=== PATIENT | female | born 1945 | race Caucasian/White ===

== ENCOUNTER → 2018-01-03 08:30 | Outpatient (CLI) | payer MEDICARE, SELFPAY ==
[2018-01-03 10:36] LABS: Microalbumi Creatinin Ratio Ur 22.8 ug/mg CR (<30); Microalbumin Urine Random 3.4 mg/dL (0-1.6)
== END ==
PROVIDERS: PCP Family Medicine; Visit Provider Family Medicine
DX: E78.2 Mixed hyperlipidemia (principal); I10 Essential (primary) hypertension; E03.9 Hypothyroidism, unspecified; E11.9 Type 2 diabetes mellitus without complications
CPT/HCPCS: 82043; 82570

== ENCOUNTER → 2018-01-09 08:15 | Outpatient (CLI) | payer MEDICARE, SELFPAY ==
[2018-01-09 10:02] LABS: Hemoglobin A1C% w Est Avg Glu 5.8 % (4.0-6.0)
== END ==
PROVIDERS: PCP Family Medicine; Visit Provider Family Medicine
DX: E11.9 Type 2 diabetes mellitus without complications (principal)
CPT/HCPCS: 36415; 83036

== ENCOUNTER → 2018-04-11 07:09 | Outpatient (CLI) | payer MEDICARE, SELFPAY ==
[2018-04-11 08:24] LABS: Hemoglobin A1C% w Est Avg Glu 5.9 % (4.0-6.0)
== END ==
PROVIDERS: PCP Family Medicine; Visit Provider Family Medicine
DX: E11.9 Type 2 diabetes mellitus without complications (principal)
CPT/HCPCS: 36415; 83036

== ENCOUNTER → 2018-07-16 09:19 | Outpatient (CLI) | payer MEDICARE, SELFPAY ==
[2018-07-16 10:00] LABS: Hemoglobin A1C% w Est Avg Glu 6.2 % (4.0-6.0)
[2018-07-16 10:38] LABS: Blood Urea Nitrogen 16 mg/dL (7-17); Calcium 9.1 mg/dL (8.4-10.2); Carbon Dioxide 29 mmol/L (22-32); Chloride 101 mmol/L (98-107); Estimated Glomerular Filt Rate > 60.0 mL/min (>60); Glucose 124 mg/dL (80-110); HEMOLYSIS < 15 (0-50); Potassium 4.4 mmol/L (3.4-5.1); Sodium 141 mmol/L (137-145)
== END ==
PROVIDERS: PCP Family Medicine; Visit Provider Family Medicine
DX: E11.9 Type 2 diabetes mellitus without complications (principal); I10 Essential (primary) hypertension
CPT/HCPCS: 80048; 83036

== ENCOUNTER → 2018-11-10 08:58 | Outpatient (CLI) | payer MEDICARE, SELFPAY ==
[2018-11-10 09:41] LABS: Add Manual Diff / Slide Review NO; Basophils Absolute Auto 0 /uL (0-100); Basophils Percent Auto 0.4 % (0-2); Eosinophils Absolute Auto 100 /uL (0-450); Eosinophils Percent Auto 2.4 % (2-4); Hematocrit 38.2 % (36-46); Lymphocytes Absolute Auto 2500 /uL (1100-4500); Lymphocytes Percent Auto 50.6 % (25-40); Mean Corpuscular HGB Conc 33.9 % (30-36); Mean Corpuscular Hemoglobin 29.4 PG (26-34); Mean Corpuscular Volume 86.5 fL (80-100); Monocytes Absolute Auto 400 /uL (0-900); Monocytes Percent Auto 8.9 % (3-14); Neutrophils Absolute Auto 1800 /uL (1500-7000); Neutrophils Percent Auto 37.7 % (50-75); Platelet Count 229 X10^3/uL (150-400); Red Blood Cell Count 4.42 X10^6/uL (4.0-5.2); Red Cell Distribution Width 13.8 % (11.6-14.8); White Blood Cell Count 4.8 X10^3/uL (4.5-11.0)
[2018-11-10 09:44] LABS: Alanine Aminotransferase 35 IU/L (9-52); Albumin 4.4 g/dL (3.5-5.0); Albumin Globulin Ratio 1.5 (1.0-2.8); Alkaline Phosphatase 42 U/L (38-126); Aspartate Aminotransferase 25 IU/L (14-36); Bilirubin Total 0.5 mg/dL (0.2-1.3); Blood Urea Nitrogen 14 mg/dL (7-17); Calcium 9.2 mg/dL (8.4-10.2); Carbon Dioxide 28 mmol/L (22-32); Chloride 102 mmol/L (98-107); Cholesterol 236 mg/dL (140-199); Estimated Glomerular Filt Rate > 60.0 mL/min (>60); Glucose 135 mg/dL (80-110); HDL Cholesterol 56 mg/dL (40-60); HEMOLYSIS < 15 (0-50); LDL Cholesterol Calculated 156 mg/dL (<100); Potassium 4.2 mmol/L (3.4-5.1); Sodium 139 mmol/L (137-145); Total Protein 7.4 g/dL (6.3-8.2); Triglycerides 122 mg/dL (35-150)
[2018-11-10 11:24] LABS: Thyroid Stimulating Hormone 0.02 uIU/mL (0.47-4.68)
== END ==
PROVIDERS: PCP Family Medicine; Visit Provider Family Medicine
DX: E03.9 Hypothyroidism, unspecified (principal); E11.9 Type 2 diabetes mellitus without complications; E78.2 Mixed hyperlipidemia; I10 Essential (primary) hypertension
CPT/HCPCS: 36415; 80053; 80061; 83036; 84443; 85025

== ENCOUNTER → 2018-12-26 07:53 | Outpatient (CLI) | payer MEDICARE, SELFPAY ==
[2018-12-26 08:36] LABS: BUN Creatinine Ratio 21.3 (6-22); Blood Urea Nitrogen 17 mg/dL (7-17); Calcium 9.6 mg/dL (8.4-10.2); Carbon Dioxide 29 mmol/L (22-32); Chloride 102 mmol/L (98-107); Estimated Glomerular Filt Rate > 60.0 mL/min (>60); Glucose 131 mg/dL (80-110); HEMOLYSIS < 15 (0-50); Potassium 4.5 mmol/L (3.4-5.1); Sodium 140 mmol/L (137-145)
== END ==
PROVIDERS: PCP Family Medicine; Visit Provider Family Medicine
DX: I10 Essential (primary) hypertension (principal)
CPT/HCPCS: 36415; 80048

== ENCOUNTER → 2019-04-23 08:14 | Outpatient (CLI) | payer MEDICARE, SELFPAY | PROVIDERS: PCP Family Medicine; Visit Provider Family Medicine | DX: E11.9 Type 2 diabetes mellitus without complications (principal); E78.2 Mixed hyperlipidemia; I10 Essential (primary) hypertension | CPT/HCPCS: 36415; 83036 ==

== ENCOUNTER → 2019-04-26 08:02 | Outpatient (CLI) | payer MEDICARE, SELFPAY ==
[2019-04-26 08:51] LABS: BUN Creatinine Ratio 24.3 (6-22); Blood Urea Nitrogen 17 mg/dL (7-17); Calcium 9.2 mg/dL (8.4-10.2); Carbon Dioxide 28 mmol/L (22-32); Chloride 103 mmol/L (98-107); Estimated Glomerular Filt Rate > 60.0 mL/min (>60); Glucose 140 mg/dL (80-110); HEMOLYSIS < 15 (0-50); Potassium 4.3 mmol/L (3.4-5.1); Sodium 141 mmol/L (137-145)
== END ==
PROVIDERS: PCP Family Medicine; Visit Provider Family Medicine
DX: I10 Essential (primary) hypertension (principal)
CPT/HCPCS: 36415; 80048

== ENCOUNTER → 2019-10-18 08:37 | Outpatient (CLI) | payer MEDICARE, SELFPAY ==
[2019-10-18 10:15] LABS: Hemoglobin A1C% w Est Avg Glu 6.2 % (4.0-6.0)
[2019-10-18 10:16] LABS: Blood Urea Nitrogen 16 mg/dL (7-17); Calcium 9.5 mg/dL (8.4-10.2); Carbon Dioxide 30 mmol/L (22-32); Chloride 94 mmol/L (98-107); Estimated Glomerular Filt Rate > 60.0 mL/min (>60); Glucose 140 mg/dL (80-110); HEMOLYSIS < 15 (0-50); Potassium 3.4 mmol/L (3.4-5.1); Sodium 134 mmol/L (137-145)
== END ==
PROVIDERS: PCP Family Medicine; Referring Provider Family Medicine; Visit Provider Family Medicine
DX: I10 Essential (primary) hypertension (principal); E11.9 Type 2 diabetes mellitus without complications
CPT/HCPCS: 36415; 80048; 83036

== ENCOUNTER → 2019-10-31 08:45 | Outpatient (CLI) | payer MEDICARE, SELFPAY ==
[2019-10-31 10:00] LABS: BUN Creatinine Ratio 24.4 (6-22); Blood Urea Nitrogen 19 mg/dL (7-17); Carbon Dioxide 29 mmol/L (22-32); Chloride 96 mmol/L (98-107); Estimated Glomerular Filt Rate > 60.0 mL/min (>60); Glucose 135 mg/dL (80-110); HEMOLYSIS < 15 (0-50); Potassium 4.2 mmol/L (3.4-5.1); Sodium 135 mmol/L (137-145)
== END ==
PROVIDERS: PCP Family Medicine; Referring Provider Family Medicine; Visit Provider Family Medicine
DX: Z51.81 Encounter for therapeutic drug level monitoring (principal); I10 Essential (primary) hypertension
CPT/HCPCS: 36415; 80048

== ENCOUNTER 2019-11-27 15:27 | Emergency (ER) | payer MEDICARE, SELFPAY ==
--- NOTE | 2019-11-27 15:35 | DI.CT.S_ITS ---
PROCEDURE: CT STROKE INDICATIONS: right side weakness NON-TPA CANDIDATE TECHNIQUE: Noncontrast 4.5 mm thick angled axial sections acquired from the foramen magnum to the vertex, with coronal reformats. For radiation dose reduction, the following was used: automated exposure control, adjustment of mA and/or kV according to patient size. COMPARISON: [facility], CT, HEAD WITHOUT CONTRAST, 10/17/2017, 11:33. FINDINGS: Image quality: Excellent. CSF spaces: Basal cisterns are patent. No extra-axial fluid collections. The ventricles are symmetric in size and shape. Brain: No intracranial bleeds or masses. There is cerebral volume loss for age, with resultant ventricular and sulcal prominence. There are periventricular and deep white matter chronic small vessel ischemic changes. There is intracranial internal carotid artery atherosclerosis. Skull and face: Calvarium and visualized facial bones appear intact, without suspicious lesions. Sinuses: Visualized sinuses and mastoids are clear. IMPRESSION: Unremarkable intracranial CT, without findings of acute hemorrhage. No findings of acute stroke are seen. If there is strong clinical suspicion for an acute stroke, please consider an MRI for further evaluation, as it is more sensitive (assuming that there is no contraindication to MRI). This study fulfills neurological imaging criteria for inclusion or exclusion of acute stroke therapies based on available published neurological guidelines. Dictated by: Justice Osullivan M.D. on 11/27/2019 at 15:03 Approved by: Justice Osullivan M.D. on 11/27/2019 at 15:05
[2019-11-27 15:36] VITALS: BP 228/95; PULSE 75; RESP 16; TEMP 36.6; O2SAT 98
--- NOTE | 2019-11-27 15:47 | ED.GENADULT ---
HPI - General Adult General Chief complaint: Neuro Symptoms/Deficit Stated complaint: Stroke like symptoms Time Seen by Provider: 11/27/19 15:35 Source: patient Mode of arrival: Ambulatory Limitations: no limitations History of Present Illness HPI narrative: 74-year-old female. History of hypertension, jvt-rjqqghc-xgqylelsj diabetes and hypothyroidism here for evaluation of which she thinks stroke. She states that her last known normal was at 1130 last evening. She went to bed because she had vague feelings of not feeling very well. She states she woke up in the middle the night and felt like her right arm was ?? she states she had a hard time lifting it. She had to lift it with the other arm. She did go back to bed. Woke up this morning and her arm symptoms had resolved. Approximately 1 hour prior to arrival here she noticed which she states was the same symptoms in her right lower extremity. States she had a hard time standing and walking at home. She thinks that at the time of my evaluation her symptoms had improved if not resolved. Denies any other associated symptoms. Related Data Home Medications Medication Instructions Recorded Confirmed cholecalciferol (vitamin D3) 1 tab PO QDAY #0 08/24/17 10/04/19 [Vitamin D3] thyroid (pork) 130 mg tablet 130 mg PO DAILY 07/18/18 10/04/19 Previous Rx's Medication Instructions Recorded Glucose: Home Monitor dev #1 05/16/16 Glucose: Test Strips 0 str BID #180 str 05/16/16 metformin 500 mg tablet 500 mg PO BID #180 tab 02/20/19 chlorthalidone 25 mg tablet 50 mg PO DAILY #180 tab 10/04/19 potassium chloride 10 mEq 10 meq PO DAILY #90 tab 11/23/19 tablet,extended release atorvastatin [Lipitor] 40 mg PO DAILY #30 tab 11/27/19 clopidogrel [Plavix] 75 mg PO DAILY #21 tab 11/27/19 Allergies Allergy/AdvReac Type Severity Reaction Status Date / Time diphenhydramine Allergy Severe hives and Verified 10/04/19 09:28 [DIPHENHYDRAMINE] rash pseudoephedrine Allergy Severe hives and Verified 10/04/19 09:28 [PSEUDOEPHEDRINE] rash shellfish derived Allergy Severe (JUST THE Verified 10/04/19 09:28 [SHELLFISH DERIVED] SHELL) rash Review of Systems Constitutional Constitutional: Denies chills, Denies fatigue, Denies fever(s) and Denies headache(s) Eyes Eyes: Denies blurry vision, Denies change in vision and Denies diplopia ENT Ears, Nose, Mouth, and Throat: Denies headache(s) and Denies sore throat Cardiovascular Cardiovascular: Denies chest pain and Denies dyspnea Respiratory Respiratory: Denies cough and Denies dyspnea Gastrointestinal Gastrointestinal: Denies nausea and Denies vomiting Genitourinary Genitourinary: Denies dysuria Musculoskeletal Musculoskeletal: Denies myalgias and Denies arthralgias Integumentary/Breasts Skin/Breast: Denies lesions and Denies rash Neurologic Neurologic: Denies behavioral changes and Denies headache(s) Psychiatric Psychiatric: Denies behavioral changes Endocrine Endocrine: Denies fatigue Hematologic/Lymphatic Hematologic/Lymphatic: Denies easy bleeding and Denies easy bruising Patient History Medical History Allergic rhinitis (Acute) Chicken pox (Resolved) DVT (deep venous thrombosis) (Chronic 2000) Fall at home (Resolved) 4 (Resolved) History of ectopic (Resolved 1980) Hypothyroidism (Chronic 2003) Measles (Resolved) Migraines (Chronic) Mumps (Resolved) Pertussis (Resolved 1949) Surgical History (Updated 04/11/18 @ 15:47 by Genna Ayala) History of bilateral salpingo-oophorectomy (BSO) (Resolved 1980) History of strabismus surgery (Resolved 1960) Status post hysterectomy (Resolved 1980) Status post wrist surgery (Resolved) Family History (Updated 04/11/18 @ 15:47 by Genna Ayala) Father Diabetes mellitus Mother Parkinson's disease Sister Thyroid disease Family/Other Thyroid disease Social History Smoking Status: Never smoker Smoking Status: Never smoker Exam Initial Vital Signs Initial Vital Signs: Vital Signs Temperature 97.8 F 11/27/19 15:36 Pulse Rate 75 11/27/19 15:36 Respiratory Rate 16 11/27/19 15:36 Blood Pressure 228/95 H 11/27/19 15:36 Pulse Oximetry 98 11/27/19 15:36 Const General: cooperative, comfortable, well developed and well groomed Limitations: mental status not altered HENVT Head: normal to inspection and normocephalic Nose: external nose normal Face and sinus: normal facial exam Mouth: oral mucosae normal Eyes Pupils: PERRL EOM: EOM intact bilaterally Resp Effort & Inspection: normal respiratory effort Auscultation: clear to auscultation bilaterally Cardio Rate: regular rate Rhythm: regular rhythm GI Inspection: non-distended Palpation: soft, No firm and No tender Skin Lesions: no lesions Rashes: no rashes Neuro General: alert, awake and oriented x3 Cranial Nerves: CN's II-XI intact bilaterally Cognition: normal cognition Speech: speech normal Sensory Exam: no sensory deficits noted Coordination: [id number] test normal Extrem General: normal to inspection and capillary refill normal Scores ABCD2 Age >= 60 years: yes Initial BP. Either SBP >= 140 or DBP >= 90.: yes Clinical features of the TIA: unilateral weakness Duration of symptoms: 10-59 minutes History of diabetes: yes ABCD2 Score: 6 GCS Christine coma scale eye opening: Spontaneous [place] coma scale verbal response: Orientated Christine coma scale motor response: Obey commands [place] coma scale total score: 15 NIH Stroke Scale Level of Conciousness: Alert, keenly responsive Ask month/age: Answers both questions correctly. Open/close eyes, close hand: Performs both tasks correctly Best gaze horizontal: Normal Visual box: No visual loss Facial palsy: Normal symetrical movement Left arm drift: No drift for full 10 sec Right arm drift: No drift for full 10 sec Left leg drift: No drift for full 10 sec Right leg drift: Drifts down, not to bed Limb ataxia: Absent Sensory on face/arms/legs: Normal, no sensory loss Best language: No aphasia, normal Dysarthria: Normal Extinction or inattention: No abnormality Total NIH Stroke scale score: 1 Course Orders Ordered: ED Orders 11/27/19 15:35 CT Stroke Stat 11/27/19 15:37 EKG-12 Lead Stat 11/27/19 16:03 Complete Blood Count AUTO DIFF Stat Comprehensive Metabolic Panel Stat Lipase Stat Partial Thromboplastin Time Stat Prothrombin Time INR Stat Thyroid Stimulating Hormone Stat Troponin I Stat 11/27/19 16:50 CT angio head and neck Stat Sodium Chloride (Normal Saline 0.9%) 1,000 mls @ 150 mls/hr IV CONT LYUBOV Last Admin: 11/27/19 17:36 Dose: Not Given Documented by: JANNA Discontinued Medications Aspirin (Aspirin Chew) 324 mg PO NOW ONE Stop: 11/27/19 16:52 Last Admin: 11/27/19 17:21 Dose: Not Given Documented by: JOSE Vital Signs Vital signs: Vital Signs - 8 hr 11/27/19 15:36 11/27/19 16:07 11/27/19 16:42 Temperature 97.8 F Pulse Rate 75 72 Respiratory Rate 16 29 H Blood Pressure 228/95 H Blood Pressure [Left Arm] 185/89 H 192/90 H Pulse Oximetry 98 99 11/27/19 17:36 Temperature Pulse Rate 67 Respiratory Rate 19 Blood Pressure Blood Pressure [Left Arm] 186/91 H Pulse Oximetry 97 Medical Decision Making Medical Records Medical records reviewed: Yes I reviewed the patient's medical records. Lab Data Lab results reviewed: Yes I reviewed the patient's lab results. Result diagrams: 11/27/19 16:03 11/27/19 16:03 Labs: Lab Results 11/27/19 11/27/19 11/27/19 Range/Units 16:03 16:03 16:03 WBC 5.4 (4.5-11.0) X10^3/uL RBC 4.17 (4.0-5.2) X10^6/uL Hgb 12.4 (12.0-16.0) g/dL Hct 36.9 (36-46) % MCV 88.6 (80-100) fL MCH 29.9 (26-34) PG MCHC 33.7 (30-36) % RDW 13.6 (11.6-14.8) % Plt Count 266 (150-400) X10^3/uL Neut % (Auto) 41.6 L (50-75) % Lymph % (Auto) 45.3 H (25-40) % [place] % (Auto) 8.9 (3-14) % Eos % (Auto) 3.3 (2-4) % Baso % (Auto) 0.9 (0-2) % Neut # (Auto) 2200 (7900-3765) /uL Lymph # (Auto) 2400 (1526-2747) /uL [place] # (Auto) 500 (0-900) /uL Eos # (Auto) 200 (0-450) /uL Baso # (Auto) 0 (0-100) /uL PT 10.2 (10.1-12.7) SECONDS INR 0.9 (0.9-1.3) APTT 28 (26.4-36.2) SECONDS Sodium 133 L (137-145) mmol/L Potassium 3.5 (3.4-5.1) mmol/L Chloride 96 L (98-107) mmol/L Carbon Dioxide 28 (22-32) mmol/L BUN 19 H (7-17) mg/dL Creatinine 0.87 (0.52-1.04) mg/dL Estimated GFR > 60.0 (>60) mL/min BUN/Creatinine Ratio 21.8 (6-22) Glucose 111 H (80-110) mg/dL Calcium 9.6 (8.4-10.2) mg/dL Total Bilirubin 0.4 (0.2-1.3) mg/dL AST 31 (14-36) IU/L ALT 29 (<35) IU/L Alkaline Phosphatase 54 (38-126) U/L Troponin I < 0.012 (0.01-0.034) ng/mL Total Protein 7.8 (6.3-8.2) g/dL Albumin 4.5 (3.5-5.0) g/dL Globulin 3.3 (1.7-4.1) g/dL Albumin/Globulin Ratio 1.4 (1.0-2.8) Lipase 86 (23-300) U/L TSH (0.47-4.68) uIU/mL 04/15/20 Range/Units 16:03 WBC (4.5-11.0) X10^3/uL RBC (4.0-5.2) X10^6/uL Hgb (12.0-16.0) g/dL Hct (36-46) % MCV (80-100) fL MCH (26-34) PG MCHC (30-36) % RDW (11.6-14.8) % Plt Count (150-400) X10^3/uL Neut % (Auto) (50-75) % Lymph % (Auto) (25-40) % [place] % (Auto) (3-14) % Eos % (Auto) (2-4) % Baso % (Auto) (0-2) % Neut # (Auto) (4352-6123) /uL Lymph # (Auto) (0684-8995) /uL [place] # (Auto) (0-900) /uL Eos # (Auto) (0-450) /uL Baso # (Auto) (0-100) /uL PT (10.1-12.7) SECONDS INR (0.9-1.3) APTT (26.4-36.2) SECONDS Sodium (137-145) mmol/L Potassium (3.4-5.1) mmol/L Chloride (98-107) mmol/L Carbon Dioxide (22-32) mmol/L BUN (7-17) mg/dL Creatinine (0.52-1.04) mg/dL Estimated GFR (>60) mL/min BUN/Creatinine Ratio (6-22) Glucose (80-110) mg/dL Calcium (8.4-10.2) mg/dL Total Bilirubin (0.2-1.3) mg/dL AST (14-36) IU/L ALT (<35) IU/L Alkaline Phosphatase (38-126) U/L Troponin I (0.01-0.034) ng/mL Total Protein (6.3-8.2) g/dL Albumin (3.5-5.0) g/dL Globulin (1.7-4.1) g/dL Albumin/Globulin Ratio (1.0-2.8) Lipase (23-300) U/L TSH 0.02 L (0.47-4.68) uIU/mL Imaging Data CT scan - head: Radiologist's Impression: [place] [address] CT Scan Report Signed Patient: Enedina Ye [facility]#: [id number] : 3Acct:[id number] Age/Sex: 74 / FDate of Service: 11/27/19 Loc: ED Accession Number: [id number] Procedure: CT Stroke Ordering Provider: Sumeet Castañeda D.O. PROCEDURE: CT STROKE INDICATIONS: right side weakness NON-TPA CANDIDATE TECHNIQUE: Noncontrast 4.5 mm thick angled axial sections acquired from the foramen magnum to the vertex, with coronal reformats. For radiation dose reduction, the following was used: automated exposure control, adjustment of mA and/or kV according to patient size. COMPARISON: [facility], CT, HEAD WITHOUT CONTRAST, 10/17/2017, 11:33. FINDINGS: Image quality: Excellent. CSF spaces: Basal cisterns are patent. No extra-axial fluid collections. The ventricles are symmetric in size and shape. Brain: No intracranial bleeds or masses. There is cerebral volume loss for age, with resultant ventricular and sulcal prominence. There are periventricular and deep white matter chronic small vessel ischemic changes. There is intracranial internal carotid artery atherosclerosis. Skull and face: Calvarium and visualized facial bones appear intact, without suspicious lesions. Sinuses: Visualized sinuses and mastoids are clear. IMPRESSION: Unremarkable intracranial CT, without findings of acute hemorrhage. No findings of acute stroke are seen. If there is strong clinical suspicion for an acute stroke, please consider an MRI for further evaluation, as it is more sensitive (assuming that there is no contraindication to MRI). This study fulfills neurological imaging criteria for inclusion or exclusion of acute stroke therapies based on available published neurological guidelines. Dictated by: Justice Osullivan M.D. on 11/27/2019 at 15:03 Approved by: Justice Osullivan M.D. on 11/27/2019 at 15:05 CTA - brain/neck: Radiologist's Impression: [address] [address] [address] Scan Report Signed Patient: Enedina Ye [facility]#: [id number] : 3Acct:[id number] Age/Sex: 74 / FDate of Service: 11/27/19 Loc: ED Accession Number: [id number] Procedure: CT angio head and neck Ordering Provider: Sumeet Castañeda D.O. PROCEDURE: CT ANGIO HEAD AND NECK INDICATIONS: TIA TECHNIQUE: Noncontrast images were performed earlier in the day and not repeated. After the administration of intravenous contrast, 1 mm thick sections acquired from the aortic arch through the [place] of [place]. Post-contrast 4.5 mm thick sections then re-acquired from the foramen magnum to the vertex. 3-dimensional vlbqmqz-pmvekljrt-cfisrelfom (MIP) and/or volume rendering reformats were acquired of the central intracranial vasculature and neck separately. COMPARISON: [facility], CT, HEAD WITHOUT CONTRAST, 10/17/2017, 11:33. [facility], CT, CT STROKE, 11/27/2019, 15:45. FINDINGS: Image quality: Excellent. BRAIN: CSF spaces: Ventricles are normal in size and shape. Basal cisterns are patent. No extra-axial fluid collections. Brain: No midline shift. No intracranial bleeds or masses. [place]-white matter interface appears intact. Skull and face: Calvarium and facial bones appear intact, without suspicious lesions. Orbits appear normal. Sinuses: Sinuses and mastoids are clear. HEAD CT ANGIOGRAPHY: Anterior circulation: Intracranial internal carotid arteries are normal in size and flow. There is a diminutive right A1 segment, with a corresponding robust left A1 segment. This is considered to be a normal developmental variant of the [place], of typically no clinical consequence. The flow within the paired anterior cerebral arteries is otherwise normal and symmetric. The flow within the middle cerebral arteries is normal and symmetric. The anterior communicating artery is seen. No aneurysms are seen. Posterior circulation: Visualized portions of the vertebral arteries demonstrate normal caliber, and join to form a normal appearing basilar artery. Flow within the posterior cerebral arteries is normal and symmetric. No aneurysms are seen. NECK CT ANGIOGRAPHY: Carotid system: The great vessels demonstrate a conventional anatomy as they arise from the aortic arch. The origins of the common carotid arteries appear patent. The common carotid arteries demonstrate normal caliber and courses. The bifurcation regions demonstrate atherosclerotic irregularity, yet without a focal stenosis. The more distal internal carotid arteries demonstrate tortuosity, yet without focal stenosis. Posterior circulation: The origins of the vertebral arteries both appear widely patent. The more superior extracranial portions of both vertebral arteries also demonstrate normal courses and calibers. They join to form a normal appearing basilar artery. Soft tissues: Visualized neck soft tissues demonstrate no suspicious abnormalities. Bones: No suspicious bony lesions. Visualized cervical spine appears normally aligned. Bony degenerative changes are seen, particularly involving the lower cervical spine. IMPRESSION: No significant intracranial arterial abnormality is seen. Within the arteries of the neck, no hemodynamically significant stenosis can be seen. Any quantitative measurements of stenosis were performed using NASCET criteria. Dictated by: Justice Osullivan M.D. on 11/27/2019 at 16:26 Approved by: Justice Osullivan M.D. on 11/27/2019 at 16:29 ECG Data Attestation: I personally reviewed and interpreted this ECG as follows: Prior ECG tracings: not available for review Interpretation: Sinus rhythm Ventricular rate is 76 Left axis deviation Normal QRS Normal QTC No ST T wave changes MDM Narrative Medical decision making narrative: NIH score 1. GCS of 15. Initial head CT unremarkable. CTA of the head neck shows no high-grade stenosis patient declined the aspirin in the fluids even after our discussion for the reasons for these medications. She reports that she feels like all of her symptoms that she came to emergency department with have greatly improved if not resolved. I did discuss the case with Dr. May with Stroke Neurology who agreed that this most likely TIA. I did discuss admitting the patient to the hospital. I did discuss the reasons for the admission to include the concerned that her presenting symptoms today could be a precursor to a stroke to a potential stroke that could be debilitating. We did discuss that by meeting her to the hospital we could get these studies done sooner rather than later specially given the issues with the novel coronavirus. Despite this discussion the patient stated that she would like to go home. She had a GCS of 15. Is alert oriented x3. Has no focal neurologic deficits. Not clinically intoxicated. Patient's was at bedside. She was able to express that she understand the risks of being admitted and the risks of being discharged home. Even after this discussion the patient still opted to be discharged home to follow-up with her primary provider. We will start the patient on dual anti-platelet therapy. Also start on a statin. She was given return precautions and follow-up instructions. She expressed understanding and agreement. Discharge Plan Departure Patient Disposition: Home Clinical Impression: Brain TIA Instructions: DI for Transient Ischemic Attack Activity Restrictions/Additional Instructions: After discussion and despite our recommendation of being admitted to the hospital you opted to be discharged home. I do recommend that tomorrow you contact your primary provider for a follow-up. Continue all of your medications as directed and I also recommend that you start taking a full dose 324mg aspirin on a daily basis. You can purchase these [id number]. I also recommend that you start taking the other medications you were given a prescription for as directed. These medications are designed to help reduce your risk of having further TIAs and potentially a stroke which could potentially be life-threatening. I highly recommend that you return to the emergency department as soon as possible if you develop any new or worsening symptoms. Prescriptions: New clopidogrel [Plavix] 75 mg tablet 75 mg PO DAILY Qty: 21 RF: 0 atorvastatin [Lipitor] 40 mg tablet 40 mg PO DAILY Qty: 30 RF: 0 No Action Glucose: Home Monitor Qty: 1 RF: 0 Glucose: Test Strips 0 str BID Qty: 180 RF: 3 cholecalciferol (vitamin D3) [Vitamin D3] 2,000 UNIT tablet 1 tab PO QDAY Qty: 0 RF: 0 metformin 500 mg tablet 500 mg PO BID Qty: 180 RF: 3 potassium chloride 10 mEq tablet extended release 10 meq PO DAILY Qty: 90 RF: 3 chlorthalidone 25 mg tablet 50 mg PO DAILY Qty: 180 RF: 1 thyroid (pork) [Nature-Throid] 130 mg tablet 130 mg PO DAILY RF: 0 Referrals: Meghan Meier DO [Primary Care Provider] -
[2019-11-27 16:07] VITALS: BP 185/89
[2019-11-27 16:16] LABS: Add Manual Diff / Slide Review NO; Basophils Absolute Auto 0 /uL (0-100); Basophils Percent Auto 0.9 % (0-2); Eosinophils Absolute Auto 200 /uL (0-450); Eosinophils Percent Auto 3.3 % (2-4); Hematocrit 36.9 % (36-46); Hemoglobin 12.4 g/dL (12.0-16.0); Lymphocytes Absolute Auto 2400 /uL (1100-4500); Lymphocytes Percent Auto 45.3 % (25-40); Mean Corpuscular HGB Conc 33.7 % (30-36); Mean Corpuscular Hemoglobin 29.9 PG (26-34); Mean Corpuscular Volume 88.6 fL (80-100); Monocytes Absolute Auto 500 /uL (0-900); Monocytes Percent Auto 8.9 % (3-14); Neutrophils Absolute Auto 2200 /uL (1500-7000); Neutrophils Percent Auto 41.6 % (50-75); Platelet Count 266 X10^3/uL (150-400); Red Blood Cell Count 4.17 X10^6/uL (4.0-5.2); Red Cell Distribution Width 13.6 % (11.6-14.8); White Blood Cell Count 5.4 X10^3/uL (4.5-11.0)
[2019-11-27 16:18] LABS: INR 0.9 (0.9-1.3); Prothrombin Time 10.2 SECONDS (10.1-12.7)
[2019-11-27 16:20] LABS: PTT Partial Thromboplastin Tim 28 SECONDS (26.4-36.2)
[2019-11-27 16:22] LABS: Alanine Aminotransferase 29 IU/L (<35); Albumin 4.5 g/dL (3.5-5.0); Albumin Globulin Ratio 1.4 (1.0-2.8); Alkaline Phosphatase 54 U/L (38-126); Aspartate Aminotransferase 31 IU/L (14-36); BUN Creatinine Ratio 21.8 (6-22); Bilirubin Total 0.4 mg/dL (0.2-1.3); Blood Urea Nitrogen 19 mg/dL (7-17); Calcium 9.6 mg/dL (8.4-10.2); Carbon Dioxide 28 mmol/L (22-32); Chloride 96 mmol/L (98-107); Estimated Glomerular Filt Rate > 60.0 mL/min (>60); Globulin 3.3 g/dL (1.7-4.1); Glucose 111 mg/dL (80-110); HEMOLYSIS 23 (0-50); Lipase 86 U/L (23-300); Potassium 3.5 mmol/L (3.4-5.1); Sodium 133 mmol/L (137-145); Total Protein 7.8 g/dL (6.3-8.2)
[2019-11-27 16:33] LABS: Troponin I < 0.012 ng/mL (0.01-0.034)
[2019-11-27 16:42] VITALS: BP 192/90; PULSE 72; RESP 29; O2SAT 99
--- NOTE | 2019-11-27 16:50 | DI.CT.S_ITS ---
PROCEDURE: CT ANGIO HEAD AND NECK INDICATIONS: TIA TECHNIQUE: Noncontrast images were performed earlier in the day and not repeated. After the administration of intravenous contrast, 1 mm thick sections acquired from the aortic arch through the [place] of [place]. Post-contrast 4.5 mm thick sections then re-acquired from the foramen magnum to the vertex. 3-dimensional uedzqlm-tveytfxrh-rnthqhzvii (MIP) and/or volume rendering reformats were acquired of the central intracranial vasculature and neck separately. COMPARISON: [facility], CT, HEAD WITHOUT CONTRAST, 10/17/2017, 11:33. [facility], CT, CT STROKE, 11/27/2019, 15:45. FINDINGS: Image quality: Excellent. BRAIN: CSF spaces: Ventricles are normal in size and shape. Basal cisterns are patent. No extra-axial fluid collections. Brain: No midline shift. No intracranial bleeds or masses. [place]-white matter interface appears intact. Skull and face: Calvarium and facial bones appear intact, without suspicious lesions. Orbits appear normal. Sinuses: Sinuses and mastoids are clear. HEAD CT ANGIOGRAPHY: Anterior circulation: Intracranial internal carotid arteries are normal in size and flow. There is a diminutive right A1 segment, with a corresponding robust left A1 segment. This is considered to be a normal developmental variant of the [place] of [place], of typically no clinical consequence. The flow within the paired anterior cerebral arteries is otherwise normal and symmetric. The flow within the middle cerebral arteries is normal and symmetric. The anterior communicating artery is seen. No aneurysms are seen. Posterior circulation: Visualized portions of the vertebral arteries demonstrate normal caliber, and join to form a normal appearing basilar artery. Flow within the posterior cerebral arteries is normal and symmetric. No aneurysms are seen. NECK CT ANGIOGRAPHY: Carotid system: The great vessels demonstrate a conventional anatomy as they arise from the aortic arch. The origins of the common carotid arteries appear patent. The common carotid arteries demonstrate normal caliber and courses. The bifurcation regions demonstrate atherosclerotic irregularity, yet without a focal stenosis. The more distal internal carotid arteries demonstrate tortuosity, yet without focal stenosis. Posterior circulation: The origins of the vertebral arteries both appear widely patent. The more superior extracranial portions of both vertebral arteries also demonstrate normal courses and calibers. They join to form a normal appearing basilar artery. Soft tissues: Visualized neck soft tissues demonstrate no suspicious abnormalities. Bones: No suspicious bony lesions. Visualized cervical spine appears normally aligned. Bony degenerative changes are seen, particularly involving the lower cervical spine. IMPRESSION: No significant intracranial arterial abnormality is seen. Within the arteries of the neck, no hemodynamically significant stenosis can be seen. Any quantitative measurements of stenosis were performed using NASCET criteria. Dictated by: Justice Osullivan M.D. on 11/27/2019 at 16:26 Approved by: Justice Osullivan M.D. on 11/27/2019 at 16:29
[2019-11-27 17:06] LABS: Thyroid Stimulating Hormone 0.02 uIU/mL (0.47-4.68)
[2019-11-27 17:36] VITALS: BP 186/91; PULSE 67; RESP 19; O2SAT 97
--- NOTE | 2019-11-27 17:37 | PC.NURSE ---
Patient declines IV fluid and Aspirin at this time.
[2019-11-27 18:16] VITALS: BP 189/92; PULSE 92; RESP 19; O2SAT 97
[2019-11-27 18:17] VITALS: BP 189/92; PULSE 65; RESP 24; O2SAT 99
== END 2019-11-27 18:19 | disposition home or self-care (01) ==
PROVIDERS: Emergency Provider Emergency Medicine; PCP Family Medicine
DX: G45.9 Transient cerebral ischemic attack, unspecified (principal); I10 Essential (primary) hypertension; E11.9 Type 2 diabetes mellitus without complications; E03.8 Other specified hypothyroidism
CPT/HCPCS: 36415; 70450; 70496; 70498; 80053; 83690; 84443; 84484; 85025; 85610; 85730; 93005; 99285; Q9967

== ENCOUNTER → 2019-12-11 14:47 | Outpatient (CLI) | payer MEDICARE, SELFPAY ==
--- NOTE | 2019-12-11 14:49 | DI.ECHO.S_ITS ---
[place] [facility]---------+ [facility] +---------+ : : [address] : [address] : : : : [id number] : : : : Phone: [phone]---------+ Echocardiogram Report + + :Name: BRITTANY EGAN Study Date: 12/11/2019 Height: 68 in : :[facility] Weight: 220 lb : : Gender: Female BSA: 2.1 m2 : :: 1945 Age: 74 yrs BP: 142/90 mmHg: :Reason For Study: Hypertension TIA : :Ordering Physician: Ebonie : :Hardeep Performed By: Fallon Maldonado : :Referring: EBNOIE PETERS : + + Interpretation Summary There is mild concentric left ventricular hypertrophy. The ejection fraction is estimated to be 60-65%. There is mild tricuspid regurgitation. The right ventricular systolic pressure is estimated to be at least 27 mmHg based on an estimated right atrial pressure of 3 mm Hg. Procedure: A two-dimensional transthoracic echocardiogram with color flow and Doppler was performed. The study quality was technically adequate. There is no prior echocardiogram noted for this patient. The patient was in normal sinus rhythm during the exam. Left Ventricle: The left ventricle is normal in size. There is mild concentric left ventricular hypertrophy. The ejection fraction is estimated to be 60-65%. Left ventricular wall motion is normal. Right Ventricle: The right ventricle is normal in size and function. Atria: The left atrium is borderline dilated. A prominent eustachian valve is noted. Right atrial size is normal. There is no Doppler evidence for an interatrial shunt. Mitral Valve: The mitral valve is normal in structure and function. There is trace mitral regurgitation. Aortic Valve: The aortic valve is trileaflet. The aortic valve opens well. There is no aortic valve stenosis. There is trace aortic regurgitation. Tricuspid Valve: The tricuspid valve is normal in structure and function. There is mild tricuspid regurgitation. The right ventricular systolic pressure is estimated to be at least 27 mmHg based on an estimated right atrial pressure of 3 mm Hg. Pulmonic Valve: The pulmonic valve is normal in structure and function. There is mild pulmonic regurgitation. Great Vessels: The aortic root is normal size. The ascending aorta is at the upper limits of normal in size. The IVC is of normal diameter and collapses greater than 50% with a sniff. This suggests a low right atrial pressure of 3 mm Hg. Pericardium/ Pleura There is no pericardial effusion. There is no pleural effusion. MMode/2D Measurements & Calculations LVIDd: 4.6 cm LVOT diam: 2.0 cm LVIDs: 3.0 cm Ao root diam: 3.0 cm FS: 35.4 % asc Aorta Diam: 3.4 cm EPSS: 0.77 cm Ao Arch Diam (Prox Trans): 3.1 cm IVSd: 1.2 cm LVPWd: 0.96 cm LV chan. diameter/BSA (cm/m^2): 2.1 LV sys. diameter/BSA (cm/m^2): 1.4 LA A2 area: 22.1 cm2 RA long axis: 4.8 cm LA A4 area: 18.0 cm2 RA area: 13.1 cm2 LA length (vol): 4.7 cm RA vol: 30.2 ml LA vol: 71.5 ml RA : 14.2 ml/m2 LA vol index: 33.6 ml/m2 RVD1 (basal): 3.5 cm TAPSE: 1.8 cm Doppler Measurements & Calculations Ao V2 max: 129.6 cm/sec LVOT Max John: 91.2 cm/sec Ao V2 mean: 77.1 cm/sec LV V1 max P.3 mmHg Ao max P.7 mmHg LV V1 VTI: 23.5 cm Ao mean P.9 mmHg LAVERNE(I,D): 2.8 cm2 Ao V2 VTI: 27.0 cm LAVERNE(V,D): 2.3 cm2 sev ratio: 0.87 LAVERNE indexed to BSA (cm^2/m^2): 1.3 MV E max john: 71.9 cm/sec TR max john: 246.0 cm/sec MV A max john: 79.1 cm/sec TR max P.4 mmHg MV E/A: 0.91 PA V2 max: 87.4 cm/sec Med Peak E' John: 4.0 cm/sec PA V2 mean: 54.9 cm/sec E/E' med: 18.2 PA mean P.4 mmHg Lat Peak E' John: 5.1 cm/sec PA pr(Accel): 46.5 mmHg E/E' lat: 14.0 E/e' average: 16.1 MV dec time: 0.30 sec SV(LVOT): 76.2 ml Reading Physician:12:24 PM
--- NOTE | 2019-12-11 14:49 | DI.MRI.S_ITS ---
PROCEDURE: MR HEAD/BRAIN WO/W CON INDICATIONS: TIA TECHNIQUE: Noncontrast axial T1 spin echo, axial T2 fast spin echo, sagittal and axial FLAIR, coronal T2 fast spin echo, axial gradient echo, axial diffusion and ADC through the brain. After the administration of contrast, axial and coronal T1 spin echo with fat saturation through the brain. COMPARISON: [facility], CT, CT STROKE, 11/27/2019, 15:45. [facility], CT, CT ANGIO HEAD AND NECK, 11/27/2019, 16:54. FINDINGS: Image quality: Excellent. CSF spaces: Basal cisterns are patent. No extra-axial fluid collections. Ventricles are normal in size and shape. Brain: No midline shift. No intracranial bleeds or masses. No abnormal intracranial enhancement. There is cerebral volume loss for age. There is periventricular white matter chronic small vessel ischemic change. The brainstem appears normal. Diffusion-weighted images demonstrate no acute ischemic insults. No chronic ischemic insults. Normal intravascular flow voids are present. Skull and face: Calvarial marrow is normal in signal. Orbits appear normal. Note is made of bilateral lens replacements. Sinuses: Sinuses and mastoids appear clear. IMPRESSION: No findings of acute or subacute infarction can be seen. Note is made of age-appropriate brain parenchymal volume loss and chronic small vessel ischemic changes. No masses or abnormal enhancement can be seen. Dictated by: Justice Osullivan M.D. on 12/11/2019 at 16:28 Approved by: Justice Osullivan M.D. on 12/11/2019 at 16:29
== END ==
PROVIDERS: PCP Family Medicine; Referring Provider Family Medicine; Visit Provider Family Medicine
DX: G45.9 Transient cerebral ischemic attack, unspecified (principal); I07.1 Rheumatic tricuspid insufficiency; I10 Essential (primary) hypertension
CPT/HCPCS: 70553; 93306; A9579

== ENCOUNTER → 2020-01-09 07:51 | Outpatient (CLI) | payer MEDICARE, SELFPAY ==
[2020-01-09 08:39] LABS: Cholesterol 248 mg/dL (140-199); HDL Cholesterol 61 mg/dL (40-60); LDL Cholesterol Calculated 166 mg/dL (<100); Triglycerides 103 mg/dL (35-150)
[2020-01-09 09:51] LABS: Free T3, Triiodothyronine Free 2.81 pg/mL (2.77-5.27); Free T4, Direct Thyroxine 0.88 ng/dL (0.78-2.19)
[2020-01-09 10:05] LABS: Thyroid Stimulating Hormone 0.09 uIU/mL (0.47-4.68)
[2020-01-15 01:09] LABS: Triiodothyronine T3 Reverse 19.6 ng/dL (9.2-24.1)
== END ==
PROVIDERS: PCP Family Medicine; Referring Provider Family Medicine; Visit Provider Family Medicine
DX: E03.9 Hypothyroidism, unspecified (principal); E11.9 Type 2 diabetes mellitus without complications; E66.9 Obesity, unspecified; E78.2 Mixed hyperlipidemia; I10 Essential (primary) hypertension
CPT/HCPCS: 36415; 80061; 83525; 84439; 84443; 84481; 84482

== ENCOUNTER 2020-01-17 11:07 | Inpatient (IN) | payer MEDICARE, SELFPAY ==
--- NOTE | 2020-01-17 11:18 | DI.CT.S_ITS ---
PROCEDURE: CT STROKE INDICATIONS: right sided weakness TECHNIQUE: Noncontrast 4.5 mm thick angled axial sections acquired from the foramen magnum to the vertex, with coronal reformats. For radiation dose reduction, the following was used: automated exposure control, adjustment of mA and/or kV according to patient size. COMPARISON: [facility], MR, MR HEAD/BRAIN WO/W CON, 12/11/2019, 16:26. [facility], CT, CT ANGIO HEAD AND NECK, 11/27/2019, 16:54. [facility], CT, CT STROKE, 11/27/2019, 15:45. FINDINGS: Image quality: Excellent. CSF spaces: Basal cisterns are patent. No extra-axial fluid collections. The ventricles are symmetric in size and shape. Brain: No intracranial bleeds or masses. There is cerebral volume loss for age, with resultant ventricular and sulcal prominence. There are periventricular and deep white matter chronic small vessel ischemic changes. There is intracranial internal carotid artery atherosclerosis. Skull and face: Calvarium and visualized facial bones appear intact, without suspicious lesions. Sinuses: Visualized sinuses and mastoids are clear. IMPRESSION: No acute intracranial disease process. Findings telephoned to Dr. Sumeet Castañeda on 01/17/2020 at 1121 hrs. This study fulfills neurological imaging criteria for inclusion or exclusion of acute stroke therapies based on available published neurological guidelines. Dictated by: Leslie Pollard MD, PhD on 01/17/2020 at 11:21 Approved by: Leslie Pollard MD, PhD on 01/17/2020 at 11:25
[2020-01-17 11:30] VITALS: BP 177/79; PULSE 66; RESP 16; O2SAT 95
[2020-01-17 11:33] LABS: Add Manual Diff / Slide Review NO; Basophils Absolute Auto 0 /uL (0-100); Basophils Percent Auto 0.9 % (0-2); Eosinophils Absolute Auto 100 /uL (0-450); Eosinophils Percent Auto 2.8 % (2-4); Hemoglobin 12.5 g/dL (12.0-16.0); Lymphocytes Absolute Auto 2000 /uL (1100-4500); Lymphocytes Percent Auto 41.5 % (25-40); Mean Corpuscular HGB Conc 34.7 % (30-36); Mean Corpuscular Hemoglobin 30.2 PG (26-34); Mean Corpuscular Volume 87.1 fL (80-100); Monocytes Absolute Auto 500 /uL (0-900); Monocytes Percent Auto 10.2 % (3-14); Neutrophils Absolute Auto 2200 /uL (1500-7000); Neutrophils Percent Auto 44.6 % (50-75); Platelet Count 271 X10^3/uL (150-400); Red Blood Cell Count 4.13 X10^6/uL (4.0-5.2); Red Cell Distribution Width 13.8 % (11.6-14.8); White Blood Cell Count 4.8 X10^3/uL (4.5-11.0)
--- NOTE | 2020-01-17 11:37 | ED.NEUROSD ---
HPI - Neuro Symptoms/Deficit General Chief Complaint: Neuro Symptoms/Deficit Stated Complaint: rt leg no strength/ can move/ unable to stand on Time Seen by Provider: 01/17/20 11:11 Source: patient and family Mode of arrival: Wheelchair Limitations: no limitations History of Present Illness HPI Narrative: Patient is a 74-year-old female here for evaluation of right leg and right arm weakness. Patient states she went to bed last night feeling fine. Woke up this morning sometime between 630 and 0700 hours and states she had a very difficult time moving her right leg while she was trying to ambulate to the bathroom. She states that she was able to go to the bathroom and then make it back to bed. States she went back to sleep. Woke up at about 830 this morning with potentially worsening right lower extremity weakness and at that time had right upper extremity weakness as well. She denied any other associated symptoms. She had very similar symptoms which she reports were not as bad in November of this year. I evaluated her during this visit. Diagnosed with a TIA. Patient decided to go home during a visit rather than being admitted to the hospital. Since that time she has had an MRI and an echocardiogram. The MRI was unremarkable of the echocardiogram showed pulmonary hypertension. She has followed up with her primary doctor. She is still on aspirin although she states she is taking a baby aspirin not a full-dose aspirin. She has been taken off the Plavix. She reports that currently her symptoms are just as bad as what they were the onset this morning. Patient's last known normal was last evening greater than 4-1/2 hours after arrival here to the emergency department. On Anticoagulants: Yes (ASA 325 mg daily) Related Data Home Medications Medication Instructions Recorded Confirmed cholecalciferol (vitamin D3) 1 tab PO QAM #0 08/24/17 01/17/20 [Vitamin D3] thyroid (pork) 130 mg tablet 130 mg PO QAM 07/18/18 01/17/20 aspirin [Adult Low Dose Aspirin] 81 mg PO QPM 01/17/20 01/17/20 chlorthalidone 25 mg PO QPM 01/17/20 01/17/20 coQ10 (ubiquinol) 200 mg PO QAM 01/17/20 01/17/20 cod liver oil 1 cap PO QAM 01/17/20 01/17/20 vitamin B complex [B 1 tab PO QAM 01/17/20 01/17/20 Complex-Vitamin B12] Previous Rx's Medication Instructions Recorded Glucose: Home Monitor dev #1 05/16/16 Glucose: Test Strips 0 str BID #180 str 05/16/16 metformin 500 mg tablet 500 mg PO BID #180 tab 02/20/19 Allergies Allergy/AdvReac Type Severity Reaction Status Date / Time diphenhydramine Allergy Severe hives and Verified 01/17/20 11:19 [DIPHENHYDRAMINE] rash pseudoephedrine Allergy Severe hives and Verified 01/17/20 11:19 [PSEUDOEPHEDRINE] rash shellfish derived Allergy Severe (JUST THE Verified 01/17/20 11:19 [SHELLFISH DERIVED] SHELL) rash Review of Systems Constitutional Constitutional: Denies chills, Denies fatigue, Denies fever(s) and Denies headache(s) Eyes Eyes: Denies blurry vision and Denies change in vision ENT Ears, Nose, Mouth, and Throat: Denies headache(s) and Denies sore throat Cardiovascular Cardiovascular: Denies chest pain, Denies rapid heart rate, Denies irregular heart rhythm and Denies dyspnea Respiratory Respiratory: Denies cough and Denies dyspnea Gastrointestinal Gastrointestinal: Denies abdominal pain, Denies change in bowel habits, Denies diarrhea and Denies nausea Genitourinary Genitourinary: Denies dysuria Genitourinary: Denies dysuria Musculoskeletal Musculoskeletal: Denies arthralgias and Denies myalgias Integumentary/Breasts Skin/Breast: Denies lesions and Denies rash Neurologic Neurologic: Denies behavioral changes and Denies headache(s) Psychiatric Psychiatric: Denies behavioral changes Endocrine Endocrine: Denies fatigue Hematologic/Lymphatic Hematologic/Lymphatic: Denies easy bleeding and Denies easy bruising Allergic/Immunologic Allergic/Immunologic: Denies urticaria Patient History Medical History Allergic rhinitis (Acute) Chicken pox (Resolved) DVT (deep venous thrombosis) (Chronic 2000) Fall at home (Resolved) 4 (Resolved) History of ectopic (Resolved 1980) Hypothyroidism (Chronic 2003) Measles (Resolved) Migraines (Chronic) Mumps (Resolved) Pertussis (Resolved 1949) Surgical History History of bilateral salpingo-oophorectomy (BSO) (Resolved 1980) History of strabismus surgery (Resolved 1960) Status post hysterectomy (Resolved 1980) Status post wrist surgery (Resolved) Family History Father Diabetes mellitus Mother Parkinson's disease Sister Thyroid disease Family/Other Thyroid disease Social History Smoking Status: Never smoker Smoking Status: Never smoker alcohol intake frequency: 0-2 drinks per day Substance Use Type: does not use Exam Initial Vital Signs Initial Vital Signs: Vital Signs Pulse Rate 66 01/17/20 11:30 Respiratory Rate 16 01/17/20 11:30 Blood Pressure 177/79 H 01/17/20 11:30 Pulse Oximetry 95 01/17/20 11:30 Const General: cooperative, comfortable and well developed Limitations: mental status not altered HENMT Head: normal to inspection and normocephalic Resp Effort & Inspection: normal respiratory effort Auscultation: clear to auscultation bilaterally Cardio Rate: regular rate Rhythm: regular rhythm GI Inspection: non-distended Palpation: soft and No firm Skin Lesions: no lesions Rashes: no rashes Neuro General: patient alert, patient awake and patient oriented x3 Cognition: normal cognition Speech: speech normal Extrem General: normal to inspection and capillary refill normal Psych Appearance: grossly normal and well kempt Scores GCS [place] coma scale eye opening: Spontaneous [place] coma scale verbal response: Orientated [place] coma scale motor response: Obey commands [place] coma scale total score: 15 NIH Stroke Scale Level of Conciousness: Alert, keenly responsive Ask month/age: Answers both questions correctly. Open/close eyes, close hand: Performs both tasks correctly Best gaze horizontal: Normal Visual box: No visual loss Facial palsy: Normal symetrical movement Left arm drift: No drift for full 10 sec Right arm drift: No drift for full 10 sec Left leg drift: No drift for full 10 sec Right leg drift: Drifts down, not to bed Limb ataxia: Absent Sensory on face/arms/legs: Mild to moderate sensory loss, can tell touch Best language: No aphasia, normal Dysarthria: Normal Extinction or inattention: No abnormality Total NIH Stroke scale score: 2 Course Orders Ordered: ED Orders 01/17/20 11:11 EKG-12 Lead Stat 01/17/20 11:18 CT Stroke Stat 01/17/20 11:25 Complete Blood Count AUTO DIFF Stat Comprehensive Metabolic Panel Stat Ethanol (ETOH) Stat Lipase Stat Partial Thromboplastin Time Stat Prothrombin Time INR Stat Thyroid Stimulating Hormone Stat Troponin I Stat 01/17/20 11:55 CT angio head and neck Stat 01/17/20 12:25 Urine Culture Stat Urine Microscopic Stat Discontinued Medications Sodium Chloride (Normal Saline 0.9%) 1,000 mls @ 1,000 mls/hr IV BOLUS ONE Stop: 01/17/20 12:54 Last Admin: 01/17/20 12:03 Dose: 1,000 mls/hr Documented by: SHERRIE Vital Signs Vital signs: Vital Signs - 8 hr 01/17/20 11:30 01/17/20 12:35 Pulse Rate 66 64 Respiratory Rate 16 16 Blood Pressure [Left Arm] 177/79 H 192/82 H Pulse Oximetry 95 97 MDM - Neuro Symptoms/Deficit Medical Records Attestation: I reviewed the patient's medical records. Lab Data Attestation: I reviewed the patient's lab results. Result diagrams: 01/17/20 11:25 01/17/20 11:25 Labs: Lab Results 01/17/20 01/17/20 01/17/20 Range/Units 11:25 11:25 11:25 WBC 4.8 (4.5-11.0) X10^3/uL RBC 4.13 (4.0-5.2) X10^6/uL Hgb 12.5 (12.0-16.0) g/dL Hct 36.0 (36-46) % MCV 87.1 (80-100) fL MCH 30.2 (26-34) PG MCHC 34.7 (30-36) % RDW 13.8 (11.6-14.8) % Plt Count 271 (150-400) X10^3/uL Neut % (Auto) 44.6 L (50-75) % Lymph % (Auto) 41.5 H (25-40) % Frio % (Auto) 10.2 (3-14) % Eos % (Auto) 2.8 (2-4) % Baso % (Auto) 0.9 (0-2) % Neut # (Auto) 2200 (4749-4117) /uL Lymph # (Auto) 2000 (3636-3602) /uL Frio # (Auto) 500 (0-900) /uL Eos # (Auto) 100 (0-450) /uL Baso # (Auto) 0 (0-100) /uL PT 10.7 (10.1-12.7) SECONDS INR 0.9 (0.9-1.3) APTT 28 (26.4-36.2) SECONDS Sodium 131 L (137-145) mmol/L Potassium 3.8 (3.4-5.1) mmol/L Chloride 94 L (98-107) mmol/L Carbon Dioxide 27 (22-32) mmol/L BUN 14 (7-17) mg/dL Creatinine 0.79 (0.52-1.04) mg/dL Estimated GFR > 60.0 (>60) mL/min BUN/Creatinine Ratio 17.7 (6-22) Glucose 111 H (80-110) mg/dL Calcium 9.5 (8.4-10.2) mg/dL Total Bilirubin 0.6 (0.2-1.3) mg/dL AST 25 (14-36) IU/L ALT 24 (<35) IU/L Alkaline Phosphatase 36 L (38-126) U/L Troponin I < 0.012 (0.01-0.034) ng/mL Total Protein 7.6 (6.3-8.2) g/dL Albumin 4.4 (3.5-5.0) g/dL Globulin 3.2 (1.7-4.1) g/dL Albumin/Globulin Ratio 1.4 (1.0-2.8) Lipase 66 (23-300) U/L TSH (0.47-4.68) uIU/mL Urine RBC (0-5/HPF) Urine WBC (0-5/HPF) Ur Squamous Epith Cells (0-5/HPF) Urine Bacteria (None) Ur Culture Indicated? Ethyl Alcohol < 10 ( - 10) mg/dL 01/17/20 01/17/20 Range/Units 11:25 12:25 WBC (4.5-11.0) X10^3/uL RBC (4.0-5.2) X10^6/uL Hgb (12.0-16.0) g/dL Hct (36-46) % MCV (80-100) fL MCH (26-34) PG MCHC (30-36) % RDW (11.6-14.8) % Plt Count (150-400) X10^3/uL Neut % (Auto) (50-75) % Lymph % (Auto) (25-40) % Frio % (Auto) (3-14) % Eos % (Auto) (2-4) % Baso % (Auto) (0-2) % Neut # (Auto) (8980-2741) /uL Lymph # (Auto) (6704-5948) /uL Frio # (Auto) (0-900) /uL Eos # (Auto) (0-450) /uL Baso # (Auto) (0-100) /uL PT (10.1-12.7) SECONDS INR (0.9-1.3) APTT (26.4-36.2) SECONDS Sodium (137-145) mmol/L Potassium (3.4-5.1) mmol/L Chloride (98-107) mmol/L Carbon Dioxide (22-32) mmol/L BUN (7-17) mg/dL Creatinine (0.52-1.04) mg/dL Estimated GFR (>60) mL/min BUN/Creatinine Ratio (6-22) Glucose (80-110) mg/dL Calcium (8.4-10.2) mg/dL Total Bilirubin (0.2-1.3) mg/dL AST (14-36) IU/L ALT (<35) IU/L Alkaline Phosphatase (38-126) U/L Troponin I (0.01-0.034) ng/mL Total Protein (6.3-8.2) g/dL Albumin (3.5-5.0) g/dL Globulin (1.7-4.1) g/dL Albumin/Globulin Ratio (1.0-2.8) Lipase (23-300) U/L TSH 0.03 L D (0.47-4.68) uIU/mL Urine RBC 0-1/hpf (0-5/HPF) Urine WBC 5-10/hpf H (0-5/HPF) Ur Squamous Epith Cells 1-5 /hpf (0-5/HPF) Urine Bacteria Few (2-10) H (None) Ur Culture Indicated? Specimen cultured Ethyl Alcohol ( - 10) mg/dL Point of Care Testing Glucose POC 108 Urine Dip Bedside Urine Glucose Negative Bedside Urine Bilirubin - Negative Bedside Urine Ketone - Negative Urine Specific [place] 1.010 Bedside Urine Occult Blood - Negative Bedside Urine pH 7.0 Bedside Urine Protein - Negative Bedside Urine Urobilinogen +/- 1mg Bedside Urine Nitrite - Negative Bedside Urine Leukocytes + [address] scan - head: Radiologist's Impression: [address] [address] [address] Scan Report Signed Patient: Enedina Ye MMR#: [id number] : 1945cct:[id number] Age/Sex: 74 / FDate of Service: 01/17/20 Loc: ED Accession Number: [id number] Procedure: CT Stroke Ordering Provider: Sumeet Castañeda D.O. PROCEDURE: CT STROKE INDICATIONS: right sided weakness TECHNIQUE: Noncontrast 4.5 mm thick angled axial sections acquired from the foramen magnum to the vertex, with coronal reformats. For radiation dose reduction, the following was used: automated exposure control, adjustment of mA and/or kV according to patient size. COMPARISON: [facility], MR, MR HEAD/BRAIN WO/W CON, 12/11/2019, 16:26. [facility], CT, CT ANGIO HEAD AND NECK, 11/27/2019, 16:54. [facility], CT, CT STROKE, 11/27/2019, 15:45. FINDINGS: Image quality: Excellent. CSF spaces: Basal cisterns are patent. No extra-axial fluid collections. The ventricles are symmetric in size and shape. Brain: No intracranial bleeds or masses. There is cerebral volume loss for age, with resultant ventricular and sulcal prominence. There are periventricular and deep white matter chronic small vessel ischemic changes. There is intracranial internal carotid artery atherosclerosis. Skull and face: Calvarium and visualized facial bones appear intact, without suspicious lesions. Sinuses: Visualized sinuses and mastoids are clear. IMPRESSION: No acute intracranial disease process. Findings telephoned to Dr. Sumeet Castañeda on 01/17/2020 at 1121 hrs. This study fulfills neurological imaging criteria for inclusion or exclusion of acute stroke therapies based on available published neurological guidelines. Dictated by: Leslie Pollard MD, PhD on 01/17/2020 at 11:21 Approved by: Leslie Pollard MD, PhD on 01/17/2020 at 11:25 CTA - brain/neck: Radiologist's Impression: [address] [address] [address] Scan Report Signed Patient: Enedina Ye [facility]#: [id number] : 3Acct:[id number] Age/Sex: 74 / FDate of Service: 01/17/20 Loc: ED Accession Number: [id number] Procedure: CT angio head and neck Ordering Provider: Sumeet Castañeda D.O. PROCEDURE: CT ANGIO HEAD AND NECK INDICATIONS: Code stroke, Right-sided weakness TECHNIQUE: Noncontrast images were performed earlier in the day and not repeated. After the administration of intravenous contrast, 1 mm thick sections acquired from the aortic arch through the [place] of [place]. Post-contrast 4.5 mm thick sections then re-acquired from the foramen magnum to the vertex. 3-dimensional oinoyvd-npdjavhfn-bntsiuxfiu (MIP) and/or volume rendering reformats were acquired of the central intracranial vasculature and neck separately. COMPARISON: [facility], CT, CT STROKE, 01/17/2020, 11:08. [facility], MR, MR HEAD/BRAIN WO/W CON, 12/11/2019, 16:26. [facility], CT, CT ANGIO HEAD AND NECK, 11/27/2019, 16:54. FINDINGS: Image quality: Excellent. BRAIN: CSF spaces: Ventricles are normal in size and shape. Basal cisterns are patent. No extra-axial fluid collections. Brain: No midline shift. No intracranial bleeds or masses. [place]-white matter interface appears intact. Skull and face: Calvarium and facial bones appear intact, without suspicious lesions. Orbits appear normal. Sinuses: Sinuses and mastoids are clear. HEAD CT ANGIOGRAPHY: Anterior circulation: Intracranial internal carotid arteries are normal in size and flow. The flow within the paired anterior cerebral arteries is normal and symmetric. The flow within the middle cerebral arteries is normal and symmetric. The anterior communicating artery is seen. No aneurysms are seen. Posterior circulation: Visualized portions of the vertebral arteries demonstrate normal caliber, and join to form a normal appearing basilar artery. Flow within the posterior cerebral arteries is normal and symmetric. No aneurysms are seen. NECK CT ANGIOGRAPHY: Carotid system: Incidental note is made of a common origin of the right brachiocephalic artery and the left common carotid artery (bovine type arch). This is considered to be a developmental variant of no clinical consequence. The origins of the common carotid arteries appear patent. The common carotid arteries demonstrate normal caliber and courses. The bifurcation regions demonstrate atherosclerotic irregularity and calcification, yet without a hemodynamically significant stenosis. The internal carotid arteries demonstrate normal calibers and courses. Posterior circulation: The origins of the vertebral arteries both appear widely patent. The more superior extracranial portions of both vertebral arteries also demonstrate normal courses and calibers. They join to form a normal appearing basilar artery. Soft tissues: Visualized neck soft tissues demonstrate no suspicious abnormalities. The thyroid is not well-seen. Bones: No suspicious bony lesions. Visualized cervical spine appears normally aligned. Cervical spine degenerative changes are seen, including at least moderate disc space narrowing at C5-C6 and moderate disc space narrowing at C6-C7. Levoconvex cervicothoracic scoliotic curvature is seen. IMPRESSION: No hemodynamically significant stenosis can be seen involving the intracranial arteries or the arteries of the neck. Incidental note is made of: Bovine type aortic branching pattern Lower cervical spine degenerative change Any quantitative measurements of stenosis were performed using NASCET criteria. Dictated by: Justice Osullivan M.D. on 01/17/2020 at 11:35 Approved by: Justice Osullivan M.D. on 01/17/2020 at 11:39 ECG Data Attestation: I personally reviewed and interpreted this ECG as follows: Prior ECG tracings: not available for review Interpretation: Sinus rhythm Ventricular rate is 70 Left axis deviation LVH No ST T wave changes MDM Narrative Medical decision making narrative: NIH score of 2. Patient's last known normal was last evening greater than 4 1-1/2 hours after being seen here in the emergency department. Patient is not a tPA candidate. CT scan shows no acute pathology. Discussed the case with [facility] who did recommend a CTA. This was unremarkable and shows no lesion amenable to intervention. Discussed the case with Dr. mann with medicine who admit the patient for further evaluation treatment. Discussed admission with the patient. She expressed understanding and agreement. Critical Care Time Critical Care Time Critical Care Time: Yes Total Critical Care Time: 35 Attestation: The high probability of a clinically significant, sudden or life threatening deterioration of the neurologic system(s) required my full and direct attention, intervention and personal management. The aggregate critical care time was 35 minutes. This time is in addition to time spent performing reported procedures but includes the following: [] Data Review and interpretation [] Patient assessment and monitoring of vital signs [] Documentation [] Medication orders and management Discharge Plan Departure Patient Disposition: Admitted As Inpatient Clinical Impression: CVA (cerebral vascular accident), Hypertension Referrals: Meghan Meier DO [Primary Care Provider] - Admit Date/Time: 01/17/20 13:11 Admit Provider: Jaswant Mann
[2020-01-17 11:41] LABS: INR 0.9 (0.9-1.3); Prothrombin Time 10.7 SECONDS (10.1-12.7)
[2020-01-17 11:43] LABS: PTT Partial Thromboplastin Tim 28 SECONDS (26.4-36.2)
[2020-01-17 11:45] LABS: Alanine Aminotransferase 24 IU/L (<35); Albumin 4.4 g/dL (3.5-5.0); Albumin Globulin Ratio 1.4 (1.0-2.8); Alkaline Phosphatase 36 U/L (38-126); Aspartate Aminotransferase 25 IU/L (14-36); BUN Creatinine Ratio 17.7 (6-22); Bilirubin Total 0.6 mg/dL (0.2-1.3); Blood Urea Nitrogen 14 mg/dL (7-17); Calcium 9.5 mg/dL (8.4-10.2); Carbon Dioxide 27 mmol/L (22-32); Chloride 94 mmol/L (98-107); Estimated Glomerular Filt Rate > 60.0 mL/min (>60); Ethanol (ETOH) < 10 mg/dL; Globulin 3.2 g/dL (1.7-4.1); Glucose 111 mg/dL (80-110); HEMOLYSIS < 15 (0-50); Lipase 66 U/L (23-300); Potassium 3.8 mmol/L (3.4-5.1); Sodium 131 mmol/L (137-145); Total Protein 7.6 g/dL (6.3-8.2)
--- NOTE | 2020-01-17 11:55 | DI.CT.S_ITS ---
PROCEDURE: CT ANGIO HEAD AND NECK INDICATIONS: Code stroke, Right-sided weakness TECHNIQUE: Noncontrast images were performed earlier in the day and not repeated. After the administration of intravenous contrast, 1 mm thick sections acquired from the aortic arch through the [place] of [place]. Post-contrast 4.5 mm thick sections then re-acquired from the foramen magnum to the vertex. 3-dimensional kwoshkz-hcsdchqfx-xbinebfwlg (MIP) and/or volume rendering reformats were acquired of the central intracranial vasculature and neck separately. COMPARISON: [facility], CT, CT STROKE, 01/17/2020, 11:08. [facility], MR, MR HEAD/BRAIN WO/W CON, 12/11/2019, 16:26. [facility], CT, CT ANGIO HEAD AND NECK, 11/27/2019, 16:54. FINDINGS: Image quality: Excellent. BRAIN: CSF spaces: Ventricles are normal in size and shape. Basal cisterns are patent. No extra-axial fluid collections. Brain: No midline shift. No intracranial bleeds or masses. [place]-white matter interface appears intact. Skull and face: Calvarium and facial bones appear intact, without suspicious lesions. Orbits appear normal. Sinuses: Sinuses and mastoids are clear. HEAD CT ANGIOGRAPHY: Anterior circulation: Intracranial internal carotid arteries are normal in size and flow. The flow within the paired anterior cerebral arteries is normal and symmetric. The flow within the middle cerebral arteries is normal and symmetric. The anterior communicating artery is seen. No aneurysms are seen. Posterior circulation: Visualized portions of the vertebral arteries demonstrate normal caliber, and join to form a normal appearing basilar artery. Flow within the posterior cerebral arteries is normal and symmetric. No aneurysms are seen. NECK CT ANGIOGRAPHY: Carotid system: Incidental note is made of a common origin of the right brachiocephalic artery and the left common carotid artery (bovine type arch). This is considered to be a developmental variant of no clinical consequence. The origins of the common carotid arteries appear patent. The common carotid arteries demonstrate normal caliber and courses. The bifurcation regions demonstrate atherosclerotic irregularity and calcification, yet without a hemodynamically significant stenosis. The internal carotid arteries demonstrate normal calibers and courses. Posterior circulation: The origins of the vertebral arteries both appear widely patent. The more superior extracranial portions of both vertebral arteries also demonstrate normal courses and calibers. They join to form a normal appearing basilar artery. Soft tissues: Visualized neck soft tissues demonstrate no suspicious abnormalities. The thyroid is not well-seen. Bones: No suspicious bony lesions. Visualized cervical spine appears normally aligned. Cervical spine degenerative changes are seen, including at least moderate disc space narrowing at C5-C6 and moderate disc space narrowing at C6-C7. Levoconvex cervicothoracic scoliotic curvature is seen. IMPRESSION: No hemodynamically significant stenosis can be seen involving the intracranial arteries or the arteries of the neck. Incidental note is made of: Bovine type aortic branching pattern Lower cervical spine degenerative change Any quantitative measurements of stenosis were performed using NASCET criteria. Dictated by: Justice Osullivan M.D. on 01/17/2020 at 11:35 Approved by: Justice Osullivan M.D. on 01/17/2020 at 11:39
[2020-01-17 11:56] LABS: Troponin I < 0.012 ng/mL (0.01-0.034)
[2020-01-17] MEDS: SODIUM CHLORIDE 0.9% 1,000 ML 1000 ML IV (12:03)
[2020-01-17 12:15] LABS: Thyroid Stimulating Hormone 0.03 uIU/mL (0.47-4.68)
[2020-01-17 12:35] VITALS: BP 192/82; PULSE 64; RESP 16; O2SAT 97
[2020-01-17 12:58] LABS: Bacteria Urine Few (2-10); Culture Indicated Urine Specimen Cultured; RBC Urine 0-1/HPF (0-5/HPF); Squamous Epithelial Cell Urine 1-5 /HPF (0-5/HPF); WBC Urine 5-10/HPF (0-5/HPF)
--- NOTE | 2020-01-17 13:20 | DI.MRI.S_ITS ---
PROCEDURE: MR STROKE Pre- and post-contrast brain MRI, non-contrast brain MR angiogram, pre- and postcontrast neck MR angiogram INDICATIONS: Stroke TECHNIQUE: Brain: Noncontrast axial T1 spin echo, axial T2 fast spin echo, sagittal and axial FLAIR, coronal T2 fast spin echo, axial gradient echo, axial diffusion and ADC through the brain. After the administration of contrast, axial 3D VIBE of the cranial vasculature and brain. Brain MRA: Non-contrast 3-D time of flight MR angiogram, with multiple faojrjs-rnrhboxjb-sykdhjidtn (MIP) reformats performed. Neck MRA: Axial and sagittal TruFISP through the neck. Coronal dynamic MR angiogram during administration of contrast in the arterial and venous phases, with 3-dimenstional oqylmwh-execnfliw-timbshsqit (MIP) reformats constructed from subtraction images. COMPARISON: [facility], MR, MR HEAD/BRAIN WO/W CON, 12/11/2019, 16:26. [facility], CT, CT ANGIO HEAD AND NECK, 01/17/2020, 12:01. [facility], CT, CT STROKE, 11/27/2019, 15:45. [facility], CT, CT ANGIO HEAD AND NECK, 11/27/2019, 16:54. [facility], CT, HEAD WITHOUT CONTRAST, 10/17/2017, 11:33. [facility], CT, CT STROKE, 01/17/2020, 11:08. FINDINGS: Image quality: Diagnostic, with note made of motion artifact. BRAIN: CSF spaces: Ventricles are normal in size and shape. Basal cisterns are patent. No extra-axial fluid collections. Brain: Within the left thalamus, there is a focus of abnormal increased diffusion weighted signal, as on series 26/62. There is a shunt signal seen on the ADC map. Developing T2-weighted signal can be seen at this site, as on series 6 image 13. No intracranial bleeds or mass effects. [place]-white matter interface is normal. Brain parenchymal volume loss is seen. Age-appropriate chronic small vessel ischemic change can be seen. Brainstem appears normal. Normal intravascular flow voids are present. No abnormal intracranial enhancement. Skull and face: Calvarial marrow signal is normal. Orbits appear normal. Sinuses: Sinuses and mastoids are clear. BRAIN MR ANGIOGRAM: Anterior circulation: Intracranial internal carotid arteries are normal in size and enhancement. The flow within the paired anterior cerebral arteries is normal and symmetric. The flow within the middle cerebral arteries is normal and symmetric. The anterior communicating artery is seen. No stenoses, occlusions, or aneurysms. Posterior circulation: The visualized portions of the vertebral arteries demonstrate normal caliber, and join to form a normal appearing basilar artery. The flow within the posterior cerebral arteries is normal and symmetric. No stenoses, occlusions, or aneurysms. NECK MR ANGIOGRAM: Carotids: Incidental note is made of a common origin of the right brachiocephalic artery and the left common carotid artery (bovine type arch). This is considered to be a developmental variant of no clinical consequence. The origins of the common carotid arteries appear patent. The calibers and courses of both common carotid arteries are normal. The bifurcation regions appear normal bilaterally. The internal carotid arteries demonstrate normal course and caliber. Posterior circulation: The origins of the vertebral arteries appear patent. More superior portions of both vertebral arteries demonstrate normal course and caliber, and join to form a normal appearing basilar artery. Miscellaneous: Subclavian arteries appear patent. Pre-contrast images through the neck show no soft tissue abnormalities. IMPRESSION: BRAIN MRI: There is a subacute infarction seen involving the left thalamus. No hemorrhagic transformation can be seen. Note is made of age-appropriate brain parenchymal volume loss and chronic small vessel ischemic changes. No masses or abnormal enhancement can be seen. BRAIN MR ANGIOGRAM: Unremarkable intracranial MRA. NECK MR ANGIOGRAM: Within the arteries of the neck, no hemodynamically significant stenosis can be seen. Incidental note is made of a bovine type aortic branching pattern. Dictated by: Justice Osullivan M.D. on 01/17/2020 at 15:28 Approved by: Justice Osullivan M.D. on 01/17/2020 at 15:33
--- NOTE | 2020-01-17 13:21 | PM.HP.1 ---
History of Present Illness History of Present Illness Date Patient Seen: 01/17/20 Time Patient Seen: 15:21 Chief complaint: rt leg no strength/ can move/ unable to stand on Narrative: This is a 74 year old female with a new CVA. She apparently presented back in November with a similar right-sided weakness/numbness presentation that lasted less than 24 hours and was determined to be a TIA. She reports that she was started on aspirin and Plavix but the Plavix was later stopped at her primary care follow-up. She had an echocardiogram done which apparently just showed some pulmonary hypertension. She also had an MRI scan done without any evidence for an acute CVA. She now presents with last normal symptoms at bedtime 9:00 p.m. last night, waking up this morning at 6:00 a.m. dragging her right leg to the bathroom, then going back to sleep and then waking up again 8:00 a.m. with now decreased sensation in both the right hand and the right foot. She has also noticed that the right side of her face is tingling. Her NIH score is 2. Per discussions with Kinyarwanda stroke neurologist she is not a candidate for intervention or for tPA due to these characteristics. She has significant risk factors for stroke including type 2 diabetes mellitus, untreated hyperlipidemia, hypertension. She initially tells me that she does not take blood pressure medicines and is controlled with only guxj-kwz-snpsjcp remedies. She shows me blood pressures that are not controlled, ranging 125/66 up to 164/79 at home. She then tells me that she is taking chlorthalidone and has been intolerant of multiple other medications for blood pressure because they ?made her feel tired?. She also indicates that statins have been recommended for her hyperlipidemia but she has declined to take them because of the reputation. She has no family history of stroke or heart attack. She has no personal history of coronary artery disease or peripheral arterial disease. She did have a left subclavian DVT back in 1999, treated with Coumadin for a year but no problems since then. Her neurological exam is quite minimally abnormal, with the decreased sensation being most striking. The brain CTA shows no evidence of carotid disease or acute bleed. Patient History Medical History (Updated 01/17/20 @ 16:38 by Jaswant Mann MD) Allergic rhinitis (Acute) Chicken pox (Resolved) DVT (deep venous thrombosis) (Chronic 2000) Fall at home (Resolved) 4 (Resolved) History of ectopic (Resolved 1980) Hypothyroidism (Chronic 2003) Measles (Resolved) Migraines (Chronic) Mixed hyperlipidemia (Acute) Mumps (Resolved) Pertussis (Resolved 1949) TIA (transient ischemic attack) (Acute) Type 2 diabetes mellitus (Acute) Surgical History History of bilateral salpingo-oophorectomy (BSO) (Resolved 1980) History of strabismus surgery (Resolved 1960) Status post hysterectomy (Resolved 1980) Status post wrist surgery (Resolved) Family & Social History Family History Father Diabetes mellitus Mother Parkinson's disease Sister Thyroid disease Family/Other Thyroid disease Social History: Her backup decision maker is her Julita Lucio. [facility] any [facility]. Dr. Meier is her primary care physician. Safety & Behavioral: Feels Safe in Current Yes Environment Been Physically Hurt or No Threatened By a Person Tobacco & Substance use: Smoking Status Never smoker alcohol intake frequency 0-2 drinks per day Substance Use Type does not use Meds Home Medications and Allergies Home Medications Medication Instructions Recorded Confirmed Type Glucose: Home Monitor dev #1 05/16/16 12/13/19 Rx Glucose: Test Strips 0 str BID #180 str 05/16/16 01/17/20 Rx cholecalciferol (vitamin D3) 1 tab PO QAM #0 08/24/17 01/17/20 History [Vitamin D3] thyroid (pork) 130 mg tablet 130 mg PO QAM 07/18/18 01/17/20 History metformin 500 mg tablet 500 mg PO BID #180 tab 02/20/19 01/17/20 Rx aspirin [Adult Low Dose Aspirin] 81 mg PO QPM 01/17/20 01/17/20 History chlorthalidone 25 mg PO QPM 01/17/20 01/17/20 History coQ10 (ubiquinol) 200 mg PO QAM 01/17/20 01/17/20 History cod liver oil 1 cap PO QAM 01/17/20 01/17/20 History vitamin B complex [B 1 tab PO QAM 01/17/20 01/17/20 History Complex-Vitamin B12] Allergies Allergy/AdvReac Type Severity Reaction Status Date / Time diphenhydramine Allergy Severe hives and Verified 01/17/20 11:19 [DIPHENHYDRAMINE] rash pseudoephedrine Allergy Severe hives and Verified 01/17/20 11:19 [PSEUDOEPHEDRINE] rash shellfish derived Allergy Severe (JUST THE Verified 01/17/20 11:19 [SHELLFISH DERIVED] SHELL) rash Review of Systems Review of Systems Narrative: Positive for numbness on the right arm and foot, weakness on the right side, numbness on the right face. Negative for chest pain, shortness breath, fever, chills, sweats, coughing, abdominal pain, nausea, vomiting, bleeding, rashes, dysuria, hematuria, joint swelling, seizures, difficulty talking, new allergies. ROS: Yes All systems reviewed with the patient and are negative except as otherwise documented Exam Vital Signs (past 8 hours): - 01/17/20 11:30 01/17/20 12:35 Pulse Rate 66 64 Respiratory Rate 16 16 Blood Pressure [Left Arm] 177/79 H 192/82 H Pulse Oximetry 95 97 Oxygen Delivery Method Room Air Narrative Exam Narrative: Alert and Oriented X 3. No apparent distress. Pupils are equally round and reactive to light and accommodation Sclerae are pink and nonicteric Extraocular muscles are intact Throat looks normal No lymph nodes are felt head, neck, supraclavicular area There is no thyromegaly JVD is less than 6 cm No carotid bruits are heard Heart is regular rate and rhythm without murmur Lungs are clear to auscultation bilaterally Abdomen is soft, nontender, bowel sounds positive, no organomegaly Extremities have no ankle edema Skin has no rash or jaundice Neurological exam There is no tremor Cranial nerves 2-12 test intact without tongue deviation. There is decreased sensation on the right hand compared to the left hand, on the right foot compared to the left foot, and the right face near the nose compared to the left side. Motor function is notable for normal research librarian strength bilaterally and normal foot flexion/extension bilaterally. Babinski's are downgoing bilaterally Deep tender reflexes are normal Speech is normal Gait and balance are not tested. Objective Labs Result Diagrams: 01/17/20 11:25 01/17/20 11:25 Labs: Laboratory Results - last 24 hr 01/17/20 01/17/20 01/17/20 11:25 11:25 11:25 WBC 4.8 RBC 4.13 Hgb 12.5 Hct 36.0 MCV 87.1 MCH 30.2 MCHC 34.7 RDW 13.8 Plt Count 271 Neut % (Auto) 44.6 L Lymph % (Auto) 41.5 H [place] % (Auto) 10.2 Eos % (Auto) 2.8 Baso % (Auto) 0.9 Neut # (Auto) 2200 Lymph # (Auto) 2000 [place] # (Auto) 500 Eos # (Auto) 100 Baso # (Auto) 0 PT 10.7 INR 0.9 APTT 28 Sodium 131 L Potassium 3.8 Chloride 94 L Carbon Dioxide 27 BUN 14 Creatinine 0.79 Estimated GFR > 60.0 BUN/Creatinine Ratio 17.7 Glucose 111 H Calcium 9.5 Total Bilirubin 0.6 AST 25 ALT 24 Alkaline Phosphatase 36 L Troponin I < 0.012 Total Protein 7.6 Albumin 4.4 Globulin 3.2 Albumin/Globulin Ratio 1.4 Lipase 66 TSH Urine RBC Urine WBC Ur Squamous Epith Cells Urine Bacteria Ur Culture Indicated? Ethyl Alcohol < 10 01/17/20 01/17/20 11:25 12:25 WBC RBC Hgb Hct MCV MCH MCHC RDW Plt Count Neut % (Auto) Lymph % (Auto) [place] % (Auto) Eos % (Auto) Baso % (Auto) Neut # (Auto) Lymph # (Auto) [place] # (Auto) Eos # (Auto) Baso # (Auto) PT INR APTT Sodium Potassium Chloride Carbon Dioxide BUN Creatinine Estimated GFR BUN/Creatinine Ratio Glucose Calcium Total Bilirubin AST ALT Alkaline Phosphatase Troponin I Total Protein Albumin Globulin Albumin/Globulin Ratio Lipase TSH 0.03 L D Urine RBC 0-1/hpf Urine WBC 5-10/hpf H Ur Squamous Epith Cells 1-5 /hpf Urine Bacteria Few (2-10) H Ur Culture Indicated? Specimen cultured Ethyl Alcohol Assessment & Plan Assessment & Plan narrative: Cerebrovascular Accident, present on admission, acute -Brain MRI/MRA stroke protocol pending -Telemetry. Recent Echo done. Consider repeating. -Begin stroke prevention medications including Plavix, aspirin, Crestor, metoprolol, metformin. -PT, OT and Speech Therapy evaluations and treatment Hypertension, present on admission, chronic -Begin Metoprolol and continue Chlorthalidone Hyperlipidemia, present on admission, chronic -check fasting lipids -Begin Crestor Hypothyroidism, present on admission, chronic -TSH 0.03, which is typical of this alternative more natural thyroid treatment approach -continue armor thyroid and consider dose decrease as an outpatient at her PCP office Type 2 diabetes mellitus, present on admission, chronic -Blood sugar 111 on admission -continue metformin and follow blood sugars. COVID-19 COVID-19 status: Not tested Scores GCS Christine coma scale eye opening: Spontaneous Christine coma scale verbal response: Orientated [place] coma scale motor response: Obey commands [place] coma scale total score: 15 NIHSS Level of Conciousness: Alert, keenly responsive Ask month/age: Answers both questions correctly. Open/close eyes, close hand: Performs both tasks correctly Best gaze horizontal: Normal Visual box: No visual loss Facial palsy: Normal symetrical movement Left arm drift: No drift for full 10 sec Right arm drift: No drift for full 10 sec Left leg drift: No drift for full 5 sec Right leg drift: No drift for full 5 sec Limb ataxia: Present in two limbs Sensory on face/arms/legs: Mild to moderate sensory loss, can tell touch Best language: No aphasia, normal Dysarthria: Normal Extinction or inattention: No abnormality Total NIH Stroke scale score: 3
[2020-01-17 13:47] VITALS: BP 184/84; PULSE 70; RESP 19; O2SAT 100
[2020-01-17] MEDS: ASPIRIN 81 MG CHEW TAB 324 MG PO (14:03)
[2020-01-17 14:34] VITALS: BMI 34.5
[2020-01-17 14:37] VITALS: BP 155/90; PULSE 67; RESP 18; TEMP 36.4; O2SAT 98
--- NOTE | 2020-01-17 15:45 | ST.IPCSEOM ---
Visit Care Team Role Provider Type Meghan Meier DO Primary Care Provider Physician Specialty: Family Practice Address: [address] [place] [address], [address], [place], [address] Email: [email or web address] Sumeet Castañeda DO Emergency Provider Physician Referring Provider Specialty: Emergency Medicine Address: [address] [place] [address], [id number] Email: [email or web address] Jaswant Mann MD Admit Provider Physician Attending Provider Specialty: Medical Address: [address] [place] [address], [place], [address] Email: [email or web address] Past Medical History (Last Updated 01/17/20 @ 15:24 by Jaswant Mann MD) Allergic rhinitis (Acute Medical) Chicken pox (Resolved Medical) DVT (deep venous thrombosis) (Chronic Medical 2000) Left subclavian Fall at home (Resolved Medical) Fell down stairs 4 (Resolved Medical) History of ectopic (Resolved Medical 1980) BSO Hypothyroidism (Chronic Medical 2003) Measles (Resolved Medical) Migraines (Chronic Medical) Mumps (Resolved Medical) Pertussis (Resolved Medical 1949) TIA (transient ischemic attack) (Acute Medical) Speech-Language Pathology 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 Patient states she went to bed last night feeling fine. Woke up this morning sometime between 630 and 0700 hours and states she had a very difficult time moving her right leg while she was trying to ambulate to the bathroom. She states that she was able to go to the bathroom and then make it back to bed. States she went back to sleep. Woke up at about 830 this morning with potentially worsening right lower extremity weakness and at that time had right upper extremity weakness as well. She denied any other associated symptoms. She had very similar symptoms which she reports were not as bad in November of this year. I evaluated her during this visit. Diagnosed with a TIA. Patient decided to go home during a visit rather than being admitted to the hospital . Since that time she has had an MRI and an echocardiogram. The MRI was unremarkable of the echocardiogram showed pulmonary hypertension. She has followed up with her primary doctor. She is still on aspirin although she states she is taking a baby aspirin not a full-dose aspirin. She has been taken off the Plavix. She reports that currently her symptoms are just as bad as what they were the onset this morning. Patient's last known normal was last evening greater than 4-1/2 hours after arrival here to the emergency department. Subjective Observations Patient was sitting upright in bed awake, alert, and oriented x4 upon ST arrival. Patient's and RN were present during evaluation. Patient agreeable to receive and participate in a comprehensive ST evaluation. Patient denied any speech, language, cognition, or swallowing problems prior to hospital stay. Evaluation Liquids Trialed Ice Chips,Thin Solids Trialed Mechanical Soft,Regular Administration Type Tea Spoon,Cup Single Sip, Controlled Cup Sip,Cup Consecutive Sips,Straw,Self- Feeding Oral Impairment WFL Oral Strategies Upright at 90 degrees Oral Phase Comments Oral Peripheral Exam: Patient has natural dentition and are in good condition for her age. Patient presented within functional limits throughout entire oral mechanism examination, except slight right side labial weakness/ droop likely due to recent CVA (e.g., general right sided weakness). Hyolaryngeal elevation and anterior excursion within normal limits via palpation. The patient was able to perform a volitional swallow. Oral Phase: Appropriate oral acceptance with no anterior bolus loss. No abnormal oral residue was observed. Mastication time, bolus preparation, and a/p propulsion were all WNL. Pharyngeal Impairment WFL Pharyngeal Strategies Sitting Upright (90 deg),Small Bites and Sips Pharyngeal Phase Comments Pharyngeal Phase: No throat clearing and/or wet coughing was observed during the swallow evaluation. 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 O2 sats remained 98-99 throughout all PO trials. Findings Dysphagia Type Swallowing WFL Impressions Patient's swallowing is within functional limits (WFL). Diet Recommendations Liquids Order Thin Diet Order Regular Medication Recommendations As Tolerated Aspiration Precautions Recommended Precautions Upright at 90 Degrees,Small Bites/Sips Treatment Plan Placement Recommendations after Home Discharge Appropriate for Therapy No Therapy Recommendations ST evaluation only. ST will reassess if changes in swallowing, speech/language, and/or cognition are observed.
--- NOTE | 2020-01-17 16:06 | ST.IPSLE ---
Visit Care Team Role Provider Type Meghan Meier DO Primary Care Provider Physician Specialty: Family Practice Address: [address] [place] [address], [address], [place], [address] Email: [email or web address] [email or web address] Castañeda DO Emergency Provider Physician Referring Provider Specialty: Emergency Medicine Address: [address] [place] [address], [address] Email: [email or web address] Jaswant Mann MD Admit Provider Physician Attending Provider Specialty: Medical Address: [address] [place] [address], [place], [address] Email: [email or web address] Past Medical History (Last Updated 01/17/20 @ 15:24 by Jaswant Mann MD) Allergic rhinitis (Acute Medical) Chicken pox (Resolved Medical) DVT (deep venous thrombosis) (Chronic Medical 2000) Left subclavian Fall at home (Resolved Medical) Fell down stairs 4 (Resolved Medical) History of ectopic (Resolved Medical 1980) BSO Hypothyroidism (Chronic Medical 2003) Measles (Resolved Medical) Migraines (Chronic Medical) Mumps (Resolved Medical) Pertussis (Resolved Medical 1949) TIA (transient ischemic attack) (Acute Medical) Speech-Language Pathology Speech/Language Eval STERILE PROCESSING TECHNICIAN Language Evaluation Start: 01/17/20 15:06 Freq: Status: Active Protocol: Document 01/17/20 15:46 LL (Rec: 01/17/20 15:50 LL [id number]) Language Evaluation Session Time Visit Start Time 14:45 Visit Stop Time 15:02 Total Visit Minutes 17 Referral Referring Physician Basil Mann MD Reason for Referral CVA Language Evaluation Assessment Type Expressive, Receptive, Cognitive Communication Past Medical History Patient History Per ER H & P report: Enedina is a 74-year-old female here for evaluation of right leg and right arm weakness. Patient states she went to bed last night feeling fine. Woke up this morning sometime between 630 and 0700 hours and states she had a very difficult time moving her right leg while she was trying to ambulate to the bathroom. She states that she was able to go to the bathroom and then make it back to bed. States she went back to sleep. Woke up at about 830 this morning with potentially worsening right lower extremity weakness and at that time had right upper extremity weakness as well. She denied any other associated symptoms. She had very similar symptoms which she reports were not as bad in November of this year. I evaluated her during this visit. Diagnosed with a TIA. Patient decided to go home during a visit rather than being admitted to the hospital . Since that time she has had an MRI and an echocardiogram. The MRI was unremarkable of the echocardiogram showed pulmonary hypertension. She has followed up with her primary doctor. She is still on aspirin although she states she is taking a baby aspirin not a full-dose aspirin. She has been taken off the Plavix. She reports that currently her symptoms are just as bad as what they were the onset this morning. Patient's last known normal was last evening greater than 4-1/2 hours after arrival here to the emergency department. Hearing Hearing Level Normal Auditory History Patient and patient's reported no hearing difficulty . Vision Vision Status Impaired Comments Wears glasses [place] Language Language(s) Spoken in the Home Samoan Educational Status Education Level N/A Occupational Status Occupation Status Retired Previous Therapy Previous Speech-Language Therapy N/A Oral Motor Examination Oral Motor Exam Completed Yes Results Oral Peripheral Exam: Patient has natural dentition and are in good condition for her age. Patient presented within functional limits throughout entire oral mechanism examination, except slight right side labial weakness/ droop likely due to recent CVA (e.g., general right sided weakness). Subjective Subjective Patient was sitting upright in bed awake, alert, and oriented x [address] arrival. Patient's and RN were present during evaluation. Patient agreeable to receive and participate in a comprehensive ST evaluation. Patient denied any speech, language, cognition, or swallowing problems prior to hospital stay. Patient expressed that her main concern is her right sided arm and leg weakness likely due to recent CVA. - Informal Assessment Receptive Language Normal Yes Expressive Language Normal Yes Articulation Normal Yes Cognition Normal Yes - Receptive Language Yes/No Questions Skill Level WFL Following Directions - Verbal Skill Level WFL Defining Words Skill Level WFL Auditory Comprehension Skill Level WFL Reading Comprehension Skill Level WFL Receptive Language Comments Receptive Language Comments The patient participated in conversation, demonstrating appropriate (WFL) expressive and receptive language skills. The patient reported that she is an avid reader and was reading while in the ER with no difficulty. The patient was able to follow 1-3 step commands, correctly answer simple and complex yes/no questions, and read aloud words, phrases, and sentences with no difficulty. Receptive language skills appeared within functional limits. - Expressive Language Automatic Speech Skill Level WFL Sentence Closure Skill Level WFL Object Naming Skill Level WFL Stating Functions Skill Level WFL Oral Expression Skill Level WFL Expressive Language Comments Expressive Language Comments The patient participated in conversations with STERILE PROCESSING TECHNICIAN, nurse, and , demonstrating appropriate (WFL) expressive and receptive language skills. The patient completed several automatic speech tasks, provided appropriate sentence closure responses, and correctly identified/named objects with no difficulty. The patient's speech was clear and 100% intelligible during evaluation. Expressive language skills appeared within functional limits. - Findings Language Findings Both receptive and expressive language skills appeared within functional limits (WFL) at this time. The patient is able to effectively communicate wants/needs and fully participate in making medical decisions. Recommendations Recommendations ST evaluation only at this time. ST will reassess if changes in swallowing, speech/ language, and/or cognition are observed.
[2020-01-17 16:32] VITALS: BP 148/96; PULSE 64; RESP 18; TEMP 35.8; O2SAT 100
[2020-01-17 17:36] VITALS: BMI 34.5
[2020-01-17] MEDS: METFORMIN HCL 500 MG TABLET PO (17:47)
[2020-01-17] MEDS: ASPIRIN EC 81 MG TABLET PO (17:47)
[2020-01-17] MEDS: CHLORTHALIDONE 25 MG TABLET PO ×3 (18:07→18:10)
[2020-01-17 19:44] VITALS: BP 160/77; PULSE 67; RESP 18; TEMP 36.6; O2SAT 97
[2020-01-17] MEDS: ROSUVASTATIN 10 MG TABLET 5 MG PO (20:49)
[2020-01-18] VITALS (8 sets, daily range): BP systolic 150–188; BP diastolic 78–82; PULSE 63–82; RESP 16–19; TEMP 36.2–36.8; O2SAT 93–97
--- NOTE | 2020-01-18 00:56 | PC.NURSE ---
Notified Fredrick FERNANDEZ of BP and slight headache requested tylenol
[2020-01-18] MEDS: ACETAMINOPHEN 325 MG TABLET 650 MG PO (01:18)
[2020-01-18 05:26] LABS: Cholesterol 252 mg/dL (140-199); HDL Cholesterol 60 mg/dL (40-60); LDL Cholesterol Calculated 169 mg/dL (<100); Triglycerides 115 mg/dL (35-150)
--- NOTE | 2020-01-18 08:58 | P.PN_ITS ---
Subjective Subjective Date Patient Seen: 01/18/20 Time Patient Seen: 08:58 Interval history: She is seen today to follow-up on the thalamus CVA, hypertension, hyperlipidemia and diabetes. She is surprised to hear about the subacute thalamic CVA on the left side. She will be starting physical therapy and occupational therapy evaluations later today. The cholesterol is 252 with an LDL of 169. She has no new symptoms. She is afebrile and vitals are stable except for a continued high blood pressure 181/82. Exam Vital Signs (past 8 hours): - 01/18/20 06:00 Temperature 97.6 F Pulse Rate 63 Respiratory Rate 16 Blood Pressure 181/82 H Pulse Oximetry 93 Oxygen Delivery Method Room Air Oxygen Flow Rate 0 Narrative Exam Narrative: She is alert and oriented x3. Eating breakfast, speaking normally, walking normally. She is using a walker however. Heart is regular rate and rhythm without murmur Lungs are clear to auscultation bilaterally Extremities have no ankle edema Neurological exam Motor function is intact in the right upper and right lower extremity. 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 There is decreased sensation on the right hand and right foot. Cranial nerves test intact. There is no tremor. She is walking with a walker as a precaution. Objective Labs Result Diagrams: 01/17/20 11:25 01/17/20 11:25 Labs: Laboratory Results - last 24 hr 01/17/20 01/17/20 01/17/20 11:25 11:25 11:25 WBC 4.8 RBC 4.13 Hgb 12.5 Hct 36.0 MCV 87.1 MCH 30.2 MCHC 34.7 RDW 13.8 Plt Count 271 Neut % (Auto) 44.6 L Lymph % (Auto) 41.5 H Dewitt % (Auto) 10.2 Eos % (Auto) 2.8 Baso % (Auto) 0.9 Neut # (Auto) 2200 Lymph # (Auto) 2000 Dewitt # (Auto) 500 Eos # (Auto) 100 Baso # (Auto) 0 PT 10.7 INR 0.9 APTT 28 Sodium 131 L Potassium 3.8 Chloride 94 L Carbon Dioxide 27 BUN 14 Creatinine 0.79 Estimated GFR > 60.0 BUN/Creatinine Ratio 17.7 Glucose 111 H Calcium 9.5 Total Bilirubin 0.6 AST 25 ALT 24 Alkaline Phosphatase 36 L Troponin I < 0.012 Total Protein 7.6 Albumin 4.4 Globulin 3.2 Albumin/Globulin Ratio 1.4 Triglycerides Cholesterol LDL Cholesterol, Calc HDL Cholesterol Lipase 66 TSH Urine RBC Urine WBC Ur Squamous Epith Cells Urine Bacteria Ur Culture Indicated? Ethyl Alcohol < 10 01/17/20 01/17/20 01/18/20 11:25 12:25 05:05 WBC RBC Hgb Hct MCV MCH MCHC RDW Plt Count Neut % (Auto) Lymph % (Auto) Dewitt % (Auto) Eos % (Auto) Baso % (Auto) Neut # (Auto) Lymph # (Auto) Dewitt # (Auto) Eos # (Auto) Baso # (Auto) PT INR APTT Sodium Potassium Chloride Carbon Dioxide BUN Creatinine Estimated GFR BUN/Creatinine Ratio Glucose Calcium Total Bilirubin AST ALT Alkaline Phosphatase Troponin I Total Protein Albumin Globulin Albumin/Globulin Ratio Triglycerides 115 Cholesterol 252 H LDL Cholesterol, Calc 169 H HDL Cholesterol 60 Lipase TSH 0.03 L D Urine RBC 0-1/hpf Urine WBC 5-10/hpf H Ur Squamous Epith Cells 1-5 /hpf Urine Bacteria Few (2-10) H Ur Culture Indicated? Specimen cultured Ethyl Alcohol Assessment & Plan Assessment & Plan narrative: Subacute Left Thalamic Cerebrovascular Accident, present on admission, acute -Brain MRI shows the Thalamic CVA without any carotid or other vascular irregularities -Telemetry monitoring normal so far. Recent Echo done. Consider repeating. -Continue stroke prevention medications including Plavix, aspirin, Crestor, metoprolol, metformin. -PT, OT and Speech Therapy evaluations and treatment starting today 01/17 Hypertension, present on admission, chronic -Begin Metoprolol and continue Chlorthalidone -permissive HTN is the current plan Hyperlipidemia, present on admission, chronic -Chol 252, LDL 169 -Begin Crestor Hypothyroidism, present on admission, chronic -TSH 0.03, which is typical of this alternative more natural thyroid treatment approach -continue armor thyroid and consider dose decrease as an outpatient at her PCP office Type 2 diabetes mellitus, present on admission, chronic -Blood sugar 111 on admission, 112 on 01/17 -continue metformin and follow blood sugars. Disposition: Home tomorrow pending assessment/agreement by PT and OT. Quality VTE Deep Vein Thrombosis/Pulmonary Embolism Present on Admission: No
[2020-01-18] MEDS: CHOLECALCIFEROL (VITAMIN D3) 1,000 UNIT TABLET 2000 UNIT PO (09:11)
[2020-01-18] MEDS: VITAMIN B COMPLEX 1 CAPSULE 1 CAP PO (09:11)
[2020-01-18] MEDS: ENOXAPARIN 40 MG/0.4 ML SYRINGE SUBCUT (09:11)
[2020-01-18] MEDS: METOPROLOL ER 25 MG TABLET 12.5 MG PO (09:12)
[2020-01-18] MEDS: METFORMIN HCL 500 MG TABLET PO ×2 (09:12→17:06)
[2020-01-18] MEDS: FISH OIL 1,000 MG CAPSULE 1000 MG PO (09:13)
--- NOTE | 2020-01-18 10:53 | PT.IIE ---
Current Diagnoses Cerebral infarction, unspecified (01/17/20) Surgical History (Last Reviewed 01/17/20 @ 16:37 by Jaswant Mann MD) History of bilateral salpingo-oophorectomy (BSO) (Resolved 1980) History of strabismus surgery (Resolved 1960) Status post hysterectomy (Resolved 1980) Status post wrist surgery (Resolved) Medical History (Last Updated 01/17/20 @ 16:38 by Jaswant Mann MD) Allergic rhinitis (Acute) Chicken pox (Resolved) DVT (deep venous thrombosis) (Chronic 2000) Fall at home (Resolved) 4 (Resolved) History of ectopic (Resolved 1980) Hypothyroidism (Chronic 2003) Measles (Resolved) Migraines (Chronic) Mixed hyperlipidemia (Acute) Mumps (Resolved) Pertussis (Resolved 1949) TIA (transient ischemic attack) (Acute) Type 2 diabetes mellitus (Acute) Physical Therapy Inpatient Evaluation/Re-Eval M1 PT/OT-IP Prior Functional Status Start: 01/18/20 12:54 Freq: NEEDED Status: Active Protocol: Document 01/18/20 10:53 AB (Rec: 01/18/20 13:09 [id number]) Medical Review Prior Functional Status Medical History Reviewed Yes Communication able to make needs known Mobility and Gait pt stated that she is independent with all mobilities and ambulation without AD Social History Household Members spouse Living Arrangements Apartment/Condo Number of Floors (Floors) One Floor Number of Stairs To Enter/Railing? no step to enter Home Environment Standard Height Toilet,Tub/ Shower Home Equipment Hand Held Shower,Grab Bars Near Toilet,Grab Bars In Shower M2 PT-IP Current Condition Start: 01/18/20 12:54 Freq: NEEDED Status: Active Protocol: Document 01/18/20 10:53 AB (Rec: 01/18/20 13:09 AB [id number]) Physical Therapy Current Condition Current Condition Evaluation Date 01/18/20 Treatment Diagnosis L CVA; difficulty in walking Onset Date 01/17/20 M3 PT-IP Subjective Start: 01/18/20 12:54 Freq: NEEDED Status: Active Protocol: Document 01/18/20 10:53 AB (Rec: 01/18/20 13:09 AB [id number]) Subjective Physical Therapy Visit Type Type Initial Evaluation Visit Start Time 10:53 Visit Stop Time 11:22 Total Visit Minutes 29 Number of CUSTODIAL OPERATIONS MANAGER Visits 0 Physical Therapy Visit Comments Patient Comments pt is agreeable to do PT Therapy Pain Assessment Pain Present Pain Present Denied Pain M4 PT-IP Mobility and Gait Start: 01/18/20 12:54 Freq: NEEDED Status: Active Protocol: Document 01/18/20 10:53 AB (Rec: 01/18/20 13:09 AB [id number]) PT-Bed Mobility Assessment Supine to Sit Supine to Sit Standby Assistance Sit to Supine Sit to Supine Standby Assistance Scooting Scooting to Edge of Bed Standby Assistance PT-Transfer Assessment Sit to and From Stand Sit to and from Stand Contact Guard Assistance, Minimal Assistance,1 Person Assistance,Use of Upper Extremities Equipment Transfer Assistive Device Gait Belt,Front Wheeled Walker Orthotic/Prosthetic Devices or Brace: No Transfers Transfer Destination Bed Transfer Technique ambulated using FWW Transfer Ability Level of Assist Contact Guard Assistance, Minimal Assistance,1 Person Assistance,Use of Upper Extremities Comments Mobility Comments pt sitting on chair. completed sit to stand CGA to min A and cues and was able to ambulate using FWW towards the bed. pt with decrease RLE elevation and cued to correct but pt with difficulty. pt completed sit<>supine SBA. pt ambulated back to the chair using FWW min to mod A and cues with (+) R knee slight buckling requiring mod A for steadiness. pt stayed up on chair. call light and table placed within reach. educated pt on LE exercises and agreed to do by herself. left pt with spouse in room. informed nurse regarding pt's mobility. Gait Assessment Gait Gait Assistance Required: Minimum Assistance,Moderate Assistance Distance (Feet) 15 Able to Maintain Weight Bearing Status Yes During Gait Assistive Devices Assistive Device Gait Belt,Front Wheeled Walker Orthotic/Prosthetic Devices or Brace: No Gait Deviations General Gait Pattern Decreased Stride Length, Decreased Feet Clearance,Step- to Gait Factors Limiting Gait Function Factors Limiting Gait Function Decreased Activity Tolerance, Decreased Sensation,Decreased Strength,Poor Balance Comments Gait Comments pt presents with decrease LE clearance/elevation during ambulation and with (+) R knee buckling towards end of tx session. pt also stated that she has decrease sensation on RLE. PT-Balance Assessment Sitting Balance and Reactions Static Sitting Balance Ability Good Dynamic Sitting Balance Ability Good Standing Balance and Reactions Static Standing Balance Ability Fair Dynamic Standing Balance Ability Poor Device Used FWW M5 PT-IP Objective Assessments Start: 01/18/20 12:54 Freq: NEEDED Status: Active Protocol: Document 01/18/20 10:53 AB (Rec: 01/18/20 13:09 AB [id number]) Orientation Orientation/Cognition Level of Alertness Alert Orientation Name Gross Range of Motion Lower Extremity ROM Assessment Within Functional Limits Strength Lower Extremity Strength Assessment Right Impaired Hip 3/5 Knee 3+/5 Ankle 3/5 Sensation Assessment Sensation Gross Sensation Right UE Impaired,Right LE Impaired Light Touch Impaired Proprioception (Position) Impaired Comments Sensation Comments reported only 50% sensation on RUE/LE M6 PT-IP Treatment Start: 01/18/20 12:54 Freq: NEEDED Status: Active Protocol: Document 01/18/20 10:53 AB (Rec: 01/18/20 13:09 AB [id number]) Physical Therapy Treatment Exercises Exercises Ankle Pumps,Gluteal Sets, Seated Knee Flexion/Extension Education Education Provided Safety M7 PT-IP Assessment and Plan Start: 01/18/20 12:54 Freq: NEEDED Status: Active Protocol: Document 01/18/20 10:53 AB (Rec: 01/18/20 13:09 AB [id number]) PT Summary Assessment and Plan Potential Rehabilitation Potential Good Status of Condition at Evaluation Stable Summary Impairments Strength,Balance,Coordination, Sensation,Tone,Bed Mobility, Transfers,Gait,Activity Tolerance Assessment Summary Pt is admitted for L CVA and presenting with decrease RUE/ LE weakness and decrease sensation. pt requiring min to mod A with mobility using FWW with (+) R knee buckling depending on fatigue level. pt will benefit and is a good candidate for acute rehab to improve strength and functional independence. Goals Bed Mobility Goal Independent Transfer Goal Independent,Front Wheeled Walker Gait Goal Independent,Front Wheel Walker Gait Distance 200 Days to Meet Goals 5 Frequency of Treatment Frequency Of Treatment Twice a Day Treatment Plan Physical Therapy Treatment Plan Bed Mobility Training,Transfer Training,Gait Training, Therapeutic Exercise,Balance Retraining,Discharge Planning, Neuromuscular Re-ed, Coordination Retraining,Manual Therapy Recommendations To Nursing Amount of Assist Needed 1 Person Assist Discharge Recommendations PT Discharge Recommendations Acute Rehab Equipment Needed for Home Before FWW if pt goes home Discharge Transportation Needs at Discharge Private Vehicle,Wheelchair/ Cabulance
--- NOTE | 2020-01-18 10:57 | OT.IP.EVAL ---
Current Diagnoses Cerebral infarction, unspecified (01/17/20) Past Medical History (Last Updated 01/17/20 @ 16:38 by Jaswant Mann MD) Allergic rhinitis (Acute) Chicken pox (Resolved) DVT (deep venous thrombosis) (Chronic 2000) Fall at home (Resolved) 4 (Resolved) History of ectopic (Resolved 1980) Hypothyroidism (Chronic 2003) Measles (Resolved) Migraines (Chronic) Mixed hyperlipidemia (Acute) Mumps (Resolved) Pertussis (Resolved 1949) TIA (transient ischemic attack) (Acute) Type 2 diabetes mellitus (Acute) Surgical History (Last Reviewed 01/17/20 @ 16:37 by Jaswant Mann MD) History of bilateral salpingo-oophorectomy (BSO) (Resolved 1980) History of strabismus surgery (Resolved 1960) Status post hysterectomy (Resolved 1980) Status post wrist surgery (Resolved) Occupational Therapy Inpatient Evaluation/Re-Eval M1 PT/OT-IP Prior Functional Status Start: 01/18/20 13:19 Freq: NEEDED Status: Active Protocol: Document 01/18/20 09:42 [facility] (Rec: 01/18/20 14:03 [facility] [id number]) Medical Review Prior Functional Status Medical History Reviewed Yes Communication able to make needs known Mobility and Gait pt stated that she is independent with all mobilities and ambulation without AD Activities of Daily Living and IADL's Completely independent for all ADL's, pt shared responsibilities for IADl needs. Pt able to drive, do bills and take her own medications. Social History Household Members spouse Living Arrangements Apartment/Condo Number of Floors (Floors) One Floor Number of Stairs To Enter/Railing? no step to enter Home Environment Standard Height Toilet,Tub/ Shower Home Equipment Hand Held Shower,Grab Bars Near Toilet,Grab Bars In Shower M2 OT-IP Current Condition Start: 01/18/20 13:19 Freq: Status: Active Protocol: Document 01/18/20 09:42 [facility] (Rec: 01/18/20 14:03 [facility] [id number]) Occupational Therapy Current Condition Current Condition Evaluation Date 01/18/20 Treatment Diagnosis Subacute Thalamus CVA Diagnosis Onset Date 01/17/20 Weight Bearing Status Weight Bearing Status Weight Bear as Tolerated M3 OT- IP Subjective and Pain Start: 01/18/20 13:19 Freq: Status: Active Protocol: Document 01/18/20 09:42 [facility] (Rec: 01/18/20 14:03 [facility] [id number]) OT- Subjective Occupational Therapy Visit Type Type Initial Evaluation Visit Start Time 09:42 Visit Stop Time 10:57 Total Visit Minutes 75 Occupational Therapy Visit Comments Patient Comments Pt's present during OT eval. Pt agreed to work with OT and wanting to take a shower. Patient/Caregiver Goals To get better and be able to care for herself. OT Pain Assessment Pain When Pain Assessed At Rest Pain Present Pain Present Denied Pain M4 OT- IP ADL's Start: 01/18/20 13:19 Freq: Status: Active Protocol: Document 01/18/20 09:42 [facility] (Rec: 01/18/20 14:03 [facility] [id number]) OT [id number] Comments OT Self-Feeding Comments Per pt just used left hand to eat. Pt is right handed though and frustrated that she can not hold onto the utensil to eat. OT ADL-Grooming General Evaluation Grooming Ability Moderate Assistance Comments OT Grooming Comments Pt having to use left hand to brush her teeth. Pt able to hold onto the tooth paste tube initially and then due to decreased steel post installer strength and coordination dropped the tooth paste tube in to the sink. Pt needing MODA to assist to incorporate right hand for grooming needs. OT ADL-Dressing General Eval Lower Body Dressing Ability Moderate Assistance,Maximum Assistance Areas Needing Assistance Underpants/Brief,Socks Comments OT Dressing Comments Pt trying to hold brief in right hand and dropped it due to decreased steel post installer, sensation , and coordination. Pt able at times able to hold sock initially open with both hands to get her foot initially into the sock but then having to use her left hand to complete the task. Pt needing assist to help racheal brief over right foot and not able to hold brief in place son able to get her right LE in. OT ADL-Toileting General Evaluation Toileting Ability Moderate Assistance Areas Needing Assistance Manage Clothing Comments OT Toileting Comments MODA for brief manaegment and pt compensated with left hand to wipe at this time. OT ADL-Bathing Bathing Type Bathing Type Shower General Evaluation Bathing Ability Moderate Assistance Areas Needing Assistance Wash/Dry Back,Wash/Dry Lower Extremities Devices Bathing Equipment Shower Chair with Arms,Grab Bars Comments OT Bathing Comments Prior pt stood to shower. Pt now needing to sit down for showers. Pt needing use of grab bar to help stand with MELISSA for pericare needs and MELISSA to assist with her balance while standing. Pt able to use right hand to assist to was her face and body but not able to hold the wash cloth well and needing to compensate with use of the left hand. M5 OT- IP IADL's Start: 01/18/20 13:19 Freq: Status: Active Protocol: Document 01/18/20 09:42 [facility] (Rec: 01/18/20 14:03 [facility] [id number]) OT-Instrumental Activities of Daily Living Home Safety Awareness Ability to Problem Solve Emergency Able to Problem Solve Situations Medication Management Medication Management No Deficits Identified Money Management Money Management No Deficits Identified Meal Preparation Meal Preparation Caregiver Provides Assist Meal Preparation Comments At this time due to decreased dynamic balance and functional use of RUE and RLE , pt will need asisst for all IADl needs . Station Agent Station Agent Caregiver Provides Assist M6 OT- IP Functional Cognition Start: 01/18/20 13:19 Freq: Status: Active Protocol: Document 01/18/20 09:42 [facility] (Rec: 01/18/20 14:03 [facility] [id number]) Cognitive Factors Limiting Selfcare Function Cognitive Ability Level of Alertness Alert Patient Orientation Name,Place,Situation Attention Span Ability Capable of Focused Attention, Capable of Sustained Attention Ability to Follow Commands Able to Follow One Step Commands Memory Description No Deficits Noted Safety Awareness Underestimates Need for Assistance Problem Solving Ability Needs Assist to Identify Solutions Cognitive Comments Cognitive Assessment Comments Pt able to follow commands during ADL needs. Pt needing cues to use her hands to push up from the armrest of the recliner and tends to want to pull on the FWW to stand. Noted some mild right neglect to RUE. OT- Vision and Hearing OT- Hearing Assessment OT- Hearing Assessment WFL OT- Vision Assessment Vision History Macular Degeneration Visual [place] Vision Assessment Comments Right eye slightly turns outward. M7 OT- IP Mobility and Balance Start: 01/18/20 13:19 Freq: Status: Active Protocol: Document 01/18/20 09:42 [facility] (Rec: 01/18/20 14:03 [facility] [id number]) OT-Transfer Assessment Sit to and From Stand Sit to and from Stand Moderate Assistance Transfers Transfer Ability Moderate Assistance Technique Transfer Destination Bed,Chair,Shower Stall,Toilet Transfer Technique Stand Step Pivot Devices Transfer Assistive Devices Gait Belt,Front Wheeled Walker Comments Mobility Comments Pt tend to lean to the right while standing at the sink and needing cues to tighten her right leg while standing. In addition pt having to lean against the counter for balance and also place her right hand on the sink for balance while standing for grooming needs. Pt needing MELISSA-MODA to help hold right hand on the armrest so able to push to come to construction administrative assistant addition to MELISSA from therapist to stand to FWW. Pt MELISSA with FWW for balance and steady FWW and as she tires needing MODA. OT- Balance Assessment Sitting Balance and Reactions Static Sitting Balance Ability Good Dynamic Sitting Balance Ability Fair Standing Balance and Reactions Static Standing Balance Ability Poor M8 OT- IP Objective Assessments Start: 01/18/20 13:19 Freq: Status: Active Protocol: Document 01/18/20 09:42 [facility] (Rec: 01/18/20 14:03 [id number] OT Gross Range of Motion Upper Extremity Range of Motion Assessment Right Impaired ROM Impairments RUE shoulder flexion 0-100 OT Strength Comments Strength Comments RUE 3-/5 to 4-/5 throughout LUE 4/5 throughout OT- Coordination Assessment Upper Extremity Finger to Nose Test Right UE Impaired 9-Hole Peg Hand Test Hand Right Scoring Time 130 Interpretation Impaired Norm For Patients Age/Sex 27 sec OT-Muscle Tone Assessment Muscle Tone WNL Yes M9 OT- IP Assessment and Plan Start: 01/18/20 13:19 Freq: Status: Active Protocol: Document 01/18/20 09:42 [facility] (Rec: 01/18/20 14:03 [id number] OT Summary Assessment and Plan Potential Rehabilitation Potential Excellent Analytic Complexity at Evaluation Low Summary OT Impairments Range of Motion,Strength, Balance,Functional Mobility, Self-Feeding,Grooming,Dressing ,Toileting,Bathing,Toilet Transfers,Shower Transfers, Activity Tolerance Progress Towards Goals Progressing Toward Goals Assessment Summary Pt low complexity, S/P subacute thalamic CVA with deficits of decreased functional use of RUE and RLE, decreased balance, and now having to compensate with her left hand to do ADL needs otherwise needing MODA to help incorporate right hand for ADL needs. Pt has decreased speed, coordination, strength of pt's right hand which is her dominant hand and would greatly benefit from acute rehab. Prior pt was very independent and able to walk 2 miles a day, independent with ADL and IADl needs, and is very motivated to get better and is a good candidate for intensive rehab. Goals Self-Feeding Goal Independent Grooming Goal Independent Dressing Goal Independent Toileting Goal Independent Bathing Goal Independent Toilet Transfer Goal Independent Shower Transfer Goal Independent Patient/Caregiver Education Goal Caregiver Independent Assisting Patient Days to Meet Goals 25 Frequency of Treatment Frequency Of Treatment Once a Day Treatment Plan OT Treatment Plan ADL Training,Functional Mobility,Neuromuscular Re- education,Patient/Family Education,Discharge Planning Other Treatment Recommendations and Next Incorporating of RUE for self Treatment Focus feeding needs. Discharge Recommendations OT Discharge Recommendations Acute Rehab Home Equipment Needs defer to acute rehab Transportation Needs at Discharge Private Vehicle,Wheelchair/ Cabulance
--- NOTE | 2020-01-18 11:19 | CM.DANOTE ---
Addendum entered by Ginger Helms R.N. 01/18/20 15:45: Called [facility] and spoke to Priyank about cabulance transport. He stated that they have some availabilities for tomorrow, and can call in the morning. Stated that the cost would be $85.00 plus $4.00. Will follow up tomorrow should patient be discharged tomorrow. Addendum entered by Ginger Helms R.N. 01/18/20 14:43: Roma from [facility] stated, they should be able to accept her. They do require that she gets transported by cabulance, for they do not accept patients with private transportation. Also, she will need a COVID test prior to admission. Contacted Dr. Mann, and he will put order in. Addendum entered by Ginger Helms R.N. 01/18/20 14:13: Roma is here from [facility] evaluating patient. Faxed over today's P.T/O.T. notes, as well. Original Note: DCP: Case received, EMR reviewed and met with patient. , Sheldon, was also in room at bedside. Introduced self and role. Was able to speak to patient and obtain information regarding her baseline activity status prior to hospitalization. DCP assessment completed with information currently available. Patient is a 74 year old female who admitted yesterday afternoon to the care of the hospitalist team. PCP: Dr. Meier. Payer: confirmed: Medicare. Patient came to the hospital via private vehicle secondary to her having increased weakness in her right leg and right extremity. Patient was having difficulty bearing weight on this extremity. According to note, patient had woken up and had these symptoms. Patient had MRI, and holds current diagnosis of subacute infarction in the thalmus area. Met with patient in her room. was also available. She is alert and oriented. She is independent at baseline, and prior to incident, did not use any DME supplies. She resides with her in a condo with no stairs, here in [place]. She will be working with speech, P.T, O.T, as well. Spoke to Calli in O.T. who had seen patient. Discussed acute inpatient rehab, and her being a good candidate for the program. Patient is consenting to this. Went ahead and contacted Roma at [facility] acute rehab. Gave patient brochure with their information. Faxed over face sheet, speech therapy notes, for P.T and O.T. notes were not yet available. Also, sent today's progress note, H&P, vital signs, labs, med list, and MRI results. Roma at [facility] stated that they have beds available. She will review the information, and could potentially come and see patient today. Gave her information over the phone regarding referral, as well. Roma will review information today. Her phone number is: [phone]. Their fax number is: [phone]. P: DCP to continue to follow. Will continue to reach out to Roma on status of accepting patient. She may need a COVID as well, and will have to discuss with hospitalist. Ginger Helms RN/Supply Chain Development Manager
--- NOTE | 2020-01-18 13:21 | PT.IPTN ---
Current Diagnoses Cerebral infarction, unspecified (01/17/20) Physical Therapy Treatment Note M2 PT-IP Current Condition Start: 01/18/20 12:54 Freq: NEEDED Status: Active Protocol: Document 01/18/20 10:53 [facility] (Rec: 01/18/20 13:09 [facility] [id number]) Physical Therapy Current Condition Current Condition Evaluation Date 01/18/20 Treatment Diagnosis L CVA; difficulty in walking Onset Date 01/17/20 M3 PT-IP Subjective Start: 01/18/20 12:54 Freq: NEEDED Status: Active Protocol: Document 01/18/20 12:55 [place] (Rec: 01/18/20 13:50 [place] [id number]) Subjective Physical Therapy Visit Type Type Treatment Note Visit Start Time 12:55 Visit Stop Time 13:21 Total Visit Minutes 26 Number of DISTRICT LOSS PREVENTION MANAGER Visits 1 Physical Therapy Visit Comments Patient Comments pt is agreeable to do PT Therapy Pain Assessment Pain Present Pain Present Denied Pain M4 PT-IP Mobility and Gait Start: 01/18/20 12:54 Freq: NEEDED Status: Active Protocol: Document 01/18/20 12:55 [place] (Rec: 01/18/20 13:50 [place] [id number]) PT-Bed Mobility Assessment Supine to Sit Supine to Sit Standby Assistance Sit to Supine Sit to Supine Standby Assistance Scooting Scooting to Edge of Bed Standby Assistance PT-Transfer Assessment Sit to and From Stand Sit to and from Stand Standby Assistance,1 Person Assistance,Use of Upper Extremities Equipment Transfer Assistive Device Gait Belt,Front Wheeled Walker Orthotic/Prosthetic Devices or Brace: No Transfers Transfer Destination Bed Transfer Ability Level of Assist Standby Assistance,1 Person Assistance,Use of Upper Extremities Comments Mobility Comments Pt was in bed upon arrival from therapy w/ in room. Pt performed 1x10 ankle pumps, quad sets, and heel slides. Pt then sup<>sitting EOB SBA where she performed 1x10 LAQ and seated marches w/ 3 second hold for proximal hip strengthening. Pt then stood from bed SBA w/ FWW and performed 3 min weight shifting and [address] R knee buckling secondary to marching in place , pt reported feelings of fatigue in RLE and did not want to ambulate at this time. SBA for sit<>sup in bed. Pt left in bed w/ all needs in reach. Gait Assessment Assistive Devices Assistive Device Gait Belt,Front Wheeled Walker Orthotic/Prosthetic Devices or Brace: No Comments Gait Comments Please refer to mobility section for details. PT-Balance Assessment Sitting Balance and Reactions Static Sitting Balance Ability Good Dynamic Sitting Balance Ability Good Standing Balance and Reactions Static Standing Balance Ability Fair Dynamic Standing Balance Ability Poor Device Used FWW M5 PT-IP Objective Assessments Start: 01/18/20 12:54 Freq: NEEDED Status: Active Protocol: Document 01/18/20 10:53 [facility] (Rec: 01/18/20 13:09 [facility] [id number]) Orientation Orientation/Cognition Level of Alertness Alert Orientation Name Gross Range of Motion Lower Extremity ROM Assessment Within Functional Limits Strength Lower Extremity Strength Assessment Right Impaired Hip 3/5 Knee 3+/5 Ankle 3/5 Sensation Assessment Sensation Gross Sensation Right UE Impaired,Right LE Impaired Light Touch Impaired Proprioception (Position) Impaired Comments Sensation Comments reported only 50% sensation on RUE/LE M6 PT-IP Treatment Start: 01/18/20 12:54 Freq: NEEDED Status: Active Protocol: Document 01/18/20 12:55 [place] (Rec: 01/18/20 13:50 [place] [id number]) Physical Therapy Treatment Exercises Exercises Ankle Pumps,Gluteal Sets,Quad Sets,Heel Slides Education Education Provided Safety Other Treatments Other Treatment Performed Seated marches, LAQ, marching in place, weight shifting M7 PT-IP Assessment and Plan Start: 01/18/20 12:54 Freq: NEEDED Status: Active Protocol: Document 01/18/20 12:55 [place] (Rec: 01/18/20 13:50 [place] [id number]) PT Summary Assessment and Plan Potential Rehabilitation Potential Good Status of Condition at Evaluation Stable Summary Impairments Strength,Balance,Coordination, Sensation,Tone,Bed Mobility, Transfers,Gait,Activity Tolerance Assessment Summary Pt had good tolerance for LE strengthening exercises including ankle pumps, quad sets, heel slides, LAQs, and seated marching. SBA for bed mobility and sit<>stand. R knee buckling and reported fatigue secondary to marching in place and weight shifting w / FWW. Goals Bed Mobility Goal Independent Transfer Goal Independent,Front Wheeled Walker Gait Goal Independent,Front Wheel Walker Gait Distance 200 Days to Meet Goals 5 Frequency of Treatment Frequency Of Treatment Twice a Day Treatment Plan Physical Therapy Treatment Plan Bed Mobility Training,Transfer Training,Gait Training, Therapeutic Exercise,Balance Retraining,Discharge Planning, Neuromuscular Re-ed, Coordination Retraining,Manual Therapy Recommendations To Nursing Amount of Assist Needed 1 Person Assist Discharge Recommendations PT Discharge Recommendations Acute Rehab Equipment Needed for Home Before FWW if pt goes home Discharge Transportation Needs at Discharge Private Vehicle,Wheelchair/ Cabulance
[2020-01-18] MEDS: CLOPIDOGREL 75 MG TABLET PO (17:06)
[2020-01-18] MEDS: ASPIRIN EC 81 MG TABLET PO (17:06)
[2020-01-18 18:57] LABS: COVID19 -Nasal RAPID Negative (Negative)
[2020-01-18] MEDS: ROSUVASTATIN 10 MG TABLET 5 MG PO (21:28)
[2020-01-18] MEDS: SODIUM CHLORIDE 0.9% FLUSH 10 ML IV (21:28)
[2020-01-19] VITALS: BP 158/83; PULSE 74; RESP 18; TEMP 36.5; O2SAT 96
--- NOTE | 2020-01-19 01:00 | PC.NURSE ---
0050: Resting in bed. Up to bathroom at midnight, with sba, using walker. B/P elevated. Other vital signs stable. IV in place in rt AC. Remains on telemetry. Remains on room air.
[2020-01-19] MEDS: ACETAMINOPHEN 325 MG TABLET 650 MG PO (03:13)
[2020-01-19 05:16] VITALS: BP 152/71; PULSE 65; RESP 16
[2020-01-19 08:00] VITALS: BP 130/75; PULSE 71; RESP 17; TEMP 36.8; O2SAT 96
[2020-01-19] MEDS: ENOXAPARIN 40 MG/0.4 ML SYRINGE SUBCUT (08:36)
[2020-01-19] MEDS: METOPROLOL ER 25 MG TABLET 12.5 MG PO (08:37)
[2020-01-19] MEDS: CHOLECALCIFEROL (VITAMIN D3) 1,000 UNIT TABLET 2000 UNIT PO (08:37)
[2020-01-19] MEDS: CLOPIDOGREL 75 MG TABLET PO (08:37)
[2020-01-19] MEDS: METFORMIN HCL 500 MG TABLET PO (08:37)
[2020-01-19] MEDS: VITAMIN B COMPLEX 1 CAPSULE 1 CAP PO (08:38)
[2020-01-19] MEDS: SODIUM CHLORIDE 0.9% FLUSH 10 ML IV (08:38)
--- NOTE | 2020-01-19 10:37 | PM.DS.1 ---
History of Present Illness History of Present Illness Date Patient Seen: 01/19/20 Time Patient Seen: 10:37 Chief complaint: rt leg no strength/ can move/ unable to stand on Narrative: This is a 74 year old female with a new CVA. She apparently presented back in November with a similar right-sided weakness/numbness presentation that lasted less than 24 hours and was determined to be a TIA. She reports that she was started on aspirin and Plavix but the Plavix was later stopped at her primary care follow-up. She had an echocardiogram done which apparently just showed some pulmonary hypertension. She also had an MRI scan done without any evidence for an acute CVA. She now presents with last normal symptoms at bedtime 9:00 p.m. last night, waking up this morning at 6:00 a.m. dragging her right leg to the bathroom, then going back to sleep and then waking up again 8:00 a.m. with now decreased sensation in both the right hand and the right foot. She has also noticed that the right side of her face is tingling. Her NIH score is 2. Per discussions with Italian stroke neurologist she is not a candidate for intervention or for tPA due to these characteristics. She has significant risk factors for stroke including type 2 diabetes mellitus, untreated hyperlipidemia, hypertension. She initially tells me that she does not take blood pressure medicines and is controlled with only [id number] remedies. She shows me blood pressures that are not controlled, ranging 125/66 up to 164/79 at home. She then tells me that she is taking chlorthalidone and has been intolerant of multiple other medications for blood pressure because they ?made her feel tired?. She also indicates that statins have been recommended for her hyperlipidemia but she has declined to take them because of the reputation. She has no family history of stroke or heart attack. She has no personal history of coronary artery disease or peripheral arterial disease. She did have a left subclavian DVT back in 1999, treated with Coumadin for a year but no problems since then. Her neurological exam is quite minimally abnormal, with the decreased sensation being most striking. The brain CTA shows no evidence of carotid disease or acute bleed. Discharge Providers Provider Date of admission: 01/17/20 13:11 Discharge Date: 01/19/20 Primary care physician: Meghan Meier DO Consults: 01/17/20 13:17 Consult to Occupational Therapy Evaluate & Treat Comment: Physician Instructions: Evaluate and treat Consult to Physical Therapy Evaluate & Treat Comment: Physician Instructions: Evaluate and Treat Consult to Speech Therapy Evaluate & Treat Comment: Physician Instructions: Evaluate and treat Discharge provider: Jaswant Mann MD Summary Hospital Course Discharge Diagnosis: Subacute Left Thalamic Cerebrovascular Accident Hypertension Hyperlipidemia Hypothyroidism Type 2 diabetes mellitus Hospital Course: Subacute Left Thalamic Cerebrovascular Accident, present on admission, acute -Brain MRI shows the Thalamic CVA without any carotid or other vascular irregularities -Telemetry monitoring normal. Recent Echo done - 12/10 normal. Consider repeating. -Continue stroke prevention medications including Plavix, aspirin, Crestor, metoprolol, metformin. -PT, OT and Speech Therapy evaluations and treatment starting 01/17 with rec. for inpatient rehab due to good levels of stamina with decreased sensation/coordination of the right hand and similar problems with walking/knee movements of the right leg -transfer to inpatient rehab at [facility] today Hypertension, present on admission, chronic -Began Metoprolol and continued Chlorthalidone -permissive HTN with pressure 130/75 on 01/18 Hyperlipidemia, present on admission, chronic -Chol 252, LDL 169 -Began on low dose Crestor -she is apprehensive/avoidant of statin use before this CVA Hypothyroidism, present on admission, chronic -TSH 0.03, which is typical of this alternative more natural thyroid treatment approach -continue armor thyroid and consider dose decrease as an outpatient at her PCP office Type 2 diabetes mellitus, present on admission, chronic -Blood sugar 111 on admission, 112 on 01/17 -continue metformin and follow blood sugars BID with Carb Choice diet. Status at Discharge Cognitive/behavioral status at discharge: at baseline, oriented Functional status at discharge: uses cane/walker Overall status at discharge: patient is progressing back to baseline Time Spent with Patient Time spent: Greater than 30 minutes Exam Vital Signs (past 8 hours): - 01/19/20 05:16 01/19/20 08:00 Temperature 98.2 F Pulse Rate 65 71 Respiratory Rate 16 17 Blood Pressure 152/71 H 130/75 Pulse Oximetry 96 Oxygen Delivery Method Room Air Oxygen Flow Rate 0 Narrative Exam Narrative: Alert and oriented x3. Heart is regular rate and rhythm without murmur Lungs are clear to auscultation bilaterally Extremities have no ankle edema Neurological exam, gait is slow and awkward with a walker as her right hand and right foot coordination is affected. She has intact motor strength 5/5 on the right side but diminished sensation and diminished coordination. Objective Labs Result Diagrams: 01/17/20 11:25 01/17/20 11:25 Labs: Laboratory Results - last 24 hr 01/18/20 14:50 COVID-19 PCR Negative Discharge Plan Discharge Plan Disposition: er Inpatient Rehab Discharge orders & Medications Discharge Orders: Discharge (Order); Ordered 01/19/20 Ordered By: Jaswant Mann Prescriptions: New metoprolol succinate 25 mg Tablet Extended Release 24 Hr 12.5 mg PO DAILY Qty: 30 RF: 0 clopidogrel 75 mg Tablet 75 mg PO DAILY Qty: 30 RF: 0 rosuvastatin 10 mg Tablet 5 mg PO BEDTIME Qty: 30 RF: 0 Continued cholecalciferol (vitamin D3) [Vitamin D3] 2,000 UNIT tablet 1 tab PO QAM Qty: 0 RF: 0 metformin 500 mg tablet 500 mg PO BID Qty: 180 RF: 3 thyroid (pork) [Nature-Throid] 130 mg tablet 130 mg PO QAM RF: 0 aspirin [Adult Low Dose Aspirin] 81 mg Tablet,Delayed Release (Dr/Ec) 81 mg PO QPM RF: 0 chlorthalidone 25 mg tablet 25 mg PO QPM RF: 0 cod liver oil Capsule 1 cap PO QAM RF: 0 vitamin B complex [B Complex-Vitamin B12] Tablet 1 tab PO QAM RF: 0 coQ10 (ubiquinol) 200 mg Capsule 200 mg PO QAM RF: 0 Discontinued Glucose: Home Monitor Qty: 1 RF: 0 Glucose: Test Strips 0 str BID Qty: 180 RF: 3 Follow up/Referrals: Meghan Meier DO [Primary Care Provider] - Visit Report/Discharge Packet Instructions: DI for Stroke-Ischemic Discharge Data Primary Care Provider: Meghan Meier Quality VTE Deep Vein Thrombosis/Pulmonary Embolism Present on Admission: No
--- NOTE | 2020-01-19 10:56 | CM.DPC ---
DCP Cont: Patient is to be discharged to [facility] today. Attempted to get a cabulance for patient, but they are booked for the day. 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 Cost would be roughly around $65.00. Spoke to Roma at [facility] and let her know. She confirmed with the nurse estimating manager that cab would be ok. Have updated patient and , and nurse, Verónica. Faxed [place] over med list, signed med not yet available, COVID results, and discharge summary. P: Patient is supposed to go to [facility] today, via cab. Ginger Helms RN/Construction Materials Tester
--- NOTE | 2020-01-19 11:09 | PT.IPTN ---
Current Diagnoses Cerebral infarction, unspecified (01/17/20) Physical Therapy Treatment Note M2 PT-IP Current Condition Start: 01/18/20 12:54 Freq: NEEDED Status: Active Protocol: Document 01/18/20 10:53 AB (Rec: 01/18/20 13:09 AB [id number]) Physical Therapy Current Condition Current Condition Evaluation Date 01/18/20 Treatment Diagnosis L CVA; difficulty in walking Onset Date 01/17/20 M3 PT-IP Subjective Start: 01/18/20 12:54 Freq: NEEDED Status: Active Protocol: Document 01/19/20 09:32 LJ (Rec: 01/19/20 11:09 LJ [id number]) Subjective Physical Therapy Visit Type Type Treatment Note Visit Start Time 09:32 Visit Stop Time 09:51 Total Visit Minutes 19 Number of ASSISTANT AUTO CENTER MANAGER Visits 2 Physical Therapy Visit Comments Patient Comments pt is agreeable to do PT Therapy Pain Assessment Pain Present Pain Present Denied Pain M4 PT-IP Mobility and Gait Start: 01/18/20 12:54 Freq: NEEDED Status: Active Protocol: Document 01/19/20 09:32 LJ (Rec: 01/19/20 11:09 LJ [id number]) PT-Transfer Assessment Sit to and From Stand Sit to and from Stand Standby Assistance,1 Person Assistance,Use of Upper Extremities Equipment Transfer Assistive Device Gait Belt,Front Wheeled Walker Orthotic/Prosthetic Devices or Brace: No Transfers Transfer Destination Chair Transfer Ability Level of Assist Standby Assistance,1 Person Assistance,Use of Upper Extremities Comments Mobility Comments Pt in chair upon arrival. Pt stood from chair SBA with use of UEs to push up from chair. Pt performed standing exercises holding onto FWW for support. Hip extension, abduction, hip flexion, marching, and dorsiflexion of LLE prior to ambulation. Gait Assessment Gait Gait Assistance Required: Standby Assistance Distance (Feet) 150 Assistive Devices Assistive Device Gait Belt,Front Wheeled Walker Orthotic/Prosthetic Devices or Brace: No Gait Deviations General Gait Pattern Decreased Stride Length, Decreased Feet Clearance Factors Limiting Gait Function Factors Limiting Gait Function Decreased Activity Tolerance, Decreased Sensation,Decreased Strength,Poor Balance Comments Gait Comments Pt managing FWW well. Able to advance right foot and produce improved heelstrike and knee flexion when concentrating on proper gait pattern. No right knee buckling though pt stated that it felt weak. She ambulated around ICU x1 and returned to chair in room. Transfered to [facility] using UEs. Safely lowered herself into chair. M5 PT-IP Objective Assessments Start: 01/18/20 12:54 Freq: NEEDED Status: Active Protocol: Document 01/18/20 10:53 AB (Rec: 01/18/20 13:09 AB [id number]) Orientation Orientation/Cognition Level of Alertness Alert Orientation Name Gross Range of Motion Lower Extremity ROM Assessment Within Functional Limits Strength Lower Extremity Strength Assessment Right Impaired Hip 3/5 Knee 3+/5 Ankle 3/5 Sensation Assessment Sensation Gross Sensation Right UE Impaired,Right LE Impaired Light Touch Impaired Proprioception (Position) Impaired Comments Sensation Comments reported only 50% sensation on RUE/LE M6 PT-IP Treatment Start: 01/18/20 12:54 Freq: NEEDED Status: Active Protocol: Document 01/19/20 09:32 CARLOS (Rec: 01/19/20 11:09 LJ [id number]) Physical Therapy Treatment Exercises Exercises Gluteal Sets Education Education Provided Safety Other Treatments Other Treatment Performed standing hip extensionand flexion, abduction, several reps of each. Standing marching prior to ambulation. Readjusted FWW to better fit pt height. M7 PT-IP Assessment and Plan Start: 01/18/20 12:54 Freq: NEEDED Status: Active Protocol: Document 01/19/20 09:32 CARLOS (Rec: 01/19/20 11:09 LJ [id number]) PT Summary Assessment and Plan Potential Rehabilitation Potential Good Status of Condition at Evaluation Stable Summary Impairments Strength,Balance,Coordination, Sensation,Tone,Bed Mobility, Gait,Activity Tolerance Assessment Summary Pt performed standing LE exercises well showing intact motor recruitment and suffecient strength for ambulation. She improved her gait pattern with swing through phase and heel strike improvement. Still seeing slight clearance issues with RLE but when pt concentrates, she does better with lifting the RLE. Goals Bed Mobility Goal Independent Transfer Goal Independent,Front Wheeled Walker Gait Goal Independent,Front Wheel Walker Gait Distance 200 Days to Meet Goals 5 Frequency of Treatment Frequency Of Treatment Twice a Day Treatment Plan Physical Therapy Treatment Plan Bed Mobility Training,Transfer Training,Gait Training, Therapeutic Exercise,Balance Retraining,Discharge Planning, Neuromuscular Re-ed, Coordination Retraining,Manual Therapy Recommendations To Nursing Amount of Assist Needed 1 Person Assist Discharge Recommendations PT Discharge Recommendations Acute Rehab Equipment Needed for Home Before FWW if pt goes home Discharge Transportation Needs at Discharge Private Vehicle,Wheelchair/ Cabulance
--- NOTE | 2020-01-19 14:46 | PC.NURSE ---
Transfer: Feels ready to transfer to [facility] in . Eager to start rehab so she can go home. NIH was 2 today off for rt arm and leg weakness. Pt is able to feed self, has more of a problem with fine motor skills such as pen holding. Report called to [facility] and reviewed hospital course and ADL's. Questions answered. Pt d/c to facility via taxi.
== END 2020-01-19 14:10 | DRG 65 ==
LOC: ED 11:56 → AC 13:12
PROVIDERS: Admitting Provider Family Medicine; Emergency Provider Emergency Medicine; PCP Family Medicine; Referring Provider Emergency Medicine; Visit Provider Family Medicine
DX: I63.9 Cerebral infarction, unspecified (principal); G81.91 Hemiplegia, unspecified affecting right dominant side; E11.9 Type 2 diabetes mellitus without complications; I10 Essential (primary) hypertension; E03.9 Hypothyroidism, unspecified; E78.2 Mixed hyperlipidemia; Z79.84 Long term (current) use of oral hypoglycemic drugs; Z11.59 Encounter for screening for other viral diseases
CPT/HCPCS: 36415; 70450; 70496; 70498; 70548; 70553; 80053; 80061; 80320; 81003; 81015; 82962; 83690; 84443; 84484; 85025; 85610; 85730; 87086; 87635; 92523; 92610; 93005; 93010; 96360; 96361; 97110; 97116; 97161; 97165; 97530; 97535; 99285; A9270; J1650; Q9967

== ENCOUNTER → 2020-02-18 07:32 | Outpatient (CLI) | payer MEDICARE, SELFPAY ==
[2020-01-30 16:33] VITALS: BMI 34.5
[2020-02-18 08:03] LABS: Cholesterol 156 mg/dL (140-199); Creatine Kinase 67 U/L (30-135); HDL Cholesterol 53 mg/dL (40-60); LDL Cholesterol Calculated 83 mg/dL (<100); Triglycerides 100 mg/dL (35-150)
== END ==
PROVIDERS: PCP Family Medicine; Referring Provider Family Medicine; Visit Provider Family Medicine
DX: E78.2 Mixed hyperlipidemia (principal); M79.10 Myalgia, unspecified site
CPT/HCPCS: 36415; 80061; 82550

== ENCOUNTER → 2020-02-24 10:36 | Outpatient (CLI) | payer MEDICARE, SELFPAY ==
[2020-01-30 16:33] VITALS: BMI 34.5
--- NOTE | 2020-03-22 12:47 | PM.CARDMON.1 ---
Payroll Accounting Specialist Report Referral & Results Date Patient Seen: 02/24/20 Requesting provider: Meghan Meier Indication: TIA Duration of monitoring (days): 10 Diary information: There were 0 patient diary entries and 0 patient triggered events to review Data: Minimum heart rate identified was 55 beats per minute at 07:16 on 02/26/2020 Maximum sinus heart rate was 116 beats per minute at 13:21 on 03/03/2020 Maximum overall heart rate was 200 beats per minute at 09:31 on 02/28/2020 during an 11 beat run of SVT Less than 1% of identified beats or either ventricular supraventricular ectopic in origin Patient did have 1 6 beat run of ventricular tachycardia Patient also had 11 runs of SVT/atrial tachycardia the fastest being the above-mentioned 12 beat run at 200 beats per minute and the longest being 17 beats at a rate of 146 beats per minute which more strongly suggest atrial tachycardia Impression: This 10 day groundwater monitoring technician shows no clear etiology for patient reported TIA. Minor dysrhythmias as above with the exception of 1 6 beat run of VT Clinical correlation suggested
== END ==
PROVIDERS: Family Provider Family Medicine; PCP Family Medicine; Referring Provider Family Medicine; Visit Provider Family Medicine
DX: G45.9 Transient cerebral ischemic attack, unspecified (principal)
CPT/HCPCS: 0296T; 0298T

== ENCOUNTER → 2020-03-21 16:03 | Outpatient (CLI) | payer MEDICARE, SELFPAY ==
[2020-01-30 16:33] VITALS: BMI 34.5
--- NOTE | 2020-03-21 16:04 | DI.MG.S_ITS ---
BILATERAL DIGITAL SCREENING MAMMOGRAM 3D/2D WITH CAD: 03/21/2020 CLINICAL: Routine screening. Comparison is made to exams dated: 12/23/2016 mammogram and 09/22/2014 mammogram - [facility]. There are scattered fibroglandular elements in both breasts. Current study was also evaluated with a Computer Aided Detection (CAD) system. No significant masses, calcifications, or other findings are seen in either breast. There has been no significant interval change. IMPRESSION: NEGATIVE There is no mammographic evidence of malignancy. A 1 year screening mammogram is recommended. This exam was interpreted at Station ID: [id number]. NOTE: For mammograms, a report in lay terms will be sent to the patient. Approximately 15% of breast malignancies will not be visualized mammographically. In the management of a palpable breast mass, a negative mammogram must not discourage biopsy of a clinically suspicious lesion. Electronically Signed By: Miguel hannah/jun:03/23/2020 09:54:57 letter sent: Normal Exam ACR BI-RADS Category 1: Negative [id number]
== END ==
PROVIDERS: Family Provider Family Medicine; PCP Family Medicine; Referring Provider Family Medicine; Visit Provider Family Medicine
DX: Z12.31 Encounter for screening mammogram for malignant neoplasm of breast (principal)
CPT/HCPCS: 77063; 77067

== ENCOUNTER → 2020-06-05 08:08 | Outpatient (CLI) | payer MEDICARE, SELFPAY ==
[2020-01-30 16:33] VITALS: BMI 34.5
[2020-06-05 08:43] LABS: Add Manual Diff / Slide Review NO; Basophils Absolute Auto 0 /uL (0-100); Basophils Percent Auto 0.6 % (0-2); Eosinophils Absolute Auto 200 /uL (0-450); Hemoglobin 12.1 g/dL (12.0-16.0); Lymphocytes Absolute Auto 2200 /uL (1100-4500); Lymphocytes Percent Auto 46.1 % (25-40); Mean Corpuscular HGB Conc 33.7 % (30-36); Mean Corpuscular Hemoglobin 29.7 PG (26-34); Mean Corpuscular Volume 88.1 fL (80-100); Monocytes Absolute Auto 400 /uL (0-900); Monocytes Percent Auto 9.2 % (3-14); Neutrophils Absolute Auto 1900 /uL (1500-7000); Neutrophils Percent Auto 40.1 % (50-75); Platelet Count 294 X10^3/uL (150-400); Red Blood Cell Count 4.08 X10^6/uL (4.0-5.2); Red Cell Distribution Width 13.8 % (11.6-14.8); White Blood Cell Count 4.8 X10^3/uL (4.5-11.0)
[2020-06-05 09:03] LABS: BUN Creatinine Ratio 25.8 (6-22); Blood Urea Nitrogen 17 mg/dL (7-17); Calcium 9.2 mg/dL (8.4-10.2); Carbon Dioxide 32 mmol/L (22-32); Chloride 96 mmol/L (98-107); Estimated Glomerular Filt Rate > 60.0 mL/min (>60); Glucose 122 mg/dL (80-110); HEMOLYSIS < 15 (0-50); Potassium 3.9 mmol/L (3.4-5.1); Sodium 135 mmol/L (137-145)
[2020-06-05 09:05] LABS: Hemoglobin A1C% w Est Avg Glu 6.1 % (4.0-6.0)
== END ==
PROVIDERS: Family Provider Family Medicine; PCP Family Medicine; Referring Provider Family Medicine; Visit Provider Family Medicine
DX: E11.9 Type 2 diabetes mellitus without complications (principal); I10 Essential (primary) hypertension; I63.9 Cerebral infarction, unspecified
CPT/HCPCS: 36415; 80048; 83036; 85025

== ENCOUNTER → 2020-06-15 09:03 | Outpatient (CLI) | payer MEDICARE, SELFPAY ==
[2020-01-30 16:33] VITALS: BMI 34.5
[2020-06-15 10:55] LABS: Free T3, Triiodothyronine Free 3.53 pg/mL (2.77-5.27); Free T4, Direct Thyroxine 1.37 ng/dL (0.78-2.19)
[2020-06-15 11:09] LABS: Thyroid Stimulating Hormone < 0.015 uIU/mL (0.47-4.68)
[2020-06-15 11:35] LABS: High Sensitivity CRP - Cardiac 1.2 mg/L (1.0-3.0)
[2020-06-17 22:36] LABS: Lipoprotein (a) 9.5 nmol/L (<75.0)
== END ==
PROVIDERS: Family Provider Family Medicine; PCP Family Medicine; Referring Provider Family Medicine; Visit Provider Family Medicine
DX: E03.9 Hypothyroidism, unspecified (principal); E11.9 Type 2 diabetes mellitus without complications; E78.2 Mixed hyperlipidemia
CPT/HCPCS: 36415; 83695; 84439; 84443; 84481; 86140

== ENCOUNTER → 2020-09-07 08:47 | Outpatient (CLI) | payer MEDICARE, SELFPAY ==
[2020-01-30 16:33] VITALS: BMI 34.5
[2020-09-15 14:10] LABS: LDL Particle SEE SEPARATE REPORTS
== END ==
PROVIDERS: Family Provider Family Medicine; PCP Family Medicine; Referring Provider Family Medicine; Visit Provider Family Medicine
DX: E78.2 Mixed hyperlipidemia (principal)
CPT/HCPCS: 36415; 80061; 83704

== ENCOUNTER 2020-12-10 17:17 | Emergency (ER) | payer MEDICARE, SELFPAY ==
[2020-01-30 16:33] VITALS: BMI 34.5
[2020-12-10 17:22] VITALS: BP 195/86; PULSE 71; RESP 16; TEMP 36.1; O2SAT 98; BMI 30.4
[2020-12-10 18:19] LABS: D Dimer 388 ng/mL (<230)
--- NOTE | 2020-12-10 18:51 | ED.EXTPRO ---
HPI - Extremity Problem General Chief complaint: Extremity Problem,Nontraumatic Stated complaint: thinks she has a blood clot Time Seen by Provider: 12/10/20 18:42 Source: patient Mode of arrival: Ambulatory Limitations: no limitations History of Present Illness HPI Narrative: Patient is a 75-year-old female who presents with sudden onset of right leg pain that started at 1:00 a.m.. It hurts 1 particular area and hurts to touch. She denies any swelling of her legs no shortness of breath. She walks around her apartment quite a lot and is not sedentary but does not do much walking outside. No recent travel. She denies any chest pain or shortness of breath. She has not taken anything for pain and at this time does not want anything. She also got her Virgil and Virgil vaccine 3 weeks ago and is concerned that there may be a blood clot MD Complaint: extremity pain Onset (ago): hour(s) Pain Consistency: constant Location: right Related Data Home Medications Medication Instructions Recorded Confirmed cholecalciferol (vitamin D3) 1 tab PO QAM #0 08/24/17 06/08/20 [Vitamin D3] thyroid (pork) 130 mg tablet 130 mg PO QAM 07/18/18 06/08/20 coQ10 (ubiquinol) 200 mg PO QAM 01/17/20 06/08/20 cod liver oil 1 cap PO QAM 01/17/20 06/08/20 vitamin B complex [B 1 tab PO QAM 01/17/20 06/08/20 Complex-Vitamin B12] Previous Rx's Medication Instructions Recorded metformin 500 mg tablet 500 mg PO BID #180 tab 03/02/20 chlorthalidone 25 mg tablet 25 mg PO QPM #90 tab 06/08/20 clopidogrel 75 mg tablet See Rx Instructions .ROUTE 12/07/20 .COMPLEX #90 tab Allergies Allergy/AdvReac Type Severity Reaction Status Date / Time diphenhydramine Allergy Severe hives and Verified 06/08/20 10:07 [DIPHENHYDRAMINE] rash pseudoephedrine Allergy Severe hives and Verified 06/08/20 10:07 [PSEUDOEPHEDRINE] rash shellfish derived Allergy Severe (JUST THE Verified 06/08/20 10:07 [SHELLFISH DERIVED] SHELL) rash Review of Systems Review of Systems Narrative: GENERAL: Denies chills, fatigue, malaise, fever, sweats, travel HEENT: Denies sinus pain, ear pain, sore throat, difficulty swallowing, neck pain RESPIRATORY: Denies dyspnea, cough, wheezing, hemoptysis, sputum. CARDIOVASCULAR: Denies chest pain, palpitations, orthopnea, edema GASTROINTESTINAL: Denies nausea, vomiting, abdominal pain, diarrhea, constipation, melena. : Denies dysuria, frequency, incontinence, hematuria, urinary retention, flank pain. MUSCULOSKELETAL: See HPI SKIN: No rash, no erythema, no pruritus NEUROLOGIC: Denies weakness, dizziness, headache, numbness, change in speech, confusion PSYCHIATRIC: No concerning psychosocial issues. 12 point review of systems is negative except for those stated above and HPI Patient History Medical History Allergic rhinitis Chicken pox Concussion DVT (deep venous thrombosis) (2000) Essential hypertension (12/06/12) Fall at home 4 History of ectopic (1980) Hypothyroidism (2003) Measles Migraines Mixed hyperlipidemia Mumps Myalgia Pertussis (1949) TIA (transient ischemic attack) Type 2 diabetes mellitus Surgical History History of bilateral salpingo-oophorectomy (BSO) (1980) History of strabismus surgery (1960) Status post hysterectomy (1980) Status post wrist surgery Family History Father Diabetes mellitus Hypertension Mother Parkinson's disease Sister Age: 75 Thyroid disease Family/Other Thyroid disease Brother Age: 71 Thyroid disease Social History household members: spouse Smoking Status: Never smoker Smoking Status: Never smoker alcohol intake frequency: 0-2 drinks per day Substance Use Type: does not use Exam Initial Vital Signs Initial Vital Signs: Vital Signs Temperature 96.9 F L 12/10/20 17:22 Pulse Rate 71 12/10/20 17:22 Respiratory Rate 16 12/10/20 17:22 Blood Pressure 195/86 H 12/10/20 17:22 Pulse Oximetry 98 12/10/20 17:22 GENERAL: Alert pleasant 75-year-old female face timing her grandson and in [no acute] distress. HEENT: Head atraumatic,EOMI, pupils reactive, face symmetric, [moist] mucous membranes CARDIOVASCULAR: Regular rate and rhythm without murmurs, rubs or gallops. RESPIRATORY: Breath sounds equal bilaterally, no wheezes rales or rhonchi. EXTREMITIES: Normal range of motion, no clubbing or edema. Neurovascularly intact. Pinpoint right calf pain reproducible with palpation no significant swelling or erythema strong distal pedal pulse NEUROLOGICAL: Alert and oriented x4.Normal gait and speech. Cranial nerves II through XII grossly intact. SKIN: Warm, dry, no laceration, no petechiae, no rashes or lesions. Course Orders Ordered: ED Orders 12/10/20 18:00 D Dimer Stat Vital Signs Vital signs: Vital Signs - 8 hr 12/10/20 17:22 12/10/20 19:04 12/10/20 19:14 Temperature 96.9 F L Pulse Rate 71 65 66 Respiratory Rate 16 20 14 Blood Pressure 195/86 H 187/87 H 187/81 H Pulse Oximetry 98 98 99 MDM - Extremity (Nontraumatic) Lab Data Attestation: I reviewed the patient's lab results. Labs: Lab Results 12/10/20 Range/Units 18:00 D-Dimer 388 H (<230) ng/mL MDM Narrative Medical decision making narrative: Patient's clinical exam with pinpoint tenderness to 1 particular area is more consistent with a muscle spasm rather than a blood clot. Her history also is does not clinically correlate with blood clot. D-dimer within age correction is negative. Discharge Plan Departure Patient Disposition: Home Clinical Impression: Muscle spasm Instructions: DI for Muscle Spasm Activity Restrictions/Additional Instructions: *You have been diagnosed with muscle spasm *What to do: At this time the your history and symptoms are more consistent with a muscle spasm rather than a blood clot. Please continue to move, massage, heating pad is and monitor. *Continue to take medications as directed Tylenol 650 mg every 4-6 hours if needed [id number] pain Ibuprofen 600 mg every 6 hours if needed for [id number] pain *Follow up with your primary care provider in 2-3 days *Return to ER if you should have increasing pain, swelling, redness or any new, worsening or concerning symptoms Prescriptions: No Action cholecalciferol (vitamin D3) [Vitamin D3] 2,000 UNIT tablet 1 tab PO QAM Qty: 0 RF: 0 metformin 500 mg tablet 500 mg PO BID Qty: 180 RF: 3 clopidogrel 75 mg tablet See Rx Instructions .ROUTE .COMPLEX Qty: 90 RF: 0 thyroid (pork) [Nature-Throid] 130 mg tablet 130 mg PO QAM RF: 0 chlorthalidone 25 mg tablet 25 mg PO QPM Qty: 90 RF: 3 cod liver oil Capsule 1 cap PO QAM RF: 0 vitamin B complex [B Complex-Vitamin B12] Tablet 1 tab PO QAM RF: 0 coQ10 (ubiquinol) 200 mg Capsule 200 mg PO QAM RF: 0 Referrals: Meghan Meier DO [Primary Care Provider] -
[2020-12-10 19:04] VITALS: BP 187/87; PULSE 65; RESP 20; O2SAT 98
[2020-12-10 19:14] VITALS: BP 187/81; PULSE 66; RESP 14; O2SAT 99
== END 2020-12-10 19:16 | disposition home or self-care (01) ==
PROVIDERS: Emergency Medicine; Emergency Provider Emergency Medicine; Family Provider Family Medicine; PCP Family Medicine
DX: M62.838 Other muscle spasm (principal)
CPT/HCPCS: 36415; 85379; 99283

== ENCOUNTER → 2021-05-26 16:06 | Outpatient (CLI) | payer MEDICARE, SELFPAY ==
[2020-01-30 16:33] VITALS: BMI 34.5
[2021-05-26 18:27] LABS: Add Manual Diff / Slide Review NO; Basophils Absolute Auto 0 /uL (0-100); Basophils Percent Auto 0.4 % (0-2); Eosinophils Absolute Auto 200 /uL (0-450); Eosinophils Percent Auto 3.1 % (2-4); Hematocrit 35.9 % (36-46); Hemoglobin 12.2 g/dL (12.0-16.0); Lymphocytes Absolute Auto 2400 /uL (1100-4500); Lymphocytes Percent Auto 39.7 % (25-40); Mean Corpuscular HGB Conc 33.9 % (30-36); Mean Corpuscular Hemoglobin 29.6 PG (26-34); Mean Corpuscular Volume 87.2 fL (80-100); Monocytes Absolute Auto 500 /uL (0-900); Neutrophils Absolute Auto 2900 /uL (1500-7000); Neutrophils Percent Auto 47.8 % (50-75); Platelet Count 257 X10^3/uL (150-400); Red Blood Cell Count 4.12 X10^6/uL (4.0-5.2); Red Cell Distribution Width 13.7 % (11.6-14.8); White Blood Cell Count 6.1 X10^3/uL (4.5-11.0)
[2021-05-26 19:16] LABS: Alanine Aminotransferase 25 IU/L (<35); Albumin 4.3 g/dL (3.5-5.0); Albumin Globulin Ratio 1.5 (1.0-2.8); Alkaline Phosphatase 54 U/L (38-126); Aspartate Aminotransferase 28 IU/L (14-36); Bilirubin Total 0.3 mg/dL (0.2-1.3); Blood Urea Nitrogen 20 mg/dL (7-17); Calcium 9.7 mg/dL (8.4-10.2); Carbon Dioxide 32 mmol/L (22-32); Chloride 100 mmol/L (98-107); Estimated Glomerular Filt Rate > 60.0 mL/min (>60); Globulin 2.9 g/dL (1.7-4.1); Glucose 91 mg/dL (80-110); HEMOLYSIS 22 (0-50); Potassium 3.8 mmol/L (3.4-5.1); Sodium 141 mmol/L (137-145); Total Protein 7.2 g/dL (6.3-8.2)
[2021-05-26 19:19] LABS: Hemoglobin A1C% w Est Avg Glu 5.9 % (4.0-6.0)
[2021-05-26 19:25] LABS: NT-proBNP (BNP-Adult 18+) 322 pg/mL (<450)
[2021-05-28 14:12] LABS: Free T3, Triiodothyronine Free 6.03 pg/mL (2.77-5.27); Free T4, Direct Thyroxine 1.69 ng/dL (0.78-2.19)
[2021-05-28 14:26] LABS: Thyroid Stimulating Hormone < 0.015 uIU/mL (0.47-4.68)
== END ==
PROVIDERS: Family Provider Family Medicine; PCP Family Medicine; Referring Provider Family Medicine; Visit Provider Family Medicine
DX: E03.9 Hypothyroidism, unspecified (principal); I49.9 Cardiac arrhythmia, unspecified; E11.9 Type 2 diabetes mellitus without complications; E66.9 Obesity, unspecified; G47.33 Obstructive sleep apnea (adult) (pediatric); I10 Essential (primary) hypertension; I27.20 Pulmonary hypertension, unspecified; I51.7 Cardiomegaly
CPT/HCPCS: 36415; 80053; 83036; 83880; 84439; 84443; 84481; 85025

== ENCOUNTER → 2021-06-25 14:39 | Outpatient (CLI) | payer MEDICARE, SELFPAY ==
[2020-01-30 16:33] VITALS: BMI 34.5
--- NOTE | 2021-06-25 14:40 | DI.ECHO.S_ITS ---
[facility]---------+ [facility] +---------+ : : [address] : [address] : : : : [id number] : : : : Phone: [phone]+ Echocardiogram Report + + :Name: BRITTANY EGAN Study Date: 06/25/2021 Height: 68 in : :[facility] ReadingLocation: Weight: 220 lb : : Gender: Female BSA: 2.1 m2 : :: 1945 Age: 76 yrs BP: 156/82 mmHg: :Reason For Study: Arrhythmia : : Performed By: Joni Parrish : :Referring: EBONIE PETERS : + + Interpretation Summary Normal left ventricle size with ejection fraction 60-65%. Borderline left atrial enlargement. No significant valvular abnormality. A patent foramen ovale is suspected. Comparison is made with the echocardiogram of 12/11/2019, there has been no significant change. Procedure: A two-dimensional transthoracic echocardiogram with color flow and Doppler was performed. The study quality was technically adequate. Comparison is made with the echocardiogram of 12/11/2019. The patient was in normal sinus rhythm during the exam. Left Ventricle: The left ventricle is normal in size and wall thickness. The ejection fraction is estimated to be 60-65%. There are no focal wall motion abnormalities. Right Ventricle: The right ventricle is normal in size and function. Atria: Borderline left atrial enlargement. Right atrial size is normal. A patent foramen ovale is suspected. Mitral Valve: The mitral valve is normal. There is trace mitral regurgitation. Aortic Valve: The aortic valve is trileaflet. The aortic valve opens well. There is trace aortic regurgitation. Tricuspid Valve: The tricuspid valve is normal. There is mild tricuspid regurgitation. The right ventricular systolic pressure is estimated to be at least 33 mmHg based on an estimated right atrial pressure of 3 mm Hg. Pulmonic Valve: The pulmonic valve leaflets are thin and pliable; valve motion is normal. There is trace pulmonic regurgitation. Great Vessels: The aortic root is normal size. The ascending aorta is normal in size. The aortic arch is mildly enlarged. The IVC is of normal diameter and collapses greater than 50% with a sniff. This suggests a low right atrial pressure of 3 mm Hg. Pericardium/ Pleura There is no pericardial effusion. There is an anterior echo-free space consistent with a fat pad. There is no pleural effusion. MMode/2D Measurements & Calculations LVIDd: 5.2 cm LVOT diam: 2.0 cm LVIDs: 3.5 cm Ao root diam: 3.1 cm FS: 32.2 % asc Aorta Diam: 3.0 cm IVSd: 1.0 cm Ao Arch Diam (Prox Trans): 3.8 cm LVPWd: 0.90 cm LV chan. diameter/BSA (cm/m^2): 2.5 LV sys. diameter/BSA (cm/m^2): 1.7 LA A2 area: 20.3 cm2 RA long axis: 5.4 cm LA A4 area: 23.0 cm2 RA area: 12.6 cm2 LA length (vol): 5.7 cm RA vol: 25.3 ml LA vol: 69.8 ml RA : 11.9 ml/m2 LA vol index: 32.8 ml/m2 TAPSE: 1.9 cm Doppler Measurements & Calculations Ao V2 max: 141.1 cm/sec LVOT Max John: 112.3 cm/sec Ao V2 mean: 102.7 cm/sec LV V1 max P.0 mmHg Ao max P.0 mmHg LV V1 VTI: 27.9 cm Ao mean P.5 mmHg LAVERNE(I,D): 2.7 cm2 Ao V2 VTI: 33.1 cm LAVERNE(V,D): 2.5 cm2 sev ratio: 0.84 LAVERNE indexed to BSA (cm^2/m^2): 1.3 MV E max john: 89.6 cm/sec TR max john: 272.2 cm/sec MV A max john: 87.9 cm/sec TR max P.6 mmHg MV E/A: 1.0 PA V2 max: 84.6 cm/sec Med Peak E' John: 7.1 cm/sec PA V2 mean: 63.8 cm/sec E/E' med: 12.6 PA mean P.7 mmHg Lat Peak E' John: 8.3 cm/sec PA pr(Accel): 44.7 mmHg E/E' lat: 10.8 E/e' average: 11.7 MV dec time: 0.22 sec SV(LVOT): 88.3 ml Electronically signed by: Max Ley on Reading Physician:06/25/2021 05:17 PM
== END ==
PROVIDERS: Family Provider Family Medicine; PCP Family Medicine; Referring Provider Family Medicine; Visit Provider Family Medicine
DX: I07.1 Rheumatic tricuspid insufficiency (principal); I49.9 Cardiac arrhythmia, unspecified
CPT/HCPCS: 93306

== ENCOUNTER → 2021-07-26 09:02 | Outpatient (CLI) | payer MEDICARE, SELFPAY ==
[2020-01-30 16:33] VITALS: BMI 34.5
--- NOTE | 2021-07-26 | DI.ECHO.S_ITS ---
+ + [place] [facility] : : [facility] S : : [place] : : [place] : : [address] : : Phone: [phone] Echocardiogram Report + + :Name: BRITTANY EGAN Study Date: 07/26/2021 Height: 67.5 in: :[facility] ReadingLocation: Weight: 220 lb : : Gender: Female BSA: 2.1 m2 : :: 1945 Age: 76 yrs : :Reason For Study: Hx of stroke : :Ordering Physician: : :MISTY Performed By: Joni Parrish : :Referring: EBONIE PETERS : + + Interpretation Summary The ejection fraction is estimated to be 60-65%. Bubble studys seen on slide 24 and 25 both with valsalva. No evidence for shunting Procedure: A two-dimensional transthoracic echocardiogram with color flow and Doppler was performed in limited views only to assess for shunt. The study quality was technically adequate. Comparison is made with the echocardiogram of 06/25/2021. The patient was in normal sinus rhythm during the exam. Left Ventricle: The ejection fraction is estimated to be 60-65%. Atria: Bubble studys seen on slide 24 and 25 both with valsalva. No evidence for shunting. Pericardium/ Pleura There is no pericardial effusion. There is an anterior echo-free space consistent with a fat pad. There is no pleural effusion. MMode/2D Measurements & Calculations LVIDd: 4.5 cm asc Aorta Diam: 3.4 cm LVIDs: 3.4 cm FS: 24.4 % IVSd: 1.0 cm LVPWd: 1.3 cm LV chan. diameter/BSA (cm/m^2): 2.1 LV sys. diameter/BSA (cm/m^2): 1.6 LVLs ap4: 5.8 cm LVLd ap2: 6.8 cm LVLs ap2: 5.8 cm Reading Physician:04:59 PM
== END ==
PROVIDERS: Family Provider Family Medicine; PCP Family Medicine; Referring Provider Family Medicine; Visit Provider Family Medicine
DX: I63.9 Cerebral infarction, unspecified (principal); Q21.1 Atrial septal defect
CPT/HCPCS: 93307

== ENCOUNTER 2021-08-22 13:34 | Emergency (ER) | payer MEDICARE, SELFPAY ==
[2020-01-30 16:33] VITALS: BMI 34.5
[2021-08-22] VITALS (12 sets, daily range): BP systolic 179–208; BP diastolic 82–97; PULSE 60–72; RESP 12–24; TEMP 36.7; O2SAT 96–100
--- NOTE | 2021-08-22 13:41 | ED_ITS ---
HPI - Syncope General Chief Complaint: Syncope Stated Complaint: Fainted Time Seen by Provider: 08/22/21 13:41 Source: patient and family Mode of arrival: Wheelchair Limitations: no limitations History of Present Illness HPI narrative: This is a 76-year-old female comes emergency department with a witnessed syncopa l event. Patient states she was feeling fine this morning they walked about a mi from their house to a local park. She sat down on a rock and started to feel lightheaded she let her family know they came over. They saw her go pale and lowered her to the ground. Her was with her and states she probably had a maximum of 30 seconds loss of consciousness and then very shortly resumed her mental state. There was no confusion, no facial droop. Patient states that she felt a little lightheaded even getting back to the vehicle. They transfer to another vehicle and then drove her here. States she has had a mild headache on and off for the past 3 days. She denies sudden vision changes. No chest pain or shortness of breath. No new back pain. Abdominal pain. She has occasionally has left-sided pain but has not had any new or changing symptoms. She denies any diarrhea constipation or black or bloody stools. Patient has chronic dysuria and frequency sense of incomplete emptying which has been longstanding. She has not had any other fevers or chills. No cough cold or congestion. She has a history of hypertension, diabetes on metformin 500 mg twice daily, Plavix, chlorthalidone, thyroid medication. She has had a prior hysterectomy. Her only allergies are Sudafed which makes her ?act weird?. No tobacco, alcohol or illicit. Her primary care is Dr. Meier. Related Data Home Medications Medication Instructions Recorded Confirmed cholecalciferol (vitamin D3) 50 1 tab PO QAM #0 08/24/17 08/05/21 mcg (2,000 unit) tablet (Vitamin D3) coQ10 (ubiquinol) 200 mg capsule 200 mg PO QAM 01/17/20 08/05/21 vitamin B complex (B 1 tab PO QAM 01/17/20 08/05/21 Complex-Vitamin B12) cod liver oil See Rx Instructions PO QAM 05/26/21 08/05/21 thyroid 180 mg tablet See Rx Instructions PO DAILY tab 08/05/21 08/05/21 Previous Rx's Medication Instructions Recorded clopidogrel 75 mg tablet See Rx Instructions .ROUTE 03/08/21 .COMPLEX #90 tab chlorthalidone 25 mg tablet 25 mg PO QPM #90 tab 07/19/21 metformin 500 mg tablet See Rx Instructions .ROUTE 07/19/21 .COMPLEX #180 tab Allergies Allergy/AdvReac Type Severity Reaction Status Date / Time diphenhydramine Allergy Severe hives and Verified 06/07/21 12:54 [DIPHENHYDRAMINE] rash pseudoephedrine Allergy Severe hives and Verified 06/07/21 12:54 [PSEUDOEPHEDRINE] rash shellfish derived Allergy Severe (JUST THE Verified 06/07/21 12:54 [SHELLFISH DERIVED] SHELL) rash Review of Systems Review of Systems ROS Unobtainable: All systems reviewed & are unremarkable except as noted in HPI and below Patient History Medical History Allergic rhinitis Arrhythmia Cataracts, bilateral Chicken pox Concussion CVA (cerebral vascular accident) DVT (deep venous thrombosis) (2000) Endometriosis (~1979) Essential hypertension (12/06/12) Fall at home Fecal incontinence (~2019) Fractures (~2010) 4 History of ectopic (1980) History of urinary incontinence (~2019) Hypothyroidism (2003) Malaria Measles Migraines Mixed hyperlipidemia Mumps Myalgia Pertussis (1949) Plantar warts TIA (transient ischemic attack) (~2019) Type 2 diabetes mellitus Urge incontinence Surgical History History of bilateral salpingo-oophorectomy (BSO) (1980) History of strabismus surgery (1960) Status post hysterectomy (1980) Status post wrist surgery Family History Father Diabetes mellitus Hypertension Mother Parkinson's disease Sister Age: 75 Thyroid disease Family/Other Thyroid disease Brother Age: 72 Thyroid disease Social History household members: spouse Smoking Status: Never smoker Smoking Status: Never smoker alcohol intake frequency: 0-2 drinks per day Substance Use Type: does not use Exam Narrative Exam Narrative: GEN: well nourished, well appearing female, alert and oriented x 3, patient appears to be in mild distress. HEENT: Atraumatic, pupils are equal round reactive to light, extraocular movemen ts are intact, nares are clear. Throat is clear without any exudates, erythema, tonsillar enlargement or uvular deviation HEART: Regular rate and rhythm without murmur, clicks, rubs. Pulses are equal in upper and lower extremities LUNGS:Lungs clear to auscultation, no wheezes, rales, crackles, chest moves symmetrically ABD:bowel sounds normal, soft, non-tender, no guarding, rebound, rigidity, no masses noted, no hepatosplenomegaly, bruit or pulsatile mass. :No CVA tenderness MSCL: Non-tender, no muscle atrophy, muscles strength 5/5 upper and lower extremities, full range of motion NEURO:CN 2-12 intact, sensation normal Initial Vital Signs Initial Vital Signs: Vital Signs Temperature 98.1 F 08/22/21 13:42 Pulse Rate 69 08/22/21 13:42 Respiratory Rate 22 08/22/21 13:42 Blood Pressure 190/97 H 08/22/21 13:42 Pulse Oximetry 96 08/22/21 13:42 Course Orders Ordered: ED Orders 08/22/21 13:53 EKG-12 Lead Stat 08/22/21 13:54 XR chest 1V Stat 08/22/21 13:59 Complete Blood Count AUTO DIFF Stat Comprehensive Metabolic Panel Stat D Dimer Stat NT-proBNP (BNP-Adult 18+) Stat Troponin & CK Cardiac Panel Stat 08/22/21 14:02 COVID19 -Nasal swab/Pre-Proc Stat Urine Microscopic Stat 08/22/21 14:26 CT head/brain wo con Stat 08/22/21 14:44 CT angio chest PE protocol Stat 08/22/21 16:10 Trop I [Troponin I] Stat Discontinued Medications Hydralazine HCl (Hydralazine 25 Mg Tablet) 25 mg PO NOW ONE Stop: 08/22/21 15:39 Last Admin: 08/22/21 15:48 Dose: 25 mg Documented by: SASKIA Sodium Chloride (Normal Saline 0.9%) 1,000 mls @ 1,000 mls/hr IV BOLUS ONE Stop: 08/22/21 14:52 Last Infusion: 08/22/21 15:56 Dose: 0 mls/hr Documented by: Admin: 08/22/21 14:11 Dose: 1,000 mls/hr Documented by: BTONER Vital Signs Vital signs: Vital Signs - 8 hr 08/22/21 13:42 08/22/21 14:00 08/22/21 15:00 Temperature 98.1 F Pulse Rate 69 72 67 Respiratory Rate 22 18 19 Blood Pressure 190/97 H 190/88 H 208/90 H Pulse Oximetry 96 97 99 08/22/21 15:45 08/22/21 15:48 08/22/21 16:19 Temperature Pulse Rate 64 61 64 Respiratory Rate 18 17 Blood Pressure 193/82 H 192/96 H Pulse Oximetry 98 98 08/22/21 16:22 08/22/21 16:30 08/22/21 16:38 Temperature Pulse Rate 62 61 61 Respiratory Rate 18 12 24 Blood Pressure 197/89 H Pulse Oximetry 96 99 100 08/22/21 16:40 08/22/21 16:44 08/22/21 16:48 Temperature Pulse Rate 60 60 60 Respiratory Rate 22 18 Blood Pressure 179/84 H 179/84 H Pulse Oximetry 100 MDM - Syncope Lab Data Result diagrams: 08/22/21 13:59 08/22/21 13:59 Labs: Lab Results 08/22/21 08/22/21 08/22/21 Range/Units 13:59 13:59 13:59 WBC 5.9 (4.5-11.0) X10^3/uL RBC 4.16 (4.0-5.2) X10^6/uL Hgb 12.4 (12.0-16.0) g/dL Hct 36.4 (36-46) % MCV 87.3 (80-100) fL MCH 29.8 (26-34) PG MCHC 34.1 (30-36) % RDW 14.2 (11.6-14.8) % Plt Count 264 (150-400) X10^3/uL Neut % (Auto) 41.5 L (50-75) % Lymph % (Auto) 46.6 H (25-40) % [place] % (Auto) 8.9 (3-14) % Eos % (Auto) 2.5 (2-4) % Baso % (Auto) 0.5 (0-2) % Neut # (Auto) 2400 (9014-3326) /uL Lymph # (Auto) 2700 (0361-7511) /uL [place] # (Auto) 500 (0-900) /uL Eos # (Auto) 100 (0-450) /uL Baso # (Auto) 0 (0-100) /uL D-Dimer 494 H (<230) ng/mL Sodium 139 (137-145) mmol/L Potassium 3.9 (3.4-5.1) mmol/L Chloride 102 (98-107) mmol/L Carbon Dioxide 30 (22-32) mmol/L BUN 17 (7-17) mg/dL Creatinine 0.89 (0.52-1.04) mg/dL Estimated GFR > 60.0 (>60) mL/min BUN/Creatinine Ratio 19.1 (6-22) Glucose 97 (80-110) mg/dL Calcium 9.6 (8.4-10.2) mg/dL Total Bilirubin 0.5 (0.2-1.3) mg/dL AST 24 (14-36) IU/L ALT 24 (<35) IU/L Alkaline Phosphatase 48 (38-126) U/L Total Creatine Kinase 59 (30-135) U/L CK-MB (CK-2) TNP CK-MB (CK-2) Rel Index TNP Troponin I < 0.012 (0.01-0.034) ng/mL NT-Pro-B Natriuret Pep 406 (<450) pg/mL Total Protein 7.6 (6.3-8.2) g/dL Albumin 4.4 (3.5-5.0) g/dL Globulin 3.2 (1.7-4.1) g/dL Albumin/Globulin Ratio 1.4 (1.0-2.8) Urine RBC (0-5/HPF) Urine WBC (0-5/HPF) Ur Squamous Epith Cells (0-5/HPF) Urine Bacteria (None) Hyaline Casts (None) Ur Culture Indicated? SARS-CoV-2 (PCR) (Negative) 08/22/21 08/22/21 08/22/21 Range/Units 14:02 14:02 16:10 WBC (4.5-11.0) X10^3/uL RBC (4.0-5.2) X10^6/uL Hgb (12.0-16.0) g/dL Hct (36-46) % MCV (80-100) fL MCH (26-34) PG MCHC (30-36) % RDW (11.6-14.8) % Plt Count (150-400) X10^3/uL Neut % (Auto) (50-75) % Lymph % (Auto) (25-40) % [place] % (Auto) (3-14) % Eos % (Auto) (2-4) % Baso % (Auto) (0-2) % Neut # (Auto) (8755-9597) /uL Lymph # (Auto) (1490-2659) /uL [place] # (Auto) (0-900) /uL Eos # (Auto) (0-450) /uL Baso # (Auto) (0-100) /uL D-Dimer (<230) ng/mL Sodium (137-145) mmol/L Potassium (3.4-5.1) mmol/L Chloride (98-107) mmol/L Carbon Dioxide (22-32) mmol/L BUN (7-17) mg/dL Creatinine (0.52-1.04) mg/dL Estimated GFR (>60) mL/min BUN/Creatinine Ratio (6-22) Glucose (80-110) mg/dL Calcium (8.4-10.2) mg/dL Total Bilirubin (0.2-1.3) mg/dL AST (14-36) IU/L ALT (<35) IU/L Alkaline Phosphatase (38-126) U/L Total Creatine Kinase (30-135) U/L CK-MB (CK-2) CK-MB (CK-2) Rel Index Troponin I < 0.012 (0.01-0.034) ng/mL NT-Pro-B Natriuret Pep (<450) pg/mL Total Protein (6.3-8.2) g/dL Albumin (3.5-5.0) g/dL Globulin (1.7-4.1) g/dL Albumin/Globulin Ratio (1.0-2.8) Urine RBC 0-1/hpf (0-5/HPF) Urine WBC 10-30/hpf H (0-5/HPF) Ur Squamous Epith Cells 10-30 /hpf H D (0-5/HPF) Urine Bacteria Many (>30) H (None) Hyaline Casts 10-30/lpf (None) Ur Culture Indicated? Cult not indicated SARS-CoV-2 (PCR) Negative (Negative) Urine Dip Bedside Urine Glucose Negative Bedside Urine Bilirubin ++ 2 Bedside Urine Ketone +/- 5 Urine Specific [place] 1.020 Bedside Urine Occult Blood - Negative Bedside Urine pH 6.0 Bedside Urine Protein + 30 Bedside Urine Urobilinogen 1+ 2mg Bedside Urine Nitrite - Negative Bedside Urine Leukocytes + 70 Esterase Imaging Data Chest x-ray: Radiologist's Impression: [address] [address] XRay Report Signed Patient: Enedina Ye MR#: [id number] : 1945 Acct:[id number] Age/Sex: 76 / F Date of Service: 08/22/21 Loc: ED Accession Number: [id number] ?? Procedure: XR chest 1V Ordering Provider: Rea Montejo D.O. PROCEDURE:? XR CHEST 1V ? INDICATIONS:? syncope ? TECHNIQUE:? One view of the chest was acquired.? ? COMPARISON:? [facility], , CHEST 1 VIEW, 10/16/2015, 17:01. ? FINDINGS:? ? Bra wires are identified. ? Surgical changes and devices:? Overlying EKG wires. ? Lungs and pleura:? Lungs are clear.? No pleural effusions or pneumothorax.? ? Mediastinum:? Mediastinal contours appear normal.? Heart size is normal.? Vascular calcifications within the aortic arch. ? Bones and chest wall:? No suspicious bony lesions.? Overlying soft tissues appear unremarkable.? ? IMPRESSION:? ? No evidence of an acute cardiopulmonary abnormality. ? ? Dictated by: Renato Jasso D.O. on 08/22/2021 at 13:37 ? ? Approved by: Renato Jasso D.O. on 08/22/2021 at 13:38?? CT scan - head: Radiologist's Impression: Enedina Ye??76??F??1945 ? Allergy/Adv: diphenhydramine, pseudoephedrine, shellfish derived (More??) Close Chest CTA (Signed) Jasso,08/22/[address] (Signed) Jasso,08/22/21 Chest X-Ray (Signed) Jasso,08/22/21 Echocardiogram Ultrasound (Signed) Max Alicia - 06/25/21 Mammogram Screening (Signed) Miguel Maxwell - 03/21/20 Brain MRI (Signed) [place],Justice - 01/17/20 Telemetry Strips 01/17/20 Head/Neck CTA (Signed) AbranJustice - 01/17/[address] (Signed) AtulPeteLeslie - 01/17/20 Echocardiogram Ultrasound (Signed) Leonid Flores - 12/11/19 Brain MRI (Signed) AbranJustice - 12/11/19 Head/Neck CTA (Signed) AbranJustice - 11/27/[address] (Signed) AbranJustice - 11/27/19 Launch?[place] [address] CT Scan Report Signed Patient: Enedina Ye MR#: [id number] : 1945 Acct:[id number] Age/Sex: 76 / F Date of Service: 08/22/21 Loc: ED Accession Number: [id number] ?? Procedure: CT head/brain wo con Ordering Provider: Rea Montejo D.O. PROCEDURE:? CT HEAD/BRAIN WO CON ? INDICATIONS:? syncope ? TECHNIQUE:? Noncontrast 4.5 mm thick angled axial sections acquired from the foramen magnum to the vertex, with coronal and sagittal reformats.? For radiation dose reduction, the following was used:? automated exposure control, adjustment of mA and/or kV according to patient size.? ? COMPARISON:? [facility], CT, HEAD WITHOUT CONTRAST, 10/17/2017, 11:33.? [facility], CT, CT STROKE, 01/17/2020, 11:08. ? FINDINGS:? Image quality:? Excellent.? ? CSF spaces:? Basal cisterns are patent.? No extra-axial fluid collections.? Ventricles are normal in size and shape.? ? Brain:? No midline shift.? No intracranial masses or hemorrhage.? Mild deep and superficial white matter foci of hypoattenuation most consistent with microvascular ischemic changes are not significantly changed from prior exams.? [place]-white matter interface is normal.? Mild atherosclerotic calcifications noted within the proximal intracranial vasculature. ? Skull and face:? Calvarium and visualized facial bones are intact, without suspicious lesions.? ? Sinuses:? Visualized sinuses and mastoids are clear.? ? IMPRESSION:? ? No acute intracranial abnormality.? Findings suggestive of mild microvascular ischemic changes not significantly changed from prior examination and not significantly greater than expected for patient's age. ? ? Dictated by: Renato Jasso D.O. on 08/22/2021 at 14:20 ? ? Approved by: Renato Jasso D.O. on 08/22/2021 at 14:23? CT scan - chest: Radiologist's Impression: [address] [address] [address] Scan Report Signed Patient: Enedina Ye MR#: [id number] : 1945 Acct:[id number] Age/Sex: 76 / F Date of Service: 08/22/21 Loc: ED Accession Number: [id number] ?? Procedure: CT angio chest PE protocol Ordering Provider: Rea Montejo D.O. PROCEDURE:? CT ANGIO CHEST PE PROTOCOL ? INDICATIONS:? syncope ? TECHNIQUE:? After the administration of intravenous contrast, 2 mm thick sections acquired from the pulmonary apices to the posterior costophrenic angles.? 3-dimensional maximum intensity projection (MIP) coronal and sagittal reformats were then acquired through the thorax.? For radiation dose reduction, the following was used:? automated exposure control, adjustment of mA and/or kV according to patient size.? ? COMPARISON:? None. ? FINDINGS:? Image quality:? Excellent.? ? Pulmonary arteries:? Pulmonary arteries are normal in size, and demonstrate no intraluminal filling defects to suggest central pulmonary embolism.? ? Lungs and pleura:? Hypoventilatory changes of the lungs .? 4-5 mm subpleural nodular densities of the lower lobes likely representing small lymph nodes, of unlikely clinical significance.? No pleural effusions or pneumothorax.? Central and peripheral airways are patent.? ? Mediastinum:? Heart size is normal, without pericardial effusion.? No mediastinal or hilar adenopathy.? Thoracic aorta is normal in caliber and enhancement.? Esophagus is normal in caliber, without hiatal hernia.? ? Bones and chest wall:? No suspicious bony lesions.? Ribs and thoracic spine appear intact throughout.? Thyroid gland unremarkable.? No axillary or supraclavicular adenopathy.? ? Abdomen:? Visualized upper abdominal solid organs appear normal in the early arterial phase of enhancement.? ? IMPRESSION:? ? No evidence of pulmonary embolus. ? ? Dictated by: Renato Jasso D.O. on 08/22/2021 at 14:23 ? ? Approved by: Renato Jasso D.O. on 08/22/2021 at 14:29?? ECG Data Attestation: I personally reviewed and interpreted this ECG as follows: Prior ECG tracings: available for review Interpretation: Sinus rhythm rate of 72 MD 146 QRS 80 QTC 464. No acute ST changes. Patient has prior from 01/17/2020 which appears similar. EKG 2. Shows a sinus rhythm rate of 61 MD 162 QRS 82 and QTC of 473. No acute ST changes are appreciated. Patient has prior EKG from earlier today appears similar. MDM Narrative Medical decision making narrative: This is a 76-year-old female comes to the emergency department with a syncopal episode witnessed by her . Patient states she is feeling fine just before she felt lightheaded. Had about 30 seconds of loss of consciousness and then shortly return to her baseline. Her vitals show she has been hypertensive, she has had a headache for several days it has been low level and head CT is negative. Labs show troponin EKG negative x2 with no cardiac arrhythmias, no in fectious etiologies are noted, D-dimer was elevated even after age adjustment. CT angio was obtained which is negative. COVID swab is negative. Patient does not have any other electrolyte or other abnormalities that would explain her episode. Her notes she was not hydrating as much as normal this morning and patient states this is well. She is ambulating here in the department without issue. Plan for discharge home she is to return with recurrent symptoms or other new changes. Both she and her feel comfortable with this plan. Discharge Plan Departure Patient Disposition: Home Clinical Impression: Syncope Instructions: DI for Syncope in Adults (Fainting) Activity Restrictions/Additional Instructions: Follow-up with your physician for recheck. Your blood pressure was elevated today, please go home and take your home medications. I would recommend having your blood pressure this week Please return for recurrent symptoms, severe headaches, new chest pain or sh ortness of breath, persistent vomiting, new swelling, new numbness, weakness or tingling or other new or concerning symptoms. Prescriptions: No Action cholecalciferol (vitamin D3) [Vitamin D3] 2,000 UNIT tablet 1 tab PO QAM Qty: 0 0RF clopidogrel 75 mg tablet See Rx Instructions .ROUTE .COMPLEX Qty: 90 0RF Dose Instruction: TAKE ONE TABLET BY MOUTH ONCE DAILY Rx Instructions: TAKE ONE TABLET BY MOUTH ONCE DAILY chlorthalidone 25 mg tablet 25 mg PO QPM Qty: 90 3RF metformin 500 mg tablet See Rx Instructions .ROUTE .COMPLEX Qty: 180 0RF Dose Instruction: TAKE ONE TABLET BY MOUTH TWICE DAILY Rx Instructions: TAKE ONE TABLET BY MOUTH TWICE DAILY thyroid 180 mg tablet See Rx Instructions PO DAILY 0RF Rx Instructions: CMP 190 mcg PO daily; vitamin B complex [B Complex-Vitamin B12] Tablet 1 tab PO QAM 0RF coQ10 (ubiquinol) 200 mg Capsule 200 mg PO QAM 0RF cod liver oil Capsule See Rx Instructions PO QAM 0RF Rx Instructions: 1 teaspoon PO every morning; Referrals: Meghan Meier DO [Primary Care Provider] -
--- NOTE | 2021-08-22 13:54 | DI.RAD.S_ITS ---
PROCEDURE: XR CHEST 1V INDICATIONS: syncope TECHNIQUE: One view of the chest was acquired. COMPARISON: [facility], , CHEST 1 VIEW, 10/16/2015, 17:01. FINDINGS: Bra wires are identified. Surgical changes and devices: Overlying EKG wires. Lungs and pleura: Lungs are clear. No pleural effusions or pneumothorax. Mediastinum: Mediastinal contours appear normal. Heart size is normal. Vascular calcifications within the aortic arch. Bones and chest wall: No suspicious bony lesions. Overlying soft tissues appear unremarkable. IMPRESSION: No evidence of an acute cardiopulmonary abnormality. Dictated by: Renato Jasso D.O. on 08/22/2021 at 13:37 Approved by: Renato Jasso D.O. on 08/22/2021 at 13:38
[2021-08-22 14:11] LABS: Add Manual Diff / Slide Review NO; Basophils Absolute Auto 0 /uL (0-100); Basophils Percent Auto 0.5 % (0-2); Eosinophils Absolute Auto 100 /uL (0-450); Eosinophils Percent Auto 2.5 % (2-4); Hematocrit 36.4 % (36-46); Hemoglobin 12.4 g/dL (12.0-16.0); Lymphocytes Absolute Auto 2700 /uL (1100-4500); Lymphocytes Percent Auto 46.6 % (25-40); Mean Corpuscular HGB Conc 34.1 % (30-36); Mean Corpuscular Hemoglobin 29.8 PG (26-34); Mean Corpuscular Volume 87.3 fL (80-100); Monocytes Absolute Auto 500 /uL (0-900); Monocytes Percent Auto 8.9 % (3-14); Neutrophils Absolute Auto 2400 /uL (1500-7000); Neutrophils Percent Auto 41.5 % (50-75); Platelet Count 264 X10^3/uL (150-400); Red Blood Cell Count 4.16 X10^6/uL (4.0-5.2); Red Cell Distribution Width 14.2 % (11.6-14.8); White Blood Cell Count 5.9 X10^3/uL (4.5-11.0)
[2021-08-22] MEDS: SODIUM CHLORIDE 0.9% 1,000 ML 1000 ML IV (14:11)
--- NOTE | 2021-08-22 14:15 | PC.NURSE ---
spouse reports [place] the [place] and the pt was leaning/sitting on a rock and started to fade out. he states her legs gave out.
[2021-08-22 14:25] LABS: D Dimer 494 ng/mL (<230)
[2021-08-22 14:26] LABS: Alanine Aminotransferase 24 IU/L (<35); Albumin 4.4 g/dL (3.5-5.0); Albumin Globulin Ratio 1.4 (1.0-2.8); Alkaline Phosphatase 48 U/L (38-126); Aspartate Aminotransferase 24 IU/L (14-36); BUN Creatinine Ratio 19.1 (6-22); Bilirubin Total 0.5 mg/dL (0.2-1.3); Blood Urea Nitrogen 17 mg/dL (7-17); Calcium 9.6 mg/dL (8.4-10.2); Carbon Dioxide 30 mmol/L (22-32); Chloride 102 mmol/L (98-107); Creatine Kinase 59 U/L (30-135); Estimated Glomerular Filt Rate > 60.0 mL/min (>60); Globulin 3.2 g/dL (1.7-4.1); Glucose 97 mg/dL (80-110); HEMOLYSIS 16 (0-50); Potassium 3.9 mmol/L (3.4-5.1); Sodium 139 mmol/L (137-145); Total Protein 7.6 g/dL (6.3-8.2)
--- NOTE | 2021-08-22 14:26 | DI.CT.S_ITS ---
PROCEDURE: CT HEAD/BRAIN WO CON INDICATIONS: syncope TECHNIQUE: Noncontrast 4.5 mm thick angled axial sections acquired from the foramen magnum to the vertex, with coronal and sagittal reformats. For radiation dose reduction, the following was used: automated exposure control, adjustment of mA and/or kV according to patient size. COMPARISON: [facility], CT, HEAD WITHOUT CONTRAST, 10/17/2017, 11:33. [facility], CT, CT STROKE, 01/17/2020, 11:08. FINDINGS: Image quality: Excellent. CSF spaces: Basal cisterns are patent. No extra-axial fluid collections. Ventricles are normal in size and shape. Brain: No midline shift. No intracranial masses or hemorrhage. Mild deep and superficial white matter foci of hypoattenuation most consistent with microvascular ischemic changes are not significantly changed from prior exams. [place]-white matter interface is normal. Mild atherosclerotic calcifications noted within the proximal intracranial vasculature. Skull and face: Calvarium and visualized facial bones are intact, without suspicious lesions. Sinuses: Visualized sinuses and mastoids are clear. IMPRESSION: No acute intracranial abnormality. Findings suggestive of mild microvascular ischemic changes not significantly changed from prior examination and not significantly greater than expected for patient's age. Dictated by: Renato Jasso D.O. on 08/22/2021 at 14:20 Approved by: Renato Jasso D.O. on 08/22/2021 at 14:23
[2021-08-22 14:33] LABS: COVID19 -Nasal RAPID Negative (Negative)
[2021-08-22 14:38] LABS: RBC Urine 0-1/HPF (0-5/HPF); Squamous Epithelial Cell Urine 10-30 /HPF (0-5/HPF); WBC Urine 10-30/HPF (0-5/HPF)
[2021-08-22 14:38] LABS: NT-proBNP (BNP-Adult 18+) 406 pg/mL (<450); Troponin I < 0.012 ng/mL (0.01-0.034)
[2021-08-22 14:39] LABS: Bacteria Urine Many (>30); Hyaline Casts Urine 10-30/LPF
[2021-08-22 14:40] LABS: Culture Indicated Urine Cult Not Indicated
--- NOTE | 2021-08-22 14:44 | DI.CT.S_ITS ---
PROCEDURE: CT ANGIO CHEST PE PROTOCOL INDICATIONS: syncope TECHNIQUE: After the administration of intravenous contrast, 2 mm thick sections acquired from the pulmonary apices to the posterior costophrenic angles. 3-dimensional maximum intensity projection (MIP) coronal and sagittal reformats were then acquired through the thorax. For radiation dose reduction, the following was used: automated exposure control, adjustment of mA and/or kV according to patient size. COMPARISON: None. FINDINGS: Image quality: Excellent. Pulmonary arteries: Pulmonary arteries are normal in size, and demonstrate no intraluminal filling defects to suggest central pulmonary embolism. Lungs and pleura: Hypoventilatory changes of the lungs . 4-5 mm subpleural nodular densities of the lower lobes likely representing small lymph nodes, of unlikely clinical significance. No pleural effusions or pneumothorax. Central and peripheral airways are patent. Mediastinum: Heart size is normal, without pericardial effusion. No mediastinal or hilar adenopathy. Thoracic aorta is normal in caliber and enhancement. Esophagus is normal in caliber, without hiatal hernia. Bones and chest wall: No suspicious bony lesions. Ribs and thoracic spine appear intact throughout. Thyroid gland unremarkable. No axillary or supraclavicular adenopathy. Abdomen: Visualized upper abdominal solid organs appear normal in the early arterial phase of enhancement. IMPRESSION: No evidence of pulmonary embolus. Dictated by: Renato Jasso D.O. on 08/22/2021 at 14:23 Approved by: Renato Jasso D.O. on 08/22/2021 at 14:29
[2021-08-22] MEDS: HYDRALAZINE 25 MG TABLET PO (15:48)
[2021-08-22 16:41] LABS: Troponin I < 0.012 ng/mL (0.01-0.034)
== END 2021-08-22 17:24 | disposition home or self-care (01) ==
PROVIDERS: Emergency Provider Emergency Medicine; Family Provider Family Medicine; PCP Family Medicine
DX: R55 Syncope and collapse (principal); R51.9 Headache, unspecified; I10 Essential (primary) hypertension; Z20.822 Contact with and (suspected) exposure to COVID-19
CPT/HCPCS: 36415; 70450; 71045; 71275; 80053; 81003; 81015; 82550; 83880; 84484; 85025; 85379; 87635; 93005; 93010; 96360; 96361; 99284; C9803; Q9967

== ENCOUNTER 2021-08-26 05:11 | Emergency (ER) | payer MEDICARE, SELFPAY ==
[2020-01-30 16:33] VITALS: BMI 34.5
[2021-08-26] VITALS (19 sets, daily range): BP systolic 167–226; BP diastolic 75–102; PULSE 67–89; RESP 12–27; TEMP 36.6; O2SAT 90–100; BMI 33.4
--- NOTE | 2021-08-26 05:14 | ED.SYNCOPE ---
HPI - Syncope General Chief Complaint: Syncope Stated Complaint: Syncope Time Seen by Provider: 08/26/21 05:13 History of Present Illness HPI narrative: 76-year-old female nonsmoker with history of hypertension, type 2 diabetes, hypothyroid, TIA on Plavix presents by EMS for a syncopal episode with head injury just prior to arrival. She is activated as a modified trauma given her fall, suspected injury, and use of anti-platelet agents. She states that she was in her normal state of health and woke up to urinate this evening and was unable to go back to sleep. She was sitting at the table when she felt a sudden onset of profound dizziness and was attempting to make her way back to bed, concerned that she might pass out when she did in fact have a syncopal episode. She fell from standing into the wall and struck her head. Her heard a loud thud and came to find her lying on the ground. She complains is a severe headache and nausea. She denies any blurred vision, chest pain or shortness of breath. She denies any pain in shoulders, elbows, hips. On arrival EMS found her blood pressure to be in the 220s. She had been seen and evaluated very thoroughly a few days ago after she suffered a syncopal episode after walking approximately 1 mi with her . She had head CT, CT of the chest and labs which were all very reassuring. She had returned to her normal state of health after that visit. Related Data Home Medications Medication Instructions Recorded Confirmed cod liver oil See Rx Instructions PO QAM 05/26/21 08/25/21 Carditone 1 tab PO DAILY 08/25/21 Levothyroxine/Liothyronine 1 tab PO DAILY 08/25/21 Lutein & Zeaxanthin 1 tab PO DAILY 08/25/21 ascorbate calcium (vitamin C) 500 500 mg PO DAILY 08/25/21 08/25/21 mg tablet cholecalciferol (vitamin D3) 125 125 mcg PO DAILY 08/25/21 08/25/21 mcg (5,000 unit) capsule coenzyme Q10 100 mg capsule 100 mg PO DAILY 08/25/21 08/25/21 multivitamin 1 tab PO DAILY 08/25/21 08/25/21 turmeric 1,000 mg PO DAILY 08/25/21 08/25/21 zinc 50 mg tablet 50 mg PO DAILY 08/25/21 08/25/21 Previous Rx's Medication Instructions Recorded amlodipine 2.5 mg tablet (Norvasc) 2.5 mg PO .pm #30 tab 02/06/17 amlodipine 2.5 mg tablet (Norvasc) 2.5 mg PO QDAY #30 tab 02/06/17 clopidogrel 75 mg tablet See Rx Instructions .ROUTE 03/08/21 .COMPLEX #90 tab chlorthalidone 25 mg tablet 25 mg PO QPM #90 tab 07/19/21 metformin 500 mg tablet See Rx Instructions .ROUTE 07/19/21 .COMPLEX #180 tab Allergies Allergy/AdvReac Type Severity Reaction Status Date / Time diphenhydramine Allergy Severe hives and Verified 08/25/21 10:44 [DIPHENHYDRAMINE] rash pseudoephedrine Allergy Severe hives and Verified 08/25/21 10:44 [PSEUDOEPHEDRINE] rash shellfish derived Allergy Severe (JUST THE Verified 08/25/21 10:44 [SHELLFISH DERIVED] SHELL) rash Review of Systems Review of Systems Narrative: GENERAL: Denies chills, fatigue, malaise, fever, sweats. HEENT: Denies sinus pain, ear pain, sore throat, difficulty swallowing, dizziness. RESPIRATORY: Denies dyspnea, cough, wheezing, hemoptysis, sputum. CARDIOVASCULAR: Denies chest pain, palpitations, orthopnea, edema, GASTROINTESTINAL: Denies nausea, vomiting, abdominal pain, diarrhea, constipation, melena. : Denies dysuria, frequency, incontinence, hematuria, urinary retention. MUSCULOSKELETAL: denies weakness, joint pain, or bony pain SKIN: Denies rash, skin lesions, or other NEUROLOGIC: See HPI PSYCHIATRIC: No concerning psychosocial issues. 12 point review of systems is negative except for those stated above Patient History Medical History Allergic rhinitis Arrhythmia Cataracts, bilateral Chicken pox Concussion CVA (cerebral vascular accident) DVT (deep venous thrombosis) (2000) Endometriosis (~1979) Essential hypertension (12/06/12) Fall at home Fecal incontinence (~2019) Fractures (~2010) 4 History of ectopic (1980) History of urinary incontinence (~2019) Hypothyroidism (2003) Malaria Measles Migraines Mixed hyperlipidemia Mumps Myalgia Pertussis (1949) Plantar warts TIA (transient ischemic attack) (~2019) Type 2 diabetes mellitus Urge incontinence Surgical History History of bilateral salpingo-oophorectomy (BSO) (1980) History of strabismus surgery (1960) Status post hysterectomy (1980) Status post wrist surgery Family History Father Diabetes mellitus Hypertension Mother Parkinson's disease Sister Age: 75 Thyroid disease Family/Other Thyroid disease Brother Age: 72 Thyroid disease Social History household members: spouse Smoking Status: Never smoker Smoking Status: Never smoker alcohol intake frequency: 0-2 drinks per day Substance Use Type: does not use Exam Narrative Exam Narrative: GENERAL: [76] year old patient appears stated age. Well-developed patient, in mild distress. GCS 15 HEAD: Large hematoma right parietal/occipital region, no evidence of depressed skull fracture, no laceration EYES: Pupils equal round and reactive. No hyphema. Extraocular motions intact. No scleral icterus. No injection or drainage. ENT: Nose without bleeding, purulent drainage. Throat without erythema, tonsillar hypertrophy or exudate. Airway patent. NECK: Trachea midline. Non tender CARDIOVASCULAR: Regular rate and rhythm without murmurs, gallops, or rubs. RESPIRATORY: Clear to auscultation. Breath sounds equal bilaterally. No wheezes, rales, or rhonchi. GASTROINTESTINAL: Abdomen soft, non-tender, nondistended. EXTREMITIES: No edema or joint tenderness. BACK: Nontender without deformity or crepitance. No flank tenderness. NEURO: AOx3. SKIN: No rash or erythema of visible areas Initial Vital Signs Initial Vital Signs: Vital Signs Pulse Rate 68 08/26/21 05:15 Blood Pressure 226/102 H 08/26/21 05:15 Pulse Oximetry 99 08/26/21 05:15 Course Orders Ordered: ED Orders 08/26/21 05:00 Complete Blood Count AUTO DIFF Stat Comprehensive Metabolic Panel Stat NT-proBNP (BNP-Adult 18+) Stat Prothrombin Time INR Stat Troponin & CK Cardiac Panel Stat 08/26/21 05:15 COVID19 - ADMIT ([employer]ISING [employer]PER[employer]OR swab/PCR) Stat 08/26/21 05:20 CT angio head and neck Stat 08/26/21 05:27 CT Stroke Stat 08/26/21 05:34 CT cervical spine wo con Stat 08/26/21 05:39 COVID19 -Nasal swab/Pre-Proc Stat Sodium Chloride (Normal Saline 0.9%) 1,000 mls @ 125 mls/hr IV CONT LYUBOV Last Admin: 08/26/21 05:32 Dose: 125 mls/hr Documented by: RASHMI Nicardipine HCl 25 mg/ Sodium (Chloride) 250 mls @ 50 mls/hr IV TITRATE LYUBOV; Protocol Last Titration: 08/26/21 06:21 Dose: 15 mg/hr, 150 mls/hr Documented by: Titration: 08/26/21 06:13 Dose: 12.5 mg/hr, 125 mls/hr Documented by: Titration: 08/26/21 06:05 Dose: 10 mg/hr, 100 mls/hr Documented by: Titration: 08/26/21 05:53 Dose: 7.5 mg/hr, 75 mls/hr Documented by: Admin: 08/26/21 05:41 Dose: 5 mg/hr, 50 mls/hr Documented by: JEANNE Consultations Consultation #1: Dr. Hua ([facility] [place] happy to accept with BP goal of <165 Vital Signs Vital signs: Vital Signs - 8 hr 08/26/21 05:15 08/26/21 05:21 08/26/21 05:29 Temperature 97.8 F Pulse Rate 68 68 67 Respiratory Rate 17 Blood Pressure 226/102 H 226/102 H Pulse Oximetry 99 100 99 08/26/21 05:44 08/26/21 05:46 08/26/21 05:48 Temperature Pulse Rate 74 Respiratory Rate 21 Blood Pressure 215/100 H 208/93 H Pulse Oximetry 08/26/21 05:50 08/26/21 05:55 08/26/21 06:00 Temperature Pulse Rate 69 71 75 Respiratory Rate 12 19 26 H Blood Pressure 208/94 H 196/84 H 190/80 H Pulse Oximetry 99 95 96 08/26/21 06:05 08/26/21 06:10 08/26/21 06:13 Temperature Pulse Rate 74 80 84 Respiratory Rate 15 16 16 Blood Pressure 185/84 H 201/87 H 185/84 H Pulse Oximetry 94 90 L 93 08/26/21 06:15 08/26/21 06:20 08/26/21 06:25 Temperature Pulse Rate 83 86 85 Respiratory Rate 27 H 26 H 18 Blood Pressure 184/83 H 188/85 H 171/79 H Pulse Oximetry 93 94 91 08/26/21 06:30 08/26/21 06:35 08/26/21 06:40 Temperature Pulse Rate 87 89 89 Respiratory Rate 22 25 H 21 Blood Pressure 169/77 H 172/75 H 167/75 H Pulse Oximetry 91 96 96 MDM - Syncope Lab Data Result diagrams: 08/26/21 05:00 08/26/21 05:00 Labs: Lab Results 08/26/21 08/26/21 08/26/21 Range/Units 05:00 05:00 05:00 WBC 7.1 (4.5-11.0) X10^3/uL RBC 4.14 (4.0-5.2) X10^6/uL Hgb 12.2 (12.0-16.0) g/dL Hct 36.0 (36-46) % MCV 87.0 (80-100) fL MCH 29.5 (26-34) PG MCHC 33.8 (30-36) % RDW 13.8 (11.6-14.8) % Plt Count 255 (150-400) X10^3/uL Neut % (Auto) 36.0 L (50-75) % Lymph % (Auto) 51.6 H (25-40) % [place] % (Auto) 9.3 (3-14) % Eos % (Auto) 2.7 (2-4) % Baso % (Auto) 0.4 (0-2) % Neut # (Auto) 2600 (1484-8342) /uL Lymph # (Auto) 3700 (5489-1589) /uL [place] # (Auto) 700 (0-900) /uL Eos # (Auto) 200 (0-450) /uL Baso # (Auto) 0 (0-100) /uL PT (10.1-12.7) SECONDS INR (0.9-1.3) Sodium 135 L (137-145) mmol/L Potassium 3.4 (3.4-5.1) mmol/L Chloride 98 (98-107) mmol/L Carbon Dioxide 30 (22-32) mmol/L BUN 20 H (7-17) mg/dL Creatinine 0.79 (0.52-1.04) mg/dL Estimated GFR > 60.0 (>60) mL/min BUN/Creatinine Ratio 25.3 H (6-22) Glucose 134 H (80-110) mg/dL Calcium 9.4 (8.4-10.2) mg/dL Total Bilirubin 0.4 (0.2-1.3) mg/dL AST 25 (14-36) IU/L ALT 23 (<35) IU/L Alkaline Phosphatase 47 (38-126) U/L Total Creatine Kinase 85 (30-135) U/L CK-MB (CK-2) TNP CK-MB (CK-2) Rel Index TNP Troponin I < 0.012 (0.01-0.034) ng/mL NT-Pro-B Natriuret Pep 110 (<450) pg/mL Total Protein 7.2 (6.3-8.2) g/dL Albumin 4.3 (3.5-5.0) g/dL Globulin 2.9 (1.7-4.1) g/dL Albumin/Globulin Ratio 1.5 (1.0-2.8) SARS-CoV-2 (PCR) (Negative) 08/26/21 08/26/21 Range/Units 05:00 05:39 WBC (4.5-11.0) X10^3/uL RBC (4.0-5.2) X10^6/uL Hgb (12.0-16.0) g/dL Hct (36-46) % MCV (80-100) fL MCH (26-34) PG MCHC (30-36) % RDW (11.6-14.8) % Plt Count (150-400) X10^3/uL Neut % (Auto) (50-75) % Lymph % (Auto) (25-40) % [place] % (Auto) (3-14) % Eos % (Auto) (2-4) % Baso % (Auto) (0-2) % Neut # (Auto) (2645-1805) /uL Lymph # (Auto) (4726-9576) /uL [place] # (Auto) (0-900) /uL Eos # (Auto) (0-450) /uL Baso # (Auto) (0-100) /uL PT 10.4 (10.1-12.7) SECONDS INR 0.9 (0.9-1.3) Sodium (137-145) mmol/L Potassium (3.4-5.1) mmol/L Chloride (98-107) mmol/L Carbon Dioxide (22-32) mmol/L BUN (7-17) mg/dL Creatinine (0.52-1.04) mg/dL Estimated GFR (>60) mL/min BUN/Creatinine Ratio (6-22) Glucose (80-110) mg/dL Calcium (8.4-10.2) mg/dL Total Bilirubin (0.2-1.3) mg/dL AST (14-36) IU/L ALT (<35) IU/L Alkaline Phosphatase (38-126) U/L Total Creatine Kinase (30-135) U/L CK-MB (CK-2) CK-MB (CK-2) Rel Index Troponin I (0.01-0.034) ng/mL NT-Pro-B Natriuret Pep (<450) pg/mL Total Protein (6.3-8.2) g/dL Albumin (3.5-5.0) g/dL Globulin (1.7-4.1) g/dL Albumin/Globulin Ratio (1.0-2.8) SARS-CoV-2 (PCR) Negative (Negative) Point of Care Testing Glucose POC [address] scan - head: My Impression: [facility] Radiologist's Impression: Fall signs subdural hematoma extending along the surface of the right tentorium CT - cervical spine: Radiologist's Impression: No acute bony abnormality involving the cervical spine MDM Narrative Medical decision making narrative: Patient and understand diagnosis, plan and agree with this plan Critical Care Time Critical Care Time Critical Care Time: Yes Total Critical Care Time: 30 Attestation: The high probability of a clinically significant, sudden or life threatening deterioration of the [[employer]] system(s) required my full and direct attention, intervention and personal management. The aggregate critical care time was [30] minutes. This time is in addition to time spent performing reported procedures but includes the following: [x] Data Review and interpretation [x] Patient assessment and monitoring of vital signs [x] Documentation [x] Medication orders and management Discharge Plan Departure Patient Disposition: Xfer Acute Care Hospital Clinical Impression: Traumatic subdural hematoma Prescriptions: No Action clopidogrel 75 mg tablet See Rx Instructions .ROUTE .COMPLEX Qty: 90 0RF Dose Instruction: TAKE ONE TABLET BY MOUTH ONCE DAILY Rx Instructions: TAKE ONE TABLET BY MOUTH ONCE DAILY chlorthalidone 25 mg tablet 25 mg PO QPM Qty: 90 3RF metformin 500 mg tablet See Rx Instructions .ROUTE .COMPLEX Qty: 180 0RF Dose Instruction: TAKE ONE TABLET BY MOUTH TWICE DAILY Rx Instructions: TAKE ONE TABLET BY MOUTH TWICE DAILY Levothyroxine/Liothyronine 190 mcg 1 tab PO DAILY 0RF Rx Instructions: Compounded medication Carditone 350 mg 1 tab PO DAILY 0RF Lutein & Zeaxanthin 25 mg 1 tab PO DAILY 0RF ascorbate calcium (vitamin C) 500 mg tablet 500 mg PO DAILY 0RF cholecalciferol (vitamin D3) 125 mcg (5,000 unit) capsule 125 mcg PO DAILY 0RF multivitamin Tablet 1 tab PO DAILY 0RF turmeric 1,000 mg PO DAILY 0RF coenzyme Q10 100 mg capsule 100 mg PO DAILY 0RF zinc 50 mg tablet 50 mg PO DAILY 0RF amlodipine [Norvasc] 2.5 mg tablet 2.5 mg PO .pm Qty: 30 1RF amlodipine [Norvasc] 2.5 mg tablet 2.5 mg PO QDAY Qty: 30 1RF cod liver oil Capsule See Rx Instructions PO QAM 0RF Rx Instructions: 1 teaspoon PO every morning; Referrals: Meghan Meier DO [Primary Care Provider] -
--- NOTE | 2021-08-26 05:27 | DI.CT.S_ITS ---
PROCEDURE: CT STROKE INDICATIONS: sudden dizzess, pain, hx stroke TECHNIQUE: Noncontrast 4.5 mm thick angled axial sections acquired from the foramen magnum to the vertex, with coronal reformats. For radiation dose reduction, the following was used: automated exposure control, adjustment of mA and/or kV according to patient size. COMPARISON: [facility], CT, CT STROKE, 01/17/2020, 11:08. [facility], CT, CT HEAD/BRAIN WO CON, 08/22/2021, 15:06. FINDINGS: Image quality: Excellent. CSF spaces: Basal cisterns are patent. No extra-axial fluid collections. The ventricles are symmetric in size and shape. Brain: Small, acute right-sided subdural hematoma which tracks along the falx and the right ala of the tentorium. No intracranial masses. There is cerebral volume loss for age, with resultant ventricular and sulcal prominence. There are periventricular and deep white matter chronic small vessel ischemic changes. There is intracranial internal carotid artery atherosclerosis. Skull and face: Calvarium and visualized facial bones appear intact, without suspicious lesions. Small right parietal scalp contusion. Sinuses: Mild mucosal thickening in the right sphenoid sinus. The mastoids are clear. IMPRESSION: Small, acute, right parafalcine/right tentorial subdural hematoma. [facility] telephoned findings to Dr. Lehman on August 26, 2021 at 5:53 a.m. This study fulfills neurological imaging criteria for inclusion or exclusion of acute stroke therapies based on available published neurological guidelines. Dictated by: Leslie Pollard MD, PhD on 08/26/2021 at 7:10 Approved by: Leslie Pollard MD, PhD on 08/26/2021 at 7:15
[2021-08-26 05:29] LABS: Add Manual Diff / Slide Review NO; Basophils Absolute Auto 0 /uL (0-100); Basophils Percent Auto 0.4 % (0-2); Eosinophils Absolute Auto 200 /uL (0-450); Eosinophils Percent Auto 2.7 % (2-4); Hemoglobin 12.2 g/dL (12.0-16.0); Lymphocytes Absolute Auto 3700 /uL (1100-4500); Lymphocytes Percent Auto 51.6 % (25-40); Mean Corpuscular HGB Conc 33.8 % (30-36); Mean Corpuscular Hemoglobin 29.5 PG (26-34); Monocytes Absolute Auto 700 /uL (0-900); Monocytes Percent Auto 9.3 % (3-14); Neutrophils Absolute Auto 2600 /uL (1500-7000); Platelet Count 255 X10^3/uL (150-400); Red Blood Cell Count 4.14 X10^6/uL (4.0-5.2); Red Cell Distribution Width 13.8 % (11.6-14.8); White Blood Cell Count 7.1 X10^3/uL (4.5-11.0)
[2021-08-26 05:32] LABS: Creatine Kinase 85 U/L (30-135)
[2021-08-26] MEDS: SODIUM CHLORIDE 0.9% 1,000 ML 125 ML IV (05:32)
[2021-08-26 05:33] LABS: Alanine Aminotransferase 23 IU/L (<35); Albumin 4.3 g/dL (3.5-5.0); Albumin Globulin Ratio 1.5 (1.0-2.8); Alkaline Phosphatase 47 U/L (38-126); Aspartate Aminotransferase 25 IU/L (14-36); BUN Creatinine Ratio 25.3 (6-22); Bilirubin Total 0.4 mg/dL (0.2-1.3); Blood Urea Nitrogen 20 mg/dL (7-17); Calcium 9.4 mg/dL (8.4-10.2); Carbon Dioxide 30 mmol/L (22-32); Chloride 98 mmol/L (98-107); Estimated Glomerular Filt Rate > 60.0 mL/min (>60); Globulin 2.9 g/dL (1.7-4.1); Glucose 134 mg/dL (80-110); HEMOLYSIS < 15 (0-50); Potassium 3.4 mmol/L (3.4-5.1); Sodium 135 mmol/L (137-145); Total Protein 7.2 g/dL (6.3-8.2)
--- NOTE | 2021-08-26 05:34 | DI.CT.S_ITS ---
PROCEDURE: CT CERVICAL SPINE WO CON INDICATIONS: fall with neck pain TECHNIQUE: Noncontrast 3 mm thick sections acquired from the skull base to the T4 level. Sagittal and coronal reformats were then constructed. For radiation dose reduction, the following was used: automated exposure control, adjustment of mA and/or kV according to patient size. COMPARISON: None. FINDINGS: Image quality: Excellent. Bones: No fractures or dislocations. Visualized superior ribs are intact. Spine degenerative disc disease and facet arthropathy. Soft tissues: Prevertebral soft tissues are normal in thickness. No paravertebral hematomas. No apical pneumothoraces. IMPRESSION: No fracture. No acute osseous lesion. If symptoms and/or clinical suspicion for pathology persists, evaluation with MRI should be considered for further assessment. Dictated by: Leslie Pollard MD, PhD on 08/26/2021 at 7:33 Approved by: Leslie Pollard MD, PhD on 08/26/2021 at 7:35
[2021-08-26 05:37] LABS: INR 0.9 (0.9-1.3); Prothrombin Time 10.4 SECONDS (10.1-12.7)
[2021-08-26] MEDS: NICARDIPINE 25 MG in SODIUM CHLORIDE 0.9% 240 ML 50 ML IV (05:41)
[2021-08-26 05:45] LABS: NT-proBNP (BNP-Adult 18+) 110 pg/mL (<450); Troponin I < 0.012 ng/mL (0.01-0.034)
[2021-08-26 06:03] LABS: COVID19 -Nasal RAPID Negative (Negative)
== END 2021-08-26 07:10 | disposition short-term general hospital (02) ==
PROVIDERS: Emergency Provider Emergency Medicine; Family Provider Family Medicine; PCP Family Medicine
DX: S06.5X9A Traumatic subdural hemorrhage with loss of consciousness of unspecified duration, initial encounter (principal); Z79.02 Long term (current) use of antithrombotics/antiplatelets; Z20.822 Contact with and (suspected) exposure to COVID-19; W18.30XA Fall on same level, unspecified, initial encounter; I10 Essential (primary) hypertension
CPT/HCPCS: 70450; 72125; 80053; 82550; 83880; 84484; 85025; 85610; 87635; 93005; 93010; 96361; 96365; 96366; 99284; 99291; C9803; G0390

== ENCOUNTER → 2021-09-27 10:41 | Outpatient (CLI) | payer MEDICARE, SELFPAY ==
[2020-01-30 16:33] VITALS: BMI 34.5
--- NOTE | 2021-09-27 10:54 | DI.CT.S_ITS ---
PROCEDURE: CT HEAD/BRAIN WO CON INDICATIONS: SUBDURAL HEMORRHAGE FOLLOWING INJURY TECHNIQUE: Noncontrast 4.5 mm thick angled axial sections acquired from the foramen magnum to the vertex, with coronal and sagittal reformats. For radiation dose reduction, the following was used: automated exposure control, adjustment of mA and/or kV according to patient size. COMPARISON: [facility], CT, CT STROKE, 08/26/2021, 5:31. [facility], CT, CT HEAD/BRAIN WO CON, 08/22/2021, 15:06. FINDINGS: Image quality: Excellent. CSF spaces: Basal cisterns are patent. No extra-axial fluid collections. The ventricles are symmetric in size and shape. Brain: No intracranial bleeds or masses. There is cerebral volume loss for age, with resultant ventricular and sulcal prominence. There are periventricular and deep white matter chronic small vessel ischemic changes. There is intracranial internal carotid artery atherosclerosis. Skull and face: Calvarium and visualized facial bones appear intact, without suspicious lesions. Sinuses: Visualized sinuses and mastoids are clear. IMPRESSION: No acute intracranial hemorrhage is seen. The previously seen extra-axial hemorrhage has resolved. Dictated by: Justice Osullivan M.D. on 09/27/2021 at 11:47 Approved by: Justice Osullivan M.D. on 09/27/2021 at 11:49
== END ==
PROVIDERS: Family Provider Family Medicine; PCP Family Medicine
DX: S06.5X9A Traumatic subdural hemorrhage with loss of consciousness of unspecified duration, initial encounter (principal); X58.XXXA Exposure to other specified factors, initial encounter
CPT/HCPCS: 70450

== ENCOUNTER → 2021-10-08 09:47 | Outpatient (CLI) | payer MEDICARE, SELFPAY ==
[2020-01-30 16:33] VITALS: BMI 34.5
[2021-10-08 11:32] LABS: COVID19 -Nasal RAPID POSITIVE (Negative)
== END ==
PROVIDERS: Family Provider Family Medicine; PCP Family Medicine; Visit Provider Nurse Practitioner Family
DX: Z20.822 Contact with and (suspected) exposure to COVID-19 (principal)
CPT/HCPCS: 87635

== ENCOUNTER 2021-11-19 21:02 | Emergency (ER) | payer MEDICARE, SELFPAY ==
[2020-01-30 16:33] VITALS: BMI 34.5
[2021-11-19] VITALS (9 sets, daily range): BP systolic 160–196; BP diastolic 71–86; PULSE 63–78; RESP 16; TEMP 36.6–36.8; O2SAT 94–98
--- NOTE | 2021-11-19 21:12 | DI.RAD.S_ITS ---
PROCEDURE: XR HUMERUS RT 2V INDICATIONS: fall TECHNIQUE: 2 views of the humerus were acquired. COMPARISON: None. FINDINGS: Bones: No fractures or dislocations. No suspicious bony lesions. Soft tissues: No suspicious soft tissue calcifications. IMPRESSION: 1. No fracture or dislocation. Dictated by: Dimas Chahal M.D. on 11/19/2021 at 22:19 Approved by: Dimas Chahal M.D. on 11/19/2021 at 22:19
--- NOTE | 2021-11-19 21:30 | ED.FALL ---
HPI - Fall General Chief Complaint: Extremity Injury, Upper Stated Complaint: FALL RIGHT ARM INJURY HIT HEAD Time Seen by Provider: 11/19/21 21:28 Source: patient Mode of arrival: Wheelchair Limitations: no limitations History of Present Illness HPI Narrative: This is a 76-year-old female comes emergency department after a fall. Patient states her slippers often catch and she caught her foot forward with her arm sort of outstretched. She landed on her right elbow with her face in her arm she states she did hit her head on the floor. She also landed on her right knee. She has pain in her knee and rate he will area between the shoulder and elbow. Patient states she has good movement she was able to stand and walk unassisted. She can move her arm fully but was concerned because the right upper arm still hurts. No loss of consciousness. No neck pain. She has not appreciated any bruising. She denies headache, vision changes, no difficulty with speech. No other new symptoms. She has a history of traumatic subdural in the past while anticoagulated. She states she stopped all her anticoagulation and was never restarted. She was on this for prior TIA. She did put some arnica on for discomfort. And she took a 1000 mg of Tylenol about 2-3 hours prior to arrival which she states was helpful. Patient lives unassisted at home with her significant other. Related Data Home Medications Medication Instructions Recorded Confirmed cod liver oil See Rx Instructions PO QAM 05/26/21 10/22/21 Carditone 1 tab PO DAILY 08/25/21 10/22/21 Levothyroxine/Liothyronine 1 tab PO DAILY 08/25/21 10/22/21 Lutein & Zeaxanthin 1 tab PO DAILY 08/25/21 10/22/21 ascorbate calcium (vitamin C) 500 500 mg PO DAILY 08/25/21 10/22/21 mg tablet cholecalciferol (vitamin D3) 125 125 mcg PO DAILY 08/25/21 10/22/21 mcg (5,000 unit) capsule coenzyme Q10 100 mg capsule 100 mg PO DAILY 08/25/21 10/22/21 multivitamin 1 tab PO DAILY 08/25/21 10/22/21 turmeric 1,000 mg PO DAILY 08/25/21 10/22/21 zinc 50 mg tablet 50 mg PO DAILY 08/25/21 10/22/21 Previous Rx's Medication Instructions Recorded clopidogrel 75 mg tablet See Rx Instructions .ROUTE 03/08/21 .COMPLEX #90 tab chlorthalidone 25 mg tablet 25 mg PO QPM #90 tab 07/19/21 metformin 500 mg tablet See Rx Instructions .ROUTE 10/04/21 .COMPLEX #180 tab Allergies Allergy/AdvReac Type Severity Reaction Status Date / Time diphenhydramine Allergy Severe hives and Verified 10/22/21 14:15 [DIPHENHYDRAMINE] rash pseudoephedrine Allergy Severe hives and Verified 10/22/21 14:15 [PSEUDOEPHEDRINE] rash shellfish derived Allergy Severe (JUST THE Verified 10/22/21 14:15 [SHELLFISH DERIVED] SHELL) rash Review of Systems Review of Systems ROS Unobtainable: All systems reviewed & are unremarkable except as noted in HPI and below Patient History Medical History Allergic rhinitis Arrhythmia Cataracts, bilateral Chicken pox Concussion CVA (cerebral vascular accident) DVT (deep venous thrombosis) (2000) Endometriosis (~1979) Essential hypertension (12/06/12) Fall at home Fecal incontinence (~2019) Fractures (~2010) 4 History of ectopic (1980) History of urinary incontinence (~2019) Hypothyroidism (2003) Malaria Measles Migraines Mixed hyperlipidemia Mumps Myalgia Pertussis (1949) Plantar warts TIA (transient ischemic attack) (~2019) Type 2 diabetes mellitus Urge incontinence Surgical History History of bilateral salpingo-oophorectomy (BSO) (1980) History of strabismus surgery (1960) Status post hysterectomy (1980) Status post wrist surgery Family History Father Diabetes mellitus Hypertension Mother Parkinson's disease Sister Age: 76 Thyroid disease Family/Other Thyroid disease Brother Age: 72 Thyroid disease Social History household members: spouse Smoking Status: Never smoker Smoking Status: Never smoker alcohol intake frequency: 0-2 drinks per day Substance Use Type: does not use Exam Narrative Exam Narrative: GEN: Patient appears in mild distress. HEAD: No evidence of trauma, no raccoon/Paz sign. NECK: Nontender, painless range of motion, trachea midline Negative Nexus criteria, there is no midline line tenderness, distracting injury, altered mental status, neuro deficit, recent EtOH. EYES: PERRLA, EOMI ENT: External inspection normal, trachea is midline, TM's are normal no hemotypanum, Nares are clear, no septal hematoma, no dental or oral injury, airway is normal and with normal occlusion, No bony tenderness, no facial droop. RESP: Chest is nontender and has symmetric movement, no ecchymosis, breath sounds are normal no crackles, wheezes or rales CVS: Heart sounds are normal, no murmur noted, No JVD. ABG/GI: Nontender, soft, normal bowel sounds, no distention, no organomegaly NEURO: Oriented AOx3, neuro is grossly intact, sensation and motor is normal all 4 extremities moving, cranial nerves II through XII are intact, GCS is 15 PSYCH: Normal mood and affect SKIN: Intact, warm and dry, no crepitus and without decubitus BACK: No CVA tenderness, no vertebral tenderness, no step-off's, no crepitus EXT: Patient has some mild soft tissue tenderness over the right knee with some mild swelling full range of motion. No bony tenderness. Patient also has some mild tenderness over the right humerus, patient has full range of motion, muscle strength is 5/5. 2+ radial pulse. Left extremities are nontender. normal color and temperature, Initial Vital Signs Initial Vital Signs: Vital Signs Temperature 97.9 F 11/19/21 21:05 Pulse Rate 72 11/19/21 21:05 Respiratory Rate 16 11/19/21 21:05 Blood Pressure 160/71 H 11/19/21 21:05 Pulse Oximetry 96 11/19/21 21:05 Scores GCS Christine coma scale eye opening: Spontaneous [place] coma scale verbal response: Orientated Christine coma scale motor response: Obey commands [place] coma scale total score: 15 Course Orders Ordered: ED Orders 11/19/21 21:12 XR humerus RT 2V Stat Vital Signs Vital signs: Vital Signs - 8 hr 11/19/21 21:05 11/19/21 21:12 11/19/21 21:15 Temperature 97.9 F Pulse Rate 72 78 72 Respiratory Rate 16 Blood Pressure 160/71 H Pulse Oximetry 96 96 98 11/19/21 21:21 11/19/21 21:23 11/19/21 21:30 Temperature 98.3 F Pulse Rate 71 66 Respiratory Rate Blood Pressure 189/81 H 196/86 H Pulse Oximetry 98 98 11/19/21 22:00 11/19/21 22:01 11/19/21 22:30 Temperature Pulse Rate 66 67 63 Respiratory Rate Blood Pressure 167/79 H 165/77 H Pulse Oximetry 95 94 98 MDM - Fall Imaging Data Extremity x-ray #1: My Impression: No fracture. Radiologist's Impression: [address] [address] XRay Report Signed Patient: Enedina Ye MR#: [id number] : 1945 Acct:[id number] Age/Sex: 76 / F Date of Service: 11/19/21 Loc: ED Accession Number: [id number] ?? Procedure: XR humerus RT 2V Ordering Provider: Rea Montejo D.O. PROCEDURE:? XR HUMERUS RT 2V ? INDICATIONS:? fall ? TECHNIQUE:? 2 views of the humerus were acquired.? ? COMPARISON:? None. ? FINDINGS:? ? Bones:? No fractures or dislocations.? No suspicious bony lesions.? ? Soft tissues:? No suspicious soft tissue calcifications.? ? IMPRESSION:? ? 1. No fracture or dislocation. ? ? Dictated by: Dimas Chahal M.D. on 11/19/2021 at 22:19 ? ? Approved by: Dimas Chahal M.D. on 11/19/2021 at 22:19?? [facility] Narrative Medical decision making narrative: This is a 76-year-old female comes for ground level fall. Patient states she has right arm injury with pain. She states she hit her head but on the inside of her arm. Discussed with patient offered head CT she has had a prior traumatic subdural but is no longer anticoagulated. Patient defers head CT at this time we discussed risk/benefit. She has GCS of 15, appropriate with no acute neurologic changes and no current anticoagulants. X-ray does not show any acute change. Patient is able to ambulate without issue. Plan for continue Tylenol as needed. Ice/heat as needed and return precautions discussed with patient as well as her spouse. Discharge Plan Departure Patient Disposition: Home Clinical Impression: Contusion of arm, right Instructions: DI for Contusion Activity Restrictions/Additional Instructions: Follow-up with your physician for recheck. As discussed we have not performed a CT of her head so if you develop new changes please return for imaging and recheck. You may take Tylenol up to a 1000 mg every 6 hours as needed for pain. You may use ice and/or heat as needed to the affected areas. Please return for severe headaches, altered mental status, persistent vomiting, new numbness, tingling or weakness, rapidly worsening pain, difficulty moving her extremities, ambulating or other new or concerning symptoms. Prescriptions: No Action clopidogrel 75 mg tablet See Rx Instructions .ROUTE .COMPLEX Qty: 90 0RF Hold Instructions: while subdural hemorrhage resolves Dose Instruction: TAKE ONE TABLET BY MOUTH ONCE DAILY Rx Instructions: TAKE ONE TABLET BY MOUTH ONCE DAILY chlorthalidone 25 mg tablet 25 mg PO QPM Qty: 90 3RF Hold Instructions: dehydration metformin 500 mg tablet See Rx Instructions .ROUTE .COMPLEX Qty: 180 0RF Dose Instruction: TAKE ONE TABLET BY MOUTH TWICE DAILY Rx Instructions: TAKE ONE TABLET BY MOUTH TWICE DAILY Levothyroxine/Liothyronine 190 mcg 1 tab PO DAILY 0RF Rx Instructions: Compounded medication Carditone 350 mg 1 tab PO DAILY 0RF Lutein & Zeaxanthin 25 mg 1 tab PO DAILY 0RF ascorbate calcium (vitamin C) 500 mg tablet 500 mg PO DAILY 0RF cholecalciferol (vitamin D3) 125 mcg (5,000 unit) capsule 125 mcg PO DAILY 0RF multivitamin Tablet 1 tab PO DAILY 0RF turmeric 1,000 mg PO DAILY 0RF coenzyme Q10 100 mg capsule 100 mg PO DAILY 0RF zinc 50 mg tablet 50 mg PO DAILY 0RF cod liver oil Capsule See Rx Instructions PO QAM 0RF Rx Instructions: 1 teaspoon PO every morning; Referrals: Eleni Barber MD [Primary Care Provider] -
== END 2021-11-19 22:37 | disposition home or self-care (01) ==
PROVIDERS: Emergency Provider Emergency Medicine; Family Provider Family Medicine; PCP Family Medicine
DX: S40.021A Contusion of right upper arm, initial encounter (principal); W19.XXXA Unspecified fall, initial encounter
CPT/HCPCS: 73060; 99283

== ENCOUNTER → 2022-01-21 08:04 | Outpatient (CLI) | payer MEDICARE, SELFPAY ==
[2020-01-30 16:33] VITALS: BMI 34.5
[2022-01-21 08:58] LABS: Add Manual Diff / Slide Review NO; Basophils Absolute Auto 0 /uL (0-100); Basophils Percent Auto 0.6 % (0-2); Eosinophils Absolute Auto 100 /uL (0-450); Eosinophils Percent Auto 2.3 % (2-4); Hemoglobin 12.2 g/dL (12.0-16.0); Lymphocytes Absolute Auto 2300 /uL (1100-4500); Lymphocytes Percent Auto 40.5 % (25-40); Mean Corpuscular HGB Conc 34.8 % (30-36); Mean Corpuscular Hemoglobin 29.7 PG (26-34); Mean Corpuscular Volume 85.2 fL (80-100); Monocytes Absolute Auto 500 /uL (0-900); Neutrophils Absolute Auto 2700 /uL (1500-7000); Neutrophils Percent Auto 47.6 % (50-75); Platelet Count 293 X10^3/uL (150-400); White Blood Cell Count 5.8 X10^3/uL (4.5-11.0)
[2022-01-21 09:07] LABS: Hemoglobin A1C% w Est Avg Glu 6.1 % (4.0-6.0)
[2022-01-21 10:35] LABS: Alanine Aminotransferase 18 IU/L (<35); Albumin 4.2 g/dL (3.5-5.0); Albumin Globulin Ratio 1.5 (1.0-2.8); Alkaline Phosphatase 55 U/L (38-126); Aspartate Aminotransferase 20 IU/L (14-36); BUN Creatinine Ratio 19.4 (6-22); Bilirubin Total 0.5 mg/dL (0.2-1.3); Blood Urea Nitrogen 14 mg/dL (7-17); Calcium 9.2 mg/dL (8.4-10.2); Carbon Dioxide 28 mmol/L (22-32); Chloride 96 mmol/L (98-107); Cholesterol 238 mg/dL (140-199); Estimated Glomerular Filt Rate > 60 mL/min (>60); Globulin 2.8 g/dL (1.7-4.1); Glucose 117 mg/dL (80-110); HDL Cholesterol 65 mg/dL (40-60); HEMOLYSIS < 15 (0-50); LDL Cholesterol Calculated 152 mg/dL (<100); Potassium 3.9 mmol/L (3.4-5.1); Sodium 134 mmol/L (137-145); Triglycerides 107 mg/dL (35-150)
[2022-01-21 11:01] LABS: TSH w/ Reflex to FT4 < 0.02 uIU/mL (0.47-4.68)
[2022-01-21 11:36] LABS: Free T4, Direct Thyroxine 1.63 ng/dL (0.78-2.19)
== END ==
PROVIDERS: Family Provider Family Medicine; PCP Pediatrics; Referring Provider Pediatrics; Visit Provider Pediatrics
DX: I10 Essential (primary) hypertension (principal); I63.9 Cerebral infarction, unspecified; I27.20 Pulmonary hypertension, unspecified; E11.9 Type 2 diabetes mellitus without complications
CPT/HCPCS: 36415; 80053; 80061; 83036; 84439; 84443; 85025

== ENCOUNTER → 2022-02-16 15:21 | Outpatient (CLI) | payer MEDICARE, SELFPAY ==
[2020-01-30 16:33] VITALS: BMI 34.5
== END ==
PROVIDERS: Family Provider Family Medicine; PCP Pediatrics; Referring Provider Pediatrics; Visit Provider Pediatrics
DX: Z13.820 Encounter for screening for osteoporosis; Z78.0 Asymptomatic menopausal state; E03.9 Hypothyroidism, unspecified; E11.9 Type 2 diabetes mellitus without complications; I10 Essential (primary) hypertension; I63.9 Cerebral infarction, unspecified; E66.9 Obesity, unspecified; Z90.710 Acquired absence of both cervix and uterus
CPT/HCPCS: 77080

== ENCOUNTER → 2022-03-01 15:27 | Outpatient (CLI) | payer MEDICARE, SELFPAY ==
[2020-01-30 16:33] VITALS: BMI 34.5
[2022-03-01 16:17] LABS: Appearance Urine UA CLEAR; Bilirubin Urine UA NEGATIVE (NEGATIVE); Color Urine UA YELLOW; Glucose Urine UA NEGATIVE (Negative); Ketones Urine UA NEGATIVE (NEGATIVE); Leukocyte Esterase Urine UA 1+ (NEGATIVE); Nitrite Urine UA NEGATIVE (Negative); Occult Blood Urine UA NEGATIVE (Negative); Protein Urine UA TRACE (Negative)
[2022-03-01 16:33] LABS: Amorphous Sediment Urine 1+; Bacteria Urine Many (>30); Culture Indicated Urine Specimen Cultured; RBC Urine 0-1/HPF (0-5/HPF); Squamous Epithelial Cell Urine 1-5 /HPF (0-5/HPF); Transitional Epi Cells Urine 5-10/HPF (0-5/HPF); WBC Urine 10-30/HPF (0-5/HPF)
== END ==
PROVIDERS: Family Provider Family Medicine; PCP Pediatrics; Referring Provider Pediatrics; Visit Provider Pediatrics
DX: R30.0 Dysuria (principal)
CPT/HCPCS: 81001; 87086

== ENCOUNTER 2022-03-22 14:30 | Outpatient (RCR) | payer MEDICARE, SELFPAY ==
[2020-01-30 16:33] VITALS: BMI 34.5
--- NOTE | 2021-11-05 16:07 | OT.OP.EVAL ---
Addendum entered and electronically signed by Raiza Stoll OT 11/17/21 08:34: Internal? Original Note: Visit Care Team Role Provider Type Eleni Barber MD Attending Provider Physician Family Provider Primary Care Provider Referring Provider Specialty: Family Practice Address: [address] [place] [address], [address] Phone: Fax: Email: [email or web address] Occupational Therapy Initial Evaluation OT Outpatient Adult Evaluation Start: 11/05/21 15:32 Freq: Status: Active Protocol: Document 11/05/21 15:32 AMS (Rec: 11/05/21 16:06 AMS [id number]) General Information Visit Start Time 14:30 Visit Stop Time 15:15 Total Visit Minutes 45 Visit Number 08/23 Plan of Care Dates 11/05/21 - 01/28/22 Insurance Information Medicare Treatment Setting Outpatient Care Note Type Initial Evaluation Goals Treatment Initiated development of home exercise program. Thumb add self-manual x 30 seconds. Coins/separation of 2 sides of the hand. 2 medium sized balls in hand. Respiratory Therapist Goals 1. Enedina will be modified independent with execution of home exercise program for the right hand utilizing provided written and visual instructions from therapist. 2. Enedina will present with improved motor coordination of the right hand; this will be evidenced by verbal report of reduction in number of errors when engaged in keyboarding activities with use of personal computer. 3. Enedina will be able to actively participate in meaningful activities secondary to reduction in pain /discomfort of the right hand (right 5th digit); this will be evidenced by Enedina's indicated of 2 or less out of 10 on the Pain Assessment Grid relative to the right 5th digit. 4. Enedina will demonstrate increased ability to actively participate in meaningful activities with active engagement of the right hand; this will be evidenced by Enedina obtaining a score of 25.0 or less on the QuickDASH UE Outcome Measure. Assessment/Plan Treatment Assessment Enedina is a 76 year-old right hand dominant female referred to outpatient OT by PCP, Eleni Barber MD, secondary to acute , small right parafalcine/ right tentorial subdural hematoma identified 08/26/21 post-episode of syncope (loss of consciousness indicated to be less than 30 minutes). PMH significant for: TIA (January 2020); migraines, arrhythmia; cataracts bilateral; DVT (2000 ); HTN; falls; Type 2 Diabetes ; dizziness; thyroid disorder. Patient reported being hospitalized for TIA for 2 weeks at [facility] in [place]. Patient Goals: Address impaired sensation and motor coordination primarily of the 5th digit. Address pain/ discomfort of right thumb. Evaluation Findings: Patient reported decline in legibility of handwriting, decline in accuracy of keyboarding skills , and giving up on knitting since TIA that occurred in 2019. Patient obtained QuickDASH UE Outcome Measure Score = 30.0. Patient indicated 4 out of 10 on the Pain Assessment Grid relative to volar surface of R 5th digit and 3 out of 10 on the Pain Assessment Grid relative to right bicep area and volar surface of right hand. Patient reported that discomfort in the right upper extremity may be result of the walking that she did the previous day using trecking poles w/ increased reliance on UEs given right lower extremity weakness. Patient was able to oppose right thumb to all digit pads w/ and without visual feedback . She was able to complete 9- HPT in 24.8 seconds w/ the right hand and in 27.2 seconds w/ the left hand. She had mild difficulties completing motor coordination activities w/ the little finger and mild difficulties dissociating 4th and 5th digits w/ coordination tasks. Decreased coordination of the digits/ulnar side of the hand noted w/ in-hand manipulation task(s) w/ larger objects being moved around one another. She reported ability to feel paperclip lightly touching volar surfaces of 4th and 5th digits ; stating that it 'feels like sand inside' mostly in the 5th finger. Pain/tenderness w/ palpation of R CMC; denied pain w/ grind test and/or pinching items. Discomfort replicated w/ larger in-hand object manipulation tasks w/ abd and extension. Mild tightness of right thumb adductor noted. Enedina would likely benefit from skilled outpatient OT to establish home exercise program for hand and address motor coordination difficulties. Comment 12 weeks Comment 1-2 times per week Therapeutic Contents Active Range of Motion, Adaptive Equipment Education, Client Education,Cognitive Skills Development,Functional Activities,Home Exercise Program,Joint Protection, Manual Therapy,Education, Neurodevelopment Treatment, Neuromuscular Re-Education, Self-Care,Stretching/ Flexibility Activities, Therapeutic Activities, Therapeutic Exercises, Modalities,Sensory Re- education Modalities As Needed,As Prescribed Types of Modalities Ultrasound Additional Types of Modalities Hot pack/Paraffin bath/Cold pack
--- NOTE | 2021-11-17 15:54 | OT.OP.TRT ---
Visit Care Team Role Provider Type Eleni Barber MD Attending Provider Physician Family Provider Primary Care Provider Referring Provider Specialty: Family Practice Address: [address] [place] [address], [address] Phone: Fax: Email: [email or web address] Occupational Therapy Treatment Note OT Outpatient Treatment Note - Adult Start: 11/05/21 15:32 Freq: Status: Active Protocol: Document 11/17/21 15:44 AMS (Rec: 11/17/21 15:54 AMS [id number]) OT Outpatient Adult Treatment Note Session Time Visit Start Time 14:30 Visit Stop Time 15:15 Total Visit Minutes 45 Visit Information Visit Number 09/[id number] Plan of Care Dates 11/05/21 - 01/28/22 Insurance Information Medicare Setting Treatment Setting Outpatient Care Visit Type Note Type Treatment Note General Information General Information Enedina is a 76 year-old right hand dominant female referred to outpatient OT by PCP, Eleni Barber MD, secondary to acute , small right parafalcine/ right tentorial subdural hematoma identified 08/26/21 post-episode of syncope (loss of consciousness indicated to be less than 30 minutes). PMH significant for: TIA (January 2020); migraines, arrhythmia; cataracts bilateral; DVT (2000 ); HTN; falls; Type 2 Diabetes ; dizziness; thyroid disorder. Patient reported being hospitalized for TIA for 2 weeks at [facility] in [place]. - Subjective Identification Type Name Identification Reconciled With Medical Record Observations I haven't noticed any difference per Enedina. Patient Expectation/Goals R thumb pain; R 5th digit sensation/coordination - Objective Objective Measurements Please refer to below for progress towards meeting established OT goals: Able to correctly identify 6 out of 6 objects w/ R hand stereognosis testing. Impaired light touch sensation of volar surface of R hand. Care Home Goals 1. Enedina will be modified independent with execution of home exercise program for the right hand utilizing provided written and visual instructions from therapist. 2. Enedina will present with improved motor coordination of the right hand; this will be evidenced by verbal report of reduction in number of errors when engaged in keyboarding activities with use of personal computer. 3. Enedina will be able to actively participate in meaningful activities secondary to reduction in pain /discomfort of the right hand (right 5th digit); this will be evidenced by Enedina's indicated of 2 or less out of 10 on the Pain Assessment Grid relative to the right 5th digit. 4. Enedina will demonstrate increased ability to actively participate in meaningful activities with active engagement of the right hand; this will be evidenced by Enedina obtaining a score of 25.0 or less on the QuickDASH UE Outcome Measure. - Treatment 2 Descriptor In-hand manipulation. Thumb ball --> 2nd to 5th digit pad. Coins - separation of the 2 sides of the hand. Rotation of 2 small balls/ around the world. 1 Descriptor Ultrasound. 2.0 w/cm2. 20% duty cycle. x 10 minutes. Volar surface of proximal thumb. Address swelling/ discomfort. Skin intact pre- and post- treatment. Patient denial of pain/exacerbation of symptoms. - Assessment Assessment of Improvement Enedina denied any observations of change since time of initial evaluation. Education re: sensation was completed; focus on development of appropriate sensation HEP. Able to correctly identify 6 out of 6 objects w/ stereognosis testing of the right hand; impaired light sensation of the palm of the right hand. Able to dissociate 2 sides of right hand w/ multiple object manipulation and w/ use of small/medium sized bouncy balls WFL. Able to isolate 5th digit motor coordination activities slightly better (circles/ abduction/adduction/hurdles); although, Enedina denies any notable changes. Report of R thumb discomfort w/ larger movement patterns; relief reported from manual completed at time of initial evaluation . Trialed US on this date; will follow-up w/ patient response to modality. Enedina would likely benefit from skilled outpatient OT to establish home exercise program for hand and address motor coordination difficulties. - Plan Therapy Recommendations Continue with Current Program, Advance per Rehabilitation Protocol
--- NOTE | 2021-11-25 15:30 | OT.OP.TRT ---
Visit Care Team Role Provider Type Eleni Barber MD Attending Provider Physician Family Provider Primary Care Provider Referring Provider Specialty: Family Practice Address: [address] [place] [address], [address] Phone: Fax: Email: [email or web address] Occupational Therapy Treatment Note OT Outpatient Treatment Note - Adult Start: 11/05/21 15:32 Freq: Status: Active Protocol: Document 11/25/21 15:30 AMS (Rec: 11/26/21 08:10 AMS [id number]) OT Outpatient Adult Treatment Note Session Time Visit Start Time 12:30 Visit Stop Time 13:15 Total Visit Minutes 45 Visit Information Visit Number 10/21 Plan of Care Dates 11/05/21 - 01/28/22 Insurance Information Medicare Setting Treatment Setting Outpatient Care Visit Type Note Type Treatment Note General Information General Information Enedina is a 76 year-old right hand dominant female referred to outpatient OT by PCP, Eleni Barber MD, secondary to acute , small right parafalcine/ right tentorial subdural hematoma identified 08/26/21 post-episode of syncope (loss of consciousness indicated to be less than 30 minutes). PMH significant for: TIA (January 2020); migraines, arrhythmia; cataracts bilateral; DVT (2000 ); HTN; falls; Type 2 Diabetes ; dizziness; thyroid disorder. Patient reported being hospitalized for TIA for 2 weeks at [facility] in [place]. - Subjective Identification Type Name Identification Reconciled With Medical Record Observations I fell Monday night. I went to the ER. I did not lose consciousness. I have been tripping on my slippers. My and I are trying to figure out what slippers would work for me per Enedina. Patient Expectation/Goals R thumb pain; R 5th digit sensation/coordination - Objective Objective Measurements Please refer to below for progress towards meeting established OT goals: Able to correctly identify 6 out of 6 objects w/ R hand stereognosis testing. Impaired light touch sensation of volar surface of R hand. Long-Term Goals 1. Enedina will be modified independent with execution of home exercise program for the right hand utilizing provided written and visual instructions from therapist. 2. Enedina will present with improved motor coordination of the right hand; this will be evidenced by verbal report of reduction in number of errors when engaged in keyboarding activities with use of personal computer. 3. Enedina will be able to actively participate in meaningful activities secondary to reduction in pain /discomfort of the right hand (right 5th digit); this will be evidenced by Enedina's indicated of 2 or less out of 10 on the Pain Assessment Grid relative to the right 5th digit. 4. Enedina will demonstrate increased ability to actively participate in meaningful activities with active engagement of the right hand; this will be evidenced by Enedina obtaining a score of 25.0 or less on the QuickDASH UE Outcome Measure. - Treatment 4 Descriptor Motor planning of the R 5th digit. 3 Descriptor Manual to R 5th digit. Manual muscle release thumb adductor R. 2 Descriptor In-hand manipulation. Thumb ball --> 2nd to 5th digit pad. Coins - separation of the 2 sides of the hand. Rotation of 2 small balls/ around the world. 1 Descriptor Ultrasound. 2.0 w/cm2. 20% duty cycle. x 10 minutes. Volar surface of proximal thumb. Address swelling/ discomfort. Skin intact pre- and post- treatment. Patient denial of pain/exacerbation of symptoms. - Assessment Assessment of Improvement Intermittently locking was observed w/ R 5th digit w/ ' alfred activity'; instructed to complete w/ decreased force /rigidity of digit. Manual to 5th digit w/ tenderness palpating medially. Improving dissociation between 4th and 5th digits. Briefly discussed slipper use in the home; recommended patient follow-up w/ PT. Notified primary PT. Tenderness to volar R bicep; ( +) response to US. Overall, good session. Enedina would likely benefit from skilled outpatient OT to establish home exercise program for hand and address motor coordination difficulties. - Plan Therapy Recommendations Continue with Current Program, Advance per Rehabilitation Protocol
--- NOTE | 2021-12-01 16:10 | OT.OP.TRT ---
Visit Care Team Role Provider Type Eleni Barber MD Attending Provider Physician Family Provider Primary Care Provider Referring Provider Specialty: Family Practice Address: [address] [place] [address], [address] Phone: Fax: Email: [email or web address] Occupational Therapy Treatment Note OT Outpatient Treatment Note - Adult Start: 11/05/21 15:32 Freq: Status: Active Protocol: Document 12/01/21 15:57 AMS (Rec: 12/01/21 16:10 AMS [id number]) OT Outpatient Adult Treatment Note Session Time Visit Start Time 14:30 Visit Stop Time 15:15 Total Visit Minutes 45 Visit Information Visit Number 11/21 Plan of Care Dates 11/05/21 - 01/28/22 Insurance Information Medicare Setting Treatment Setting Outpatient Care Visit Type Note Type Treatment Note General Information General Information Enedina is a 76 year-old right hand dominant female referred to outpatient OT by PCP, Eleni Barber MD, secondary to acute , small right parafalcine/ right tentorial subdural hematoma identified 08/26/21 post-episode of syncope (loss of consciousness indicated to be less than 30 minutes). PMH significant for: TIA (January 2020); migraines, arrhythmia; cataracts bilateral; DVT (2000 ); HTN; falls; Type 2 Diabetes ; dizziness; thyroid disorder. Patient reported being hospitalized for TIA for 2 weeks at [facility] in [place]. - Subjective Identification Type Name Identification Reconciled With Medical Record Observations I tried using a walker the last time we went on a walk. I ended up switching back to the trekking poles. Both of my shoulders hurt after our walks per Enedina. Patient Expectation/Goals R thumb pain; R 5th digit sensation/coordination - Objective Objective Measurements Please refer to below for progress towards meeting established OT goals: Able to correctly identify 6 out of 6 objects w/ R hand stereognosis testing. Impaired light touch sensation of volar surface of R hand. Proofreader Goals 1. Enedina will be modified independent with execution of home exercise program for the right hand utilizing provided written and visual instructions from therapist. 2. Enedina will present with improved motor coordination of the right hand; this will be evidenced by verbal report of reduction in number of errors when engaged in keyboarding activities with use of personal computer. 3. Enedina will be able to actively participate in meaningful activities secondary to reduction in pain /discomfort of the right hand (right 5th digit); this will be evidenced by Enedina's indicated of 2 or less out of 10 on the Pain Assessment Grid relative to the right 5th digit. 4. Enedina will demonstrate increased ability to actively participate in meaningful activities with active engagement of the right hand; this will be evidenced by Enedina obtaining a score of 25.0 or less on the QuickDASH UE Outcome Measure. - Treatment 4 Descriptor Fine motor/Object manipulation . 3 Descriptor Manual to R 5th digit. Manual muscle release thumb adductor R. 1 Descriptor Ultrasound. 2.0 w/cm2. 20% duty cycle. x 10 minutes. Dorsal surface of R thumb/ medial MCPJ. Address swelling/ discomfort. Skin intact pre- and post- treatment. Patient denial of pain/exacerbation of symptoms. - Assessment Assessment of Improvement Continued c/o tingling of the 5th digit and fine motor difficulties (management of needle for sewing hem of personal curtains - however, was able to eventually leaf size picker needle w/ sliding to edge of table). Enedina was also observed to manage various sized objects with the right hand w/ intermittent use of compensatory technique ( sliding of object to edge of table to support grasp). Recommended that Enedina consult w/ PT re: AE mobility device use w/ walks w/ . Will discuss transition to HEP and/ or continued need for outpatient treatment. Overall, good session. Enedina would likely benefit from skilled outpatient OT to establish home exercise program for hand and address motor coordination difficulties. - Plan Therapy Recommendations Continue with Current Program
--- NOTE | 2021-12-06 15:41 | OT.OP.TRT ---
Visit Care Team Role Provider Type Eleni Barber MD Attending Provider Physician Family Provider Primary Care Provider Referring Provider Specialty: Family Practice Address: [address] [place] [address], [address] Phone: Fax: Email: [email or web address] Occupational Therapy Treatment Note OT Outpatient Treatment Note - Adult Start: 11/05/21 15:32 Freq: Status: Active Protocol: Document 12/06/21 15:27 AMS (Rec: 12/06/21 15:41 AMS [id number]) OT Outpatient Adult Treatment Note Session Time Visit Start Time 14:30 Visit Stop Time 15:15 Total Visit Minutes 45 Visit Information Visit Number 12/21 Plan of Care Dates 11/05/21 - 01/28/22 Insurance Information Medicare Setting Treatment Setting Outpatient Care Visit Type Note Type Treatment Note General Information General Information Enedina is a 76 year-old right hand dominant female referred to outpatient OT by PCP, Eleni Barber MD, secondary to acute , small right parafalcine/ right tentorial subdural hematoma identified 08/26/21 post-episode of syncope (loss of consciousness indicated to be less than 30 minutes). PMH significant for: TIA (January 2020); migraines, arrhythmia; cataracts bilateral; DVT (2000 ); HTN; falls; Type 2 Diabetes ; dizziness; thyroid disorder. Patient reported being hospitalized for TIA for 2 weeks at [facility] in [place]. - Subjective Identification Type Name Identification Reconciled With Medical Record Observations I would like for you to work on this arm per Enedina. 12/06/21 = No pain indicated on pain assessment grid relative to right hand. Obtained QuickDASH UE Outcome Measure Score = 29.55. Patient Expectation/Goals R thumb pain; R 5th digit sensation/coordination - Objective Objective Measurements Please refer to below for progress towards meeting established OT goals: Able to correctly identify 6 out of 6 objects w/ R hand stereognosis testing. Impaired light touch sensation of volar surface of R hand. 12/06/21 = 0-110 degrees active R sh flex; 0-145 degrees active L sh flex. 0-85 degrees active R sh abd. WNL/Full AROM L sh abd. MMT = R sh flex 4+/5; L sh flex 4+/5. R sh ext 5/5; L sh ext 5/5. R sh abd 3+/5; L sh abd 5/5. R sh add 5/5; L sh add 5/5. R IR 5/5; L IR 5/5. R ER 4+/5; L ER 5/5. R elbow flex 5/5; L elbow flex 5/5. R elbow ext 5/5; L elbow ext 5/5 . Short Term Goals 1. 0-110 degrees pain-free active R sh abduction. 2. 0-130 degrees pain-free active R sh flexion. 3. 4/5 MMT R sh abduction. Alf Goals 1. Enedina will be modified independent with execution of home exercise program for the right hand utilizing provided written and visual instructions from therapist. 2. Enedina will present with improved motor coordination of the right hand; this will be evidenced by verbal report of reduction in number of errors when engaged in keyboarding activities with use of personal computer. 3. Enedina will demonstrate increased ability to actively participate in meaningful activities with active engagement of the right hand; this will be evidenced by Enedina obtaining a score of 25 .0 or less on the QuickDASH UE Outcome Measure. 12/06/21 = 29 .55 GOALS MET Indication of 'No pain' on the Pain Assessment Grid relative to the right 5th digit. *MET 12/06/21 - Treatment 4 Descriptor Fine motor/Object manipulation . 3 Descriptor Manual R shoulder. 2 Descriptor R UE AROM. 1 Descriptor Ultrasound. 2.0 w/cm2. 20% duty cycle. x 8 minutes. Medial/volar surface right proximal arm. Skin intact pre- and post- treatment. Patient denial of pain/exacerbation of symptoms. - Assessment Assessment of Improvement Enedina denied any pain/ discomfort in the right hand; yet, change in sensation of the right hand present. Improving function of the right hand; based on patient feedback, will transition focus of treatment to R UE/ shoulder d/t recent fall that has led to pain/discomfort w/ trekking pole use, decreased R sh AROM and strength, and inability to sleep on the right side (preferred side of rest). New goals were introduced to address areas of concern. Enedina would likely benefit from skilled outpatient OT to establish home exercise program, address R shoulder AROM, R UE strength, and functional use, to support Enedina's success w/ active participation in meaningful activities in a variety of environments. - Plan Therapy Recommendations Continue with Current Program, Advance per Rehabilitation Protocol
--- NOTE | 2021-12-22 15:37 | OT.OP.TRT ---
Visit Care Team Role Provider Type Eleni Barber MD Attending Provider Physician Family Provider Primary Care Provider Referring Provider Specialty: Family Practice Address: [address] [place] [address], [id number] Phone: Fax: Email: [email or web address] Occupational Therapy Treatment Note OT Outpatient Treatment Note - Adult Start: 11/05/21 15:32 Freq: Status: Active Protocol: Document 12/22/21 15:29 AMS (Rec: 12/22/21 15:36 AMS [id number]) OT Outpatient Adult Treatment Note Session Time Visit Start Time 14:30 Visit Stop Time 15:15 Total Visit Minutes 45 Visit Information Visit Number 01/21 Plan of Care Dates 11/05/21 - 01/28/22 Insurance Information Medicare Setting Treatment Setting Outpatient Care Visit Type Note Type Treatment Note General Information General Information Enedina is a 76 year-old right hand dominant female referred to outpatient OT by PCP, Eleni Barber MD, secondary to acute , small right parafalcine/ right tentorial subdural hematoma identified 08/26/21 post-episode of syncope (loss of consciousness indicated to be less than 30 minutes). PMH significant for: TIA (January 2020); migraines, arrhythmia; cataracts bilateral; DVT (2000 ); HTN; falls; Type 2 Diabetes ; dizziness; thyroid disorder. Patient reported being hospitalized for TIA for 2 weeks at [facility] in [place]. - Subjective Identification Type Name Identification Reconciled With Medical Record Observations This arm is still bothering me per Enedina. 12/06/21 = No pain indicated on pain assessment grid relative to right hand. Obtained QuickDASH UE Outcome Measure Score = 29.55. Patient Expectation/Goals R thumb pain; R 5th digit sensation/coordination; R arm - Objective Objective Measurements Please refer to below for progress towards meeting established OT goals: Able to correctly identify 6 out of 6 objects w/ R hand stereognosis testing. Impaired light touch sensation of volar surface of R hand. 12/06/21 = 0-110 degrees active R sh flex; 0-145 degrees active L sh flex. 0-85 degrees active R sh abd. WNL/Full AROM L sh abd. MMT = R sh flex 4+/5; L sh flex 4+/5. R sh ext 5/5; L sh ext 5/5. R sh abd 3+/5; L sh abd 5/5. R sh add 5/5; L sh add 5/5. R IR 5/5; L IR 5/5. R ER 4+/5; L ER 5/5. R elbow flex 5/5; L elbow flex 5/5. R elbow ext 5/5; L elbow ext 5/5 . Short Term Goals 1. 0-110 degrees pain-free active R sh abduction. 2. 0-130 degrees pain-free active R sh flexion. 3. 4/5 MMT R sh abduction. [facility] Goals 1. Enedina will be modified independent with execution of home exercise program for the right hand utilizing provided written and visual instructions from therapist. 2. Enedina will present with improved motor coordination of the right hand; this will be evidenced by verbal report of reduction in number of errors when engaged in keyboarding activities with use of personal computer. 3. Enedina will demonstrate increased ability to actively participate in meaningful activities with active engagement of the right hand; this will be evidenced by Enedina obtaining a score of 25 .0 or less on the QuickDASH UE Outcome Measure. 12/06/21 = 29 .55 GOALS MET Indication of 'No pain' on the Pain Assessment Grid relative to the right 5th digit. *MET 12/06/21 - Treatment 3 Descriptor Manual R shoulder. 2 Descriptor R UE AROM. 1 Descriptor Ultrasound. 2.0 w/cm2. 20% duty cycle. x 10 minutes. Medial/volar surface right proximal arm. Skin intact pre- and post- treatment. Patient denial of pain/exacerbation of symptoms. Exercises 1 Descriptor Shoulder ROM supine exercises. Cane. Sh flexion. 1 x 15 repetitions. Cane. Sh abd. 1 x 15 repetitions. Bilateral sh ER. Hands positioned behind head. 2 repetitions. Hold for 30 seconds. Posterior sh stretch. Cross arm. 2 repetitions. Hold for 30 seconds. - Assessment Assessment of Improvement Continued pain/discomfort of the R UE reported. Preference for thumb up w/ sh abd w/ cane ROM versus forearm pronation. Upgraded shoulder HEP exercises. Written and visual instructions were provided; exercises to be scanned into EMR once front desk clerk staff are able to do so. Enedina denied any questions re: UE recommendations. Improved sh abd post- manual/range by therapist. Enedina would likely benefit from skilled outpatient OT to establish home exercise program, address R shoulder AROM, R UE strength, and functional use, to support Enedina's success w/ active participation in meaningful activities in a variety of environments. - Plan Therapy Recommendations Continue with Current Program, Advance per Rehabilitation Protocol
--- NOTE | 2021-12-28 15:41 | OT.OP.TRT ---
Visit Care Team Role Provider Type Eleni Barber MD Attending Provider Physician Family Provider Primary Care Provider Referring Provider Specialty: Family Practice Address: [address] [place] [address], [id number] Phone: Fax: Email: [email or web address] Occupational Therapy Treatment Note OT Outpatient Treatment Note - Adult Start: 11/05/21 15:32 Freq: Status: Active Protocol: Document 12/28/21 15:34 AMS (Rec: 12/28/21 15:41 AMS [id number]) OT Outpatient Adult Treatment Note Session Time Visit Start Time 14:35 Visit Stop Time 15:17 Total Visit Minutes 42 Visit Information Visit Number 02/20 Plan of Care Dates 11/05/21 - 01/28/22 Insurance Information Medicare Setting Treatment Setting Outpatient Care Visit Type Note Type Treatment Note General Information General Information Enedina is a 76 year-old right hand dominant female referred to outpatient OT by PCP, Eleni Barber MD, secondary to acute , small right parafalcine/ right tentorial subdural hematoma identified 08/26/21 post-episode of syncope (loss of consciousness indicated to be less than 30 minutes). PMH significant for: TIA (January 2020); migraines, arrhythmia; cataracts bilateral; DVT (2000 ); HTN; falls; Type 2 Diabetes ; dizziness; thyroid disorder. Patient reported being hospitalized for TIA for 2 weeks at [facility] in [place]. - Subjective Identification Type Name Identification Reconciled With Medical Record Observations This arm was really sore after I used the trekking poles. We went for a longer walk then we usually do per Enedina. 12/06/21 = No pain indicated on pain assessment grid relative to right hand. Obtained QuickDASH UE Outcome Measure Score = 29.55. Patient Expectation/Goals R thumb pain; R 5th digit sensation/coordination; R arm - Objective Objective Measurements Please refer to below for progress towards meeting established OT goals: Able to correctly identify 6 out of 6 objects w/ R hand stereognosis testing. Impaired light touch sensation of volar surface of R hand. 12/06/21 = 0-110 degrees active R sh flex; 0-145 degrees active L sh flex. 0-85 degrees active R sh abd. WNL/Full AROM L sh abd. MMT = R sh flex 4+/5; L sh flex 4+/5. R sh ext 5/5; L sh ext 5/5. R sh abd 3+/5; L sh abd 5/5. R sh add 5/5; L sh add 5/5. R IR 5/5; L IR 5/5. R ER 4+/5; L ER 5/5. R elbow flex 5/5; L elbow flex 5/5. R elbow ext 5/5; L elbow ext 5/5 . Short Term Goals 1. 0-110 degrees pain-free active R sh abduction. 2. 0-130 degrees pain-free active R sh flexion. 3. 4/5 MMT R sh abduction. Director Of Player Personnel Goals 1. Enedina will be modified independent with execution of home exercise program for the right hand utilizing provided written and visual instructions from therapist. 2. Enedina will present with improved motor coordination of the right hand; this will be evidenced by verbal report of reduction in number of errors when engaged in keyboarding activities with use of personal computer. 3. Enedina will demonstrate increased ability to actively participate in meaningful activities with active engagement of the right hand; this will be evidenced by Enedina obtaining a score of 25 .0 or less on the QuickDASH UE Outcome Measure. 12/06/21 = 29 .55 GOALS MET Indication of 'No pain' on the Pain Assessment Grid relative to the right 5th digit. *MET 12/06/21 - Treatment 3 Descriptor Manual R shoulder. 2 Descriptor R UE AROM. 1 Descriptor Ultrasound. 2.0 w/cm2. 20% duty cycle. x 10 minutes. Medial/volar surface right proximal arm. Skin intact pre- and post- treatment. Patient denial of pain/exacerbation of symptoms. Exercises 2 Descriptor Wall Shoulder ROM Standing exercises. Sh flex. Wall slide. 1 x 15 repetitions. Sh abduction. Wall slide. 1 x 15 repetitions. Ant R sh stretch. 1 repetition ; hold for 25 seconds. 1 Descriptor Shoulder ROM supine exercises. Cane. Sh flexion. 1 x 15 repetitions. Cane. Sh abd. 1 x 15 repetitions. Bilateral sh ER. Hands positioned behind head. 2 repetitions. Hold for 30 seconds. Posterior sh stretch. Cross arm. 2 repetitions. Hold for 30 seconds. - Assessment Assessment of Improvement Continued pain/discomfort of the R UE reported; discussed use of trekking pole w/ left hand only/decreasing length of walk. Improved pain-free R shoulder ROM w/ supine cane exercises. Upgraded to wall exercises/stretches. Did not tolerate 'back circles' at wall w/ sh abd however. Upgraded HEP exercises; written and visual instructions were provided; exercises to be scanned into EMR once front end web developer staff are able to do so. Enedina denied any questions re: UE recommendations. Enedina would likely benefit from skilled outpatient OT to establish home exercise program, address R shoulder AROM, R UE strength, and functional use, to support Enedina's success w/ active participation in meaningful activities in a variety of environments. - Plan Therapy Recommendations Continue with Current Program, Advance per Rehabilitation Protocol
--- NOTE | 2022-01-06 15:31 | OT.OP.TRT ---
Visit Care Team Role Provider Type Eleni Barber MD Attending Provider Physician Family Provider Primary Care Provider Referring Provider Specialty: Family Practice Address: [address] [place] [address], [id number] Phone: Fax: Email: [email or web address] Occupational Therapy Treatment Note OT Outpatient Treatment Note - Adult Start: 11/05/21 15:32 Freq: Status: Active Protocol: Document 01/06/22 15:25 AMS (Rec: 01/06/22 15:31 AMS [id number]) OT Outpatient Adult Treatment Note Session Time Visit Start Time 12:30 Visit Stop Time 13:15 Total Visit Minutes 45 Visit Information Visit Number 03/23 Plan of Care Dates 11/05/21 - 01/28/22 Insurance Information Medicare Setting Treatment Setting Outpatient Care Visit Type Note Type Treatment Note General Information General Information Enedina is a 76 year-old right hand dominant female referred to outpatient OT by PCP, Eleni Barber MD, secondary to acute , small right parafalcine/ right tentorial subdural hematoma identified 08/26/21 post-episode of syncope (loss of consciousness indicated to be less than 30 minutes). PMH significant for: TIA (January 2020); migraines, arrhythmia; cataracts bilateral; DVT (2000 ); HTN; falls; Type 2 Diabetes ; dizziness; thyroid disorder. Patient reported being hospitalized for TIA for 2 weeks at [facility] in [place]. - Subjective Identification Type Name Identification Reconciled With Medical Record Observations Reported daily completion of exercises. 12/06/21 = No pain indicated on pain assessment grid relative to right hand. Obtained QuickDASH UE Outcome Measure Score = 29.55. Patient Expectation/Goals R thumb pain; R 5th digit sensation/coordination; R arm - Objective Objective Measurements Please refer to below for progress towards meeting established OT goals: Able to correctly identify 6 out of 6 objects w/ R hand stereognosis testing. Impaired light touch sensation of volar surface of R hand. 12/06/21 = 0-110 degrees active R sh flex; 0-145 degrees active L sh flex. 0-85 degrees active R sh abd. WNL/Full AROM L sh abd. MMT = R sh flex 4+/5; L sh flex 4+/5. R sh ext 5/5; L sh ext 5/5. R sh abd 3+/5; L sh abd 5/5. R sh add 5/5; L sh add 5/5. R IR 5/5; L IR 5/5. R ER 4+/5; L ER 5/5. R elbow flex 5/5; L elbow flex 5/5. R elbow ext 5/5; L elbow ext 5/5 . Short Term Goals 1. 0-110 degrees pain-free active R sh abduction. 2. 0-130 degrees pain-free active R sh flexion. 3. 4/5 MMT R sh abduction. Social Worker Clinical Goals 1. Enedina will be modified independent with execution of home exercise program for the right hand utilizing provided written and visual instructions from therapist. 2. Enedina will present with improved motor coordination of the right hand; this will be evidenced by verbal report of reduction in number of errors when engaged in keyboarding activities with use of personal computer. 3. Enedina will demonstrate increased ability to actively participate in meaningful activities with active engagement of the right hand; this will be evidenced by Enedina obtaining a score of 25 .0 or less on the QuickDASH UE Outcome Measure. 12/06/21 = 29 .55 GOALS MET Indication of 'No pain' on the Pain Assessment Grid relative to the right 5th digit. *MET 12/06/21 - Treatment 1 Descriptor Ultrasound. 2.0 w/cm2. 20% duty cycle. x 10 minutes. Medial/volar surface right proximal arm. Skin intact pre- and post- treatment. Patient denial of pain/exacerbation of symptoms. Exercises 4 Descriptor Seated strengthening exercises . Bicep curls. 2# DB. 1 x 15. Punches. 2# DB. 1 x 15. 3 Descriptor Supine strengthening exercises . Cane. Chest press. 1# ankle weight. 1 x 15 repetitions. Cane. Sh flexion. 1# ankle weight. 1 x 15 repetitions. 2 Descriptor Wall Shoulder ROM Standing exercises. Sh flex. Wall slide. 1 x 15 repetitions. Sh abduction. Wall slide. 1 x 15 repetitions. Sh hor abduction. Wall. 1 x 15 repetitions. Wall wash. [place]. 1 x 15 repetitions. 1 Descriptor Shoulder ROM supine exercises. Cane. Sh flexion. 1 x 15 repetitions. Cane. Sh abd. 1 x 15 repetitions. Bilateral sh ER. Hands positioned behind head. 2 repetitions. Hold for 30 seconds. Posterior sh stretch. Cross arm. 2 repetitions. Hold for 30 seconds. - Assessment Assessment of Improvement Continued pain/discomfort of the R UE reported. Possibly d/ t sleeping on right side. Use of trekking pole w/ left hand only. Improved pain-free R shoulder ROM noted w/ wall slides/exercises. Upgraded to sh hor abd <-> sh hor add and shoulder circles. Introduced light strengthening exercises. Upgraded HEP exercises; written and visual instructions were provided; exercises to be scanned into EMR once front end engineer staff are able to do so. Overall, good session. Enedina would likely benefit from skilled outpatient OT to establish home exercise program, address R shoulder AROM, R UE strength, and functional use, to support Enedina's success w/ active participation in meaningful activities in a variety of environments. - Plan Therapy Recommendations Continue with Current Program, Advance per Rehabilitation Protocol
--- NOTE | 2022-01-12 12:58 | OT.OP.TRT ---
Visit Care Team Role Provider Type Eleni Barber MD Attending Provider Physician Family Provider Primary Care Provider Referring Provider Specialty: Family Practice Address: [address] [place] [address], [address] Phone: Fax: Email: [email or web address] Occupational Therapy Treatment Note OT Outpatient Treatment Note - Adult Start: 11/05/21 15:32 Freq: Status: Active Protocol: Document 01/12/22 12:53 AMS (Rec: 01/12/22 12:58 AMS [id number]) OT Outpatient Adult Treatment Note Session Time Visit Start Time 12:45 Visit Information Plan of Care Dates 11/05/21 - 01/28/22 Insurance Information Medicare Setting Treatment Setting Outpatient Care Visit Type Note Type Administrative Note - Subjective Observations Enedina arrived to appointment on time. Reported that she ' almost canceled today's appointment' because 'she wasn 't feeling well'. Report of inconsistency w/ taking of b/p in the home; typically 'blood pressure is about 140/70'. Gait deviation w/ head turn to the left when walking w/ therapist through hallway w/ increased steps to regain steadiness/path of ambulation. 185/90 blood pressure. Patient report of change in blood pressure medication in August of 2021 d/t fainting. b/p was written down for patient; appt cancelled. Patient to see physician ; primary PT notified and will follow-up. Also recommended notifying physician's office. Therapist to follow-up as appropriate. - - - -
--- NOTE | 2022-01-18 13:29 | OT.OP.TRT ---
Visit Care Team Role Provider Type Eleni Barber MD Attending Provider Physician Family Provider Primary Care Provider Referring Provider Specialty: Family Practice Address: [address] [place] [address], [id number] Phone: Fax: Email: [email or web address] Occupational Therapy Treatment Note OT Outpatient Treatment Note - Adult Start: 11/05/21 15:32 Freq: Status: Active Protocol: Document 01/18/22 13:22 AMS (Rec: 01/18/22 13:28 AMS [id number]) OT Outpatient Adult Treatment Note Session Time Visit Start Time 12:30 Visit Stop Time 13:15 Total Visit Minutes 45 Visit Information Plan of Care Dates 11/05/21 - 01/28/22 Insurance Information Medicare Setting Treatment Setting Outpatient Care Visit Type Note Type Treatment Note General Information General Information Enedina is a 76 year-old right hand dominant female referred to outpatient OT by PCP, Eleni Barber MD, secondary to acute , small right parafalcine/ right tentorial subdural hematoma identified 08/26/21 post-episode of syncope (loss of consciousness indicated to be less than 30 minutes). PMH significant for: TIA (January 2020); migraines, arrhythmia; cataracts bilateral; DVT (2000 ); HTN; falls; Type 2 Diabetes ; dizziness; thyroid disorder. Patient reported being hospitalized for TIA for 2 weeks at [facility] in [place]. - Subjective Identification Type Name Identification Reconciled With Medical Record Observations Enedina reported seeing her doctor on Monday. b/p was reportedly 'fine' at time of MD appointment. Thus, no changes were made to medications. Enedina stated that she felt like she had 'less energy'. Initial b/p 180/83. Ending b/p 162/92 (resting post- exercises while therapist created HEP). Patient/Caregiver Compliance with Home Good Exercise Program Comment w/ reference to written/visual instruction HEP - Objective Objective Measurements Please refer to below for progress towards meeting established OT goals: Able to correctly identify 6 out of 6 objects w/ R hand stereognosis testing. Impaired light touch sensation of volar surface of R hand. 12/06/21 = 0-110 degrees active R sh flex; 0-145 degrees active L sh flex. 0-85 degrees active R sh abd. WNL/Full AROM L sh abd. MMT = R sh flex 4+/5; L sh flex 4+/5. R sh ext 5/5; L sh ext 5/5. R sh abd 3+/5; L sh abd 5/5. R sh add 5/5; L sh add 5/5. R IR 5/5; L IR 5/5. R ER 4+/5; L ER 5/5. R elbow flex 5/5; L elbow flex 5/5. R elbow ext 5/5; L elbow ext 5/5 . Short Term Goals 1. 0-110 degrees pain-free active R sh abduction. 2. 0-130 degrees pain-free active R sh flexion. 3. 4/5 MMT R sh abduction. Longterm Goals 1. Enedina will be modified independent with execution of home exercise program for the right hand utilizing provided written and visual instructions from therapist. 2. Enedina will present with improved motor coordination of the right hand; this will be evidenced by verbal report of reduction in number of errors when engaged in keyboarding activities with use of personal computer. 3. Enedina will demonstrate increased ability to actively participate in meaningful activities with active engagement of the right hand; this will be evidenced by Enedina obtaining a score of 25 .0 or less on the QuickDASH UE Outcome Measure. 12/06/21 = 29 .55 GOALS MET Indication of 'No pain' on the Pain Assessment Grid relative to the right 5th digit. *MET 12/06/21 - Treatment 4 Descriptor Fine motor/Object manipulation . 3 Descriptor Manual R shoulder. 2 Descriptor R UE AROM. 1 Descriptor Ultrasound. 2.0 w/cm2. 20% duty cycle. x 10 minutes. Medial/volar surface right proximal arm. Skin intact pre- and post- treatment. Patient denial of pain/exacerbation of symptoms. Exercises 4 Descriptor Seated UE strengthening exercises. Sh flexion. 1# DB. 1 x 15. Sh abd. 1# DB. 1 x 15. Bicep curls. 2# DB. 1 x 15. Punches. 2# DB. 1 x 15. 3 Descriptor Supine strengthening exercises . Cane. Chest press. 2# ankle weight. 1 x 15 repetitions. Cane. Sh flexion. 2# ankle weight. 1 x 15 repetitions. 2 Descriptor Wall Shoulder ROM Standing exercises. Sh flex. Wall slide. 1 x 15 repetitions. Sh abduction. Wall slide. 1 x 15 repetitions. Sh hor abduction. Wall. 1 x 15 repetitions. Wall wash. [place]. 1 x 15 repetitions. 1 Descriptor Shoulder ROM supine exercises. Cane. Sh flexion. 1 x 15 repetitions. Cane. Sh abd. 1 x 15 repetitions. Bilateral sh ER. Hands positioned behind head. 2 repetitions. Hold for 30 seconds. Posterior sh stretch. Cross arm. 2 repetitions. Hold for 30 seconds. - Assessment Assessment of Improvement Reported decreasing pain/ discomfort of the R UE. Use of trekking pole w/ left hand only. Improved pain-free R shoulder ROM noted w/ wall slides/exercises. Upgraded UE strengthening exercises. Upgraded HEP exercises; written and visual instructions were provided; exercises to be scanned into EMR once front line leader staff are able to do so. Overall, good session. Enedina would likely benefit from skilled outpatient OT to establish home exercise program, address R shoulder AROM, R UE strength, and functional use, to support Enedina's success w/ active participation in meaningful activities in a variety of environments. - Plan Therapy Recommendations Continue with Current Program, Advance per Rehabilitation Protocol
--- NOTE | 2022-01-26 14:35 | OT.OPPN ---
Current Diagnoses Paresthesia of skin (01/26/22) Other lack of coordination (01/26/22) Other symptoms and signs involving the musculoskeletal system (01/26/22) Weakness (01/26/22) Personal history of transient ischemic attack (TIA), and cerebral infarction without residual deficits (01/26/22) OT Progress Note OT Outpatient Treatment Note - Adult Start: 11/05/21 15:32 Freq: Status: Active Protocol: Document 01/26/22 14:23 AMS (Rec: 01/26/22 14:35 AMS [id number]) OT Outpatient Adult Treatment Note Session Time Visit Start Time 12:30 Visit Stop Time 13:15 Total Visit Minutes 45 Visit Information Visit Number 08/23 Plan of Care Dates 01/26/22 - 04/20/22 Insurance Information Medicare Setting Treatment Setting Outpatient Care Visit Type Note Type Progress Note General Information General Information Enedina is a 76 year-old right hand dominant female referred to outpatient OT by PCP, Eleni Barber MD, secondary to acute , small right parafalcine/ right tentorial subdural hematoma identified 08/26/21 post-episode of syncope (loss of consciousness indicated to be less than 30 minutes). PMH significant for: TIA (January 2020); migraines, arrhythmia; cataracts bilateral; DVT (2000 ); HTN; falls; Type 2 Diabetes ; dizziness; thyroid disorder. Patient reported being hospitalized for TIA for 2 weeks at [facility] in [place]. - Subjective Identification Type Name Identification Reconciled With Medical Record Observations Enedina reported taking b/p this morning. No changes were made to b/p medication. Denial of dizziness. Report of use of left trekking pole only and completing upper extremity stretches and exercises in late afternoon. Patient/Caregiver Compliance with Home Good Exercise Program Comment w/ reference to written/visual instruction HEP - Objective Objective Measurements Please refer to below for progress towards meeting established OT goals: Able to correctly identify 6 out of 6 objects w/ R hand stereognosis testing. Impaired light touch sensation of volar surface of R hand. 12/06/21 = 0-110 degrees active R sh flex; 0-145 degrees active L sh flex. 0-85 degrees active R sh abd. WNL/Full AROM L sh abd. MMT = R sh flex 4+/5; L sh flex 4+/5. R sh ext 5/5; L sh ext 5/5. R sh abd 3+/5; L sh abd 5/5. R sh add 5/5; L sh add 5/5. R IR 5/5; L IR 5/5. R ER 4+/5; L ER 5/5. R elbow flex 5/5; L elbow flex 5/5. R elbow ext 5/5; L elbow ext 5/5 . Short Term Goals 1. 0-110 degrees pain-free active R sh abduction. 01/26/22 = 50% met; 0-100 degrees 2. 0-140 degrees pain-free active R sh flexion. 01/26/22 = UPGRADED; 0-130 degrees 3. 4/5 MMT R sh abduction. = 25% met GOALS MET 0-130 degrees pain-free active R sh flexion. 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 Enedina will be modified independent with execution of home exercise program for the right hand utilizing provided written and visual instructions from therapist. = No changes to HEP made 2. Enedina will present with improved motor coordination of the right hand; this will be evidenced by verbal report of reduction in number of errors when engaged in keyboarding activities with use of personal computer. 01/26/22 = 75% met 3. Enedina will demonstrate increased ability to actively participate in meaningful activities with active engagement of the right hand; this will be evidenced by Enedina obtaining a score of 25.0 or less on the QuickDASH UE Outcome Measure. 12/06/21 = 29.55 GOALS MET Indication of 'No pain' on the Pain Assessment Grid relative to the right 5th digit. *MET 12/06/21 - Treatment 4 Descriptor Fine motor/Object manipulation . 3 Descriptor Manual R shoulder. 2 Descriptor R UE AROM. Wall coordination. Figure 8. Infront of body. Right of body . Hor sh abd/add. 1 Descriptor Ultrasound. 2.0 w/cm2. 20% duty cycle. x 10 minutes. Medial/volar surface right proximal arm. Skin intact pre- and post- treatment. Patient denial of pain/exacerbation of symptoms. Exercises 4 Descriptor Seated UE strengthening exercises. Sh abd. 2# DB. 1 x 15. ER. 2# DB. 1 x 15. Hor sh abd and ER. 2# DB. 1 x 15. N/A 01/26/22 Sh flexion. 1# DB. 1 x 15. Bicep curls. 2# DB. 1 x 15. Punches. 2# DB. 1 x 15. 3 Descriptor Supine strengthening exercises . Cane. Chest press. 2# ankle weight. 1 x 15 repetitions. Cane. Sh flexion. 2# ankle weight. 1 x 15 repetitions. 2 Descriptor UEB B UEs. x 3 minutres. Seated. 1 Descriptor Shoulder ROM exercises. Cane. Sh abd. 1 x 15 repetitions. Seated. Bilateral sh ER. Hands positioned behind head. 2 repetitions. Hold for 30 seconds. Posterior sh stretch. Cross arm. 2 repetitions. Hold for 30 seconds. - Assessment Assessment of Improvement Enedina has made some progress over the last certification period. She is demonstrating increasing pain-free active range of motion of right shoulder and increasing upper extremity strength. She is reporting decreasing pain/ discomfort overall of the R UE . Yet, continues to utilize trekking pole w/ left hand/ upper extremity only w/ intent of returning to bilateral trekking pole use. Enedina reports execution of exercises primarily in the late afternoon; recommended completing stretches in morning to support functional incorporation of the R UE and working towards 'pumping of arms' seated for up to 3 minutes given observed and reported fatigue w/ use of UBE x 3 minutes bilaterally in the outpatient clinic. Enedina would likely benefit from skilled outpatient OT to establish home exercise program, address R shoulder AROM, R UE strength, and functional use, to support Enedina's success w/ active participation in meaningful activities in a variety of environments. - Plan Therapy Recommendations Continue with Current Program, Advance per Rehabilitation Protocol Comment 12 weeks Comment 1 to 2 times per week Therapeutic Contents Active Range of Motion, Adaptive Equipment Education, Client Education,Functional Activities,Home Exercise Program,Joint Protection, Manual Therapy,Education, Neurodevelopment Treatment, Neuromuscular Re-Education, Self-Care,Stretching/ Flexibility Activities, Therapeutic Activities, Therapeutic Exercises, Modalities,Sensory Re- education Modalities As Needed,As Prescribed Additional Types of Modalities Ultrasound/heat/ice pack/e- stim If you are in agreement with this Plan of Care, please return a signed and dated copy. I have reviewed this Plan of Care and certify that the skilled therapy services above are required to meet the patient?s needs. Physician Signature Date Printed Name and Credentials Clinical Instructor Signature Printed Name and Credentials
--- NOTE | 2022-02-01 13:28 | OT.OP.TRT ---
Visit Care Team Role Provider Type Eleni Barber MD Attending Provider Physician Family Provider Primary Care Provider Referring Provider Specialty: Family Practice Address: [address] [place] [address], [id number] Phone: Fax: Email: [email or web address] Occupational Therapy Treatment Note OT Outpatient Treatment Note - Adult Start: 11/05/21 15:32 Freq: Status: Active Protocol: Document 02/01/22 13:21 AMS (Rec: 02/01/22 13:28 AMS [id number]) OT Outpatient Adult Treatment Note Session Time Visit Start Time 12:30 Visit Stop Time 13:15 Total Visit Minutes 45 Visit Information Visit Number 09/23 Plan of Care Dates 01/26/22 - 04/20/22 Insurance Information Medicare Setting Treatment Setting Outpatient Care Visit Type Note Type Treatment Note General Information General Information Enedina is a 76 year-old right hand dominant female referred to outpatient OT by PCP, Eleni Barber MD, secondary to acute , small right parafalcine/ right tentorial subdural hematoma identified 08/26/21 post-episode of syncope (loss of consciousness indicated to be less than 30 minutes). PMH significant for: TIA (January 2020); migraines, arrhythmia; cataracts bilateral; DVT (2000 ); HTN; falls; Type 2 Diabetes ; dizziness; thyroid disorder. Patient reported being hospitalized for TIA for [address] [facility] in [place]. - Subjective Identification Type Name Identification Reconciled With Medical Record Observations Enedina denied taking b/p since Monday d/t 'not feeling well'. I sat down at the dining table and I felt like I was going to vomit. I got back up and rested for Monday and the weekend. I did go on my mile walk yesterday. Report of use of left trekking pole only and completing upper extremity stretches and exercises in late afternoon. Initial b/p 171/83 Patient/Caregiver Compliance with Home Good Exercise Program Comment w/ reference to written/visual instruction HEP - Objective Objective Measurements Please refer to below for progress towards meeting established OT goals: Able to correctly identify 6 out of 6 objects w/ R hand stereognosis testing. Impaired light touch sensation of volar surface of R hand. 12/06/21 = 0-110 degrees active R sh flex; 0-145 degrees active L sh flex. 0-85 degrees active R sh abd. WNL/Full AROM L sh abd. MMT = R sh flex 4+/5; L sh flex 4+/5. R sh ext 5/5; L sh ext 5/5. R sh abd 3+/5; L sh abd 5/5. R sh add 5/5; L sh add 5/5. R IR 5/5; L IR 5/5. R ER 4+/5; L ER 5/5. R elbow flex 5/5; L elbow flex 5/5. R elbow ext 5/5; L elbow ext 5/5 . Short Term Goals 1. 0-110 degrees pain-free active R sh abduction. 01/26/22 = 50% met; 0-100 degrees 2. 0-140 degrees pain-free active R sh flexion. 01/26/22 = UPGRADED; 0-130 degrees 3. 4/5 MMT R sh abduction. = 25% met GOALS MET 0-130 degrees pain-free active R sh flexion. 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 Enedina will be modified independent with execution of home exercise program for the right hand utilizing provided written and visual instructions from therapist. = No changes to HEP made 2. Enedina will present with improved motor coordination of the right hand; this will be evidenced by verbal report of reduction in number of errors when engaged in keyboarding activities with use of personal computer. 01/26/22 = 75% met 3. Enedina will demonstrate increased ability to actively participate in meaningful activities with active engagement of the right hand; this will be evidenced by Enedina obtaining a score of 25.0 or less on the QuickDASH UE Outcome Measure. 12/06/21 = 29.55 GOALS MET Indication of 'No pain' on the Pain Assessment Grid relative to the right 5th digit. *MET 12/06/21 - Treatment 2 Descriptor R UE AROM. Wall coordination. Figure 8. Infront of body. Right of body . Hor sh abd/add. 1 Descriptor Ultrasound. 2.0 w/cm2. 20% duty cycle. x 10 minutes. Medial/volar surface right proximal arm. Skin intact pre- and post- treatment. Patient denial of pain/exacerbation of symptoms. Exercises 4 Descriptor Seated UE strengthening exercises. Sh abd. 2# DB. 1 x 15. Sh flex. 2# DB. 1 x 15. Sh hor abd. 1# DB. 1 x 15. Sh ext. 2# DB. 1 x 15. PNF diagonal. Right knee --> diagonal to right side of space. 1 x 15. 3 Descriptor Supine UE Strengthening Exercises. ER. 2# DB. 1 x 15. Hor sh abd and ER. 2# DB. 1 x 15. 2 Descriptor UEB B UEs. x 3 minutres. Seated. 1 Descriptor Shoulder ROM exercises. Bilateral sh ER. Hands positioned behind head. 2 repetitions. Hold for 30 seconds. Posterior sh stretch. Cross arm. 2 repetitions. Hold for 30 seconds. - Assessment Assessment of Improvement Continues to utilize trekking pole w/ left hand/upper extremity only w/ intent of returning to bilateral trekking pole use. Introduced PNF diagonal, sh hor abd, and sh extension exercises. Unable to execute PNF diagonal w/ weight (1# DB). Advanced HEP; provided written and visual instructions. Reviewed w/ patient. All questions were answered. HEP to scanned into EMR when front office attendant staff are able to do so. Overall, making some progress however, continues to be limited in day -to-day life. Enedina would likely benefit from skilled outpatient OT to establish home exercise program, address R shoulder AROM, R UE strength, and functional use, to support Enedina's success w/ active participation in meaningful activities in a variety of environments. - Plan Therapy Recommendations Continue with Current Program, Advance per Rehabilitation Protocol
--- NOTE | 2022-02-15 10:50 | OT.OP.TRT ---
Visit Care Team Role Provider Type Eleni Barber MD Attending Provider Physician Family Provider Primary Care Provider Referring Provider Specialty: Family Practice Address: [address] [place] [address], [address] Phone: Fax: Email: [email or web address] Occupational Therapy Treatment Note OT Outpatient Treatment Note - Adult Start: 11/05/21 15:32 Freq: Status: Active Protocol: Document 02/15/22 10:38 AMS (Rec: 02/15/22 10:49 AMS [id number]) OT Outpatient Adult Treatment Note Session Time Visit Start Time 08:30 Visit Stop Time 09:15 Total Visit Minutes 45 Visit Information Visit Number [id number] Plan of Care Dates 01/26/22 - 04/20/22 Insurance Information Medicare Setting Treatment Setting Outpatient Care Visit Type Note Type Treatment Note General Information General Information Enedina is a 76 year-old right hand dominant female referred to outpatient OT by PCP, Eleni Barber MD, secondary to acute , small right parafalcine/ right tentorial subdural hematoma identified 08/26/21 post-episode of syncope (loss of consciousness indicated to be less than 30 minutes). PMH significant for: TIA (January 2020); migraines, arrhythmia; cataracts bilateral; DVT (2000 ); HTN; falls; Type 2 Diabetes ; dizziness; thyroid disorder. Patient reported being hospitalized for TIA for 2 weeks at [facility] in [place]. - Subjective Identification Type Name Identification Reconciled With Medical Record Observations Enedina demonstrated bicep curls and sh abduction relative to exercises being completed in the home. Report of also returning to bilateral use of trekking poles 'with focus on not pushing down too hard with the right hand'. Ending b/p 173/89 Patient/Caregiver Compliance with Home Fair Exercise Program Comment w/ reference to written/visual instruction HEP - Objective Objective Measurements Please refer to below for progress towards meeting established OT goals: Able to correctly identify 6 out of 6 objects w/ R hand stereognosis testing. Impaired light touch sensation of volar surface of R hand. 12/06/21 = 0-110 degrees active R sh flex; 0-145 degrees active L sh flex. 0-85 degrees active R sh abd. WNL/Full AROM L sh abd. MMT = R sh flex 4+/5; L sh flex 4+/5. R sh ext 5/5; L sh ext 5/5. R sh abd 3+/5; L sh abd 5/5. R sh add 5/5; L sh add 5/5. R IR 5/5; L IR 5/5. R ER 4+/5; L ER 5/5. R elbow flex 5/5; L elbow flex 5/5. R elbow ext 5/5; L elbow ext 5/5 . Short Term Goals 1. 0-110 degrees pain-free active R sh abduction. 01/26/22 = 50% met; 0-100 degrees 2. 0-140 degrees pain-free active R sh flexion. 01/26/22 = UPGRADED; 0-130 degrees 3. 4/5 MMT R sh abduction. = 25% met GOALS MET 0-130 degrees pain-free active R sh flexion. *MET 01/26/22; 0 -130 [employer] Goals 1. Enedina will be modified independent with execution of home exercise program for the right hand utilizing provided written and visual instructions from therapist. = 50% met 2. Enedina will present with improved motor coordination of the right hand; this will be evidenced by verbal report of reduction in number of errors when engaged in keyboarding activities with use of personal computer. 01/26/22 = 75% met 3. Enedina will demonstrate increased ability to actively participate in meaningful activities with active engagement of the right hand; this will be evidenced by Enedina obtaining a score of 25.0 or less on the QuickDASH UE Outcome Measure. 12/06/21 = 29.55 GOALS MET Indication of 'No pain' on the Pain Assessment Grid relative to the right 5th digit. *MET 12/06/21 - Treatment 2 Descriptor Arm bike. B UEs. Seated. x 5 minutes. Arm pulleys. B UEs. Seated. x 3 minutes. Sh flexion. 1 Descriptor Ultrasound. 2.0 w/cm2. 20% duty cycle. x 10 minutes. Anterior shoulder. Skin intact pre- and post- treatment. Patient denial of pain/ exacerbation of symptoms. Exercises 4 Descriptor Seated UE strengthening exercises. Sh abd. 2# DB. 1 x 15. Sh flex. 2# DB. 1 x 15. Sh hor abd. 1# DB. 1 x 15. Sh ext. 2# DB. 1 x 15. PNF diagonal. Right knee --> diagonal to right side of space. 1 x 15. 3 Descriptor Supine UE Strengthening Exercises. ER. 2# DB. 1 x 15. Hor sh abd and ER. 2# DB. 1 x 15. 1 Descriptor Shoulder ROM exercises. Bilateral sh ER. Hands positioned behind head. 2 repetitions. Hold for 30 seconds. Posterior sh stretch. Cross arm. 2 repetitions. Hold for 30 seconds. Door pec stretch. 1 repetition . Hold for 30 seconds. Shoulder flexion. Wall. 2 repetitions. Hold for 30 seconds. Backwards arm circles at wall. 20 repetitions. [place] nix. 1 repetition. Hold for 20 seconds. - Assessment Assessment of Improvement Report of use of trekking poles bilaterally w/ no exacerbation of shoulder/upper extremity pain symptoms. Patient aware of avoiding pushing down too hard w/ right trekking pole. Limited participation in DB strengthening exercises and decreased interest in pursuing home use of arm pulleys. Thus , recommend focusing on identifying a limited number of exercises for HEP for UE strengthening w/ use of DB and reviewing importance of range of motion Ue exercises. Increased activity tolerance/ and ability to engage in upper extremity exercises. (+) tightness of pec/anterior shoulder/upper trap w/ tendency into impaired posture w/ protracted scapulae and IR of shoulders and slight chin protrusion. Overall, good session. Enedina would likely benefit from skilled outpatient OT to establish home exercise program, address R shoulder AROM, R UE strength, and functional use, to support Enedina's success w/ active participation in meaningful activities in a variety of environments. - Plan Therapy Recommendations Continue with Current Program, Advance per Rehabilitation Protocol
--- NOTE | 2022-03-01 16:05 | OT.OP.TRT ---
Visit Care Team Role Provider Type Eleni Barber MD Attending Provider Physician Family Provider Primary Care Provider Referring Provider Specialty: Family Practice Address: [address] [place] [address], [address] Phone: Fax: Email: [email or web address] Occupational Therapy Treatment Note OT Outpatient Treatment Note - Adult Start: 11/05/21 15:32 Freq: Status: Active Protocol: Document 03/01/22 15:50 AMS (Rec: 03/01/22 16:05 AMS [id number]) OT Outpatient Adult Treatment Note Session Time Visit Start Time 14:30 Visit Stop Time 15:15 Total Visit Minutes 45 Visit Information Visit Number 11/[id number] Plan of Care Dates 01/26/22 - 04/20/22 Insurance Information Medicare Setting Treatment Setting Outpatient Care Visit Type Note Type Treatment Note General Information General Information Enedina is a 76 year-old right hand dominant female referred to outpatient OT by PCP, Eleni Barber MD, secondary to acute , small right parafalcine/ right tentorial subdural hematoma identified 08/26/21 post-episode of syncope (loss of consciousness indicated to be less than 30 minutes). PMH significant for: TIA (January 2020); migraines, arrhythmia; cataracts bilateral; DVT (2000 ); HTN; falls; Type 2 Diabetes ; dizziness; thyroid disorder. Patient reported being hospitalized for TIA for 2 weeks at [facility] in [place]. - Subjective Identification Type Name Identification Reconciled With Medical Record Observations Report of 'almost' daily walks with trekking poles w/ focus on not 'pushing down' when using them. We are walking 1 to 2 miles and sometimes more per Enedina. I was able to iron for an entire afternoon without this arm bothering me . Ending b/p 172/91 Patient/Caregiver Compliance with Home Fair Exercise Program Comment w/ reference to written/visual instruction HEP - Objective Objective Measurements Please refer to below for progress towards meeting established OT goals: Able to correctly identify 6 out of 6 objects w/ R hand stereognosis testing. Impaired light touch sensation of volar surface of R hand. 03/01/22 = L sh flex 5/5 MMT; R sh flex 5/5 MMT; R ER 5/5 MMT ; R sh hor abd 4/5 MMT; L sh hor abd 5/5 MMT 12/06/21 = 0-110 degrees active R sh flex; 0-145 degrees active L sh flex. 0-85 degrees active R sh abd. WNL/Full AROM L sh abd. MMT = R sh flex 4+/5; L sh flex 4+/5. R sh ext 5/5; L sh ext 5/5. R sh abd 3+/5; L sh abd 5/5. R sh add 5/5; L sh add 5/5. R IR 5/5; L IR 5/5. R ER 4+/5; L ER 5/5. R elbow flex 5/5; L elbow flex 5/5. R elbow ext 5/5; L elbow ext 5/5 . Short Term Goals 1. 5/5 MMT R sh abduction. = GOAL UPGRADED 2. 5/5 MMT R sh hor abduction . 03/01/22 = NEW GOAL GOALS MET 0-130 degrees pain-free active R sh flexion. *MET 01/26/22; 0 -130 degrees 0-110 degrees pain-free active R sh abduction. *MET 03/01/22; 0-130 degrees 0-140 degrees pain-free active R sh flexion. *MET 03/01/22; 0 -140 degrees 4/5 MMT R sh abduction. *MET ; 4/5 MMT R sh abd Snf Goals 1. Enedina will be modified independent with execution of home exercise program for the right hand utilizing provided written and visual instructions from therapist. = 50% met 2. Enedina will present with improved motor coordination of the right hand; this will be evidenced by verbal report of reduction in number of errors when engaged in keyboarding activities with use of personal computer. 01/26/22 = 75% met 3. Enedina will demonstrate increased ability to actively participate in meaningful activities with active engagement of the right hand; this will be evidenced by Enedina obtaining a score of 25.0 or less on the QuickDASH UE Outcome Measure. 12/06/21 = 29.55 GOALS MET Indication of 'No pain' on the Pain Assessment Grid relative to the right 5th digit. *MET 12/06/21 - Treatment 2 Descriptor Arm bike. B UEs. Seated. x 5 minutes. 1 Descriptor Ultrasound. 2.0 w/cm2. 20% duty cycle. x 10 minutes. Anterior shoulder. Skin intact pre- and post- treatment. Patient denial of pain/ exacerbation of symptoms. Exercises 2 Descriptor UE strengthening. B sh hor abd. 3.3# spherical ball pass. 1 x 10 repetitions. B sh flexion. 3.3# spherical ball. 1 x 15 repetitions. B sh extension w/ cane. TB #2. 1 x 15 repetitions. Small wall push-ups. 1 x 15 repetitions. B chair dips. 1 x 15 repetitions. 1 Descriptor Shoulder ROM exercises. Posterior sh stretch. Cross arm. 2 repetitions. Hold for 30 seconds. Door pec stretch. 1 repetition . Hold for 30 seconds. Backwards arm circles at wall. 20 repetitions. [place] nix. 1 repetition. Hold for 20 seconds. - Assessment Assessment of Improvement Improving functional abilities of the R UE; able to complete daily trekking pole sessions and iron an entire afternoon without exacerbation of shoulder/UE pain symptoms. Improvng pain-free range of motion of right shoulder; met short term goals in these areas. Improving strength of the right upper extremity; upgraded goals appropriately. Enedina would like to focus on increasing strength of the right upper extremity. Introduced body weight upper extremity strengthening exercises. Upgraded HEP. (+) tightness of pec/anterior shoulder/upper trap w/ tendency into impaired posture w/ protracted scapulae and IR of shoulders and slight chin protrusion. Overall, good session. Enedina would likely benefit from skilled outpatient OT to establish home exercise program, address R shoulder AROM, R UE strength, and functional use, to support Enedina's success w/ active participation in meaningful activities in a variety of environments. Home Exercise Program Upgraded HEP. Reviewed all exercises in treatment session ; written and visual instructions were provided to patient. Original to be scanned into EMR. - Plan Therapy Recommendations Continue with Current Program, Advance per Rehabilitation Protocol
--- NOTE | 2022-03-08 15:34 | OT.OP.TRT ---
Visit Care Team Role Provider Type Eleni Barber MD Attending Provider Physician Family Provider Primary Care Provider Referring Provider Specialty: Family Practice Address: [address] [place] [address], [address] Phone: Fax: Email: [email or web address] Occupational Therapy Treatment Note OT Outpatient Treatment Note - Adult Start: 11/05/21 15:32 Freq: Status: Active Protocol: Document 03/08/22 15:29 AMS (Rec: 03/08/22 15:34 AMS [id number]) OT Outpatient Adult Treatment Note Session Time Visit Start Time 14:30 Visit Stop Time 15:15 Total Visit Minutes 45 Visit Information Visit Number 12/21 Plan of Care Dates 01/26/22 - 04/20/22 Insurance Information Medicare Setting Treatment Setting Outpatient Care Visit Type Note Type Treatment Note General Information General Information Enedina is a 76 year-old right hand dominant female referred to outpatient OT by PCP, Eleni Barber MD, secondary to acute , small right parafalcine/ right tentorial subdural hematoma identified 08/26/21 post-episode of syncope (loss of consciousness indicated to be less than 30 minutes). PMH significant for: TIA (January 2020); migraines, arrhythmia; cataracts bilateral; DVT (2000 ); HTN; falls; Type 2 Diabetes ; dizziness; thyroid disorder. Patient reported being hospitalized for TIA for 2 weeks at [facility] in [place]. - Subjective Identification Type Name Identification Reconciled With Medical Record Observations We went walking at [facility] without our trekking poles per Enedina. I still feel like this arm needs to be stronger per Enedina. Initial b/p 153/80; post-UEB 164/81 Patient/Caregiver Compliance with Home Good Exercise Program Comment w/ reference to written/visual instruction HEP - Objective Objective Measurements Please refer to below for progress towards meeting established OT goals: Able to correctly identify 6 out of 6 objects w/ R hand stereognosis testing. Impaired light touch sensation of volar surface of R hand. 03/01/22 = L sh flex 5/5 MMT; R sh flex 5/5 MMT; R ER 5/5 MMT ; R sh hor abd 4/5 MMT; L sh hor abd 5/5 MMT 12/06/21 = 0-110 degrees active R sh flex; 0-145 degrees active L sh flex. 0-85 degrees active R sh abd. WNL/Full AROM L sh abd. MMT = R sh flex 4+/5; L sh flex 4+/5. R sh ext 5/5; L sh ext 5/5. R sh abd 3+/5; L sh abd 5/5. R sh add 5/5; L sh add 5/5. R IR 5/5; L IR 5/5. R ER 4+/5; L ER 5/5. R elbow flex 5/5; L elbow flex 5/5. R elbow ext 5/5; L elbow ext 5/5 . Short Term Goals 1. 5/5 MMT R sh abduction. = GOAL UPGRADED 2. 5/5 MMT R sh hor abduction . 03/01/22 = NEW GOAL GOALS MET 0-130 degrees pain-free active R sh flexion. *MET 01/26/22; 0 -130 degrees 0-110 degrees pain-free active R sh abduction. *MET 03/01/22; 0-130 degrees 0-140 degrees pain-free active R sh flexion. *MET 03/01/22; 0 -140 degrees 4/5 MMT R sh abduction. 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 Enedina will be modified independent with execution of home exercise program for the right hand utilizing provided written and visual instructions from therapist. = 50% met 2. Enedina will present with improved motor coordination of the right hand; this will be evidenced by verbal report of reduction in number of errors when engaged in keyboarding activities with use of personal computer. 01/26/22 = 75% met 3. Enedina will demonstrate increased ability to actively participate in meaningful activities with active engagement of the right hand; this will be evidenced by Enedina obtaining a score of 25.0 or less on the QuickDASH UE Outcome Measure. 12/06/21 = 29.55 GOALS MET Indication of 'No pain' on the Pain Assessment Grid relative to the right 5th digit. *MET 12/06/21 - Treatment 2 Descriptor Arm bike. B UEs. Seated. x 5 minutes. Exercises 3 Descriptor Cane press. Elbows ext. Hands resting distal knees. Placement of cane on back of neck. 1x5 repetitions. 2 Descriptor UE strengthening. B sh hor abd. 3.3# spherical ball pass. 1 x 10 repetitions. B sh hor abd. TB #2. 1 x 15 repetitions. B sh flexion. 3.3# spherical ball. 1 x 15 repetitions. Small wall push-ups. 1 x 15 repetitions. B chair dips. 1 x 15 repetitions. 1 Descriptor Shoulder ROM exercises. Posterior sh stretch. Cross arm. 2 repetitions. Hold for 30 seconds. Door pec stretch. 1 repetition . Hold for 30 seconds. Backwards arm circles at wall. 20 repetitions. [place] nix. 1 repetition. Hold for 20 seconds. - Assessment Assessment of Improvement Enedina would like to continue to focus on increasing strength of the right upper extremity. Provided w/ TB #2 for home use ; discussed options for grasping of TB to avoid aggravation of R thumb. Modified sh press exercise; able to complete 1x5 prior to request for break. No breaks needed w/ chair dips and wall push-ups x 15 continuous reps. This suggests improving UE strength. (+) tightness of pec /anterior shoulder/upper trap w/ tendency into impaired posture w/ protracted scapulae and IR of shoulders and slight chin protrusion. Overall, good session. Enedina would likely benefit from skilled outpatient OT to establish home exercise program, address R shoulder AROM, R UE strength, and functional use, to support Enedina's success w/ active participation in meaningful activities in a variety of environments. Home Exercise Program Upgraded HEP. Reviewed all exercises in treatment session ; written and visual instructions were provided to patient. Original to be scanned into EMR. - Plan Therapy Recommendations Continue with Current Program, Advance per Rehabilitation Protocol
--- NOTE | 2022-03-15 15:47 | OT.OP.TRT ---
Visit Care Team Role Provider Type Eleni Barber MD Attending Provider Physician Family Provider Primary Care Provider Referring Provider Specialty: Family Practice Address: [address] [place] [address], [id number] Phone: Fax: Email: [email or web address] Occupational Therapy Treatment Note OT Outpatient Treatment Note - Adult Start: 11/05/21 15:32 Freq: Status: Active Protocol: Document 03/15/22 15:41 AMS (Rec: 03/15/22 15:47 AMS [id number]) OT Outpatient Adult Treatment Note Session Time Visit Start Time 14:30 Visit Stop Time 15:15 Total Visit Minutes 45 Visit Information Visit Number 01/21 Plan of Care Dates 01/26/22 - 04/20/22 Insurance Information Medicare Setting Treatment Setting Outpatient Care Visit Type Note Type Treatment Note General Information General Information Enedina is a 76 year-old right hand dominant female referred to outpatient OT by PCP, Eleni Barber MD, secondary to acute , small right parafalcine/ right tentorial subdural hematoma identified 08/26/21 post-episode of syncope (loss of consciousness indicated to be less than 30 minutes). PMH significant for: TIA (January 2020); migraines, arrhythmia; cataracts bilateral; DVT (2000 ); HTN; falls; Type 2 Diabetes ; dizziness; thyroid disorder. Patient reported being hospitalized for TIA for 2 weeks at [facility] in [place]. - Subjective Identification Type Name Identification Reconciled With Medical Record Observations We did our walk this morning at [place]. This arm is sore. I think I worked it too hard per Enedina. Initial b/p 156/89; End treatment b/p 88 Patient/Caregiver Compliance with Home Good Exercise Program Comment w/ reference to written/visual instruction HEP - Objective Objective Measurements Please refer to below for progress towards meeting established OT goals: Able to correctly identify 6 out of 6 objects w/ R hand stereognosis testing. Impaired light touch sensation of volar surface of R hand. 03/01/22 = L sh flex 5/5 MMT; R sh flex 5/5 MMT; R ER 5/5 MMT ; R sh hor abd 4/5 MMT; L sh hor abd 5/5 MMT 12/06/21 = 0-110 degrees active R sh flex; 0-145 degrees active L sh flex. 0-85 degrees active R sh abd. WNL/Full AROM L sh abd. MMT = R sh flex 4+/5; L sh flex 4+/5. R sh ext 5/5; L sh ext 5/5. R sh abd 3+/5; L sh abd 5/5. R sh add 5/5; L sh add 5/5. R IR 5/5; L IR 5/5. R ER 4+/5; L ER 5/5. R elbow flex 5/5; L elbow flex 5/5. R elbow ext 5/5; L elbow ext 5/5 . Short Term Goals 1. 5/5 MMT R sh abduction. = GOAL UPGRADED 2. 5/5 MMT R sh hor abduction . 03/01/22 = NEW GOAL GOALS MET 0-130 degrees pain-free active R sh flexion. *MET 01/26/22; 0 -130 degrees 0-110 degrees pain-free active R sh abduction. *MET 03/01/22; 0-130 degrees 0-140 degrees pain-free active R sh flexion. *MET 03/01/22; 0 -140 degrees 4/5 MMT R sh abduction. *MET ; 4/5 MMT R sh abd [employer] Goals 1. Enedina will be modified independent with execution of home exercise program for the right hand utilizing provided written and visual instructions from therapist. = 50% met 2. Enedina will present with improved motor coordination of the right hand; this will be evidenced by verbal report of reduction in number of errors when engaged in keyboarding activities with use of personal computer. 01/26/22 = 75% met 3. Enedina will demonstrate increased ability to actively participate in meaningful activities with active engagement of the right hand; this will be evidenced by Enedina obtaining a score of 25.0 or less on the QuickDASH UE Outcome Measure. 12/06/21 = 29.55 GOALS MET Indication of 'No pain' on the Pain Assessment Grid relative to the right 5th digit. *MET 12/06/21 - Treatment 2 Descriptor Arm bike. B UEs. Seated. x 5 minutes. Arm pulleys. B UEs. Seated x 4 minutes. Exercises 3 Descriptor Cane press. Elbows ext. Hands resting distal knees. Placement of cane on back of neck. 1 x 10 repetitions. 2 Descriptor UE strengthening. B sh hor abd. TB #2. 1 x 15 repetitions. R sh PNF diagonal. L knee to R side of body. TB #2. 1 x 15 repetitions. N/A 8/2 B sh hor abd. 3.3# spherical ball pass. 1 x 10 repetitions. B sh hor abd. TB #2. 1 x 15 repetitions. B sh flexion. 3.3# spherical ball. 1 x 15 repetitions. Small wall push-ups. 1 x 15 repetitions. B chair dips. 1 x 15 repetitions. 1 Descriptor Shoulder ROM exercises. Posterior sh stretch. Cross arm. 2 repetitions. Hold for 30 seconds. Door pec stretch. 1 repetition . Hold for 30 seconds. Backwards arm circles at wall. 20 repetitions. [place] nix. 1 repetition. Hold for 20 seconds. - Assessment Assessment of Improvement With modified sh press exercise able to increase to 10 repetitions prior to request for break. (+) soreness of R sh may have been d/t change in trekking pole third rigger; recommended conferring/ following-up w/ PT. (+) tightness of pec/anterior shoulder/upper trap w/ tendency into impaired posture w/ protracted scapulae and IR of shoulders and slight chin protrusion. Overall, good session. Enedina would likely benefit from skilled outpatient OT to establish home exercise program, address R shoulder AROM, R UE strength, and functional use, to support Enedina's success w/ active participation in meaningful activities in a variety of environments. Home Exercise Program Recommended working towards x 15 repetitions w/ modified sh press. - Plan Therapy Recommendations Continue with Current Program, Advance per Rehabilitation Protocol
--- NOTE | 2022-03-22 15:37 | OT.OP.DC ---
Visit Care Team Role Provider Type Eleni Barber MD Attending Provider Physician Family Provider Primary Care Provider Referring Provider Address: [address] [place] [address], [id number] Phone: Fax: Email: [email or web address] Outpatient OT Outpatient Adult Evaluation Start: 11/05/21 15:32 Freq: Status: Active Protocol: Document 11/05/21 15:32 AMS (Rec: 11/05/21 16:06 AMS [id number]) General Information Session Time Visit Start Time 14:30 Visit Stop Time 15:15 Total Visit Minutes 45 Visit Information Visit Number 08/23 Plan of Care Dates 11/05/21 - 01/28/22 Insurance Information Medicare Setting Treatment Setting Outpatient Care Visit Type Note Type Initial Evaluation Goals Treatment Treatment Initiated development of home exercise program. Thumb add self-manual x 30 seconds. Coins/separation of 2 sides of the hand. 2 medium sized balls in hand. Loom Mechanic Goals Loom Mechanic Goals 1. Enedina will be modified independent with execution of home exercise program for the right hand utilizing provided written and visual instructions from therapist. 2. Enedina will present with improved motor coordination of the right hand; this will be evidenced by verbal report of reduction in number of errors when engaged in keyboarding activities with use of personal computer. 3. Enedina will be able to actively participate in meaningful activities secondary to reduction in pain /discomfort of the right hand (right 5th digit); this will be evidenced by Enedina's indicated of 2 or less out of 10 on the Pain Assessment Grid relative to the right 5th digit. 4. Enedina will demonstrate increased ability to actively participate in meaningful activities with active engagement of the right hand; this will be evidenced by Enedina obtaining a score of 25.0 or less on the QuickDASH UE Outcome Measure. Assessment/Plan Assessment Treatment Assessment Enedina is a 76 year-old right hand dominant female referred to outpatient OT by PCP, Eleni Barber MD, secondary to acute , small right parafalcine/ right tentorial subdural hematoma identified 08/26/21 post-episode of syncope (loss of consciousness indicated to be less than 30 minutes). PMH significant for: TIA (January 2020); migraines, arrhythmia; cataracts bilateral; DVT (2000 ); HTN; falls; Type 2 Diabetes ; dizziness; thyroid disorder. Patient reported being hospitalized for TIA for 2 weeks at [facility] in [place]. Patient Goals: Address impaired sensation and motor coordination primarily of the 5th digit. Address pain/ discomfort of right thumb. Evaluation Findings: Patient reported decline in legibility of handwriting, decline in accuracy of keyboarding skills , and giving up on knitting since TIA that occurred in 2019. Patient obtained QuickDASH UE Outcome Measure Score = 30.0. Patient indicated 4 out of 10 on the Pain Assessment Grid relative to volar surface of R 5th digit and 3 out of 10 on the Pain Assessment Grid relative to right bicep area and volar surface of right hand. Patient reported that discomfort in the right upper extremity may be result of the walking that she did the previous day using trecking poles w/ increased reliance on UEs given right lower extremity weakness. Patient was able to oppose right thumb to all digit pads w/ and without visual feedback . She was able to complete 9- HPT in 24.8 seconds w/ the right hand and in 27.2 seconds w/ the left hand. She had mild difficulties completing motor coordination activities w/ the little finger and mild difficulties dissociating 4th and 5th digits w/ coordination tasks. Decreased coordination of the digits/ulnar side of the hand noted w/ in-hand manipulation task(s) w/ larger objects being moved around one another. She reported ability to feel paperclip lightly touching volar surfaces of 4th and 5th digits ; stating that it 'feels like sand inside' mostly in the 5th finger. Pain/tenderness w/ palpation of R CMC; denied pain w/ grind test and/or pinching items. Discomfort replicated w/ larger in-hand object manipulation tasks w/ abd and extension. Mild tightness of right thumb adductor noted. Enedina would likely benefit from skilled outpatient OT to establish home exercise program for hand and address motor coordination difficulties. Plan Comment 12 weeks Comment 1-2 times per week Therapeutic Contents Active Range of Motion, Adaptive Equipment Education, Client Education,Cognitive Skills Development,Functional Activities,Home Exercise Program,Joint Protection, Manual Therapy,Education, Neurodevelopment Treatment, Neuromuscular Re-Education, Self-Care,Stretching/ Flexibility Activities, Therapeutic Activities, Therapeutic Exercises, Modalities,Sensory Re- education Modalities As Needed,As Prescribed Types of Modalities Ultrasound Additional Types of Modalities Hot pack/Paraffin bath/Cold pack Sensory Assessment Sensory Profile2 Functional Wrist/Hand Scan Hand Side OT Outpatient Treatment Note - Adult Start: 11/05/21 15:32 Freq: Status: Active Protocol: Document 03/22/22 15:28 AMS (Rec: 03/22/22 15:37 AMS [id number]) OT Outpatient Adult Treatment Note Session Time Visit Start Time 14:30 Visit Stop Time 15:15 Visit Information Visit Number 7 Plan of Care Dates 01/26/22 - 04/20/22 Insurance Information Medicare Setting Treatment Setting Outpatient Care Visit Type Note Type Treatment Note General Information General Information Enedina is a 76 year-old right hand dominant female referred to outpatient OT by PCP, Eleni Barber MD, secondary to acute , small right parafalcine/ right tentorial subdural hematoma identified 08/26/21 post-episode of syncope (loss of consciousness indicated to be less than 30 minutes). PMH significant for: TIA (January 2020); migraines, arrhythmia; cataracts bilateral; DVT (2000 ); HTN; falls; Type 2 Diabetes ; dizziness; thyroid disorder. Patient reported being hospitalized for TIA for 2 weeks at [facility] in [place]. - Subjective Identification Type Name Identification Reconciled With Medical Record Observations No new concerns were reported. Initial b/p 183/90 Patient/Caregiver Compliance with Home Good Exercise Program Comment w/ reference to written/visual instruction HEP - Objective Objective Measurements Please refer to below for progress towards meeting established OT goals: Able to correctly identify 6 out of 6 objects w/ R hand stereognosis testing. Impaired light touch sensation of volar surface of R hand. 03/01/22 = L sh flex 5/5 MMT; R sh flex 5/5 MMT; R ER 5/5 MMT ; R sh hor abd 4/5 MMT; L sh hor abd 5/5 MMT 12/06/21 = 0-110 degrees active R sh flex; 0-145 degrees active L sh flex. 0-85 degrees active R sh abd. WNL/Full AROM L sh abd. MMT = R sh flex 4+/5; L sh flex 4+/5. R sh ext 5/5; L sh ext 5/5. R sh abd 3+/5; L sh abd 5/5. R sh add 5/5; L sh add 5/5. R IR 5/5; L IR 5/5. R ER 4+/5; L ER 5/5. R elbow flex 5/5; L elbow flex 5/5. R elbow ext 5/5; L elbow ext 5/5 . Short Term Goals GOALS MET 0-130 degrees pain-free active R sh flexion. *MET 01/26/22; 0 -130 degrees 0-110 degrees pain-free active R sh abduction. *MET 03/01/22; 0-130 degrees 0-140 degrees pain-free active R sh flexion. *MET 03/01/22; 0 -140 degrees 4/5 MMT R sh abduction. *MET ; 4/5 MMT R sh abd 5/5 MMT R sh hor abduction. * MET 03/22/22 GOALS D/C 5/5 MMT R sh abduction. 03/22/22 = 4+/5 MMT R sh abd Care Home Goals GOALS MET Mod independent w/ execution of HEP utilizing provided written and visual instructions from therapist. * MET 03/22/22 Verbal report of reduction in number of errors when engaged in keyboarding activities with use of personal computer. * MET 03/22/22; no concerns Demonstrating increased ability to actively participate in meaningful activities with active engagement of the right hand; this will be evidenced by Enedina obtaining a score of 25.0 or less on the QuickDASH UE Outcome Measure. 12/06/21 = 29.55; *MET 03/22/22 = Score = 25.0 GOALS MET Indication of 'No pain' on the Pain Assessment Grid relative to the right 5th digit. *MET 12/06/21 - Treatment 2 Descriptor Arm bike. B UEs. Seated. x 5 minutes. Arm pulleys. B UEs. Seated x 4 minutes. Exercises 3 Descriptor Cane press. Elbows ext. Hands resting distal knees. Placement of cane on back of neck. 1 x 15 repetitions. 2 Descriptor UE strengthening. B sh hor abd. TB #2. 1 x 15 repetitions. R sh PNF diagonal. L knee to R side of body. TB #2. 1 x 15 repetitions. N/A 8/2 B sh hor abd. 3.3# spherical ball pass. 1 x 10 repetitions. B sh hor abd. TB #2. 1 x 15 repetitions. B sh flexion. 3.3# spherical ball. 1 x 15 repetitions. Small wall push-ups. 1 x 15 repetitions. B chair dips. 1 x 15 repetitions. 1 Descriptor Shoulder ROM exercises. Posterior sh stretch. Cross arm. 2 repetitions. Hold for 30 seconds. Door pec stretch. 1 repetition . Hold for 30 seconds. Backwards arm circles at wall. 20 repetitions. Rudolph nix. 1 repetition. Hold for 20 seconds. - Assessment Assessment of Improvement Enedina has met almost all established OT goals; she continues to show some weakness w/ R sh abduction compared to L sh abduction. However, she is mod independent with home exercise program utilizing provided written and visual instructions from therapist. Eneidna denied any additional concerns and expressed readiness for d/c to HEP. Recommend d/c to HEP and therapist to follow-up as appropriate. - Plan Therapy Recommendations Discharge from Occupational Therapy
== END 2022-03-23 14:24 ==
LOC: OT 14:30
PROVIDERS: Family Provider Family Medicine; PCP Family Medicine; Referring Provider Family Medicine; Visit Provider Family Medicine
DX: R20.2 Paresthesia of skin (principal); R29.898 Other symptoms and signs involving the musculoskeletal system; Z86.73 Personal history of transient ischemic attack (TIA), and cerebral infarction without residual deficits; R53.1 Weakness; R27.8 Other lack of coordination
CPT/HCPCS: 97035; 97110; 97112; 97140; 97165; 97530

== ENCOUNTER → 2022-03-29 14:01 | Outpatient (CLI) | payer MEDICARE, SELFPAY ==
[2020-01-30 16:33] VITALS: BMI 34.5
--- NOTE | 2022-03-29 14:28 | DI.ECHO.S_ITS ---
+ Interpretation Summary The ejection fraction is estimated to be 60-65%. Grade II diastolic dysfunction. The right ventricle is normal in size and function. The left atrium is mildly dilated. There is trace aortic regurgitation. There is mild tricuspid regurgitation. The right ventricular systolic pressure is estimated to be at least 38 mmHg based on an estimated right atrial pressure of 3 mm Hg. Compared to the prior study dated 06/25/2021, no significant change. Procedure: A two-dimensional transthoracic echocardiogram with color flow and Doppler was performed. The study quality was technically adequate. Comparison is made with the echocardiogram of 07/26/2021. The patient was in sinus rhythm with heart rates between 60-75 bpm during the exam. Left Ventricle: The left ventricle is normal in size and wall thickness. The ejection fraction is estimated to be 60-65%. Grade II diastolic dysfunction. Right Ventricle: The right ventricle is normal in size and function. Atria: The left atrium is mildly dilated. Right atrial size is normal. There is no Doppler evidence for an interatrial shunt. Mitral Valve: The mitral valve is normal in structure and function. There is trace mitral regurgitation. Aortic Valve: The aortic valve is trileaflet. The aortic valve opens well. There is no aortic valve stenosis. There is trace aortic regurgitation. Tricuspid Valve: The tricuspid valve is normal in structure and function. There is mild tricuspid regurgitation. The right ventricular systolic pressure is estimated to be at least 38 mmHg based on an estimated right atrial pressure of 3 mm Hg. Pulmonic Valve: The pulmonic valve leaflets are thin and pliable; valve motion is normal. There is mild to moderate pulmonic regurgitation. Great Vessels: The aortic root is normal size. The dimensions of the ascending aorta are normal. The IVC is of normal diameter and collapses greater than 50% with a sniff. This suggests a low right atrial pressure of 3 mm Hg. Pericardium/ Pleura There is no pericardial effusion. There is no pleural effusion. MMode/2D Measurements & Calculations LVIDd: 4.5 cm LVOT diam: 2.1 cm LVIDs: 2.8 cm Ao root diam: 3.2 cm FS: 37.4 % asc Aorta Diam: 3.3 cm IVSd: 1.2 cm Ao Arch Diam (Prox Trans): 2.9 cm LVPWd: 0.95 cm LV chan. diameter/BSA (cm/m^2): 2.1 LV sys. diameter/BSA (cm/m^2): 1.3 LA A2 area: 24.4 cm2 RA long axis: 5.4 cm LA A4 area: 18.2 cm2 RA area: 18.4 cm2 LA length (vol): 5.0 cm RA vol: 53.6 ml LA vol: 75.3 ml RA : 25.5 ml/m2 LA vol index: 35.8 ml/m2 IVC diam: 1.7 cm RVD1 (basal): 3.7 cm RVD2 (mid): 3.2 cm TAPSE: 2.1 cm Doppler Measurements & Calculations Ao V2 max: 116.3 cm/sec LVOT Max John: 103.8 cm/sec Ao V2 mean: 77.5 cm/sec LV V1 max P.3 mmHg Ao max P.4 mmHg LV V1 VTI: 26.7 cm Ao mean P.7 mmHg LAVERNE(I,D): 3.4 cm2 Ao V2 VTI: 27.7 cm LAVERNE(V,D): 3.2 cm2 sev ratio: 0.96 LAVERNE indexed to BSA (cm^2/m^2): 1.6 MV E max john: 76.2 cm/sec TR max john: 294.5 cm/sec MV A max john: 79.3 cm/sec TR max P.7 mmHg MV E/A: 0.96 PA V2 max: 109.6 cm/sec Med Peak E' John: 3.9 cm/sec PA V2 mean: 74.7 cm/sec E/E' med: 19.5 PA mean P.5 mmHg Lat Peak E' John: 5.9 cm/sec PA pr(Accel): 39.6 mmHg E/E' lat: 12.8 E/e' average: 16.1 MV dec time: 0.34 sec SV(LVOT): 94.7 ml Reading Physician:12:55 PM
== END ==
PROVIDERS: Family Provider Family Medicine; PCP Pediatrics; Referring Provider Internal Medicine Cardiovascular Disease; Visit Provider Internal Medicine Cardiovascular Disease
DX: I37.1 Nonrheumatic pulmonary valve insufficiency (principal); I07.1 Rheumatic tricuspid insufficiency; R55 Syncope and collapse
CPT/HCPCS: 93306

== ENCOUNTER 2022-03-31 15:15 | Outpatient (RCR) | payer MEDICARE, SELFPAY ==
[2020-01-30 16:33] VITALS: BMI 34.5
--- NOTE | 2021-11-24 15:09 | PT.OIE ---
Current Diagnoses Cerebral infarction, unspecified (11/24/21) Repeated falls (11/24/21) Syncope and collapse (11/24/21) Personal history of other specified conditions (11/24/21) Past Medical History (Last Reviewed 11/19/21 @ 21:53 by Rea Montejo DO) Allergic rhinitis Arrhythmia Cataracts, bilateral Chicken pox Concussion CVA (cerebral vascular accident) DVT (deep venous thrombosis) (2000) Endometriosis (~1979) Essential hypertension (12/06/12) Fall at home Fecal incontinence (~2019) Fractures (~2010) 4 History of bilateral salpingo-oophorectomy (BSO) (1980) History of ectopic (1980) History of strabismus surgery (1960) History of urinary incontinence (~2019) Hypothyroidism (2003) Malaria Measles Migraines Mixed hyperlipidemia Mumps Myalgia Pertussis (1949) Plantar warts Status post wrist surgery TIA (transient ischemic attack) (~2019) Type 2 diabetes mellitus Urge incontinence Past Surgical History (Last Reviewed 11/19/21 @ 21:53 by Rea Montejo DO) History of bilateral salpingo-oophorectomy (BSO) (1980) History of strabismus surgery (1960) Status post hysterectomy (1980) Status post wrist surgery Visit Care Team Role Provider Type Eleni Barber MD Attending Provider Physician Family Provider Primary Care Provider Referring Provider Specialty: [facility] Address: [address] [place] [address] Phone: Fax: Email: [email or web address] Physical Therapy Initial Evaluation PT-OP-A Visit Information Start: 11/24/21 14:38 Freq: Status: Active Protocol: Document 11/24/21 12:00 DCW (Rec: 11/24/21 14:48 DCW [id number]) Out-Patient Physical Therapy Visit Information Visit Information Visit Type Initial Evaluation Visit Start Time 12:00 Visit Stop Time 12:45 Total Visit Minutes 45 Visit Number 1 Number of STORE CONSULTANT Visits 0 Evaluation Information Evaluation Date 11/24/21 PT-OP-B Current Condition Start: 11/24/21 14:38 Freq: Status: Active Protocol: Document 11/24/21 12:00 DCW (Rec: 11/24/21 14:48 DCW [id number]) Current Condition History of Current Condition Onset Date Three months Current Complaints Syncope, falls, CVA History of Current Condition Pt is a 76 year old female presenting with a recent history of repeated falls, TBI , and syncope. 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 Notes her most recent fall, five days ago, occurred when she drug her right foot and her slipper got stuck on the floor. Pt notes she is able to pick her foot up, but if I 'm not actually thinking about it, it just drags. 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 Pt was transferred to [facility], where her SDH was found to not be progressing, and pt was sent home. Notes that with her recent falls, she has been using trekking poles when out walking, but after getting out and walking yesterday, she woke up with sore arms. Additionally, pt using SPC for longer community distances, coming in the clinic for her eval using her SPC. Prior Treatments and Tests Pt currently also being seen in OT for hand numbness s/p CVA Treatment Goals Patient/Caregiver Goals Address R leg weakness and decrease falls. PT-OP-C Subjective Start: 11/24/21 14:38 Freq: Status: Active Protocol: Document 11/24/21 12:00 DCW (Rec: 11/24/21 14:48 DCW [id number]) OP-PT Subjective Patient Comments Patient Comments I really hate this cane, but my seems to think I need it. PT-OP-D Balance Start: 11/24/21 14:38 Freq: Status: Active Protocol: Document 11/24/21 12:00 DCW (Rec: 11/24/21 14:54 DCW [id number]) Pan Balance Assessment Evaluation Sitting to Standing Ability Independent w/out Hands Unsupported Stance Safely- 2 minutes Sitting Unsupported, Feet on Floor Safely- 2 minutes Standing to Sitting Ability Safely, Minimal Hand Use Transfer Ability Safely, Minimal Hand Use Unsupported Stance- Eyes Closed Safely, 10 seconds Unsupported Stance- Eyes Open Independent, 1 minute Reaching Forward Standing Confidently, 10 inches Pick- Up Object From Floor Independent/Safe Look Behind Shoulder - Standing Shifts Weight Well Turning 360 Degrees Turns slowly, but safely Unsupported Stance, Alternating Feet on (I)- 8 Steps in > 20 secs Stair Unsupported Tandem Stance Holds Tandem- 30 seconds Unilateral Leg Stance Lifts Leg/Unable to Hold Total Score Pan Total Score (out of 56 points) 49 Pan Impairment Rating 1 to 19% Impaired (Score 45-55 ) PT-OP-E Functional Tests Start: 11/24/21 14:38 Freq: Status: Active Protocol: Document 11/24/21 12:00 DCW (Rec: 11/24/21 14:54 DCW [id number]) Functional Tests Dynamic Gait Index (DGI) Score DGI Impairment Rating 20 to <40% Impaired (Score 15- 19) PT-OP-M Strength Start: 11/24/21 14:38 Freq: Status: Active Protocol: Document 11/24/21 12:00 DCW (Rec: 11/24/21 14:54 DCW [id number]) Hip Strength Hip Manual Muscle Testing Right Flexion (L2) 3 Fair Extension (S1) 4- Good- Abduction 3+ Fair+ Adduction 4 Good External Rotation 4 Good Internal Rotation 4 Good Left Flexion (L2) 4+ Good+ Extension (S1) 5 Normal Abduction 4+ Good+ Adduction 4+ Good+ External Rotation 4+ Good+ Internal Rotation 4+ Good+ Knee Strength Knee Manual Muscle Testing Right Flexion (S2) 4- Good- Extension (L3) 4- Good- Left Flexion (S2) 4 Good Extension (L3) 4 Good Ankle/Foot Strength Ankle and Foot Manual Muscle Testing Right Dorsiflexion (L4) 4- Good- Plantarflexion (S1) 4 Good Left Dorsiflexion (L4) 4+ Good+ Plantarflexion (S1) 4+ Good+ PT-OP-T Assessment and Plan Start: 11/24/21 14:38 Freq: Status: Active Protocol: Document 11/24/21 12:00 DCW (Rec: 11/24/21 15:08 DCW [id number]) Physical Therapy Assessment Rehab Potential Rehabilitation Potential Good Evaluation Complexity Number of Personal Factors/Comorbidities 1-2 Number of Body Systems Impaired 3 Clinical Presentation at Evaluation Unstable Impairments Impairments Activity Tolerance,Balance, Functional Activities, Functional Mobility,Gait, Strength Other Concerns Fall Risk Yes, per falls history and DGI score Goals Two Impairment Pt presents with an increased falls risk score () on DGI Group Home Goal (LTG) Pt to increased her DGI score by at least five points to 20/ 24 to show decreased falls risk. LTG Duration 01/24/22 One Impairment Pt does not have an appropriate home exercise program Short Term Goal (STG) Pt to be independent and compliant with an appropriate HEP STG Duration 12/24/21 Assessment Summary Assessment Pt presents with signs and symptoms consistent with increased falls risk secondary to poor dynamic balance, and decreased foot clearance, following recent CVA. Additionally, pt has suffered multiple syncopal episodes three months ago, currently unclear of cause. Pt should benefit from skilled therapy focusing on improved balance and gait, R LE strengthening, increased activity tolerance, and AD training. Physical Therapy Plan Frequency and Duration Frequency of Treatment 2x/Week Duration of Treatment Two months Plan of Care Start Date 11/24/21 Plan of Care End Date 01/24/22 Therapeutic Interventions Therapeutic Interventions Aquatic Therapy,Gait Training, Home Exercise Program,Joint Mobilizations,Manual Therapy, Neuromuscular Re-education, Patient/Caregiver Education, Self-Care/Home Management,Soft Tissue Mobilization, Therapeutic Activities, Therapeutic Exercises Modalities Electric Stimulation Next Visit Focus/Plan Next Note Type Treatment Note Next Visit Plan LE strengthening, gait, balance
--- NOTE | 2021-11-24 15:10 | PT.OPPOC ---
Addendum entered and electronically signed by Elvis Erickson, PT 11/26/21 14:34: . Original Note: Physical, Occupational & Speech Therapy At [facility] Current Diagnoses Cerebral infarction, unspecified (11/24/21) Repeated falls (11/24/21) Syncope and collapse (11/24/21) Personal history of other specified conditions (11/24/21) Visit Care Team Role Provider Type Eleni Barber MD Attending Provider Physician Family Provider Primary Care Provider Referring Provider Specialty: Family Practice Address: [address] [place] [address], [address] Phone: Fax: Email: [email or web address] Plan Of Care PT-OP-T Assessment and Plan Start: 11/24/21 14:38 Freq: Status: Active Protocol: Document 11/24/21 12:00 DCW (Rec: 11/24/21 15:08 DCW [id number]) Physical Therapy Assessment Rehab Potential Rehabilitation Potential Good Evaluation Complexity Number of Personal Factors/Comorbidities 1-2 Number of Body Systems Impaired 3 Clinical Presentation at Evaluation Unstable Impairments Impairments Activity Tolerance,Balance, Functional Activities, Functional Mobility,Gait, Strength Other Concerns Fall Risk Yes, per falls history and DGI score Goals Two Impairment Pt presents with an increased falls risk score () on DGI Laundry Operator Finishing Goal (LTG) Pt to increased her DGI score by at least five points to to show decreased falls risk. LTG Duration 01/24/22 One Impairment Pt does not have an appropriate home exercise program Short Term Goal (STG) Pt to be independent and compliant with an appropriate HEP STG Duration 12/24/21 Assessment Summary Assessment Pt presents with signs and symptoms consistent with increased falls risk secondary to poor dynamic balance, and decreased foot clearance, following recent CVA. Additionally, pt has suffered multiple syncopal episodes three months ago, currently [place] of cause. Pt should benefit from skilled therapy focusing on improved balance and gait, R LE strengthening, increased activity tolerance, and AD training. Physical Therapy Plan Frequency and Duration Frequency of Treatment 2x/Week Duration of Treatment Two months Plan of Care Start Date 11/24/21 Plan of Care End Date 01/24/22 Therapeutic Interventions Therapeutic Interventions Aquatic Therapy,Gait Training, Home Exercise Program,Joint Mobilizations,Manual Therapy, Neuromuscular Re-education, Patient/Caregiver Education, Self-Care/Home Management,Soft Tissue Mobilization, Therapeutic Activities, Therapeutic Exercises Modalities Electric Stimulation Next Visit Focus/Plan Next Note Type Treatment Note Next Visit Plan LE strengthening, gait, balance Plan of Care Dates Plan of Care Start Date 11/24/21 Plan of Care End Date 01/24/22 Electronically Signed by: Elvis Erickson, PT 11/24/21 [id number] Please Sign and Return: I have reviewed this Plan of Care and certify that the skilled therapy services above are required to meet the patient?s needs. Physician Signature Date Printed Name and Credentials Clinical Instructor Signature Printed Name and Credentials
--- NOTE | 2021-11-29 15:15 | PT.OTN ---
Current Diagnoses Cerebral infarction, unspecified (11/29/21) Repeated falls (11/29/21) Syncope and collapse (11/29/21) Personal history of other specified conditions (11/29/21) Physical Therapy Treatment Note PT-OP-A Visit Information Start: 11/24/21 14:38 Freq: Status: Active Protocol: Document 11/29/21 14:34 DCW (Rec: 11/29/21 15:15 DCW [id number]) Out-Patient Physical Therapy Visit Information Visit Information Visit Type Treatment Note Visit Start Time 14:34 Visit Stop Time 15:15 Total Visit Minutes 41 Visit Number 2 Number of HURL SHAKER Visits 0 Evaluation Information Evaluation Date 11/24/21 PT-OP-B Current Condition Start: 11/24/21 14:38 Freq: Status: Active Protocol: Document 11/24/21 12:00 DCW (Rec: 11/24/21 14:48 DCW [id number]) Current Condition History of Current Condition Onset Date Three months Current Complaints Syncope, falls, CVA History of Current Condition Pt is a 76 year old female presenting with a recent history of repeated falls, TBI , and syncope. 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 Notes her most recent fall, five days ago, occurred when she drug her right foot and her slipper got stuck on the floor. Pt notes she is able to pick her foot up, but if I 'm not actually thinking about it, it just drags. 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 Pt was transferred to [facility], where her SDH was found to not be progressing, and pt was sent home. Notes that with her recent falls, she has been using trekking poles when out walking, but after getting out and walking yesterday, she woke up with sore arms. Additionally, pt using SPC for longer community distances, coming in the clinic for her eval using her SPC. Prior Treatments and Tests Pt currently also being seen in OT for hand numbness s/p CVA Treatment Goals Patient/Caregiver Goals Address R leg weakness and decrease falls. PT-OP-C Subjective Start: 11/24/21 14:38 Freq: Status: Active Protocol: Document 11/29/21 14:34 DCW (Rec: 11/29/21 15:15 DCW [id number]) OP-PT Subjective Patient Comments Patient Comments I think I'm doing pretty well today. PT-OP-D Balance Start: 11/24/21 14:38 Freq: Status: Active Protocol: Document 11/24/21 12:00 DCW (Rec: 11/24/21 14:54 DCW [id number]) Pan Balance Assessment Evaluation Sitting to Standing Ability Independent w/out Hands Unsupported Stance Safely- 2 minutes Sitting Unsupported, Feet on Floor Safely- 2 minutes Standing to Sitting Ability Safely, Minimal Hand Use Transfer Ability Safely, Minimal Hand Use Unsupported Stance- Eyes Closed Safely, 10 seconds Unsupported Stance- Eyes Open Independent, 1 minute Reaching Forward Standing Confidently, 10 inches Pick- Up Object From Floor Independent/Safe Look Behind Shoulder - Standing Shifts Weight Well Turning 360 Degrees Turns slowly, but safely Unsupported Stance, Alternating Feet on (I)- 8 Steps in > 20 secs Stair Unsupported Tandem Stance Holds Tandem- 30 seconds Unilateral Leg Stance Lifts Leg/Unable to Hold Total Score Pan Total Score (out of 56 points) 49 Pan Impairment Rating 1 to 19% Impaired (Score 45-55 ) PT-OP-E Functional Tests Start: 11/24/21 14:38 Freq: Status: Active Protocol: Document 11/24/21 12:00 DCW (Rec: 11/24/21 14:54 DC [id number]) Functional Tests Dynamic Gait Index (DGI) Score 15/24 DGI Impairment Rating 20 to <40% Impaired (Score 15- 19) PT-OP-M Strength Start: 11/24/21 14:38 Freq: Status: Active Protocol: Document 11/24/21 12:00 DCW (Rec: 11/24/21 14:54 [facility] [id number]) Hip Strength Hip Manual Muscle Testing Right Flexion (L2) 3 Fair Extension (S1) 4- Good- Abduction 3+ Fair+ Adduction 4 Good External Rotation 4 Good Internal Rotation 4 Good Left Flexion (L2) 4+ Good+ Extension (S1) 5 Normal Abduction 4+ Good+ Adduction 4+ Good+ External Rotation 4+ Good+ Internal Rotation 4+ Good+ Knee Strength Knee Manual Muscle Testing Right Flexion (S2) 4- Good- Extension (L3) 4- Good- Left Flexion (S2) 4 Good Extension (L3) 4 Good Ankle/Foot Strength Ankle and Foot Manual Muscle Testing Right Dorsiflexion (L4) 4- Good- Plantarflexion (S1) 4 Good Left Dorsiflexion (L4) 4+ Good+ Plantarflexion (S1) 4+ Good+ PT-OP-Q Treatments Start: 11/24/21 14:38 Freq: Status: Active Protocol: Document 11/29/21 14:34 DCW (Rec: 11/29/21 15:15 DCW [id number]) Cardio Equipment Recumbent Elliptical (Biodex) Duration (Minutes) 5 Resistance 4 Seat Position 10 Gym Equipment Shuttle Recovery Bilateral Heel Raises Resistance 75# Unilateral Squats Resistance 50# Bilateral Squats Resistance 100# Therapeutic Exercises Sitting Exercises 1 Sitting Exercise Name Ankle DF Side bilateral Resistance Lv 3 Standing Exercises 1 Standing Exercise Name Toe-taps Side bilateral Resistance 5# Equipment Used 6 step Other Exercises 2 Other Exercise Name Resisted side-stepping Resistance Red loop 1 Other Exercise Name Hurdles Comments Forward, Side-stepping Neuro Re-Education Treatment Balance Activities 3 Details Eyes closed Surface Blue Foam 2 Details SLS Equipment // bars 1 Details Tandem Stance Equipment // bars PT-OP-T Assessment and Plan Start: 11/24/21 14:38 Freq: Status: Active Protocol: Document 11/29/21 14:34 DCW (Rec: 11/29/21 15:15 DCW [id number]) Physical Therapy Assessment Impairments Impairments Activity Tolerance,Balance, Functional Activities, Functional Mobility,Gait, Strength Goals Two Impairment Pt presents with an increased falls risk score (15/24) on DGI Endband Cutter Hand Goal (LTG) Pt to increased her DGI score by at least five points to 20/ 24 to show decreased falls risk. LTG Duration 01/24/22 One Impairment Pt does not have an appropriate home exercise program Short Term Goal (STG) Pt to be independent and compliant with an appropriate HEP STG Duration 12/24/21 Assessment Summary Assessment Pt did well with exercises today, did display some imbalance with increased challenge of stability, but was able to largely self- correct. Physical Therapy Plan Frequency and Duration Frequency of Treatment 2x/Week Duration of Treatment Two months Plan of Care Start Date 11/24/21 Plan of Care End Date 01/24/22 Therapeutic Interventions Therapeutic Interventions Aquatic Therapy,Gait Training, Home Exercise Program,Joint Mobilizations,Manual Therapy, Neuromuscular Re-education, Patient/Caregiver Education, Self-Care/Home Management,Soft Tissue Mobilization, Therapeutic Activities, Therapeutic Exercises Modalities Electric Stimulation Next Visit Focus/Plan Next Note Type Treatment Note Next Visit Plan LE strengthening, gait, balance
--- NOTE | 2021-12-02 16:45 | PT.OTN ---
Current Diagnoses Cerebral infarction, unspecified (12/02/21) Repeated falls (12/02/21) Syncope and collapse (12/02/21) Personal history of other specified conditions (12/02/21) Physical Therapy Treatment Note PT-OP-A Visit Information Start: 11/24/21 14:38 Freq: Status: Active Protocol: Document 12/02/21 16:00 DCW (Rec: 12/02/21 16:45 DCW [id number]) Out-Patient Physical Therapy Visit Information Visit Information Visit Type Treatment Note Visit Start Time 16:00 Visit Stop Time 16:45 Total Visit Minutes 45 Visit Number 3 Number of ASSISTANT CENTER DIRECTOR Visits 0 Evaluation Information Evaluation Date 11/24/21 PT-OP-B Current Condition Start: 11/24/21 14:38 Freq: Status: Active Protocol: Document 11/24/21 12:00 DCW (Rec: 11/24/21 14:48 DCW [id number]) Current Condition History of Current Condition Onset Date Three months Current Complaints Syncope, falls, CVA History of Current Condition Pt is a 76 year old female presenting with a recent history of repeated falls, TBI , and syncope. 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 Notes her most recent fall, five days ago, occurred when she drug her right foot and her slipper got stuck on the floor. Pt notes she is able to pick her foot up, but if I 'm not actually thinking about it, it just drags. 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 Pt was transferred to [facility], where her SDH was found to not be progressing, and pt was sent home. Notes that with her recent falls, she has been using trekking poles when out walking, but after getting out and walking yesterday, she woke up with sore arms. Additionally, pt using SPC for longer community distances, coming in the clinic for her eval using her SPC. Prior Treatments and Tests Pt currently also being seen in OT for hand numbness s/p CVA Treatment Goals Patient/Caregiver Goals Address R leg weakness and decrease falls. PT-OP-C Subjective Start: 11/24/21 14:38 Freq: Status: Active Protocol: Document 12/02/21 16:00 DCW (Rec: 12/02/21 16:45 DCW [id number]) OP-PT Subjective Patient Comments Patient Comments I'm tired. I may even be grouchy. PT-OP-D Balance Start: 11/24/21 14:38 Freq: Status: Active Protocol: Document 11/24/21 12:00 DCW (Rec: 11/24/21 14:54 DCW [id number]) Pan Balance Assessment Evaluation Sitting to Standing Ability Independent w/out Hands Unsupported Stance Safely- 2 minutes Sitting Unsupported, Feet on Floor Safely- 2 minutes Standing to Sitting Ability Safely, Minimal Hand Use Transfer Ability Safely, Minimal Hand Use Unsupported Stance- Eyes Closed Safely, 10 seconds Unsupported Stance- Eyes Open Independent, 1 minute Reaching Forward Standing Confidently, 10 inches Pick- Up Object From Floor Independent/Safe Look Behind Shoulder - Standing Shifts Weight Well Turning 360 Degrees Turns slowly, but safely Unsupported Stance, Alternating Feet on (I)- 8 Steps in > 20 secs Stair Unsupported Tandem Stance Holds Tandem- 30 seconds Unilateral Leg Stance Lifts Leg/Unable to Hold Total Score Pan Total Score (out of 56 points) 49 Pan Impairment Rating 1 to 19% Impaired (Score 45-55 ) PT-OP-E Functional Tests Start: 11/24/21 14:38 Freq: Status: Active Protocol: Document 11/24/21 12:00 DCW (Rec: 11/24/21 14:54 DCW [id number]) Functional Tests Dynamic Gait Index (DGI) Score 15/24 DGI Impairment Rating 20 to <40% Impaired (Score 15- 19) PT-OP-M Strength Start: 11/24/21 14:38 Freq: Status: Active Protocol: Document 11/24/21 12:00 DCW (Rec: 11/24/21 14:54 DCW [id number]) Hip Strength Hip Manual Muscle Testing Right Flexion (L2) 3 Fair Extension (S1) 4- Good- Abduction 3+ Fair+ Adduction 4 Good External Rotation 4 Good Internal Rotation 4 Good Left Flexion (L2) 4+ Good+ Extension (S1) 5 Normal Abduction 4+ Good+ Adduction 4+ Good+ External Rotation 4+ Good+ Internal Rotation 4+ Good+ Knee Strength Knee Manual Muscle Testing Right Flexion (S2) 4- Good- Extension (L3) 4- Good- Left Flexion (S2) 4 Good Extension (L3) 4 Good Ankle/Foot Strength Ankle and Foot Manual Muscle Testing Right Dorsiflexion (L4) 4- Good- Plantarflexion (S1) 4 Good Left Dorsiflexion (L4) 4+ Good+ Plantarflexion (S1) 4+ Good+ PT-OP-Q Treatments Start: 11/24/21 14:38 Freq: Status: Active Protocol: Document 12/02/21 16:00 DCW (Rec: 12/02/21 16:45 DCW [id number]) Cardio Equipment Recumbent Elliptical (Biodex) Duration (Minutes) 5 Resistance 4 Seat Position 10 Gym Equipment Shuttle Recovery Bilateral Heel Raises Resistance 75# Unilateral Squats Resistance 50# Bilateral Squats Resistance 100# Therapeutic Exercises Other Exercises 2 Other Exercise Name Resisted side-stepping Resistance Red loop 1 Other Exercise Name Hurdles Comments Forward, Side-stepping Gait Training Gait Activity 1 Description Trekking pole ambulation Comments Assessment of pt use and ability, determine cause of pt 's ongoing arm pain after using poles. PT-OP-T Assessment and Plan Start: 11/24/21 14:38 Freq: Status: Active Protocol: Document 12/02/21 16:00 DCW (Rec: 12/02/21 16:45 DCW [id number]) Physical Therapy Assessment Impairments Impairments Activity Tolerance,Balance, Functional Activities, Functional Mobility,Gait, Strength Goals Two Impairment Pt presents with an increased falls risk score (15/24) on DGI Chcf Goal (LTG) Pt to increased her DGI score by at least five points to 20/ 24 to show decreased falls risk. LTG Duration 01/24/22 One Impairment Pt does not have an appropriate home exercise program Short Term Goal (STG) Pt to be independent and compliant with an appropriate HEP STG Duration 12/24/21 Assessment Summary Assessment Worked with pt today on use of trekking poles, as she has complained that they create right arm pain. Pt does not show any specific use that may cause her pain, may just be fatigue due to decreased activity tolerance of right side secondary to CVA. Practiced with both trekking poles, as well as only left trekking poles. Pt would be less likely to get out walking if she felt she had to use a 4WW, additionally her 4WW slows me down, and is apparently too low for her, even at it's highest setting, so she doesn't like it. Physical Therapy Plan Frequency and Duration Frequency of Treatment 2x/Week Duration of Treatment Two months Plan of Care Start Date 11/24/21 Plan of Care End Date 01/24/22 Therapeutic Interventions Therapeutic Interventions Aquatic Therapy,Gait Training, Home Exercise Program,Joint Mobilizations,Manual Therapy, Neuromuscular Re-education, Patient/Caregiver Education, Self-Care/Home Management,Soft Tissue Mobilization, Therapeutic Activities, Therapeutic Exercises Modalities Electric Stimulation Next Visit Focus/Plan Next Note Type Treatment Note Next Visit Plan LE strengthening, gait, balance
--- NOTE | 2021-12-06 14:27 | PT.OTN ---
Current Diagnoses Cerebral infarction, unspecified (12/06/21) Repeated falls (12/06/21) Syncope and collapse (12/06/21) Personal history of other specified conditions (12/06/21) Physical Therapy Treatment Note PT-OP-A Visit Information Start: 11/24/21 14:38 Freq: Status: Active Protocol: Document 12/06/21 13:45 DCW (Rec: 12/06/21 14:27 DCW [id number]) Out-Patient Physical Therapy Visit Information Visit Information Visit Type Treatment Note Visit Start Time 13:45 Visit Stop Time 14:30 Total Visit Minutes 45 Visit Number 4 Number of HIGH SCHOOL COUNSELOR Visits 0 Evaluation Information Evaluation Date 11/24/21 PT-OP-B Current Condition Start: 11/24/21 14:38 Freq: Status: Active Protocol: Document 11/24/21 12:00 DCW (Rec: 11/24/21 14:48 DCW [id number]) Current Condition History of Current Condition Onset Date Three months Current Complaints Syncope, falls, CVA History of Current Condition Pt is a 76 year old female presenting with a recent history of repeated falls, TBI , and syncope. 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 Notes her most recent fall, five days ago, occurred when she drug her right foot and her slipper got stuck on the floor. Pt notes she is able to pick her foot up, but if I 'm not actually thinking about it, it just drags. 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 Pt was transferred to [facility], where her SDH was found to not be progressing, and pt was sent home. Notes that with her recent falls, she has been using trekking poles when out walking, but after getting out and walking yesterday, she woke up with sore arms. Additionally, pt using SPC for longer community distances, coming in the clinic for her eval using her SPC. Prior Treatments and Tests Pt currently also being seen in OT for hand numbness s/p CVA Treatment Goals Patient/Caregiver Goals Address R leg weakness and decrease falls. PT-OP-C Subjective Start: 11/24/21 14:38 Freq: Status: Active Protocol: Document 12/06/21 13:45 DCW (Rec: 12/06/21 14:27 DCW [id number]) OP-PT Subjective Patient Comments Patient Comments I think I'm alright. Notes she tried walking with Trekking poles this weekend, her arm still ended up killing me. PT-OP-D Balance Start: 11/24/21 14:38 Freq: Status: Active Protocol: Document 11/24/21 12:00 DCW (Rec: 11/24/21 14:54 DCW [id number]) Pan Balance Assessment Evaluation Sitting to Standing Ability Independent w/out Hands Unsupported Stance Safely- 2 minutes Sitting Unsupported, Feet on Floor Safely- 2 minutes Standing to Sitting Ability Safely, Minimal Hand Use Transfer Ability Safely, Minimal Hand Use Unsupported Stance- Eyes Closed Safely, 10 seconds Unsupported Stance- Eyes Open Independent, 1 minute Reaching Forward Standing Confidently, 10 inches Pick- Up Object From Floor Independent/Safe Look Behind Shoulder - Standing Shifts Weight Well Turning 360 Degrees Turns slowly, but safely Unsupported Stance, Alternating Feet on (I)- 8 Steps in > 20 secs Stair Unsupported Tandem Stance Holds Tandem- 30 seconds Unilateral Leg Stance Lifts Leg/Unable to Hold Total Score Pan Total Score (out of 56 points) 49 Pan Impairment Rating 1 to 19% Impaired (Score 45-55 ) PT-OP-E Functional Tests Start: 11/24/21 14:38 Freq: Status: Active Protocol: Document 11/24/21 12:00 DCW (Rec: 11/24/21 14:54 DCW [id number]) Functional Tests Dynamic Gait Index (DGI) Score 15/24 DGI Impairment Rating 20 to <40% Impaired (Score 15- 19) PT-OP-M Strength Start: 11/24/21 14:38 Freq: Status: Active Protocol: Document 11/24/21 12:00 DCW (Rec: 11/24/21 14:54 DCW [id number]) Hip Strength Hip Manual Muscle Testing Right Flexion (L2) 3 Fair Extension (S1) 4- Good- Abduction 3+ Fair+ Adduction 4 Good External Rotation 4 Good Internal Rotation 4 Good Left Flexion (L2) 4+ Good+ Extension (S1) 5 Normal Abduction 4+ Good+ Adduction 4+ Good+ External Rotation 4+ Good+ Internal Rotation 4+ Good+ Knee Strength Knee Manual Muscle Testing Right Flexion (S2) 4- Good- Extension (L3) 4- Good- Left Flexion (S2) 4 Good Extension (L3) 4 Good Ankle/Foot Strength Ankle and Foot Manual Muscle Testing Right Dorsiflexion (L4) 4- Good- Plantarflexion (S1) 4 Good Left Dorsiflexion (L4) 4+ Good+ Plantarflexion (S1) 4+ Good+ PT-OP-Q Treatments Start: 11/24/21 14:38 Freq: Status: Active Protocol: Document 12/06/21 13:45 DCW (Rec: 12/06/21 14:27 DCW [id number]) Cardio Equipment Recumbent Elliptical (Biodex) Duration (Minutes) 5 Resistance 5 Seat Position 10 Gym Equipment Shuttle Recovery Bilateral Heel Raises Resistance 87# Unilateral Squats Resistance 62# Bilateral Squats Resistance 100# Shuttle Balance Red Comments WBOS EO Therapeutic Exercises Other Exercises 2 Other Exercise Name Resisted side-stepping Resistance Red loop 1 Other Exercise Name Hurdles Comments Forward, Side-stepping Neuro Re-Education Treatment Balance Activities 2 Details SLS Equipment // bars 1 Details Tandem Stance Equipment // bars PT-OP-T Assessment and Plan Start: 11/24/21 14:38 Freq: Status: Active Protocol: Document 12/06/21 13:45 DCW (Rec: 12/06/21 14:27 DCW [id number]) Physical Therapy Assessment Impairments Impairments Activity Tolerance,Balance, Functional Activities, Functional Mobility,Gait, Strength Goals Two Impairment Pt presents with an increased falls risk score (15/24) on DGI Crane Mechanic Goal (LTG) Pt to increased her DGI score by at least five points to 20/ 24 to show decreased falls risk. LTG Duration 01/24/22 One Impairment Pt does not have an appropriate home exercise program Short Term Goal (STG) Pt to be independent and compliant with an appropriate HEP STG Duration 12/24/21 Assessment Summary Assessment Focused more on leg strength and balance today, pt still has obvious increased difficulty with R LE fatigue/ weakness Physical Therapy Plan Frequency and Duration Frequency of Treatment 2x/Week Duration of Treatment Two months Plan of Care Start Date 11/24/21 Plan of Care End Date 01/24/22 Therapeutic Interventions Therapeutic Interventions Aquatic Therapy,Gait Training, Home Exercise Program,Joint Mobilizations,Manual Therapy, Neuromuscular Re-education, Patient/Caregiver Education, Self-Care/Home Management,Soft Tissue Mobilization, Therapeutic Activities, Therapeutic Exercises Modalities Electric Stimulation Next Visit Focus/Plan Next Note Type Treatment Note Next Visit Plan LE strengthening, gait, balance
--- NOTE | 2021-12-09 14:32 | PT.OTN ---
Current Diagnoses Cerebral infarction, unspecified (12/09/21) Repeated falls (12/09/21) Syncope and collapse (12/09/21) Personal history of other specified conditions (12/09/21) Physical Therapy Treatment Note PT-OP-A Visit Information Start: 11/24/21 14:38 Freq: Status: Active Protocol: Document 12/09/21 13:49 SP (Rec: 12/09/21 14:39 SP [id number]) Out-Patient Physical Therapy Visit Information Visit Information Visit Type Treatment Note Visit Start Time 13:49 Visit Stop Time 14:32 Total Visit Minutes 3 Visit Number 5 Number of SHEET TESTER Visits 1 Evaluation Information Evaluation Date 11/24/21 PT-OP-B Current Condition Start: 11/24/21 14:38 Freq: Status: Active Protocol: Document 11/24/21 12:00 DCW (Rec: 11/24/21 14:48 DCW [id number]) Current Condition History of Current Condition Onset Date Three months Current Complaints Syncope, falls, CVA History of Current Condition Pt is a 76 year old female presenting with a recent history of repeated falls, TBI , and syncope. 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 Notes her most recent fall, five days ago, occurred when she drug her right foot and her slipper got stuck on the floor. Pt notes she is able to pick her foot up, but if I 'm not actually thinking about it, it just drags. 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 Pt was transferred to [facility], where her SDH was found to not be progressing, and pt was sent home. Notes that with her recent falls, she has been using trekking poles when out walking, but after getting out and walking yesterday, she woke up with sore arms. Additionally, pt using SPC for longer community distances, coming in the clinic for her eval using her SPC. Prior Treatments and Tests Pt currently also being seen in OT for hand numbness s/p CVA Treatment Goals Patient/Caregiver Goals Address R leg weakness and decrease falls. PT-OP-C Subjective Start: 11/24/21 14:38 Freq: Status: Active Protocol: Document 12/09/21 13:49 SP (Rec: 12/09/21 14:39 SP [id number]) OP-PT Subjective Patient Comments Patient Comments Pt stated was tired after last tx, had PT and OT back to back. PT-OP-D Balance Start: 11/24/21 14:38 Freq: Status: Active Protocol: Document 11/24/21 12:00 DCW (Rec: 11/24/21 14:54 DCW [id number]) Pan Balance Assessment Evaluation Sitting to Standing Ability Independent w/out Hands Unsupported Stance Safely- 2 minutes Sitting Unsupported, Feet on Floor Safely- 2 minutes Standing to Sitting Ability Safely, Minimal Hand Use Transfer Ability Safely, Minimal Hand Use Unsupported Stance- Eyes Closed Safely, 10 seconds Unsupported Stance- Eyes Open Independent, 1 minute Reaching Forward Standing Confidently, 10 inches Pick- Up Object From Floor Independent/Safe Look Behind Shoulder - Standing Shifts Weight Well Turning 360 Degrees Turns slowly, but safely Unsupported Stance, Alternating Feet on (I)- 8 Steps in > 20 secs Stair Unsupported Tandem Stance Holds Tandem- 30 seconds Unilateral Leg Stance Lifts Leg/Unable to Hold Total Score Pan Total Score (out of 56 points) 49 Pan Impairment Rating 1 to 19% Impaired (Score 45-55 ) PT-OP-E Functional Tests Start: 11/24/21 14:38 Freq: Status: Active Protocol: Document 11/24/21 12:00 DCW (Rec: 11/24/21 14:54 DCW [id number]) Functional Tests Dynamic Gait Index (DGI) Score 15/24 DGI Impairment Rating 20 to <40% Impaired (Score 15- 19) PT-OP-M Strength Start: 11/24/21 14:38 Freq: Status: Active Protocol: Document 11/24/21 12:00 DCW (Rec: 11/24/21 14:54 DCW [id number]) Hip Strength Hip Manual Muscle Testing Right Flexion (L2) 3 Fair Extension (S1) 4- Good- Abduction 3+ Fair+ Adduction 4 Good External Rotation 4 Good Internal Rotation 4 Good Left Flexion (L2) 4+ Good+ Extension (S1) 5 Normal Abduction 4+ Good+ Adduction 4+ Good+ External Rotation 4+ Good+ Internal Rotation 4+ Good+ Knee Strength Knee Manual Muscle Testing Right Flexion (S2) 4- Good- Extension (L3) 4- Good- Left Flexion (S2) 4 Good Extension (L3) 4 Good Ankle/Foot Strength Ankle and Foot Manual Muscle Testing Right Dorsiflexion (L4) 4- Good- Plantarflexion (S1) 4 Good Left Dorsiflexion (L4) 4+ Good+ Plantarflexion (S1) 4+ Good+ PT-OP-Q Treatments Start: 11/24/21 14:38 Freq: Status: Active Protocol: Document 12/09/21 13:49 SP (Rec: 12/09/21 14:39 SP [id number]) Gym Equipment Shuttle Recovery Bilateral Heel Raises Resistance 87# Reps/Time x20 Unilateral Squats Details knee alignment see in soles Resistance 62# R, 62# L increase 75# L next tx Reps/Time x20 eahc Bilateral Squats Details cued knee alignment knees with and behind toes Reps/Time x20 Shuttle Balance Red Details WBOS, wide stagger: stationary , wt shift Comments WBOS EO Min - Mod A Therapeutic Exercises Sitting Exercises STS Sitting Exercise Name add to HEP- give HO nex ttx Resistance 1 UE assist intially, able hip hinge without Equipment Used mesh chair Reps/Minutes x3 Comments cued hip hinge Standing Exercises 1 Standing Exercise Name Toe-taps Side bilateral Resistance 5# Equipment Used 6 step Gait Training Gait Activity dynamic gait Description head turns Device Used 0 Level of Assistance CGA Surface firm Distance/Duration 80 ft x2 laps Treatment Focus posture, R foot clearance, balance recovery 1 Description ambulation Device Used 0 and 1 trek pole on L Level of Assistance S Surface firm Distance/Duration 80 ft x2 laps Treatment Focus posture, RLE foot clearance and balance Comments adjusted height for LUE pole clearance during advancement. Neuro Re-Education Treatment Balance Activities corner balance Comments NBOS: HT, EC 30sec stagger narrow: head turn ok added to HEP w/ HOs PT-OP-T Assessment and Plan Start: 11/24/21 14:38 Freq: Status: Active Protocol: Document 12/09/21 13:49 SP (Rec: 12/09/21 14:39 SP [id number]) Physical Therapy Assessment Goals Two Impairment Pt presents with an increased falls risk score (15/24) on DGI Fibreglass Laminator Goal (LTG) Pt to increased her DGI score by at least five points to 20/ 24 to show decreased falls risk. LTG Duration 01/24/22 One Impairment Pt does not have an appropriate home exercise program Short Term Goal (STG) Pt to be independent and compliant with an appropriate HEP STG Duration 12/24/21 Assessment Summary Assessment Pt improved in understanding more elevated posture w/ core and scapular stability then hip abd facilitation to allow improved COG over KARTHIK balance recovery. Pt improved self corrections in corner balance added this tx to assist more challenging shuttle balance and understanding use of 1 trek pole for safety balance and endurance gait community. Requests more HEP to do at home next tx. Physical Therapy Plan Frequency and Duration Frequency of Treatment 2x/Week Duration of Treatment Two months Plan of Care Start Date 11/24/21 Plan of Care End Date 01/24/22 Therapeutic Interventions Therapeutic Interventions Aquatic Therapy,Gait Training, Home Exercise Program,Joint Mobilizations,Manual Therapy, Neuromuscular Re-education, Patient/Caregiver Education, Self-Care/Home Management,Soft Tissue Mobilization, Therapeutic Activities, Therapeutic Exercises Modalities Electric Stimulation Next Visit Focus/Plan Next Note Type Treatment Note Next Visit Plan Next tx: pt requested more HEP for able to do activity at home as well comparable. Pt to look for old/ past HEP and bring HOs to go over can continue then progress. POC: LE strengthening, gait, balance
--- NOTE | 2021-12-13 15:12 | PT.OTN ---
Current Diagnoses Cerebral infarction, unspecified (12/13/21) Repeated falls (12/13/21) Syncope and collapse (12/13/21) Personal history of other specified conditions (12/13/21) Physical Therapy Treatment Note PT-OP-A Visit Information Start: 11/24/21 14:38 Freq: Status: Active Protocol: Document 12/13/21 14:30 DCW (Rec: 12/13/21 15:12 DCW [id number]) Out-Patient Physical Therapy Visit Information Visit Information Visit Type Treatment Note Visit Start Time 14:30 Visit Stop Time 15:15 Total Visit Minutes 45 Visit Number 6 Number of FROG OR OYSTER FARMWORKER Visits 0 Evaluation Information Evaluation Date 11/24/21 PT-OP-B Current Condition Start: 11/24/21 14:38 Freq: Status: Active Protocol: Document 11/24/21 12:00 DCW (Rec: 11/24/21 14:48 DCW [id number]) Current Condition History of Current Condition Onset Date Three months Current Complaints Syncope, falls, CVA History of Current Condition Pt is a 76 year old female presenting with a recent history of repeated falls, TBI , and syncope. 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 Notes her most recent fall, five days ago, occurred when she drug her right foot and her slipper got stuck on the floor. Pt notes she is able to pick her foot up, but if I 'm not actually thinking about it, it just drags. 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 Pt was transferred to [facility], where her SDH was found to not be progressing, and pt was sent home. Notes that with her recent falls, she has been using trekking poles when out walking, but after getting out and walking yesterday, she woke up with sore arms. Additionally, pt using SPC for longer community distances, coming in the clinic for her eval using her SPC. Prior Treatments and Tests Pt currently also being seen in OT for hand numbness s/p CVA Treatment Goals Patient/Caregiver Goals Address R leg weakness and decrease falls. PT-OP-C Subjective Start: 11/24/21 14:38 Freq: Status: Active Protocol: Document 12/13/21 14:30 DCW (Rec: 12/13/21 15:12 DCW [id number]) OP-PT Subjective Patient Comments Patient Comments Pt notes her knee hurts sometimes, but otherwise, she doesn't really know how she feels, I haven't thought about it. PT-OP-D Balance Start: 11/24/21 14:38 Freq: Status: Active Protocol: Document 11/24/21 12:00 DCW (Rec: 11/24/21 14:54 DCW [id number]) Pan Balance Assessment Evaluation Sitting to Standing Ability Independent w/out Hands Unsupported Stance Safely- 2 minutes Sitting Unsupported, Feet on Floor Safely- 2 minutes Standing to Sitting Ability Safely, Minimal Hand Use Transfer Ability Safely, Minimal Hand Use Unsupported Stance- Eyes Closed Safely, 10 seconds Unsupported Stance- Eyes Open Independent, 1 minute Reaching Forward Standing Confidently, 10 inches Pick- Up Object From Floor Independent/Safe Look Behind Shoulder - Standing Shifts Weight Well Turning 360 Degrees Turns slowly, but safely Unsupported Stance, Alternating Feet on (I)- 8 Steps in > 20 secs Stair Unsupported Tandem Stance Holds Tandem- 30 seconds Unilateral Leg Stance Lifts Leg/Unable to Hold Total Score Pan Total Score (out of 56 points) 49 Pan Impairment Rating 1 to 19% Impaired (Score 45-55 ) PT-OP-E Functional Tests Start: 11/24/21 14:38 Freq: Status: Active Protocol: Document 11/24/21 12:00 DCW (Rec: 11/24/21 14:54 DCW [id number]) Functional Tests Dynamic Gait Index (DGI) Score 15/24 DGI Impairment Rating 20 to <40% Impaired (Score 15- 19) PT-OP-M Strength Start: 11/24/21 14:38 Freq: Status: Active Protocol: Document 11/24/21 12:00 DCW (Rec: 11/24/21 14:54 DCW [id number]) Hip Strength Hip Manual Muscle Testing Right Flexion (L2) 3 Fair Extension (S1) 4- Good- Abduction 3+ Fair+ Adduction 4 Good External Rotation 4 Good Internal Rotation 4 Good Left Flexion (L2) 4+ Good+ Extension (S1) 5 Normal Abduction 4+ Good+ Adduction 4+ Good+ External Rotation 4+ Good+ Internal Rotation 4+ Good+ Knee Strength Knee Manual Muscle Testing Right Flexion (S2) 4- Good- Extension (L3) 4- Good- Left Flexion (S2) 4 Good Extension (L3) 4 Good Ankle/Foot Strength Ankle and Foot Manual Muscle Testing Right Dorsiflexion (L4) 4- Good- Plantarflexion (S1) 4 Good Left Dorsiflexion (L4) 4+ Good+ Plantarflexion (S1) 4+ Good+ PT-OP-Q Treatments Start: 11/24/21 14:38 Freq: Status: Active Protocol: Document 12/13/21 14:30 DCW (Rec: 12/13/21 15:12 DCW [id number]) Cardio Equipment Recumbent Stepper (Sci-Fit) Duration (Minutes) 5 Resistance 3 Seat Position 12 Gym Equipment Shuttle Recovery Bilateral Heel Raises Resistance 87# Unilateral Squats Resistance 75# Bilateral Squats Resistance 100# Shuttle Balance Red Comments WBOS EO/EC Therapeutic Exercises Standing Exercises 2 Standing Exercise Name Heel raises/toe raises Other Exercises 1 Other Exercise Name Hurdles Comments Forward, Side-stepping Gait Training Gait Activity dynamic gait Description head turns Device Used 0 Level of Assistance CGA Surface firm Distance/Duration 80 ft x2 laps Treatment Focus posture, R foot clearance, balance recovery Neuro Re-Education Treatment Balance Activities 1 Details Tandem ambulation PT-OP-T Assessment and Plan Start: 11/24/21 14:38 Freq: Status: Active Protocol: Document 12/13/21 14:30 DCW (Rec: 12/13/21 15:12 DCW [id number]) Physical Therapy Assessment Impairments Impairments Activity Tolerance,Balance, Functional Activities, Functional Mobility,Gait, Strength Goals Two Impairment Pt presents with an increased falls risk score (15/24) on DGI Cat Scanner Operator Goal (LTG) Pt to increased her DGI score by at least five points to 20/ 24 to show decreased falls risk. LTG Duration 01/24/22 One Impairment Pt does not have an appropriate home exercise program Short Term Goal (STG) Pt to be independent and compliant with an appropriate HEP STG Duration 12/24/21 Assessment Summary Assessment Discussed importance of foot clearance today, pt struggled with toe raises. Physical Therapy Plan Frequency and Duration Frequency of Treatment 2x/Week Duration of Treatment Two months Plan of Care Start Date 11/24/21 Plan of Care End Date 01/24/22 Therapeutic Interventions Therapeutic Interventions Aquatic Therapy,Gait Training, Home Exercise Program,Joint Mobilizations,Manual Therapy, Neuromuscular Re-education, Patient/Caregiver Education, Self-Care/Home Management,Soft Tissue Mobilization, Therapeutic Activities, Therapeutic Exercises Modalities Electric Stimulation Next Visit Focus/Plan Next Note Type Treatment Note Next Visit Plan Next tx: pt requested more HEP for able to do activity at home as well comparable. Pt to look for old/ past HEP and bring HOs to go over can continue then progress. POC: LE strengthening, gait, balance
--- NOTE | 2021-12-16 13:44 | PT.OTN ---
Current Diagnoses Cerebral infarction, unspecified (12/16/21) Repeated falls (12/16/21) Syncope and collapse (12/16/21) Personal history of other specified conditions (12/16/21) Physical Therapy Treatment Note PT-OP-A Visit Information Start: 11/24/21 14:38 Freq: Status: Active Protocol: Document 12/16/21 13:06 SP (Rec: 12/16/21 13:46 SP [id number]) Out-Patient Physical Therapy Visit Information Visit Information Visit Type Treatment Note Visit Start Time 13:06 Visit Stop Time 13:44 Total Visit Minutes 38 Visit Number 7 Number of SOURCING ASSISTANT Visits 1 Evaluation Information Evaluation Date 11/24/21 PT-OP-B Current Condition Start: 11/24/21 14:38 Freq: Status: Active Protocol: Document 11/24/21 12:00 DCW (Rec: 11/24/21 14:48 DCW [id number]) Current Condition History of Current Condition Onset Date Three months Current Complaints Syncope, falls, CVA History of Current Condition Pt is a 76 year old female presenting with a recent history of repeated falls, TBI , and syncope. 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 Notes her most recent fall, five days ago, occurred when she drug her right foot and her slipper got stuck on the floor. Pt notes she is able to pick her foot up, but if I 'm not actually thinking about it, it just drags. 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 Pt was transferred to [facility], where her SDH was found to not be progressing, and pt was sent home. Notes that with her recent falls, she has been using trekking poles when out walking, but after getting out and walking yesterday, she woke up with sore arms. Additionally, pt using SPC for longer community distances, coming in the clinic for her eval using her SPC. Prior Treatments and Tests Pt currently also being seen in OT for hand numbness s/p CVA Treatment Goals Patient/Caregiver Goals Address R leg weakness and decrease falls. PT-OP-C Subjective Start: 11/24/21 14:38 Freq: Status: Active Protocol: Document 12/16/21 13:06 SP (Rec: 12/16/21 13:46 SP [id number]) OP-PT Subjective Patient Comments Patient Comments Pt states she feels tired and tried when leaves tx. PT-OP-D Balance Start: 11/24/21 14:38 Freq: Status: Active Protocol: Document 11/24/21 12:00 DCW (Rec: 11/24/21 14:54 DCW [id number]) Pan Balance Assessment Evaluation Sitting to Standing Ability Independent w/out Hands Unsupported Stance Safely- 2 minutes Sitting Unsupported, Feet on Floor Safely- 2 minutes Standing to Sitting Ability Safely, Minimal Hand Use Transfer Ability Safely, Minimal Hand Use Unsupported Stance- Eyes Closed Safely, 10 seconds Unsupported Stance- Eyes Open Independent, 1 minute Reaching Forward Standing Confidently, 10 inches Pick- Up Object From Floor Independent/Safe Look Behind Shoulder - Standing Shifts Weight Well Turning 360 Degrees Turns slowly, but safely Unsupported Stance, Alternating Feet on (I)- 8 Steps in > 20 secs Stair Unsupported Tandem Stance Holds Tandem- 30 seconds Unilateral Leg Stance Lifts Leg/Unable to Hold Total Score Pan Total Score (out of 56 points) 49 Pan Impairment Rating 1 to 19% Impaired (Score 45-55 ) PT-OP-E Functional Tests Start: 11/24/21 14:38 Freq: Status: Active Protocol: Document 11/24/21 12:00 DCW (Rec: 11/24/21 14:54 DCW [id number]) Functional Tests Dynamic Gait Index (DGI) Score 15/24 DGI Impairment Rating 20 to <40% Impaired (Score 15- 19) PT-OP-M Strength Start: 11/24/21 14:38 Freq: Status: Active Protocol: Document 11/24/21 12:00 DCW (Rec: 11/24/21 14:54 DCW [id number]) Hip Strength Hip Manual Muscle Testing Right Flexion (L2) 3 Fair Extension (S1) 4- Good- Abduction 3+ Fair+ Adduction 4 Good External Rotation 4 Good Internal Rotation 4 Good Left Flexion (L2) 4+ Good+ Extension (S1) 5 Normal Abduction 4+ Good+ Adduction 4+ Good+ External Rotation 4+ Good+ Internal Rotation 4+ Good+ Knee Strength Knee Manual Muscle Testing Right Flexion (S2) 4- Good- Extension (L3) 4- Good- Left Flexion (S2) 4 Good Extension (L3) 4 Good Ankle/Foot Strength Ankle and Foot Manual Muscle Testing Right Dorsiflexion (L4) 4- Good- Plantarflexion (S1) 4 Good Left Dorsiflexion (L4) 4+ Good+ Plantarflexion (S1) 4+ Good+ PT-OP-Q Treatments Start: 11/24/21 14:38 Freq: Status: Active Protocol: Document 12/16/21 13:06 SP (Rec: 12/16/21 13:46 SP [id number]) Cardio Equipment Recumbent Stepper (Sci-Fit) Duration (Minutes) 5 Resistance 3 Seat Position 12 Other 0.47, 35-40 RPM Therapeutic Exercises Sitting Exercises STS Sitting Exercise Name added to HEP Resistance 1 UE assist intially, able hip hinge without Equipment Used mesh chair Reps/Minutes x6 reps (suggested perform many chairs during day not repeat dec R knee tisha Comments cued hip hinge/ knee flexion- cued limit reps 2* R knee pain but stronger Standing Exercises band walk Standing Exercise Name f/b/side stepping - added to HEP Side bilateral Equipment Used rail near safety contact Reps/Minutes 10 ft x2 laps each direction Comments cued feet apart tall posture, eccentric trail LE 2 Standing Exercise Name Heel raises/toe raises- reviewed HEP Equipment Used rail PRN Reps/Minutes 2x10 Comments good form 1 Standing Exercise Name Toe-taps Side bilateral Resistance 5# Equipment Used top alfred, light contact rail - Reps/Minutes x10 Comments alternate LEs, decreased stance time LLE need rail support LOB recovery Neuro Re-Education Treatment Balance Activities hurdles Surface firm Equipment 5#leg wt, 3 hurdles, //bars Reps/Duration 10 ft x 5 laps Comments cued KTC flexion, no circumduction LLE. Improved with reps and max cues. PT-OP-T Assessment and Plan Start: 11/24/21 14:38 Freq: Status: Active Protocol: Document 12/16/21 13:06 SP (Rec: 12/16/21 13:46 SP [id number]) Physical Therapy Assessment Goals Two Impairment Pt presents with an increased falls risk score (15/24) on DGI Chcf Goal (LTG) Pt to increased her DGI score by at least five points to 20/ 24 to show decreased falls risk. LTG Duration 01/24/22 One Impairment Pt does not have an appropriate home exercise program Short Term Goal (STG) Pt to be independent and compliant with an appropriate HEP 12/16/21: corner balance, heel raises, STS, band walk. STG Duration 12/24/21 progressing Assessment Summary Assessment Pt improved stability less UE contact of 1 during balance alfred stepping. Added STS low reps multple during day not cause R knee pain understood, band walk and reviewed heel raises for HEP progress strength at home. Physical Therapy Plan Frequency and Duration Frequency of Treatment 2x/Week Duration of Treatment Two months Plan of Care Start Date 11/24/21 Plan of Care End Date 01/24/22 Therapeutic Interventions Therapeutic Interventions Aquatic Therapy,Gait Training, Home Exercise Program,Joint Mobilizations,Manual Therapy, Neuromuscular Re-education, Patient/Caregiver Education, Self-Care/Home Management,Soft Tissue Mobilization, Therapeutic Activities, Therapeutic Exercises Modalities Electric Stimulation Next Visit Focus/Plan Next Note Type Treatment Note Next Visit Plan Next tx: band walk continue, recheck corner balance. dynamic gait continue. POC: LE strengthening, gait, balance
--- NOTE | 2021-12-20 15:11 | PT.OTN ---
Current Diagnoses Cerebral infarction, unspecified (12/20/21) Repeated falls (12/20/21) Syncope and collapse (12/20/21) Personal history of other specified conditions (12/20/21) Physical Therapy Treatment Note PT-OP-A Visit Information Start: 11/24/21 14:38 Freq: Status: Active Protocol: Document 12/20/21 14:30 DCW (Rec: 12/20/21 15:11 DCW [id number]) Out-Patient Physical Therapy Visit Information Visit Information Visit Type Treatment Note Visit Start Time 14:30 Visit Stop Time 15:15 Total Visit Minutes 45 Visit Number 8 Number of EXCEL EXPERT Visits 0 Evaluation Information Evaluation Date 11/24/21 PT-OP-B Current Condition Start: 11/24/21 14:38 Freq: Status: Active Protocol: Document 11/24/21 12:00 DCW (Rec: 11/24/21 14:48 DCW [id number]) Current Condition History of Current Condition Onset Date Three months Current Complaints Syncope, falls, CVA History of Current Condition Pt is a 76 year old female presenting with a recent history of repeated falls, TBI , and syncope. 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 Notes her most recent fall, five days ago, occurred when she drug her right foot and her slipper got stuck on the floor. Pt notes she is able to pick her foot up, but if I 'm not actually thinking about it, it just drags. 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 Pt was transferred to [facility], where her SDH was found to not be progressing, and pt was sent home. Notes that with her recent falls, she has been using trekking poles when out walking, but after getting out and walking yesterday, she woke up with sore arms. Additionally, pt using SPC for longer community distances, coming in the clinic for her eval using her SPC. Prior Treatments and Tests Pt currently also being seen in OT for hand numbness s/p CVA Treatment Goals Patient/Caregiver Goals Address R leg weakness and decrease falls. PT-OP-C Subjective Start: 11/24/21 14:38 Freq: Status: Active Protocol: Document 12/20/21 14:30 DCW (Rec: 12/20/21 15:11 DCW [id number]) OP-PT Subjective Patient Comments Patient Comments Pt notes her right knee is really sore, some days are better than other days. PT-OP-D Balance Start: 11/24/21 14:38 Freq: Status: Active Protocol: Document 11/24/21 12:00 DCW (Rec: 11/24/21 14:54 DCW [id number]) Pan Balance Assessment Evaluation Sitting to Standing Ability Independent w/out Hands Unsupported Stance Safely- 2 minutes Sitting Unsupported, Feet on Floor Safely- 2 minutes Standing to Sitting Ability Safely, Minimal Hand Use Transfer Ability Safely, Minimal Hand Use Unsupported Stance- Eyes Closed Safely, 10 seconds Unsupported Stance- Eyes Open Independent, 1 minute Reaching Forward Standing Confidently, 10 inches Pick- Up Object From Floor Independent/Safe Look Behind Shoulder - Standing Shifts Weight Well Turning 360 Degrees Turns slowly, but safely Unsupported Stance, Alternating Feet on (I)- 8 Steps in > 20 secs Stair Unsupported Tandem Stance Holds Tandem- 30 seconds Unilateral Leg Stance Lifts Leg/Unable to Hold Total Score Pan Total Score (out of 56 points) 49 Pan Impairment Rating 1 to 19% Impaired (Score 45-55 ) PT-OP-E Functional Tests Start: 11/24/21 14:38 Freq: Status: Active Protocol: Document 11/24/21 12:00 DCW (Rec: 11/24/21 14:54 DCW [id number]) Functional Tests Dynamic Gait Index (DGI) Score 15/24 DGI Impairment Rating 20 to <40% Impaired (Score 15- 19) PT-OP-M Strength Start: 11/24/21 14:38 Freq: Status: Active Protocol: Document 11/24/21 12:00 DCW (Rec: 11/24/21 14:54 DCW [id number]) Hip Strength Hip Manual Muscle Testing Right Flexion (L2) 3 Fair Extension (S1) 4- Good- Abduction 3+ Fair+ Adduction 4 Good External Rotation 4 Good Internal Rotation 4 Good Left Flexion (L2) 4+ Good+ Extension (S1) 5 Normal Abduction 4+ Good+ Adduction 4+ Good+ External Rotation 4+ Good+ Internal Rotation 4+ Good+ Knee Strength Knee Manual Muscle Testing Right Flexion (S2) 4- Good- Extension (L3) 4- Good- Left Flexion (S2) 4 Good Extension (L3) 4 Good Ankle/Foot Strength Ankle and Foot Manual Muscle Testing Right Dorsiflexion (L4) 4- Good- Plantarflexion (S1) 4 Good Left Dorsiflexion (L4) 4+ Good+ Plantarflexion (S1) 4+ Good+ PT-OP-Q Treatments Start: 11/24/21 14:38 Freq: Status: Active Protocol: Document 12/20/21 14:30 DCW (Rec: 12/20/21 15:11 DCW [id number]) Cardio Equipment Recumbent Elliptical (Biodex) Duration (Minutes) 5 Resistance 5 Seat Position 10 Therapeutic Exercises Sitting Exercises STS Resistance 1 UE assist intially, able hip hinge without Equipment Used mesh chair Reps/Minutes x6 reps (suggested perform many chairs during day not repeat dec R knee tisha Comments cued hip hinge/ knee flexion- cued limit reps 2* R knee pain but stronger Standing Exercises band walk Standing Exercise Name f/b/side stepping Side bilateral Resistance Red Equipment Used rail near safety contact Reps/Minutes 10 ft x3 laps each direction Comments cued feet apart tall posture, eccentric trail LE 2 Standing Exercise Name Heel raises/toe raises Equipment Used rail PRN Reps/Minutes 2x10 Comments good form 1 Standing Exercise Name Toe-taps Side bilateral Resistance 5# Equipment Used 6 step, light contact rail Reps/Minutes x10 Comments alternate LEs, decreased stance time LLE need rail support LOB recovery Neuro Re-Education Treatment Balance Activities hurdles Surface firm Equipment 5#leg wt, 3 hurdles, //bars Reps/Duration 10 ft x 5 laps Comments cued KTC flexion, no circumduction LLE. Improved with reps and max cues. 3 Details Eyes closed Surface Blue Foam 2 Details SLS Equipment // bars 1 Details Tandem ambulation PT-OP-T Assessment and Plan Start: 11/24/21 14:38 Freq: Status: Active Protocol: Document 12/20/21 14:30 DCW (Rec: 12/20/21 15:11 DCW [id number]) Physical Therapy Assessment Impairments Impairments Activity Tolerance,Balance, Functional Activities, Functional Mobility,Gait, Strength Goals Two Impairment Pt presents with an increased falls risk score (15/24) on DGI Mcfp Goal (LTG) Pt to increased her DGI score by at least five points to 20/ 24 to show decreased falls risk. LTG Duration 01/24/22 One Impairment Pt does not have an appropriate home exercise program Short Term Goal (STG) Pt to be independent and compliant with an appropriate HEP STG Duration 12/24/21 Assessment Summary Assessment Pt circumducting right leg less frequently during gait, but it does still occur somewhat often during gait, probably leading to some of her knee pain. Physical Therapy Plan Frequency and Duration Frequency of Treatment 2x/Week Duration of Treatment Two months Plan of Care Start Date 11/24/21 Plan of Care End Date 01/24/22 Therapeutic Interventions Therapeutic Interventions Aquatic Therapy,Gait Training, Home Exercise Program,Joint Mobilizations,Manual Therapy, Neuromuscular Re-education, Patient/Caregiver Education, Self-Care/Home Management,Soft Tissue Mobilization, Therapeutic Activities, Therapeutic Exercises Modalities Electric Stimulation Next Visit Focus/Plan Next Note Type Treatment Note Next Visit Plan Next tx: band walk continue, recheck corner balance. dynamic gait continue. POC: LE strengthening, gait, balance
--- NOTE | 2021-12-23 13:45 | PT.OTN ---
Current Diagnoses Cerebral infarction, unspecified (12/23/21) Repeated falls (12/23/21) Syncope and collapse (12/23/21) Personal history of other specified conditions (12/23/21) Physical Therapy Treatment Note PT-OP-A Visit Information Start: 11/24/21 14:38 Freq: Status: Active Protocol: Document 12/23/21 13:05 SP (Rec: 12/23/21 13:46 SP [id number]) Out-Patient Physical Therapy Visit Information Visit Information Visit Type Treatment Note Visit Start Time 13:05 Visit Stop Time 13:45 Total Visit Minutes 40 Visit Number 9 Number of SCOURING TRAIN OPERATOR CHIEF Visits 1 Evaluation Information Evaluation Date 11/24/21 PT-OP-B Current Condition Start: 11/24/21 14:38 Freq: Status: Active Protocol: Document 11/24/21 12:00 DCW (Rec: 11/24/21 14:48 DCW [id number]) Current Condition History of Current Condition Onset Date Three months Current Complaints Syncope, falls, CVA History of Current Condition Pt is a 76 year old female presenting with a recent history of repeated falls, TBI , and syncope. 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 Notes her most recent fall, five days ago, occurred when she drug her right foot and her slipper got stuck on the floor. Pt notes she is able to pick her foot up, but if I 'm not actually thinking about it, it just drags. 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 Pt was transferred to [facility], where her SDH was found to not be progressing, and pt was sent home. Notes that with her recent falls, she has been using trekking poles when out walking, but after getting out and walking yesterday, she woke up with sore arms. Additionally, pt using SPC for longer community distances, coming in the clinic for her eval using her SPC. Prior Treatments and Tests Pt currently also being seen in OT for hand numbness s/p CVA Treatment Goals Patient/Caregiver Goals Address R leg weakness and decrease falls. PT-OP-C Subjective Start: 11/24/21 14:38 Freq: Status: Active Protocol: Document 12/23/21 13:05 SP (Rec: 12/23/21 13:46 SP [id number]) OP-PT Subjective Patient Comments Patient Comments Pt reported I don't remember how felt after. Pt states hard to keep toes up walking so doesn't catch floor. PT-OP-D Balance Start: 11/24/21 14:38 Freq: Status: Active Protocol: Document 11/24/21 12:00 DCW (Rec: 11/24/21 14:54 DCW [id number]) Pan Balance Assessment Evaluation Sitting to Standing Ability Independent w/out Hands Unsupported Stance Safely- 2 minutes Sitting Unsupported, Feet on Floor Safely- 2 minutes Standing to Sitting Ability Safely, Minimal Hand Use Transfer Ability Safely, Minimal Hand Use Unsupported Stance- Eyes Closed Safely, 10 seconds Unsupported Stance- Eyes Open Independent, 1 minute Reaching Forward Standing Confidently, 10 inches Pick- Up Object From Floor Independent/Safe Look Behind Shoulder - Standing Shifts Weight Well Turning 360 Degrees Turns slowly, but safely Unsupported Stance, Alternating Feet on (I)- 8 Steps in > 20 secs Stair Unsupported Tandem Stance Holds Tandem- 30 seconds Unilateral Leg Stance Lifts Leg/Unable to Hold Total Score Pan Total Score (out of 56 points) 49 Pan Impairment Rating 1 to 19% Impaired (Score 45-55 ) PT-OP-E Functional Tests Start: 11/24/21 14:38 Freq: Status: Active Protocol: Document 11/24/21 12:00 DCW (Rec: 11/24/21 14:54 DCW [id number]) Functional Tests Dynamic Gait Index (DGI) Score 15/24 DGI Impairment Rating 20 to <40% Impaired (Score 15- 19) PT-OP-M Strength Start: 11/24/21 14:38 Freq: Status: Active Protocol: Document 11/24/21 12:00 DCW (Rec: 11/24/21 14:54 DCW [id number]) Hip Strength Hip Manual Muscle Testing Right Flexion (L2) 3 Fair Extension (S1) 4- Good- Abduction 3+ Fair+ Adduction 4 Good External Rotation 4 Good Internal Rotation 4 Good Left Flexion (L2) 4+ Good+ Extension (S1) 5 Normal Abduction 4+ Good+ Adduction 4+ Good+ External Rotation 4+ Good+ Internal Rotation 4+ Good+ Knee Strength Knee Manual Muscle Testing Right Flexion (S2) 4- Good- Extension (L3) 4- Good- Left Flexion (S2) 4 Good Extension (L3) 4 Good Ankle/Foot Strength Ankle and Foot Manual Muscle Testing Right Dorsiflexion (L4) 4- Good- Plantarflexion (S1) 4 Good Left Dorsiflexion (L4) 4+ Good+ Plantarflexion (S1) 4+ Good+ PT-OP-Q Treatments Start: 11/24/21 14:38 Freq: Status: Active Protocol: Document 12/23/21 13:05 SP (Rec: 12/23/21 13:46 SP [id number]) Cardio Equipment Recumbent Stepper (Sci-Fit) Duration (Minutes) 4 Resistance 3 Seat Position 12 Other 0., 40 RPM, UEs/ LEs Therapeutic Exercises Standing Exercises band walk Standing Exercise Name f/b/side stepping Side bilateral Resistance Red ( gave Tb #2 for home) Equipment Used rail near safety contact Reps/Minutes 10 ft x3 laps each direction Comments cued feet apart tall posture, eccentric trail LE 2 Standing Exercise Name Heel raises/toe raises Equipment Used rail PRN Reps/Minutes 2x10 single Comments good form, then less over wt shift back together. Gait Training Gait Activity dynamic gait Description head turns Device Used 0 Level of Assistance CGA Surface firm Distance/Duration 340 ft Treatment Focus posture, R foot clearance, balance recovery Comments cued tall posture, feet apart and toe clearance increase knee flexion Neuro Re-Education Treatment Balance Activities hurdles Details over back single alfred start, then receiprocal gait Surface firm Equipment 5#leg wt, 3 hurdles, //bars Reps/Duration 10 ft x 5 laps Comments cued KTC flexion, no circumduction R>LLE, tall trunk alignment and core engagement for eccentric heel strike and balance over feet. Improved with reps and min cues. PT-OP-T Assessment and Plan Start: 11/24/21 14:38 Freq: Status: Active Protocol: Document 12/23/21 13:05 SP (Rec: 12/23/21 13:46 SP [id number]) Physical Therapy Assessment Goals Two Impairment Pt presents with an increased falls risk score (15/24) on DGI Long-Term Goal (LTG) Pt to increased her DGI score by at least five points to 20/ 24 to show decreased falls risk. LTG Duration 01/24/22 One Impairment Pt does not have an appropriate home exercise program Short Term Goal (STG) Pt to be independent and compliant with an appropriate HEP STG Duration 12/24/21 Assessment Summary Assessment Pt improved hip abd& core fac heel toe post repeated toe raises and weighted ther ex with self correction almost no circumduction. Improved less sway and over scissor stepping during gait at end. Able to increase home band walk and eccentric control. Physical Therapy Plan Frequency and Duration Frequency of Treatment 2x/Week Duration of Treatment Two months Plan of Care Start Date 11/24/21 Plan of Care End Date 01/24/22 Therapeutic Interventions Therapeutic Interventions Aquatic Therapy,Gait Training, Home Exercise Program,Joint Mobilizations,Manual Therapy, Neuromuscular Re-education, Patient/Caregiver Education, Self-Care/Home Management,Soft Tissue Mobilization, Therapeutic Activities, Therapeutic Exercises Modalities Electric Stimulation Next Visit Focus/Plan Next Note Type Treatment Note Next Visit Plan Next tx: dynamic gait continue . POC: LE strengthening, gait, balance
--- NOTE | 2021-12-28 14:30 | PT.OTN ---
Current Diagnoses Cerebral infarction, unspecified (12/28/21) Repeated falls (12/28/21) Syncope and collapse (12/28/21) Personal history of other specified conditions (12/28/21) Physical Therapy Treatment Note PT-OP-A Visit Information Start: 11/24/21 14:38 Freq: Status: Active Protocol: Document 12/28/21 13:48 SP (Rec: 12/28/21 14:31 SP [id number]) Out-Patient Physical Therapy Visit Information Visit Information Visit Type Treatment Note Visit Start Time 13:48 Visit Stop Time 14:30 Total Visit Minutes 42 Visit Number 10 Number of WEB RETAILER Visits 2 Evaluation Information Evaluation Date 11/24/21 PT-OP-B Current Condition Start: 11/24/21 14:38 Freq: Status: Active Protocol: Document 11/24/21 12:00 DCW (Rec: 11/24/21 14:48 DCW [id number]) Current Condition History of Current Condition Onset Date Three months Current Complaints Syncope, falls, CVA History of Current Condition Pt is a 76 year old female presenting with a recent history of repeated falls, TBI , and syncope. 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 Notes her most recent fall, five days ago, occurred when she drug her right foot and her slipper got stuck on the floor. Pt notes she is able to pick her foot up, but if I 'm not actually thinking about it, it just drags. 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 Pt was transferred to [facility], where her SDH was found to not be progressing, and pt was sent home. Notes that with her recent falls, she has been using trekking poles when out walking, but after getting out and walking yesterday, she woke up with sore arms. Additionally, pt using SPC for longer community distances, coming in the clinic for her eval using her SPC. Prior Treatments and Tests Pt currently also being seen in OT for hand numbness s/p CVA Treatment Goals Patient/Caregiver Goals Address R leg weakness and decrease falls. PT-OP-C Subjective Start: 11/24/21 14:38 Freq: Status: Active Protocol: Document 12/28/21 13:48 SP (Rec: 12/28/21 14:31 SP [id number]) OP-PT Subjective Patient Comments Patient Comments Pt stated tired for couple days after leave but ok. PT-OP-D Balance Start: 11/24/21 14:38 Freq: Status: Active Protocol: Document 11/24/21 12:00 DCW (Rec: 11/24/21 14:54 DCW [id number]) Pan Balance Assessment Evaluation Sitting to Standing Ability Independent w/out Hands Unsupported Stance Safely- 2 minutes Sitting Unsupported, Feet on Floor Safely- 2 minutes Standing to Sitting Ability Safely, Minimal Hand Use Transfer Ability Safely, Minimal Hand Use Unsupported Stance- Eyes Closed Safely, 10 seconds Unsupported Stance- Eyes Open Independent, 1 minute Reaching Forward Standing Confidently, 10 inches Pick- Up Object From Floor Independent/Safe Look Behind Shoulder - Standing Shifts Weight Well Turning 360 Degrees Turns slowly, but safely Unsupported Stance, Alternating Feet on (I)- 8 Steps in > 20 secs Stair Unsupported Tandem Stance Holds Tandem- 30 seconds Unilateral Leg Stance Lifts Leg/Unable to Hold Total Score Pan Total Score (out of 56 points) 49 Pan Impairment Rating 1 to 19% Impaired (Score 45-55 ) PT-OP-E Functional Tests Start: 11/24/21 14:38 Freq: Status: Active Protocol: Document 12/28/21 13:48 SP (Rec: 12/28/21 15:50 SP [id number]) Functional Tests Dynamic Gait Index (DGI) Score 21 DGI Impairment Rating 1 to <20% Impaired (Score 20- 23) Five Times Sit to Stand Test Score 13sec Comments no UE support, arms across chest this tx. PT-OP-M Strength Start: 11/24/21 14:38 Freq: Status: Active Protocol: Document 11/24/21 12:00 DCW (Rec: 11/24/21 14:54 DCW [id number]) Hip Strength Hip Manual Muscle Testing Right Flexion (L2) 3 Fair Extension (S1) 4- Good- Abduction 3+ Fair+ Adduction 4 Good External Rotation 4 Good Internal Rotation 4 Good Left Flexion (L2) 4+ Good+ Extension (S1) 5 Normal Abduction 4+ Good+ Adduction 4+ Good+ External Rotation 4+ Good+ Internal Rotation 4+ Good+ Knee Strength Knee Manual Muscle Testing Right Flexion (S2) 4- Good- Extension (L3) 4- Good- Left Flexion (S2) 4 Good Extension (L3) 4 Good Ankle/Foot Strength Ankle and Foot Manual Muscle Testing Right Dorsiflexion (L4) 4- Good- Plantarflexion (S1) 4 Good Left Dorsiflexion (L4) 4+ Good+ Plantarflexion (S1) 4+ Good+ PT-OP-Q Treatments Start: 11/24/21 14:38 Freq: Status: Active Protocol: Document 12/28/21 13:48 SP (Rec: 12/28/21 14:31 SP [id number]) Cardio Equipment Recumbent Stepper (Sci-Fit) Duration (Minutes) 6 Resistance 3 Seat Position 12 Other 40 RPM, LEs only today, 0.61 miles Gym Equipment Shuttle Balance Red Details WBOS 4s, NBOS approx 2s, stagger 4s Reps/Duration 8min Comments Wt shifting 6 sec CGA EO stationary WBOS 6 sec, NBOS 5 sec, stagger 3 sec each LE forward position Therapeutic Exercises Sitting Exercises STS Resistance arms across chest Equipment Used mesh chair Reps/Minutes 5 reps in 13 sec Comments cued hip hinge/ knee flexion- cued limit reps 2* R knee pain but stronger Gait Training Gait Activity dynamic gait Description head turns Device Used 0 Level of Assistance CGA Surface firm Distance/Duration 680 ft Treatment Focus posture, R foot clearance, balance recovery Comments cued tall posture, feet apart and toe clearance increase R knee flexion, metronome 87bpm, improve derek = wB and stability BLE. Neuro Re-Education Treatment Balance Activities DGI Details Surface firm carpet Equipment 0 Comments requires contact at times receiprocal descend stairs, slow speed to step over obstacle, slight change in velocity with head turn horizontal. PT-OP-T Assessment and Plan Start: 11/24/21 14:38 Freq: Status: Active Protocol: Document 12/28/21 13:48 SP (Rec: 12/28/21 14:31 SP [id number]) Physical Therapy Assessment Goals Two Impairment Pt presents with an increased falls risk score (15/24) on DGI Custodial Goal (LTG) Pt to increased her DGI score by at least five points to 20/ 24 to show decreased falls risk. 12/28/21: GOAL MET: DGI , see detailed HO scanned in. LTG Duration GOAL MET 12/28/21 One Impairment Pt does not have an appropriate home exercise program Short Term Goal (STG) Pt to be independent and compliant with an appropriate HEP 12/28/21: progressing: band walk, heel/toe raises, walking on [place]rem[place] approx 1 mile w/ seated rest on bench 1/2 way, STS today in 13 sec. STG Duration 12/24/21 (progressing 12/28/21) Progress Towards Goals Progress Towards Goals Progressing Toward Goals Progress Comments Pt MET LTG #2: DGI , goal . See scanned document for details and feedback given in note. She is progressing in HEP performance, can increase challenge balance for home next tx. Assessment Summary Assessment Pt improved balance DGI and 13 sec STS arms across chest not needing UE support end tx. Pt longer distances tires and noted increased audible RLE foot scuffing floor and decrease stance time on LLE but no LOB, improves with use metronome 87 bpm. Physical Therapy Plan Frequency and Duration Frequency of Treatment 2x/Week Duration of Treatment Two months Plan of Care Start Date 11/24/21 Plan of Care End Date 01/24/22 Therapeutic Interventions Therapeutic Interventions Aquatic Therapy,Gait Training, Home Exercise Program,Joint Mobilizations,Manual Therapy, Neuromuscular Re-education, Patient/Caregiver Education, Self-Care/Home Management,Soft Tissue Mobilization, Therapeutic Activities, Therapeutic Exercises Modalities Electric Stimulation Next Visit Focus/Plan Next Note Type Treatment Note Next Visit Plan Pt is due to PN. Continue dynamic gait & balance. POC: LE strengthening, gait, balance
--- NOTE | 2021-12-30 13:45 | PT.OTN ---
Current Diagnoses Cerebral infarction, unspecified (12/30/21) Repeated falls (12/30/21) Syncope and collapse (12/30/21) Personal history of other specified conditions (12/30/21) Physical Therapy Treatment Note PT-OP-A Visit Information Start: 11/24/21 14:38 Freq: Status: Active Protocol: Document 12/30/21 13:02 SP (Rec: 12/30/21 13:47 SP [id number]) Out-Patient Physical Therapy Visit Information Visit Information Visit Type Treatment Note Visit Note PN with PT next tx, 12 th visit. Visit Start Time 13:02 Visit Stop Time 13:45 Total Visit Minutes 43 Visit Number 11 Number of BED MANAGER Visits 3 Evaluation Information Evaluation Date 11/24/21 PT-OP-B Current Condition Start: 11/24/21 14:38 Freq: Status: Active Protocol: Document 11/24/21 12:00 DCW (Rec: 11/24/21 14:48 DCW [id number]) Current Condition History of Current Condition Onset Date Three months Current Complaints Syncope, falls, CVA History of Current Condition Pt is a 76 year old female presenting with a recent history of repeated falls, TBI , and syncope. 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 Notes her most recent fall, five days ago, occurred when she drug her right foot and her slipper got stuck on the floor. Pt notes she is able to pick her foot up, but if I 'm not actually thinking about it, it just drags. 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 Pt was transferred to [facility], where her SDH was found to not be progressing, and pt was sent home. Notes that with her recent falls, she has been using trekking poles when out walking, but after getting out and walking yesterday, she woke up with sore arms. Additionally, pt using SPC for longer community distances, coming in the clinic for her eval using her SPC. Prior Treatments and Tests Pt currently also being seen in OT for hand numbness s/p CVA Treatment Goals Patient/Caregiver Goals Address R leg weakness and decrease falls. PT-OP-C Subjective Start: 11/24/21 14:38 Freq: Status: Active Protocol: Document 12/30/21 13:02 SP (Rec: 12/30/21 13:47 SP [id number]) OP-PT Subjective Patient Comments Patient Comments Pt states tired upon arrival, hasn't walked [place] yet, states last time arms hurt with trek poles. PT-OP-D Balance Start: 11/24/21 14:38 Freq: Status: Active Protocol: Document 11/24/21 12:00 DCW (Rec: 11/24/21 14:54 DCW [id number]) Pan Balance Assessment Evaluation Sitting to Standing Ability Independent w/out Hands Unsupported Stance Safely- 2 minutes Sitting Unsupported, Feet on Floor Safely- 2 minutes Standing to Sitting Ability Safely, Minimal Hand Use Transfer Ability Safely, Minimal Hand Use Unsupported Stance- Eyes Closed Safely, 10 seconds Unsupported Stance- Eyes Open Independent, 1 minute Reaching Forward Standing Confidently, 10 inches Pick- Up Object From Floor Independent/Safe Look Behind Shoulder - Standing Shifts Weight Well Turning 360 Degrees Turns slowly, but safely Unsupported Stance, Alternating Feet on (I)- 8 Steps in > 20 secs Stair Unsupported Tandem Stance Holds Tandem- 30 seconds Unilateral Leg Stance Lifts Leg/Unable to Hold Total Score Pan Total Score (out of 56 points) 49 Pan Impairment Rating 1 to 19% Impaired (Score 45-55 ) PT-OP-E Functional Tests Start: 11/24/21 14:38 Freq: Status: Active Protocol: Document 12/28/21 13:48 SP (Rec: 12/28/21 15:50 SP [id number]) Functional Tests Dynamic Gait Index (DGI) Score 21 DGI Impairment Rating 1 to <20% Impaired (Score 20- 23) Five Times Sit to Stand Test Score 13sec Comments no UE support, arms across chest this tx. PT-OP-M Strength Start: 11/24/21 14:38 Freq: Status: Active Protocol: Document 11/24/21 12:00 DCW (Rec: 11/24/21 14:54 DCW [id number]) Hip Strength Hip Manual Muscle Testing Right Flexion (L2) 3 Fair Extension (S1) 4- Good- Abduction 3+ Fair+ Adduction 4 Good External Rotation 4 Good Internal Rotation 4 Good Left Flexion (L2) 4+ Good+ Extension (S1) 5 Normal Abduction 4+ Good+ Adduction 4+ Good+ External Rotation 4+ Good+ Internal Rotation 4+ Good+ Knee Strength Knee Manual Muscle Testing Right Flexion (S2) 4- Good- Extension (L3) 4- Good- Left Flexion (S2) 4 Good Extension (L3) 4 Good Ankle/Foot Strength Ankle and Foot Manual Muscle Testing Right Dorsiflexion (L4) 4- Good- Plantarflexion (S1) 4 Good Left Dorsiflexion (L4) 4+ Good+ Plantarflexion (S1) 4+ Good+ PT-OP-Q Treatments Start: 11/24/21 14:38 Freq: Status: Active Protocol: Document 12/30/21 13:02 SP (Rec: 12/30/21 13:47 SP [id number]) Cardio Equipment Recumbent Stepper (Sci-Fit) Duration (Minutes) 6 Resistance 3 Seat Position 12 Other 40 RPM, LEs only today, 0.68 miles Gym Equipment Sport Cord red Exercise Details f/b/ side stepping Cord/Resistance red Reps/Duration 5 reps each direction Comments Add Next tx Therapeutic Exercises Sitting Exercises STS Resistance hands front Equipment Used mesh chair Reps/Minutes 9.5 reps in 30s Comments cued full knee extension stand x2 Standing Exercises band walk Standing Exercise Name f/b/side stepping Side bilateral Resistance GTB (has TB #2 for home gave last tx 12/28) Equipment Used rail near safety contact Reps/Minutes 10 ft x3 laps each direction Comments cued feet apart tall posture, eccentric trail LE lateral 2 Standing Exercise Name Heel raises/toe raises Equipment Used rail PRN Reps/Minutes x15 Comments improved form, then less wt shift back together. 1 Standing Exercise Name Toe-taps Side bilateral Resistance 5# Equipment Used 6 step, light contact rail Reps/Minutes x10 Comments alternate LEs, decreased stance time LLE need rail support LOB recovery Gait Training Gait Activity dynamic gait Description head turns, carrying cup water Device Used 0 Level of Assistance CGA Surface firm Distance/Duration 680 ft Treatment Focus posture, R foot clearance, balance recovery Comments cued tall posture, feet apart and toe clearance increase R knee flexion, metronome 87bpm> 90bpm, improve derek = wB and stability. Able maintain derek 75% of the time. R>L foot scuffed floor 2x/lap self recovery then able to get back to candence with cues R and L. Neuro Re-Education Treatment Balance Activities step up/ downs Equipment 6 step, 5# leg wts Reps/Duration 10 reps lead each LE Comments rail, only light contact dry cans back tender x2, no UE rest reps 1 Details Tandem ambulation Reps/Duration 10ft x2 laps Comments EO: better sequencing balance post cues for COG over front and heel with tall core and hip fac. PT-OP-T Assessment and Plan Start: 11/24/21 14:38 Freq: Status: Active Protocol: Document 12/30/21 13:02 SP (Rec: 12/30/21 13:47 SP [id number]) Physical Therapy Assessment Goals Two Impairment Pt presents with an increased falls risk score () on DGI Residential Goal (LTG) Pt to increased her DGI score by at least five points to 20 to show decreased falls risk. 12/28/21: GOAL MET: DGI , see detailed HO scanned in. LTG Duration GOAL MET 12/28/21 One Impairment Pt does not have an appropriate home exercise program Short Term Goal (STG) Pt to be independent and compliant with an appropriate HEP 12/28/21: progressing: band walk, heel/toe raises, walking on [place] approx 1 mile w/ seated rest on bench 1/2 way, STS today in 13 sec. STG Duration 12/24/21 (progressing 12/28/21) Assessment Summary Assessment Pt improved increase derek 90bpm 75% time up from 87bpm. Ed for use trek poles less UE WB use to decrease arm recruitment over pressure when outdoor walking more posture as aware during tx (no AD in PT). Continues need uses for tall posture and core for foot clearance awareness. Physical Therapy Plan Frequency and Duration Frequency of Treatment 2x/Week Duration of Treatment Two months Plan of Care Start Date 11/24/21 Plan of Care End Date 01/24/22 Therapeutic Interventions Therapeutic Interventions Aquatic Therapy,Gait Training, Home Exercise Program,Joint Mobilizations,Manual Therapy, Neuromuscular Re-education, Patient/Caregiver Education, Self-Care/Home Management,Soft Tissue Mobilization, Therapeutic Activities, Therapeutic Exercises Modalities Electric Stimulation Next Visit Focus/Plan Next Note Type Treatment Note Next Visit Plan Pt is due to PN. Continue dynamic gait & balance. POC: LE strengthening, gait, balance
--- NOTE | 2022-01-05 15:56 | PT.OTN ---
Current Diagnoses Cerebral infarction, unspecified (01/05/22) Repeated falls (01/05/22) Syncope and collapse (01/05/22) Personal history of other specified conditions (01/05/22) Physical Therapy Treatment Note PT-OP-A Visit Information Start: 11/24/21 14:38 Freq: Status: Active Protocol: Document 01/05/22 15:15 DCW (Rec: 01/05/22 15:56 DCW [id number]) Out-Patient Physical Therapy Visit Information Visit Information Visit Type Progress Note Visit Start Time 15:15 Visit Stop Time 16:00 Total Visit Minutes 45 Visit Number 12 Number of FORKLIFT TECHNICIAN Visits 0 Evaluation Information Evaluation Date 11/24/21 PT-OP-B Current Condition Start: 11/24/21 14:38 Freq: Status: Active Protocol: Document 11/24/21 12:00 DCW (Rec: 11/24/21 14:48 DCW [id number]) Current Condition History of Current Condition Onset Date Three months Current Complaints Syncope, falls, CVA History of Current Condition Pt is a 76 year old female presenting with a recent history of repeated falls, TBI , and syncope. 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 Notes her most recent fall, five days ago, occurred when she drug her right foot and her slipper got stuck on the floor. Pt notes she is able to pick her foot up, but if I 'm not actually thinking about it, it just drags. 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 Pt was transferred to [facility], where her SDH was found to not be progressing, and pt was sent home. Notes that with her recent falls, she has been using trekking poles when out walking, but after getting out and walking yesterday, she woke up with sore arms. Additionally, pt using SPC for longer community distances, coming in the clinic for her eval using her SPC. Prior Treatments and Tests Pt currently also being seen in OT for hand numbness s/p CVA Treatment Goals Patient/Caregiver Goals Address R leg weakness and decrease falls. PT-OP-C Subjective Start: 11/24/21 14:38 Freq: Status: Active Protocol: Document 01/05/22 15:15 DCW (Rec: 01/05/22 15:56 DCW [id number]) OP-PT Subjective Patient Comments Patient Comments I'm tired, but that's my standard reply. Reports she had a very bust weekend, was very fatigued on Monday, and for the life of me, I could not stop dragging this right leg. PT-OP-D Balance Start: 11/24/21 14:38 Freq: Status: Active Protocol: Document 11/24/21 12:00 DCW (Rec: 11/24/21 14:54 DCW [id number]) Pan Balance Assessment Evaluation Sitting to Standing Ability Independent w/out Hands Unsupported Stance Safely- 2 minutes Sitting Unsupported, Feet on Floor Safely- 2 minutes Standing to Sitting Ability Safely, Minimal Hand Use Transfer Ability Safely, Minimal Hand Use Unsupported Stance- Eyes Closed Safely, 10 seconds Unsupported Stance- Eyes Open Independent, 1 minute Reaching Forward Standing Confidently, 10 inches Pick- Up Object From Floor Independent/Safe Look Behind Shoulder - Standing Shifts Weight Well Turning 360 Degrees Turns slowly, but safely Unsupported Stance, Alternating Feet on (I)- 8 Steps in > 20 secs Stair Unsupported Tandem Stance Holds Tandem- 30 seconds Unilateral Leg Stance Lifts Leg/Unable to Hold Total Score Pan Total Score (out of 56 points) 49 Pan Impairment Rating 1 to 19% Impaired (Score 45-55 ) PT-OP-E Functional Tests Start: 11/24/21 14:38 Freq: Status: Active Protocol: Document 12/28/21 13:48 SP (Rec: 12/28/21 15:50 SP [id number]) Functional Tests Dynamic Gait Index (DGI) Score 21 DGI Impairment Rating 1 to <20% Impaired (Score 20- 23) Five Times Sit to Stand Test Score 13sec Comments no UE support, arms across chest this tx. PT-OP-M Strength Start: 11/24/21 14:38 Freq: Status: Active Protocol: Document 11/24/21 12:00 DCW (Rec: 11/24/21 14:54 DCW [id number]) Hip Strength Hip Manual Muscle Testing Right Flexion (L2) 3 Fair Extension (S1) 4- Good- Abduction 3+ Fair+ Adduction 4 Good External Rotation 4 Good Internal Rotation 4 Good Left Flexion (L2) 4+ Good+ Extension (S1) 5 Normal Abduction 4+ Good+ Adduction 4+ Good+ External Rotation 4+ Good+ Internal Rotation 4+ Good+ Knee Strength Knee Manual Muscle Testing Right Flexion (S2) 4- Good- Extension (L3) 4- Good- Left Flexion (S2) 4 Good Extension (L3) 4 Good Ankle/Foot Strength Ankle and Foot Manual Muscle Testing Right Dorsiflexion (L4) 4- Good- Plantarflexion (S1) 4 Good Left Dorsiflexion (L4) 4+ Good+ Plantarflexion (S1) 4+ Good+ PT-OP-Q Treatments Start: 11/24/21 14:38 Freq: Status: Active Protocol: Document 01/05/22 15:15 DCW (Rec: 01/05/22 15:56 DCW [id number]) Cardio Equipment Recumbent Stepper (Sci-Fit) Duration (Minutes) 5 Resistance 3 Seat Position 12 Other 40 RPM, LEs only today, 0.68 miles Gym Equipment Shuttle Balance Red Details WBOS 4s, NBOS approx 2s, stagger 4s Comments Wt shifting CGA EO stationary WBOS 6 sec, NBOS 5 sec, stagger 3 sec each LE forward position Therapeutic Exercises Standing Exercises band walk Standing Exercise Name side stepping Side bilateral Resistance GTB Equipment Used rail near safety contact Reps/Minutes 10 ft x3 laps each direction Comments cued feet apart tall posture, eccentric trail LE lateral 1 Standing Exercise Name Toe-taps Side bilateral Resistance 5# Equipment Used 6 step, light contact rail Reps/Minutes x10 Comments alternate LEs, decreased stance time LLE need rail support LOB recovery Gait Training Gait Activity dynamic gait Description head turns Device Used 0 Level of Assistance CGA Surface firm Distance/Duration 680 ft Treatment Focus posture, R foot clearance, balance recovery Comments cued tall posture, feet apart and toe clearance increase R knee flexion, metronome 85 bpm Neuro Re-Education Treatment Balance Activities hurdles Details Foam/hurdles PT-OP-T Assessment and Plan Start: 11/24/21 14:38 Freq: Status: Active Protocol: Document 01/05/22 15:15 DCW (Rec: 01/05/22 15:56 DCW [id number]) Physical Therapy Assessment Goals Two Impairment Pt presents with an increased falls risk score (15/24) on DGI Group Home Goal (LTG) Pt to increased her DGI score by at least five points to 20/ 24 to show decreased falls risk. 12/28/21: GOAL MET: DGI , see detailed HO scanned in. LTG Duration GOAL MET 12/28/21 One Impairment Pt does not have an appropriate home exercise program Short Term Goal (STG) Pt to be independent and compliant with an appropriate HEP 12/28/21: progressing: band walk, heel/toe raises, walking on [place] approx 1 mile w/ seated rest on bench 1/2 way, STS today in 13 sec. STG Duration 01/24/22 (progressing 12/28/21) Assessment Summary Assessment Pt making good progress overall, has met DGI score goals. Biggest lingering complaint if LE weakness and difficulty with foot clearance while fatigued. Physical Therapy Plan Frequency and Duration Frequency of Treatment 2x/Week Duration of Treatment Two months Plan of Care Start Date 11/24/21 Plan of Care End Date 01/24/22 Therapeutic Interventions Therapeutic Interventions Aquatic Therapy,Gait Training, Home Exercise Program,Joint Mobilizations,Manual Therapy, Neuromuscular Re-education, Patient/Caregiver Education, Self-Care/Home Management,Soft Tissue Mobilization, Therapeutic Activities, Therapeutic Exercises Modalities Electric Stimulation Next Visit Focus/Plan Next Note Type Treatment Note Next Visit Plan Continue dynamic gait & balance. POC: LE strengthening, gait, balance
--- NOTE | 2022-01-13 15:20 | PT.OTN ---
Current Diagnoses Cerebral infarction, unspecified (01/13/22) Repeated falls (01/13/22) Syncope and collapse (01/13/22) Personal history of other specified conditions (01/13/22) Physical Therapy Treatment Note PT-OP-A Visit Information Start: 11/24/21 14:38 Freq: Status: Active Protocol: Document 01/13/22 14:30 DCW (Rec: 01/13/22 15:20 DCW [id number]) Out-Patient Physical Therapy Visit Information Visit Information Visit Type Treatment Note Visit Start Time 14:30 Visit Stop Time 15:15 Total Visit Minutes 45 Visit Number 13 Number of WOOD PLANER Visits 0 Evaluation Information Evaluation Date 11/24/21 PT-OP-B Current Condition Start: 11/24/21 14:38 Freq: Status: Active Protocol: Document 11/24/21 12:00 DCW (Rec: 11/24/21 14:48 DCW [id number]) Current Condition History of Current Condition Onset Date Three months Current Complaints Syncope, falls, CVA History of Current Condition Pt is a 76 year old female presenting with a recent history of repeated falls, TBI , and syncope. 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 Notes her most recent fall, five days ago, occurred when she drug her right foot and her slipper got stuck on the floor. Pt notes she is able to pick her foot up, but if I 'm not actually thinking about it, it just drags. 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 Pt was transferred to [facility], where her SDH was found to not be progressing, and pt was sent home. Notes that with her recent falls, she has been using trekking poles when out walking, but after getting out and walking yesterday, she woke up with sore arms. Additionally, pt using SPC for longer community distances, coming in the clinic for her eval using her SPC. Prior Treatments and Tests Pt currently also being seen in OT for hand numbness s/p CVA Treatment Goals Patient/Caregiver Goals Address R leg weakness and decrease falls. PT-OP-C Subjective Start: 11/24/21 14:38 Freq: Status: Active Protocol: Document 01/13/22 14:30 DCW (Rec: 01/13/22 15:20 DCW [id number]) OP-PT Subjective Patient Comments Patient Comments Pt had to end her OT appointment early yesterday, was not feeling well, was found to have a systolic BP 180+. Notes she is feeling better today, two hours ago checked her BP, which was 147/ 76, which is right around her usual BP. PT-OP-D Balance Start: 11/24/21 14:38 Freq: Status: Active Protocol: Document 11/24/21 12:00 DCW (Rec: 11/24/21 14:54 DCW [id number]) Pan Balance Assessment Evaluation Sitting to Standing Ability Independent w/out Hands Unsupported Stance Safely- 2 minutes Sitting Unsupported, Feet on Floor Safely- 2 minutes Standing to Sitting Ability Safely, Minimal Hand Use Transfer Ability Safely, Minimal Hand Use Unsupported Stance- Eyes Closed Safely, 10 seconds Unsupported Stance- Eyes Open Independent, 1 minute Reaching Forward Standing Confidently, 10 inches Pick- Up Object From Floor Independent/Safe Look Behind Shoulder - Standing Shifts Weight Well Turning 360 Degrees Turns slowly, but safely Unsupported Stance, Alternating Feet on (I)- 8 Steps in > 20 secs Stair Unsupported Tandem Stance Holds Tandem- 30 seconds Unilateral Leg Stance Lifts Leg/Unable to Hold Total Score Pan Total Score (out of 56 points) 49 Pan Impairment Rating 1 to 19% Impaired (Score 45-55 ) PT-OP-E Functional Tests Start: 11/24/21 14:38 Freq: Status: Active Protocol: Document 12/28/21 13:48 SP (Rec: 12/28/21 15:50 SP [id number]) Functional Tests Dynamic Gait Index (DGI) Score 21 DGI Impairment Rating 1 to <20% Impaired (Score 20- 23) Five Times Sit to Stand Test Score 13sec Comments no UE support, arms across chest this tx. PT-OP-M Strength Start: 11/24/21 14:38 Freq: Status: Active Protocol: Document 11/24/21 12:00 DCW (Rec: 11/24/21 14:54 DCW [id number]) Hip Strength Hip Manual Muscle Testing Right Flexion (L2) 3 Fair Extension (S1) 4- Good- Abduction 3+ Fair+ Adduction 4 Good External Rotation 4 Good Internal Rotation 4 Good Left Flexion (L2) 4+ Good+ Extension (S1) 5 Normal Abduction 4+ Good+ Adduction 4+ Good+ External Rotation 4+ Good+ Internal Rotation 4+ Good+ Knee Strength Knee Manual Muscle Testing Right Flexion (S2) 4- Good- Extension (L3) 4- Good- Left Flexion (S2) 4 Good Extension (L3) 4 Good Ankle/Foot Strength Ankle and Foot Manual Muscle Testing Right Dorsiflexion (L4) 4- Good- Plantarflexion (S1) 4 Good Left Dorsiflexion (L4) 4+ Good+ Plantarflexion (S1) 4+ Good+ PT-OP-Q Treatments Start: 11/24/21 14:38 Freq: Status: Active Protocol: Document 01/13/22 14:30 DCW (Rec: 01/13/22 15:20 DCW [id number]) Cardio Equipment Recumbent Stepper (Sci-Fit) Duration (Minutes) 5 Resistance 3 Seat Position 12 Other 40 RPM, LEs only today, 0.68 miles Gym Equipment Shuttle Balance Red Details WBOS 4s, NBOS approx 2s, stagger 4s Comments Wt shifting CGA EO stationary WBOS 6 sec, NBOS 5 sec, stagger 3 sec each LE forward position Sport Cord red Exercise Details f/b/ side stepping Cord/Resistance red Reps/Duration 3 reps each direction Therapeutic Exercises Standing Exercises band walk Standing Exercise Name side stepping Side bilateral Resistance GTB Equipment Used rail near safety contact Reps/Minutes 10 ft x3 laps each direction Comments cued feet apart tall posture, eccentric trail LE lateral Gait Training Gait Activity dynamic gait Description head turns Device Used 0 Level of Assistance CGA Surface firm Distance/Duration 680 ft Treatment Focus posture, R foot clearance, balance recovery Comments cued tall posture, feet apart and toe clearance increase R knee flexion, metronome 85 bpm PT-OP-T Assessment and Plan Start: 11/24/21 14:38 Freq: Status: Active Protocol: Document 01/13/22 14:30 DCW (Rec: 01/13/22 15:20 DCW [id number]) Physical Therapy Assessment Assessment Summary Assessment Measured pt PB after 15 minutes of activity, 177/88, allowed to rest for 5 minutes, dropped to 158/86 following 2 minutes of rest, resumed activity. Measured again at end of session, 155/85. Pt reports feeling good with all activity today. Physical Therapy Plan Frequency and Duration Frequency of Treatment 2x/Week Duration of Treatment Two months Plan of Care Start Date 11/24/21 Plan of Care End Date 01/24/22 Therapeutic Interventions Therapeutic Interventions Aquatic Therapy,Gait Training, Home Exercise Program,Joint Mobilizations,Manual Therapy, Neuromuscular Re-education, Patient/Caregiver Education, Self-Care/Home Management,Soft Tissue Mobilization, Therapeutic Activities, Therapeutic Exercises Modalities Electric Stimulation Next Visit Focus/Plan Next Note Type Treatment Note Next Visit Plan Continue dynamic gait & balance. POC: LE strengthening, gait, balance
--- NOTE | 2022-01-17 15:12 | PT.OTN ---
Current Diagnoses Cerebral infarction, unspecified (01/17/22) Repeated falls (01/17/22) Syncope and collapse (01/17/22) Personal history of other specified conditions (01/17/22) Physical Therapy Treatment Note PT-OP-A Visit Information Start: 11/24/21 14:38 Freq: Status: Active Protocol: Document 01/17/22 14:30 DCW (Rec: 01/17/22 15:12 DCW [id number]) Out-Patient Physical Therapy Visit Information Visit Information Visit Type Treatment Note Visit Start Time 14:30 Visit Stop Time 15:15 Total Visit Minutes 45 Visit Number 14 Number of MANAGER CLIENT Visits 0 Evaluation Information Evaluation Date 11/24/21 PT-OP-B Current Condition Start: 11/24/21 14:38 Freq: Status: Active Protocol: Document 11/24/21 12:00 DCW (Rec: 11/24/21 14:48 DCW [id number]) Current Condition History of Current Condition Onset Date Three months Current Complaints Syncope, falls, CVA History of Current Condition Pt is a 76 year old female presenting with a recent history of repeated falls, TBI , and syncope. 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 Notes her most recent fall, five days ago, occurred when she drug her right foot and her slipper got stuck on the floor. Pt notes she is able to pick her foot up, but if I 'm not actually thinking about it, it just drags. 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 Pt was transferred to [facility], where her SDH was found to not be progressing, and pt was sent home. Notes that with her recent falls, she has been using trekking poles when out walking, but after getting out and walking yesterday, she woke up with sore arms. Additionally, pt using SPC for longer community distances, coming in the clinic for her eval using her SPC. Prior Treatments and Tests Pt currently also being seen in OT for hand numbness s/p CVA Treatment Goals Patient/Caregiver Goals Address R leg weakness and decrease falls. PT-OP-C Subjective Start: 11/24/21 14:38 Freq: Status: Active Protocol: Document 01/17/22 14:30 DCW (Rec: 01/17/22 15:12 DCW [id number]) OP-PT Subjective Patient Comments Patient Comments Pt not feeling great today, but I don't want to talk about it. Pre-therapy BP measured at 159/76. [facility] through session, BP was remeasured at 158/81. PT-OP-D Balance Start: 11/24/21 14:38 Freq: Status: Active Protocol: Document 11/24/21 12:00 DCW (Rec: 11/24/21 14:54 DCW [id number]) Pan Balance Assessment Evaluation Sitting to Standing Ability Independent w/out Hands Unsupported Stance Safely- 2 minutes Sitting Unsupported, Feet on Floor Safely- 2 minutes Standing to Sitting Ability Safely, Minimal Hand Use Transfer Ability Safely, Minimal Hand Use Unsupported Stance- Eyes Closed Safely, 10 seconds Unsupported Stance- Eyes Open Independent, 1 minute Reaching Forward Standing Confidently, 10 inches Pick- Up Object From Floor Independent/Safe Look Behind Shoulder - Standing Shifts Weight Well Turning 360 Degrees Turns slowly, but safely Unsupported Stance, Alternating Feet on (I)- 8 Steps in > 20 secs Stair Unsupported Tandem Stance Holds Tandem- 30 seconds Unilateral Leg Stance Lifts Leg/Unable to Hold Total Score Pan Total Score (out of 56 points) 49 Pan Impairment Rating 1 to 19% Impaired (Score 45-55 ) PT-OP-E Functional Tests Start: 11/24/21 14:38 Freq: Status: Active Protocol: Document 12/28/21 13:48 SP (Rec: 12/28/21 15:50 SP [id number]) Functional Tests Dynamic Gait Index (DGI) Score 21 DGI Impairment Rating 1 to <20% Impaired (Score 20- 23) Five Times Sit to Stand Test Score 13sec Comments no UE support, arms across chest this tx. PT-OP-M Strength Start: 11/24/21 14:38 Freq: Status: Active Protocol: Document 11/24/21 12:00 DCW (Rec: 11/24/21 14:54 DCW [id number]) Hip Strength Hip Manual Muscle Testing Right Flexion (L2) 3 Fair Extension (S1) 4- Good- Abduction 3+ Fair+ Adduction 4 Good External Rotation 4 Good Internal Rotation 4 Good Left Flexion (L2) 4+ Good+ Extension (S1) 5 Normal Abduction 4+ Good+ Adduction 4+ Good+ External Rotation 4+ Good+ Internal Rotation 4+ Good+ Knee Strength Knee Manual Muscle Testing Right Flexion (S2) 4- Good- Extension (L3) 4- Good- Left Flexion (S2) 4 Good Extension (L3) 4 Good Ankle/Foot Strength Ankle and Foot Manual Muscle Testing Right Dorsiflexion (L4) 4- Good- Plantarflexion (S1) 4 Good Left Dorsiflexion (L4) 4+ Good+ Plantarflexion (S1) 4+ Good+ PT-OP-Q Treatments Start: 11/24/21 14:38 Freq: Status: Active Protocol: Document 01/17/22 14:30 DCW (Rec: 01/17/22 15:12 DCW [id number]) Cardio Equipment Recumbent Stepper (Sci-Fit) Duration (Minutes) 5 Resistance 3 Seat Position 12 Other 40 RPM, LEs only today, 0.54 miles Gym Equipment Shuttle Recovery Unilateral Squats Resistance 75# Bilateral Squats Resistance 125# Shuttle Balance Red Details WBOS 4s, NBOS approx 2s, stagger 4s Comments Wt shifting CGA EO stationary WBOS 6 sec, NBOS 5 sec, stagger 3 sec each LE forward position Therapeutic Exercises Standing Exercises band walk Standing Exercise Name side stepping Side bilateral Resistance GTB Equipment Used rail near safety contact Reps/Minutes 10 ft x3 laps each direction Comments cued feet apart tall posture, eccentric trail LE lateral Gait Training Gait Activity dynamic gait Description head turns Device Used 0 Level of Assistance CGA Surface firm Distance/Duration 340' Treatment Focus posture, R foot clearance, balance recovery Comments cued tall posture, feet apart and toe clearance increase R knee flexion, metronome 90 bpm PT-OP-T Assessment and Plan Start: 11/24/21 14:38 Freq: Status: Active Protocol: Document 01/17/22 14:30 DCW (Rec: 01/17/22 15:12 DCW [id number]) Physical Therapy Assessment Goals Two Impairment Pt presents with an increased falls risk score (15/24) on DGI Jail Goal (LTG) Pt to increased her DGI score by at least five points to 20/ 24 to show decreased falls risk. 12/28/21: GOAL MET: DGI , see detailed HO scanned in. LTG Duration GOAL MET 12/28/21 One Impairment Pt does not have an appropriate home exercise program Short Term Goal (STG) Pt to be independent and compliant with an appropriate HEP 12/28/21: progressing: band walk, heel/toe raises, walking on [place] approx 1 mile w/ seated rest on bench 1/2 way, STS today in 13 sec. STG Duration 01/24/22 (progressing 12/28/21) Assessment Summary Assessment Pt tolerated treatment well today, minimal change in BP with exercise, no complaints of increased fatigue or instability. Physical Therapy Plan Frequency and Duration Frequency of Treatment 2x/Week Duration of Treatment Two months Plan of Care Start Date 11/24/21 Plan of Care End Date 01/24/22 Therapeutic Interventions Therapeutic Interventions Aquatic Therapy,Gait Training, Home Exercise Program,Joint Mobilizations,Manual Therapy, Neuromuscular Re-education, Patient/Caregiver Education, Self-Care/Home Management,Soft Tissue Mobilization, Therapeutic Activities, Therapeutic Exercises Modalities Electric Stimulation Next Visit Focus/Plan Next Note Type Progress Note Next Visit Plan Continue dynamic gait & balance. POC: LE strengthening, gait, balance
--- NOTE | 2022-01-20 14:30 | PT.OTN ---
Current Diagnoses Cerebral infarction, unspecified (01/20/22) Repeated falls (01/20/22) Syncope and collapse (01/20/22) Personal history of other specified conditions (01/20/22) Physical Therapy Treatment Note PT-OP-A Visit Information Start: 11/24/21 14:38 Freq: Status: Active Protocol: Document 01/20/22 13:45 DCW (Rec: 01/20/22 14:30 DCW [id number]) Out-Patient Physical Therapy Visit Information Visit Information Visit Type Treatment Note Visit Start Time 13:45 Visit Stop Time 14:30 Total Visit Minutes 45 Visit Number 15 Number of VIOLIN REPAIRER Visits 0 Evaluation Information Evaluation Date 11/24/21 PT-OP-B Current Condition Start: 11/24/21 14:38 Freq: Status: Active Protocol: Document 11/24/21 12:00 DCW (Rec: 11/24/21 14:48 DCW [id number]) Current Condition History of Current Condition Onset Date Three months Current Complaints Syncope, falls, CVA History of Current Condition Pt is a 76 year old female presenting with a recent history of repeated falls, TBI , and syncope. 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 Notes her most recent fall, five days ago, occurred when she drug her right foot and her slipper got stuck on the floor. Pt notes she is able to pick her foot up, but if I 'm not actually thinking about it, it just drags. 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 Pt was transferred to [facility], where her SDH was found to not be progressing, and pt was sent home. Notes that with her recent falls, she has been using trekking poles when out walking, but after getting out and walking yesterday, she woke up with sore arms. Additionally, pt using SPC for longer community distances, coming in the clinic for her eval using her SPC. Prior Treatments and Tests Pt currently also being seen in OT for hand numbness s/p CVA Treatment Goals Patient/Caregiver Goals Address R leg weakness and decrease falls. PT-OP-C Subjective Start: 11/24/21 14:38 Freq: Status: Active Protocol: Document 01/20/22 13:45 DCW (Rec: 01/20/22 14:30 DCW [id number]) OP-PT Subjective Patient Comments Patient Comments I was really sore Monday morning. Mid-session BP 152/ 77. PT-OP-D Balance Start: 11/24/21 14:38 Freq: Status: Active Protocol: Document 11/24/21 12:00 DCW (Rec: 11/24/21 14:54 DCW [id number]) Pan Balance Assessment Evaluation Sitting to Standing Ability Independent w/out Hands Unsupported Stance Safely- 2 minutes Sitting Unsupported, Feet on Floor Safely- 2 minutes Standing to Sitting Ability Safely, Minimal Hand Use Transfer Ability Safely, Minimal Hand Use Unsupported Stance- Eyes Closed Safely, 10 seconds Unsupported Stance- Eyes Open Independent, 1 minute Reaching Forward Standing Confidently, 10 inches Pick- Up Object From Floor Independent/Safe Look Behind Shoulder - Standing Shifts Weight Well Turning 360 Degrees Turns slowly, but safely Unsupported Stance, Alternating Feet on (I)- 8 Steps in > 20 secs Stair Unsupported Tandem Stance Holds Tandem- 30 seconds Unilateral Leg Stance Lifts Leg/Unable to Hold Total Score Pan Total Score (out of 56 points) 49 Pan Impairment Rating 1 to 19% Impaired (Score 45-55 ) PT-OP-E Functional Tests Start: 11/24/21 14:38 Freq: Status: Active Protocol: Document 12/28/21 13:48 SP (Rec: 12/28/21 15:50 SP [id number]) Functional Tests Dynamic Gait Index (DGI) Score 21 DGI Impairment Rating 1 to <20% Impaired (Score 20- 23) Five Times Sit to Stand Test Score 13sec Comments no UE support, arms across chest this tx. PT-OP-M Strength Start: 11/24/21 14:38 Freq: Status: Active Protocol: Document 11/24/21 12:00 DCW (Rec: 11/24/21 14:54 DCW [id number]) Hip Strength Hip Manual Muscle Testing Right Flexion (L2) 3 Fair Extension (S1) 4- Good- Abduction 3+ Fair+ Adduction 4 Good External Rotation 4 Good Internal Rotation 4 Good Left Flexion (L2) 4+ Good+ Extension (S1) 5 Normal Abduction 4+ Good+ Adduction 4+ Good+ External Rotation 4+ Good+ Internal Rotation 4+ Good+ Knee Strength Knee Manual Muscle Testing Right Flexion (S2) 4- Good- Extension (L3) 4- Good- Left Flexion (S2) 4 Good Extension (L3) 4 Good Ankle/Foot Strength Ankle and Foot Manual Muscle Testing Right Dorsiflexion (L4) 4- Good- Plantarflexion (S1) 4 Good Left Dorsiflexion (L4) 4+ Good+ Plantarflexion (S1) 4+ Good+ PT-OP-Q Treatments Start: 11/24/21 14:38 Freq: Status: Active Protocol: Document 01/20/22 13:45 DCW (Rec: 01/20/22 14:30 DCW [id number]) Cardio Equipment Recumbent Stepper (Sci-Fit) Duration (Minutes) 5 Resistance 3 Seat Position 12 Other 40 RPM, LEs only today, 0.56 miles Gym Equipment Shuttle Balance Red Details WBOS 4s, NBOS approx 2s, stagger 4s Comments Wt shifting CGA EO stationary WBOS 6 sec, NBOS 5 sec, stagger 3 sec each LE forward position Therapeutic Exercises Standing Exercises band walk Standing Exercise Name side stepping Side bilateral Resistance GTB Equipment Used rail near safety contact Reps/Minutes 10 ft x3 laps each direction Comments cued feet apart tall posture, eccentric trail LE lateral Gait Training Gait Activity dynamic gait Description head turns Device Used 0 Level of Assistance CGA Surface firm Distance/Duration 510' Treatment Focus posture, R foot clearance, balance recovery Comments cued tall posture, feet apart and toe clearance increase R knee flexion, metronome 90 bpm Neuro Re-Education Treatment Balance Activities hurdles Details Foam/hurdles 1 Details Tandem stance Surface Blue/black foam PT-OP-T Assessment and Plan Start: 11/24/21 14:38 Freq: Status: Active Protocol: Document 01/20/22 13:45 DCW (Rec: 01/20/22 14:30 DCW [id number]) Physical Therapy Assessment Goals Two Impairment Pt presents with an increased falls risk score (15/24) on DGI Alf Goal (LTG) Pt to increased her DGI score by at least five points to 20/ 24 to show decreased falls risk. 12/28/21: GOAL MET: DGI , see detailed HO scanned in. LTG Duration GOAL MET 12/28/21 One Impairment Pt does not have an appropriate home exercise program Short Term Goal (STG) Pt to be independent and compliant with an appropriate HEP 12/28/21: progressing: band walk, heel/toe raises, walking on [place] approx 1 mile w/ seated rest on bench 1/2 way, STS today in 13 sec. STG Duration 01/24/22 (progressing 12/28/21) Assessment Summary Assessment New POC/Prog note needed next visit. Pt showing good progress overall, improved balance even with increased challenges Physical Therapy Plan Frequency and Duration Frequency of Treatment 2x/Week Duration of Treatment Two months Plan of Care Start Date 11/24/21 Plan of Care End Date 01/24/22 Therapeutic Interventions Therapeutic Interventions Aquatic Therapy,Gait Training, Home Exercise Program,Joint Mobilizations,Manual Therapy, Neuromuscular Re-education, Patient/Caregiver Education, Self-Care/Home Management,Soft Tissue Mobilization, Therapeutic Activities, Therapeutic Exercises Modalities Electric Stimulation Next Visit Focus/Plan Next Note Type Progress Note Next Visit Plan Continue dynamic gait & balance. POC: LE strengthening, gait, balance
--- NOTE | 2022-01-25 15:30 | PT.OTN ---
Addendum entered and electronically signed by Elvis Ericskon, PT 09/21/23 12:33: Requires signature for prior POC Original Note: Current Diagnoses Cerebral infarction, unspecified (01/25/22) Repeated falls (01/25/22) Syncope and collapse (01/25/22) Personal history of other specified conditions (01/25/22) Physical Therapy Treatment Note PT-OP-A Visit Information Start: 11/24/21 14:38 Freq: Status: Active Protocol: Document 01/25/22 14:30 DCW (Rec: 01/25/22 15:30 DCW [id number]) Out-Patient Physical Therapy Visit Information Visit Information Visit Type Progress Note Visit Start Time 14:30 Visit Stop Time 15:15 Total Visit Minutes 45 Visit Number 16 Number of 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 Notes her most recent fall, five days ago, occurred when she drug her right foot and her slipper got stuck on the floor. Pt notes she is able to pick her foot up, but if I 'm not actually thinking about it, it just drags. 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 Pt was transferred to [facility], where her SDH was found to not be progressing, and pt was sent home. Notes that with her recent falls, she has been using trekking poles when out walking, but after getting out and walking yesterday, she woke up with sore arms. Additionally, pt using SPC for longer community distances, coming in the clinic for her eval using her SPC. Prior Treatments and Tests Pt currently also being seen in OT for hand numbness s/p CVA Treatment Goals Patient/Caregiver Goals Address R leg weakness and decrease falls. PT-OP-C Subjective Start: 11/24/21 14:38 Freq: Status: Active Protocol: Document 01/25/22 14:30 DCW (Rec: 01/25/22 15:30 DCW [id number]) OP-PT Subjective Patient Comments Patient Comments Pt reports that her main remaining deficit is her right foot drop when fatigued and not paying attention. PT-OP-D Balance Start: 11/24/21 14:38 Freq: Status: Active Protocol: Document 01/25/22 14:30 DCW (Rec: 01/25/22 15:15 DCW [id number]) Pan Balance Assessment Evaluation Sitting to Standing Ability Independent w/out Hands Unsupported Stance Safely- 2 minutes Sitting Unsupported, Feet on Floor Safely- 2 minutes Standing to Sitting Ability Safely, Minimal Hand Use Transfer Ability Safely, Minimal Hand Use Unsupported Stance- Eyes Closed Safely, 10 seconds Unsupported Stance- Eyes Open Independent, 1 minute Reaching Forward Standing Confidently, 10 inches Pick- Up Object From Floor Independent/Safe Look Behind Shoulder - Standing Shifts Weight Well Turning 360 Degrees Turns Bilateral, < 4 secs Unsupported Stance, Alternating Feet on (I)- 8 Steps in 20 secs Stair Unsupported Tandem Stance Holds Tandem- 30 seconds Unilateral Leg Stance Lifts Leg/Holds > 3 secs Total Score Pan Total Score (out of 56 points) 53 Pan Impairment Rating 1 to 19% Impaired (Score 45-55 ) PT-OP-E Functional Tests Start: 11/24/21 14:38 Freq: Status: Active Protocol: Document 01/25/22 14:30 DCW (Rec: 01/25/22 15:15 DCW [id number]) Functional Tests Dynamic Gait Index (DGI) Score 20/24 DGI Impairment Rating 1 to <20% Impaired (Score 20- 23) Five Times Sit to Stand Test Score 12.33 Comments no UE support, arms across chest this tx. PT-OP-M Strength Start: 11/24/21 14:38 Freq: Status: Active Protocol: Document 01/25/22 14:30 DCW (Rec: 01/25/22 15:15 DCW [id number]) Hip Strength Hip Manual Muscle Testing Right Flexion (L2) 4+ Good+ Extension (S1) 5 Normal Abduction 4+ Good+ Adduction 4+ Good+ External Rotation 5 Normal Internal Rotation 5 Normal Left Flexion (L2) 4+ Good+ Extension (S1) 5 Normal Abduction 4+ Good+ Adduction 4+ Good+ External Rotation 5 Normal Internal Rotation 5 Normal Knee Strength Knee Manual Muscle Testing Right Flexion (S2) 4+ Good+ Extension (L3) 5 Normal Left Flexion (S2) 5 Normal Extension (L3) 5 Normal Ankle/Foot Strength Ankle and Foot Manual Muscle Testing Right Dorsiflexion (L4) 5 Normal Plantarflexion (S1) 5 Normal Left Dorsiflexion (L4) 5 Normal Plantarflexion (S1) 5 Normal PT-OP-Q Treatments Start: 11/24/21 14:38 Freq: Status: Active Protocol: Document 01/25/22 14:30 DCW (Rec: 01/25/22 15:30 DCW [id number]) Neuro Re-Education Treatment Balance Activities 2 Details Testing Comments Pan, DGI, MMT, 5xStS PT-OP-T Assessment and Plan Start: 11/24/21 14:38 Freq: Status: Active Protocol: Document 01/25/22 14:30 DCW (Rec: 01/25/22 15:30 DCW [id number]) Physical Therapy Assessment Goals Two Impairment Pt presents with an increased falls risk score () on DGI Edm Operator Goal (LTG) Pt to increased her DGI score by at least five points to to show decreased falls risk. 12/28/21: GOAL MET: DGI , see detailed HO scanned in. LTG Duration GOAL MET 12/28/21 One Impairment Pt does not have an appropriate home exercise program Short Term Goal (STG) Pt to be independent and compliant with an appropriate HEP 12/28/21: progressing: band walk, heel/toe raises, walking on [place] approx 1 mile w/ seated rest on bench 1/2 way, STS today in 13 sec. STG Duration 02/11/22 (progressing 12/28/21) Assessment Summary Assessment Pt doing very well overall, Pan and DGI progressed significantly from initial evaluation, Pan 49/56 -> 53/ 56, and DGI 15 -> 24. MMT R=L in nearly all planes with exception of right knee flexion. Pt will likely still benefit from further skilled therapy for a short time to focus mainly on improving ankle strength and activity tolerance to eliminate or minimize right foot drop when fatigued. Physical Therapy Plan Frequency and Duration Frequency of Treatment 2x/Week Duration of Treatment Six weeks Plan of Care Start Date 01/25/22 Plan of Care End Date 03/08/22 Therapeutic Interventions Therapeutic Interventions Aquatic Therapy,Gait Training, Home Exercise Program,Joint Mobilizations,Manual Therapy, Neuromuscular Re-education, Patient/Caregiver Education, Self-Care/Home Management,Soft Tissue Mobilization, Therapeutic Activities, Therapeutic Exercises Modalities Electric Stimulation Next Visit Focus/Plan Next Note Type Treatment Note Next Visit Plan Ankle strengthening, activity tolerance
--- NOTE | 2022-02-02 13:45 | PT.OTN ---
Current Diagnoses Cerebral infarction, unspecified (02/02/22) Repeated falls (02/02/22) Syncope and collapse (02/02/22) Personal history of other specified conditions (02/02/22) Physical Therapy Treatment Note PT-OP-A Visit Information Start: 11/24/21 14:38 Freq: Status: Active Protocol: Document 02/02/22 13:05 SP (Rec: 02/02/22 13:47 SP [id number]) Out-Patient Physical Therapy Visit Information Visit Information Visit Type Treatment Note Visit Start Time 13:05 Visit Stop Time 13:45 Total Visit Minutes 40 Visit Number 17 Number of BUILD ENGINEER Visits 1 Evaluation Information Evaluation Date 11/24/21 PT-OP-B Current Condition Start: 11/24/21 14:38 Freq: Status: Active Protocol: Document 11/24/21 12:00 DCW (Rec: 11/24/21 14:48 DCW [id number]) Current Condition History of Current Condition Onset Date Three months Current Complaints Syncope, falls, CVA History of Current Condition Pt is a 76 year old female presenting with a recent history of repeated falls, TBI , and syncope. 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 Notes her most recent fall, five days ago, occurred when she drug her right foot and her slipper got stuck on the floor. Pt notes she is able to pick her foot up, but if I 'm not actually thinking about it, it just drags. 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 Pt was transferred to [facility], where her SDH was found to not be progressing, and pt was sent home. Notes that with her recent falls, she has been using trekking poles when out walking, but after getting out and walking yesterday, she woke up with sore arms. Additionally, pt using SPC for longer community distances, coming in the clinic for her eval using her SPC. Prior Treatments and Tests Pt currently also being seen in OT for hand numbness s/p CVA Treatment Goals Patient/Caregiver Goals Address R leg weakness and decrease falls. PT-OP-C Subjective Start: 11/24/21 14:38 Freq: Status: Active Protocol: Document 02/02/22 13:05 SP (Rec: 02/02/22 13:47 SP [id number]) OP-PT Subjective Patient Comments Patient Comments Pt reports still balance still not as good. PT-OP-D Balance Start: 11/24/21 14:38 Freq: Status: Active Protocol: Document 01/25/22 14:30 DCW (Rec: 01/25/22 15:15 DCW [id number]) Pan Balance Assessment Evaluation Sitting to Standing Ability Independent w/out Hands Unsupported Stance Safely- 2 minutes Sitting Unsupported, Feet on Floor Safely- 2 minutes Standing to Sitting Ability Safely, Minimal Hand Use Transfer Ability Safely, Minimal Hand Use Unsupported Stance- Eyes Closed Safely, 10 seconds Unsupported Stance- Eyes Open Independent, 1 minute Reaching Forward Standing Confidently, 10 inches Pick- Up Object From Floor Independent/Safe Look Behind Shoulder - Standing Shifts Weight Well Turning 360 Degrees Turns Bilateral, < 4 secs Unsupported Stance, Alternating Feet on (I)- 8 Steps in 20 secs Stair Unsupported Tandem Stance Holds Tandem- 30 seconds Unilateral Leg Stance Lifts Leg/Holds > 3 secs Total Score Pan Total Score (out of 56 points) 53 Pan Impairment Rating 1 to 19% Impaired (Score 45-55 ) PT-OP-E Functional Tests Start: 11/24/21 14:38 Freq: Status: Active Protocol: Document 01/25/22 14:30 DCW (Rec: 01/25/22 15:15 DCW [id number]) Functional Tests Dynamic Gait Index (DGI) Score 20/24 DGI Impairment Rating 1 to <20% Impaired (Score 20- 23) Five Times Sit to Stand Test Score 12.33 Comments no UE support, arms across chest this tx. PT-OP-M Strength Start: 11/24/21 14:38 Freq: Status: Active Protocol: Document 01/25/22 14:30 DCW (Rec: 01/25/22 15:15 DCW [id number]) Hip Strength Hip Manual Muscle Testing Right Flexion (L2) 4+ Good+ Extension (S1) 5 Normal Abduction 4+ Good+ Adduction 4+ Good+ External Rotation 5 Normal Internal Rotation 5 Normal Left Flexion (L2) 4+ Good+ Extension (S1) 5 Normal Abduction 4+ Good+ Adduction 4+ Good+ External Rotation 5 Normal Internal Rotation 5 Normal Knee Strength Knee Manual Muscle Testing Right Flexion (S2) 4+ Good+ Extension (L3) 5 Normal Left Flexion (S2) 5 Normal Extension (L3) 5 Normal Ankle/Foot Strength Ankle and Foot Manual Muscle Testing Right Dorsiflexion (L4) 5 Normal Plantarflexion (S1) 5 Normal Left Dorsiflexion (L4) 5 Normal Plantarflexion (S1) 5 Normal PT-OP-Q Treatments Start: 11/24/21 14:38 Freq: Status: Active Protocol: Document 02/02/22 13:05 SP (Rec: 02/02/22 13:47 SP [id number]) Cardio Equipment Recumbent Elliptical (Biodex) Duration (Minutes) 6 Resistance 3 Seat Position 9 Other UEs as needed, LEs, cued 35- cued 40 RPM Gym Equipment Shuttle Balance Red Details WBOS, Stagger Comments Wt shifting Cg- 25%A EO s Cues for board forward floor and back to floor helped for trunk stability Therapeutic Exercises Standing Exercises band walk Standing Exercise Name fwd, side stepping Side bilateral Resistance GTB Equipment Used rail near safety contact Reps/Minutes 12 ft x2 laps each direction Comments cued feet apart tall posture, eccentric slow trail LE lateral Gait Training Gait Activity stair mgt Description receiprocal gait Device Used cloth mercerizer back tender on rail Level of Assistance CGA Distance/Duration 4 stairs x2 Treatment Focus stability, core/ hip abd fac Comments improved ascend with dynamic gait Description head turns, quick pace, quick step and pivot Device Used 0 Level of Assistance CGA Surface firm 90 BPM metronome Distance/Duration 510' Treatment Focus posture, R foot clearance, balance recovery Comments cued tall posture scap retraction and core fac w/ heel toe, improved RLe foot clearance and centering stability, less trunk sway. Little slower pacing with head turns. Neuro Re-Education Treatment Balance Activities hurdles Details step to and step over step Equipment 6 hurdles, blue/green foam oval cushions Reps/Duration x5 laps Comments improved stability with cushion slower pacing SLS time , LOB x2 R foot caught hurdles , over wt shift rail contact recovery. PT-OP-T Assessment and Plan Start: 11/24/21 14:38 Freq: Status: Active Protocol: Document 02/02/22 13:05 SP (Rec: 02/02/22 13:47 SP [id number]) Physical Therapy Assessment Goals Two Impairment Pt presents with an increased falls risk score (15/24) on DGI Forensic Locksmith Goal (LTG) Pt to increased her DGI score by at least five points to to show decreased falls risk. 12/28/21: GOAL MET: DGI , see detailed HO scanned in. LTG Duration GOAL MET 12/28/21 One Impairment Pt does not have an appropriate home exercise program Short Term Goal (STG) Pt to be independent and compliant with an appropriate HEP 12/28/21: progressing: band walk, heel/toe raises, walking on [place] approx 1 mile w/ seated rest on bench 1/2 way, STS today in 13 sec. STG Duration 02/11/22 (progressing 12/28/21) Assessment Summary Assessment Pt improved hip abd facilitation stability post alfred stepping uneven surface, then gait hip abd fac and foot stride and clearance post cues for upright posture, core and scapular complex musculature engagement demonstrated decreased trunk wt shift laterally. Physical Therapy Plan Frequency and Duration Frequency of Treatment 2x/Week Duration of Treatment Six weeks Plan of Care Start Date 01/25/22 Plan of Care End Date 03/08/22 Therapeutic Interventions Therapeutic Interventions Aquatic Therapy,Gait Training, Home Exercise Program,Joint Mobilizations,Manual Therapy, Neuromuscular Re-education, Patient/Caregiver Education, Self-Care/Home Management,Soft Tissue Mobilization, Therapeutic Activities, Therapeutic Exercises Modalities Electric Stimulation Next Visit Focus/Plan Next Note Type Treatment Note Next Visit Plan Assess 6MWT endurance, continue stride and foot clearance. POC: Ankle strengthening, activity tolerance
--- NOTE | 2022-02-04 15:15 | PT.OTN ---
Current Diagnoses Cerebral infarction, unspecified (02/04/22) Repeated falls (02/04/22) Syncope and collapse (02/04/22) Personal history of other specified conditions (02/04/22) Physical Therapy Treatment Note PT-OP-A Visit Information Start: 11/24/21 14:38 Freq: Status: Active Protocol: Document 02/04/22 14:30 DCW (Rec: 02/04/22 15:15 DCW [id number]) Out-Patient Physical Therapy Visit Information Visit Information Visit Type Treatment Note Visit Start Time 14:30 Visit Stop Time 15:15 Total Visit Minutes 45 Visit Number 18 Number of DIGITAL PROJECT COORDINATOR Visits 0 Evaluation Information Evaluation Date 11/24/21 PT-OP-B Current Condition Start: 11/24/21 14:38 Freq: Status: Active Protocol: Document 11/24/21 12:00 DCW (Rec: 11/24/21 14:48 DCW [id number]) Current Condition History of Current Condition Onset Date Three months Current Complaints Syncope, falls, CVA History of Current Condition Pt is a 76 year old female presenting with a recent history of repeated falls, TBI , and syncope. 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 Notes her most recent fall, five days ago, occurred when she drug her right foot and her slipper got stuck on the floor. Pt notes she is able to pick her foot up, but if I 'm not actually thinking about it, it just drags. 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 Pt was transferred to [facility], where her SDH was found to not be progressing, and pt was sent home. Notes that with her recent falls, she has been using trekking poles when out walking, but after getting out and walking yesterday, she woke up with sore arms. Additionally, pt using SPC for longer community distances, coming in the clinic for her eval using her SPC. Prior Treatments and Tests Pt currently also being seen in OT for hand numbness s/p CVA Treatment Goals Patient/Caregiver Goals Address R leg weakness and decrease falls. PT-OP-C Subjective Start: 11/24/21 14:38 Freq: Status: Active Protocol: Document 02/04/22 14:30 DCW (Rec: 02/04/22 15:15 DCW [id number]) OP-PT Subjective Patient Comments Patient Comments Pt notes she went up to [place] yesterday, had a good time walking around there. PT-OP-D Balance Start: 11/24/21 14:38 Freq: Status: Active Protocol: Document 01/25/22 14:30 DCW (Rec: 01/25/22 15:15 DCW [id number]) Pan Balance Assessment Evaluation Sitting to Standing Ability Independent w/out Hands Unsupported Stance Safely- 2 minutes Sitting Unsupported, Feet on Floor Safely- 2 minutes Standing to Sitting Ability Safely, Minimal Hand Use Transfer Ability Safely, Minimal Hand Use Unsupported Stance- Eyes Closed Safely, 10 seconds Unsupported Stance- Eyes Open Independent, 1 minute Reaching Forward Standing Confidently, 10 inches Pick- Up Object From Floor Independent/Safe Look Behind Shoulder - Standing Shifts Weight Well Turning 360 Degrees Turns Bilateral, < 4 secs Unsupported Stance, Alternating Feet on (I)- 8 Steps in 20 secs Stair Unsupported Tandem Stance Holds Tandem- 30 seconds Unilateral Leg Stance Lifts Leg/Holds > 3 secs Total Score Pan Total Score (out of 56 points) 53 Pan Impairment Rating 1 to 19% Impaired (Score 45-55 ) PT-OP-E Functional Tests Start: 11/24/21 14:38 Freq: Status: Active Protocol: Document 01/25/22 14:30 DCW (Rec: 01/25/22 15:15 DCW [id number]) Functional Tests Dynamic Gait Index (DGI) Score 20/24 DGI Impairment Rating 1 to <20% Impaired (Score 20- 23) Five Times Sit to Stand Test Score 12.33 Comments no UE support, arms across chest this tx. PT-OP-M Strength Start: 11/24/21 14:38 Freq: Status: Active Protocol: Document 01/25/22 14:30 DCW (Rec: 01/25/22 15:15 DCW [id number]) Hip Strength Hip Manual Muscle Testing Right Flexion (L2) 4+ Good+ Extension (S1) 5 Normal Abduction 4+ Good+ Adduction 4+ Good+ External Rotation 5 Normal Internal Rotation 5 Normal Left Flexion (L2) 4+ Good+ Extension (S1) 5 Normal Abduction 4+ Good+ Adduction 4+ Good+ External Rotation 5 Normal Internal Rotation 5 Normal Knee Strength Knee Manual Muscle Testing Right Flexion (S2) 4+ Good+ Extension (L3) 5 Normal Left Flexion (S2) 5 Normal Extension (L3) 5 Normal Ankle/Foot Strength Ankle and Foot Manual Muscle Testing Right Dorsiflexion (L4) 5 Normal Plantarflexion (S1) 5 Normal Left Dorsiflexion (L4) 5 Normal Plantarflexion (S1) 5 Normal PT-OP-Q Treatments Start: 11/24/21 14:38 Freq: Status: Active Protocol: Document 02/04/22 14:30 DCW (Rec: 02/04/22 15:15 DCW [id number]) Cardio Equipment Recumbent Elliptical (Biodex) Duration (Minutes) 5 Resistance 3 Seat Position 8 Other UEs as needed, LEs, cued 40 RPM Gym Equipment Shuttle Recovery Unilateral Squats Resistance 75# Bilateral Squats Resistance 125# Shuttle Balance Red Details WBOS, Stagger Comments Wt shifting Cg- 25%A EO Therapeutic Exercises Standing Exercises band walk Standing Exercise Name fwd, side stepping Side bilateral Resistance GTB Equipment Used // bars Reps/Minutes 10 ft x3 laps each direction Other Exercises 1 Other Exercise Name Hurdles Resistance 4# Comments Forward, Side-stepping Gait Training Gait Activity dynamic gait Description head turns, quick pace Device Used 0 Level of Assistance CGA Surface firm 90 BPM metronome Distance/Duration 510' Treatment Focus posture, R foot clearance, balance recovery Comments repeated verbal cues for head turns PT-OP-T Assessment and Plan Start: 11/24/21 14:38 Freq: Status: Active Protocol: Document 02/04/22 14:30 DCW (Rec: 02/04/22 15:15 DCW [id number]) Physical Therapy Assessment Goals Two Impairment Pt presents with an increased falls risk score () on DGI Assisted Goal (LTG) Pt to increased her DGI score by at least five points to to show decreased falls risk. 12/28/21: GOAL MET: DGI , see detailed HO scanned in. LTG Duration GOAL MET 12/28/21 One Impairment Pt does not have an appropriate home exercise program Short Term Goal (STG) Pt to be independent and compliant with an appropriate HEP 12/28/21: progressing: band walk, heel/toe raises, walking on [place] approx 1 mile w/ seated rest on bench 1/2 way, STS today in 13 sec. STG Duration 02/11/22 (progressing 12/28/21) Assessment Summary Assessment Pt overall appears to be making continued progress, although struggling a bit with hurdles today. Physical Therapy Plan Frequency and Duration Frequency of Treatment 2x/Week Duration of Treatment Six weeks Plan of Care Start Date 01/25/22 Plan of Care End Date 03/08/22 Therapeutic Interventions Therapeutic Interventions Aquatic Therapy,Gait Training, Home Exercise Program,Joint Mobilizations,Manual Therapy, Neuromuscular Re-education, Patient/Caregiver Education, Self-Care/Home Management,Soft Tissue Mobilization, Therapeutic Activities, Therapeutic Exercises Modalities Electric Stimulation Next Visit Focus/Plan Next Note Type Treatment Note Next Visit Plan Ankle strengthening, activity tolerance
--- NOTE | 2022-02-11 15:13 | PT.OTN ---
Current Diagnoses Cerebral infarction, unspecified (02/11/22) Repeated falls (02/11/22) Syncope and collapse (02/11/22) Personal history of other specified conditions (02/11/22) Physical Therapy Treatment Note PT-OP-A Visit Information Start: 11/24/21 14:38 Freq: Status: Active Protocol: Document 02/11/22 14:30 DCW (Rec: 02/11/22 15:13 DCW [id number]) Out-Patient Physical Therapy Visit Information Visit Information Visit Type Treatment Note Visit Start Time 14:30 Visit Stop Time 15:15 Total Visit Minutes 45 Visit Number 19 Number of COMPRESS ENGINEER Visits 0 Evaluation Information Evaluation Date 11/24/21 PT-OP-B Current Condition Start: 11/24/21 14:38 Freq: Status: Active Protocol: Document 11/24/21 12:00 DCW (Rec: 11/24/21 14:48 DCW [id number]) Current Condition History of Current Condition Onset Date Three months Current Complaints Syncope, falls, CVA History of Current Condition Pt is a 76 year old female presenting with a recent history of repeated falls, TBI , and syncope. 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 Notes her most recent fall, five days ago, occurred when she drug her right foot and her slipper got stuck on the floor. Pt notes she is able to pick her foot up, but if I 'm not actually thinking about it, it just drags. 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 Pt was transferred to [facility], where her SDH was found to not be progressing, and pt was sent home. Notes that with her recent falls, she has been using trekking poles when out walking, but after getting out and walking yesterday, she woke up with sore arms. Additionally, pt using SPC for longer community distances, coming in the clinic for her eval using her SPC. Prior Treatments and Tests Pt currently also being seen in OT for hand numbness s/p CVA Treatment Goals Patient/Caregiver Goals Address R leg weakness and decrease falls. PT-OP-C Subjective Start: 11/24/21 14:38 Freq: Status: Active Protocol: Document 02/11/22 14:30 DCW (Rec: 02/11/22 15:13 DCW [id number]) OP-PT Subjective Patient Comments Patient Comments Pt reports she is pretty good today, admits she has gone to a couple of garage sales and noticed she has difficulty walking on grass. PT-OP-D Balance Start: 11/24/21 14:38 Freq: Status: Active Protocol: Document 01/25/22 14:30 DCW (Rec: 01/25/22 15:15 DCW [id number]) Pan Balance Assessment Evaluation Sitting to Standing Ability Independent w/out Hands Unsupported Stance Safely- 2 minutes Sitting Unsupported, Feet on Floor Safely- 2 minutes Standing to Sitting Ability Safely, Minimal Hand Use Transfer Ability Safely, Minimal Hand Use Unsupported Stance- Eyes Closed Safely, 10 seconds Unsupported Stance- Eyes Open Independent, 1 minute Reaching Forward Standing Confidently, 10 inches Pick- Up Object From Floor Independent/Safe Look Behind Shoulder - Standing Shifts Weight Well Turning 360 Degrees Turns Bilateral, < 4 secs Unsupported Stance, Alternating Feet on (I)- 8 Steps in 20 secs Stair Unsupported Tandem Stance Holds Tandem- 30 seconds Unilateral Leg Stance Lifts Leg/Holds > 3 secs Total Score Pan Total Score (out of 56 points) 53 Pan Impairment Rating 1 to 19% Impaired (Score 45-55 ) PT-OP-E Functional Tests Start: 11/24/21 14:38 Freq: Status: Active Protocol: Document 01/25/22 14:30 DCW (Rec: 01/25/22 15:15 DCW [id number]) Functional Tests Dynamic Gait Index (DGI) Score 20/24 DGI Impairment Rating 1 to <20% Impaired (Score 20- 23) Five Times Sit to Stand Test Score 12.33 Comments no UE support, arms across chest this tx. PT-OP-M Strength Start: 11/24/21 14:38 Freq: Status: Active Protocol: Document 01/25/22 14:30 DCW (Rec: 01/25/22 15:15 DCW [id number]) Hip Strength Hip Manual Muscle Testing Right Flexion (L2) 4+ Good+ Extension (S1) 5 Normal Abduction 4+ Good+ Adduction 4+ Good+ External Rotation 5 Normal Internal Rotation 5 Normal Left Flexion (L2) 4+ Good+ Extension (S1) 5 Normal Abduction 4+ Good+ Adduction 4+ Good+ External Rotation 5 Normal Internal Rotation 5 Normal Knee Strength Knee Manual Muscle Testing Right Flexion (S2) 4+ Good+ Extension (L3) 5 Normal Left Flexion (S2) 5 Normal Extension (L3) 5 Normal Ankle/Foot Strength Ankle and Foot Manual Muscle Testing Right Dorsiflexion (L4) 5 Normal Plantarflexion (S1) 5 Normal Left Dorsiflexion (L4) 5 Normal Plantarflexion (S1) 5 Normal PT-OP-Q Treatments Start: 11/24/21 14:38 Freq: Status: Active Protocol: Document 02/11/22 14:30 DCW (Rec: 02/11/22 15:13 DCW [id number]) Cardio Equipment Recumbent Elliptical (Biodex) Duration (Minutes) 5 Resistance 3 Seat Position 8 Other UEs as needed, LEs, cued 40 RPM Gym Equipment Shuttle Recovery Unilateral Squats Resistance 75# Bilateral Squats Resistance 125# Shuttle Balance Red Details WBOS, Stagger Comments Wt shifting Cg- 25%A EO Therapeutic Exercises Standing Exercises band walk Standing Exercise Name fwd, side stepping Side bilateral Resistance GTB Equipment Used // bars Reps/Minutes 10 ft x3 laps each direction Other Exercises 1 Other Exercise Name Hurdles Resistance 4# Comments Forward, Side-stepping Gait Training Gait Activity 1 Description Uneven surface/outdoor ambulation Device Used none PT-OP-T Assessment and Plan Start: 11/24/21 14:38 Freq: Status: Active Protocol: Document 02/11/22 14:30 DCW (Rec: 02/11/22 15:13 DCW [id number]) Physical Therapy Assessment Goals Two Impairment Pt presents with an increased falls risk score (15/24) on DGI Jail Goal (LTG) Pt to increased her DGI score by at least five points to 20/ 24 to show decreased falls risk. 12/28/21: GOAL MET: DGI , see detailed HO scanned in. LTG Duration GOAL MET 12/28/21 One Impairment Pt does not have an appropriate home exercise program Short Term Goal (STG) Pt to be independent and compliant with an appropriate HEP 12/28/21: progressing: band walk, heel/toe raises, walking on [place] approx 1 mile w/ seated rest on bench 1/2 way, STS today in 13 sec. STG Duration 02/11/22 (progressing 12/28/21) Assessment Summary Assessment Pt performed very well with outdoor/uneven surface ambulation, admitted it is usually more of a feeling uncomfortable or decreased confidence that causes her to hold onto her while walking in the grass. Should continue to challenge her in PT to help increase confidence . Physical Therapy Plan Frequency and Duration Frequency of Treatment 2x/Week Duration of Treatment Six weeks Plan of Care Start Date 01/25/22 Plan of Care End Date 03/08/22 Therapeutic Interventions Therapeutic Interventions Aquatic Therapy,Gait Training, Home Exercise Program,Joint Mobilizations,Manual Therapy, Neuromuscular Re-education, Patient/Caregiver Education, Self-Care/Home Management,Soft Tissue Mobilization, Therapeutic Activities, Therapeutic Exercises Modalities Electric Stimulation Next Visit Focus/Plan Next Note Type Treatment Note Next Visit Plan Ankle strengthening, activity tolerance
--- NOTE | 2022-03-14 15:20 | PT.OTN ---
Current Diagnoses Cerebral infarction, unspecified (03/14/22) Repeated falls (03/14/22) Syncope and collapse (03/14/22) Personal history of other specified conditions (03/14/22) Physical Therapy Treatment Note PT-OP-A Visit Information Start: 11/24/21 14:38 Freq: Status: Active Protocol: Document 03/14/22 14:37 NBM (Rec: 03/14/22 17:30 NBM [id number]) Out-Patient Physical Therapy Visit Information Visit Information Visit Type Treatment Note Visit Start Time 14:32 Visit Stop Time 15:15 Total Visit Minutes 43 Visit Number 20 Number of FINGERNAIL TECHNICIAN Visits 1 PT-OP-B Current Condition Start: 11/24/21 14:38 Freq: Status: Active Protocol: Document 11/24/21 12:00 DCW (Rec: 11/24/21 14:48 DCW [id number]) Current Condition History of Current Condition Onset Date Three months Current Complaints Syncope, falls, CVA History of Current Condition Pt is a 76 year old female presenting with a recent history of repeated falls, TBI , and syncope. 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 Notes her most recent fall, five days ago, occurred when she drug her right foot and her slipper got stuck on the floor. Pt notes she is able to pick her foot up, but if I 'm not actually thinking about it, it just drags. 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 Pt was transferred to [facility], where her SDH was found to not be progressing, and pt was sent home. Notes that with her recent falls, she has been using trekking poles when out walking, but after getting out and walking yesterday, she woke up with sore arms. Additionally, pt using SPC for longer community distances, coming in the clinic for her eval using her SPC. Prior Treatments and Tests Pt currently also being seen in OT for hand numbness s/p CVA Treatment Goals Patient/Caregiver Goals Address R leg weakness and decrease falls. PT-OP-C Subjective Start: 11/24/21 14:38 Freq: Status: Active Protocol: Document 03/14/22 14:37 NBM (Rec: 03/14/22 17:30 NBM [id number]) OP-PT Subjective Patient Comments Patient Comments Pt reports she uses trekking poles when walking and walks regularly. She tracks how much she walks each day (steps, distance, etc). No falls to report. She is frustrated that she is not recovering faster and wants to focus on gait today. PT-OP-D Balance Start: 11/24/21 14:38 Freq: Status: Active Protocol: Document 01/25/22 14:30 DCW (Rec: 01/25/22 15:15 DCW [id number]) Pan Balance Assessment Evaluation Sitting to Standing Ability Independent w/out Hands Unsupported Stance Safely- 2 minutes Sitting Unsupported, Feet on Floor Safely- 2 minutes Standing to Sitting Ability Safely, Minimal Hand Use Transfer Ability Safely, Minimal Hand Use Unsupported Stance- Eyes Closed Safely, 10 seconds Unsupported Stance- Eyes Open Independent, 1 minute Reaching Forward Standing Confidently, 10 inches Pick- Up Object From Floor Independent/Safe Look Behind Shoulder - Standing Shifts Weight Well Turning 360 Degrees Turns Bilateral, < 4 secs Unsupported Stance, Alternating Feet on (I)- 8 Steps in 20 secs Stair Unsupported Tandem Stance Holds Tandem- 30 seconds Unilateral Leg Stance Lifts Leg/Holds > 3 secs Total Score Pan Total Score (out of 56 points) 53 Pan Impairment Rating 1 to 19% Impaired (Score 45-55 ) PT-OP-E Functional Tests Start: 11/24/21 14:38 Freq: Status: Active Protocol: Document 01/25/22 14:30 DCW (Rec: 01/25/22 15:15 DCW [id number]) Functional Tests Dynamic Gait Index (DGI) Score 20/24 DGI Impairment Rating 1 to <20% Impaired (Score 20- 23) Five Times Sit to Stand Test Score 12.33 Comments no UE support, arms across chest this tx. PT-OP-M Strength Start: 11/24/21 14:38 Freq: Status: Active Protocol: Document 01/25/22 14:30 DCW (Rec: 01/25/22 15:15 DCW [id number]) Hip Strength Hip Manual Muscle Testing Right Flexion (L2) 4+ Good+ Extension (S1) 5 Normal Abduction 4+ Good+ Adduction 4+ Good+ External Rotation 5 Normal Internal Rotation 5 Normal Left Flexion (L2) 4+ Good+ Extension (S1) 5 Normal Abduction 4+ Good+ Adduction 4+ Good+ External Rotation 5 Normal Internal Rotation 5 Normal Knee Strength Knee Manual Muscle Testing Right Flexion (S2) 4+ Good+ Extension (L3) 5 Normal Left Flexion (S2) 5 Normal Extension (L3) 5 Normal Ankle/Foot Strength Ankle and Foot Manual Muscle Testing Right Dorsiflexion (L4) 5 Normal Plantarflexion (S1) 5 Normal Left Dorsiflexion (L4) 5 Normal Plantarflexion (S1) 5 Normal PT-OP-Q Treatments Start: 11/24/21 14:38 Freq: Status: Active Protocol: Document 03/14/22 14:37 NB (Rec: 03/14/22 17:30 [facility] [id number]) Cardio Equipment Recumbent Elliptical ([facility]) Duration (Minutes) 5 Resistance 3 Seat Position 8 Other UEs as needed, LEs, cued 40 RPM Therapeutic Exercises Sitting Exercises 1 Sitting Exercise Name 4-way ankle w/ resistance Side right Resistance Lv 3 Reps/Minutes x10 ea Comments added to HEP Other Exercises 1 Other Exercise Name Hurdles Comments Forward, focus on foot clearance R>L Gait Training Gait Activity 1 Description Uneven surface/outdoor ambulation Device Used Jose De [employer] trekking poles Treatment Focus foot clearance, sequencing, hip flexion, upright posture Comments Pt prefers trekking poles to be tall but trialed adjusted to height of greater trochanter to improve reciprocal motion - will bring own trekking poles next visit . Posture and reciprocal motion improved w/ decreased height Self-Care/Home Management Treatment Education Patient Education Home Exercise Program,Posture, Safety Other Education 4-way ankle strengthening added to HEP- HO given. Pt prefers taller trekking poles for ambulation - trialed poles adjusted to height of greater trochanter to improve reciprocal motion and posture - pt will bring own trekking poles next visit. PT-OP-T Assessment and Plan Start: 11/24/21 14:38 Freq: Status: Active Protocol: Document 03/14/22 14:37 NB (Rec: 03/14/22 17:30 [facility] [id number]) Physical Therapy Assessment Goals Two Impairment Pt presents with an increased falls risk score (15/24) on DGI Long-Term Goal (LTG) Pt to increased her DGI score by at least five points to 20/ 24 to show decreased falls risk. 12/28/21: GOAL MET: DGI , see detailed HO scanned in. LTG Duration GOAL MET 12/28/21 One Impairment Pt does not have an appropriate home exercise program Short Term Goal (STG) Pt to be independent and compliant with an appropriate HEP 12/28/21: progressing: band walk, heel/toe raises, walking on [place] approx 1 mile w/ seated rest on bench 1/2 way, STS today in 13 sec. STG Duration 02/11/22 (progressing 12/28/21) Assessment Summary Assessment Enedina performed ambulation w/ trekking poles outdoor SBA to CGA with no loss of balance over outdoor/uneven surface. Pt demonstrates comfort w/ high trekking poles but upright posture and reciprocal motion improves when pole height is decreased. Pt will bring home trekking poles next visit. Pt requires occasional cueing for R hip/knee flexion amplitude to improve R foot clearance. Physical Therapy Plan Next Visit Focus/Plan Next Note Type Treatment Note Next Visit Plan Assess gait w/ pt's trekking poles on outdoor/uneven surface. Progress POC. POC: Ankle strengthening, activity tolerance
--- NOTE | 2022-03-17 16:10 | PT-OP ANOTE ---
Pt appt with CHAIRLIFT OPERATOR cancelled due to POC 03/08/22, pt elected when schedulers called can wait until Monday to see primary PT for PN/ update POC.
--- NOTE | 2022-03-21 17:34 | PT.OTN ---
Addendum entered and electronically signed by Elvis Erickson, PT 09/21/23 12:34: Requires signature for prior POC Original Note: Current Diagnoses Cerebral infarction, unspecified (03/21/22) Repeated falls (03/21/22) Syncope and collapse (03/21/22) Personal history of other specified conditions (03/21/22) Physical Therapy Treatment Note PT-OP-A Visit Information Start: 11/24/21 14:38 Freq: Status: Active Protocol: Document 03/21/22 16:45 DCW (Rec: 03/21/22 17:34 DCW [id number]) Out-Patient Physical Therapy Visit Information Visit Information Visit Type Progress Note Visit Start Time 16:45 Visit Stop Time 17:30 Total Visit Minutes 45 Visit Number 21 Number of CERTIFIED PROSTHETIST/ORTHOTIST Visits 0 Evaluation Information Evaluation Date 11/24/21 PT-OP-B Current Condition Start: 11/24/21 14:38 Freq: Status: Active Protocol: Document 11/24/21 12:00 DCW (Rec: 11/24/21 14:48 DCW [id number]) Current Condition History of Current Condition Onset Date Three months Current Complaints Syncope, falls, CVA History of Current Condition Pt is a 76 year old female presenting with a recent history of repeated falls, TBI , and syncope. 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 Notes her most recent fall, five days ago, occurred when she drug her right foot and her slipper got stuck on the floor. Pt notes she is able to pick her foot up, but if I 'm not actually thinking about it, it just drags. 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 Pt was transferred to [facility], where her SDH was found to not be progressing, and pt was sent home. Notes that with her recent falls, she has been using trekking poles when out walking, but after getting out and walking yesterday, she woke up with sore arms. Additionally, pt using SPC for longer community distances, coming in the clinic for her eval using her SPC. Prior Treatments and Tests Pt currently also being seen in OT for hand numbness s/p CVA Treatment Goals Patient/Caregiver Goals Address R leg weakness and decrease falls. PT-OP-C Subjective Start: 11/24/21 14:38 Freq: Status: Active Protocol: Document 03/21/22 16:45 DCW (Rec: 03/21/22 17:34 DCW [id number]) OP-PT Subjective Patient Comments Patient Comments Pt concerned that her thighs still feel weak. PT-OP-D Balance Start: 11/24/21 14:38 Freq: Status: Active Protocol: Document 01/25/22 14:30 DCW (Rec: 01/25/22 15:15 DCW [id number]) Pan Balance Assessment Evaluation Sitting to Standing Ability Independent w/out Hands Unsupported Stance Safely- 2 minutes Sitting Unsupported, Feet on Floor Safely- 2 minutes Standing to Sitting Ability Safely, Minimal Hand Use Transfer Ability Safely, Minimal Hand Use Unsupported Stance- Eyes Closed Safely, 10 seconds Unsupported Stance- Eyes Open Independent, 1 minute Reaching Forward Standing Confidently, 10 inches Pick- Up Object From Floor Independent/Safe Look Behind Shoulder - Standing Shifts Weight Well Turning 360 Degrees Turns Bilateral, < 4 secs Unsupported Stance, Alternating Feet on (I)- 8 Steps in 20 secs Stair Unsupported Tandem Stance Holds Tandem- 30 seconds Unilateral Leg Stance Lifts Leg/Holds > 3 secs Total Score Pan Total Score (out of 56 points) 53 Pan Impairment Rating 1 to 19% Impaired (Score 45-55 ) PT-OP-E Functional Tests Start: 11/24/21 14:38 Freq: Status: Active Protocol: Document 03/21/22 16:45 DCW (Rec: 03/21/22 17:07 DCW [id number]) Functional Tests Dynamic Gait Index (DGI) Score 23/24 DGI Impairment Rating 1 to <20% Impaired (Score 20- 23) Five Times Sit to Stand Test Score 10.7 Comments no UE support Timed Up and Go (TUG) Score 8.22 Comments 3-trial average (8.62, 8.18, 7.86 TUG Impairment Rating 0% Impaired (Score 10) PT-OP-G Mobility & Gait Start: 03/21/22 17:07 Freq: Status: Active Protocol: Document 03/21/22 16:45 DCW (Rec: 03/21/22 17:26 DCW [id number]) OP Gait Assessment Gait Gait Assistance Required: Independent Distance (Feet) 1,800 Assistive Devices Assistive Device None Gait Deviations General Gait Pattern Decreased Feet Clearance Comments Gait Comments Ambulated around entire exterior of hospital. Pt scuffed right foot on pavement with ~30% of swing phase. Otherwise gait pattern unremarkable. PT-OP-M Strength Start: 11/24/21 14:38 Freq: Status: Active Protocol: Document 03/21/22 16:45 DCW (Rec: 03/21/22 17:07 DCW [id number]) Hip Strength Hip Manual Muscle Testing Right Flexion (L2) 4+ Good+ Extension (S1) 5 Normal Abduction 5 Normal Adduction 5 Normal External Rotation 5 Normal Internal Rotation 5 Normal Left Flexion (L2) 4+ Good+ Extension (S1) 5 Normal Abduction 5 Normal Adduction 5 Normal External Rotation 5 Normal Internal Rotation 5 Normal Knee Strength Knee Manual Muscle Testing Right Flexion (S2) 4+ Good+ Extension (L3) 5 Normal Left Flexion (S2) 5 Normal Extension (L3) 5 Normal Ankle/Foot Strength Ankle and Foot Manual Muscle Testing Right Dorsiflexion (L4) 5 Normal Plantarflexion (S1) 5 Normal Left Dorsiflexion (L4) 5 Normal Plantarflexion (S1) 5 Normal PT-OP-Q Treatments Start: 11/24/21 14:38 Freq: Status: Active Protocol: Document 03/21/22 16:45 DCW (Rec: 03/21/22 17:34 DCW [id number]) Gait Training Gait Activity 1 Description Uneven surface/outdoor ambulation Device Used None Treatment Focus foot clearance Comments Ambulation around exterior of hospital building Neuro Re-Education Treatment Other Activities Testing Details DGI, TUG, 5xStS PT-OP-T Assessment and Plan Start: 11/24/21 14:38 Freq: Status: Active Protocol: Document 03/21/22 16:45 DCW (Rec: 03/21/22 17:34 DCW [id number]) Physical Therapy Assessment Impairments Impairments Activity Tolerance,Balance, Functional Activities, Functional Mobility,Gait, Strength Goals Two Impairment Pt presents with an increased falls risk score (15/24) on DGI Detention Goal (LTG) Pt to increased her DGI score by at least five points to 20/ 24 to show decreased falls risk. 12/28/21: GOAL MET: DGI , see detailed HO scanned in. LTG Duration GOAL MET 12/28/21 One Impairment Pt does not have an appropriate home exercise program Short Term Goal (STG) Pt to be independent and compliant with an appropriate HEP 12/28/21: progressing: band walk, heel/toe raises, walking on [place] approx 1 mile w/ seated rest on bench 1/[address] way, STS today in 13 sec. STG Duration 04/02/22 - progressing Assessment Summary Assessment Pt doing very well overall, nearing completion of all goals. Improving MMT and gait, although still catching right foot during swing phase ~30% of the time. Pt will likely benefit from transition to independent HEP over the next 2 weeks. Physical Therapy Plan Frequency and Duration Frequency of Treatment 2x/Week Duration of Treatment 2 weeks Plan of Care Start Date 03/21/22 Plan of Care End Date 04/04/22 Therapeutic Interventions Therapeutic Interventions Aquatic Therapy,Gait Training, Home Exercise Program,Joint Mobilizations,Manual Therapy, Neuromuscular Re-education, Patient/Caregiver Education, Self-Care/Home Management,Soft Tissue Mobilization, Therapeutic Activities, Therapeutic Exercises Modalities Electric Stimulation Next Visit Focus/Plan Next Note Type Treatment Note Next Visit Plan Work on comprehensive HEP to review next visit
--- NOTE | 2022-03-25 09:49 | PT.OTN ---
Current Diagnoses Cerebral infarction, unspecified (03/21/22) Repeated falls (03/21/22) Syncope and collapse (03/21/22) Personal history of other specified conditions (03/21/22) Physical Therapy Treatment Note PT-OP-A Visit Information Start: 11/24/21 14:38 Freq: Status: Active Protocol: Document 03/21/22 16:45 DCW (Rec: 03/21/22 17:34 DCW [id number]) Out-Patient Physical Therapy Visit Information Visit Information Visit Type Progress Note Visit Start Time 16:45 Visit Stop Time 17:30 Total Visit Minutes 45 Visit Number 21 Number of GROUT MACHINE OPERATOR Visits 0 Evaluation Information Evaluation Date 11/24/21 PT-OP-B Current Condition Start: 11/24/21 14:38 Freq: Status: Active Protocol: Document 11/24/21 12:00 DCW (Rec: 11/24/21 14:48 DCW [id number]) Current Condition History of Current Condition Onset Date Three months Current Complaints Syncope, falls, CVA History of Current Condition Pt is a 76 year old female presenting with a recent history of repeated falls, TBI , and syncope. 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 Notes her most recent fall, five days ago, occurred when she drug her right foot and her slipper got stuck on the floor. Pt notes she is able to pick her foot up, but if I 'm not actually thinking about it, it just drags. 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 Pt was transferred to [facility], where her SDH was found to not be progressing, and pt was sent home. Notes that with her recent falls, she has been using trekking poles when out walking, but after getting out and walking yesterday, she woke up with sore arms. Additionally, pt using SPC for longer community distances, coming in the clinic for her eval using her SPC. Prior Treatments and Tests Pt currently also being seen in OT for hand numbness s/p CVA Treatment Goals Patient/Caregiver Goals Address R leg weakness and decrease falls. PT-OP-C Subjective Start: 11/24/21 14:38 Freq: Status: Active Protocol: Document 03/21/22 16:45 DCW (Rec: 03/21/22 17:34 DCW [id number]) OP-PT Subjective Patient Comments Patient Comments Pt concerned that her thighs still feel weak. PT-OP-D Balance Start: 11/24/21 14:38 Freq: Status: Active Protocol: Document 01/25/22 14:30 DCW (Rec: 01/25/22 15:15 DCW [id number]) Pan Balance Assessment Evaluation Sitting to Standing Ability Independent w/out Hands Unsupported Stance Safely- 2 minutes Sitting Unsupported, Feet on Floor Safely- 2 minutes Standing to Sitting Ability Safely, Minimal Hand Use Transfer Ability Safely, Minimal Hand Use Unsupported Stance- Eyes Closed Safely, 10 seconds Unsupported Stance- Eyes Open Independent, 1 minute Reaching Forward Standing Confidently, 10 inches Pick- Up Object From Floor Independent/Safe Look Behind Shoulder - Standing Shifts Weight Well Turning 360 Degrees Turns Bilateral, < 4 secs Unsupported Stance, Alternating Feet on (I)- 8 Steps in 20 secs Stair Unsupported Tandem Stance Holds Tandem- 30 seconds Unilateral Leg Stance Lifts Leg/Holds > 3 secs Total Score Pan Total Score (out of 56 points) 53 Pan Impairment Rating 1 to 19% Impaired (Score 45-55 ) PT-OP-E Functional Tests Start: 11/24/21 14:38 Freq: Status: Active Protocol: Document 03/21/22 16:45 DCW (Rec: 03/21/22 17:07 DCW [id number]) Functional Tests Dynamic Gait Index (DGI) Score 23/24 DGI Impairment Rating 1 to <20% Impaired (Score 20- 23) Five Times Sit to Stand Test Score 10.7 Comments no UE support Timed Up and Go (TUG) Score 8.22 Comments 3-trial average (8.62, 8.18, 7.86 TUG Impairment Rating 0% Impaired (Score 10) PT-OP-G Mobility & Gait Start: 03/21/22 17:07 Freq: Status: Active Protocol: Document 03/21/22 16:45 DCW (Rec: 03/21/22 17:26 DCW [id number]) OP Gait Assessment Gait Gait Assistance Required: Independent Distance (Feet) 1,800 Assistive Devices Assistive Device None Gait Deviations General Gait Pattern Decreased Feet Clearance Comments Gait Comments Ambulated around entire exterior of hospital. Pt scuffed right foot on pavement with ~30% of swing phase. Otherwise gait pattern unremarkable. PT-OP-M Strength Start: 11/24/21 14:38 Freq: Status: Active Protocol: Document 03/21/22 16:45 DCW (Rec: 03/21/22 17:07 DCW [id number]) Hip Strength Hip Manual Muscle Testing Right Flexion (L2) 4+ Good+ Extension (S1) 5 Normal Abduction 5 Normal Adduction 5 Normal External Rotation 5 Normal Internal Rotation 5 Normal Left Flexion (L2) 4+ Good+ Extension (S1) 5 Normal Abduction 5 Normal Adduction 5 Normal External Rotation 5 Normal Internal Rotation 5 Normal Knee Strength Knee Manual Muscle Testing Right Flexion (S2) 4+ Good+ Extension (L3) 5 Normal Left Flexion (S2) 5 Normal Extension (L3) 5 Normal Ankle/Foot Strength Ankle and Foot Manual Muscle Testing Right Dorsiflexion (L4) 5 Normal Plantarflexion (S1) 5 Normal Left Dorsiflexion (L4) 5 Normal Plantarflexion (S1) 5 Normal PT-OP-Q Treatments Start: 11/24/21 14:38 Freq: Status: Active Protocol: Document 03/21/22 16:45 DCW (Rec: 03/21/22 17:34 DC [id number]) Gait Training Gait Activity 1 Description Uneven surface/outdoor ambulation Device Used None Treatment Focus foot clearance Comments Ambulation around exterior of hospital building Neuro Re-Education Treatment Other Activities Testing Details DGI, TUG, 5xStS PT-OP-T Assessment and Plan Start: 11/24/21 14:38 Freq: Status: Active Protocol: Document 03/21/22 16:45 DCW (Rec: 03/21/22 17:34 DC [id number]) Physical Therapy Assessment Impairments Impairments Activity Tolerance,Balance, Functional Activities, Functional Mobility,Gait, Strength Goals Two Impairment Pt presents with an increased falls risk score (15/24) on DGI Skilled Nursing Goal (LTG) Pt to increased her DGI score by at least five points to 20/ 24 to show decreased falls risk. 12/28/21: GOAL MET: DGI , see detailed HO scanned in. LTG Duration GOAL MET 12/28/21 One Impairment Pt does not have an appropriate home exercise program Short Term Goal (STG) Pt to be independent and compliant with an appropriate HEP 12/28/21: progressing: band walk, heel/toe raises, walking on [place] approx 1 mile w/ seated rest on bench 1/2 way, STS today in 13 sec. STG Duration 04/02/22 - progressing Assessment Summary Assessment Pt doing very well overall, nearing completion of all goals. Improving MMT and gait, although still catching right foot during swing phase ~30% of the time. Pt will likely benefit from transition to independent HEP over the next 2 weeks. Physical Therapy Plan Frequency and Duration Frequency of Treatment 2x/Week Duration of Treatment 2 weeks Plan of Care Start Date 03/21/22 Plan of Care End Date 04/04/22 Therapeutic Interventions Therapeutic Interventions Aquatic Therapy,Gait Training, Home Exercise Program,Joint Mobilizations,Manual Therapy, Neuromuscular Re-education, Patient/Caregiver Education, Self-Care/Home Management,Soft Tissue Mobilization, Therapeutic Activities, Therapeutic Exercises Modalities Electric Stimulation Next Visit Focus/Plan Next Note Type Treatment Note Next Visit Plan Work on comprehensive HEP to review next visit
--- NOTE | 2022-03-25 15:01 | PT.OTN ---
Current Diagnoses Cerebral infarction, unspecified (03/25/22) Repeated falls (03/25/22) Syncope and collapse (03/25/22) Personal history of other specified conditions (03/25/22) Physical Therapy Treatment Note PT-OP-A Visit Information Start: 11/24/21 14:38 Freq: Status: Active Protocol: Document 03/25/22 14:30 DCW (Rec: 03/25/22 15:01 DCW [id number]) Out-Patient Physical Therapy Visit Information Visit Information Visit Type Treatment Note Visit Start Time 14:30 Visit Stop Time 15:00 Total Visit Minutes 30 Visit Number 22 Number of BICYCLE REPAIRMAN Visits 0 Evaluation Information Evaluation Date 11/24/21 PT-OP-B Current Condition Start: 11/24/21 14:38 Freq: Status: Active Protocol: Document 11/24/21 12:00 DCW (Rec: 11/24/21 14:48 DCW [id number]) Current Condition History of Current Condition Onset Date Three months Current Complaints Syncope, falls, CVA History of Current Condition Pt is a 76 year old female presenting with a recent history of repeated falls, TBI , and syncope. 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 Notes her most recent fall, five days ago, occurred when she drug her right foot and her slipper got stuck on the floor. Pt notes she is able to pick her foot up, but if I 'm not actually thinking about it, it just drags. 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 Pt was transferred to [facility], where her SDH was found to not be progressing, and pt was sent home. Notes that with her recent falls, she has been using trekking poles when out walking, but after getting out and walking yesterday, she woke up with sore arms. Additionally, pt using SPC for longer community distances, coming in the clinic for her eval using her SPC. Prior Treatments and Tests Pt currently also being seen in OT for hand numbness s/p CVA Treatment Goals Patient/Caregiver Goals Address R leg weakness and decrease falls. PT-OP-C Subjective Start: 11/24/21 14:38 Freq: Status: Active Protocol: Document 03/25/22 14:30 DCW (Rec: 03/25/22 15:01 DCW [id number]) OP-PT Subjective Patient Comments Patient Comments Pt feeling pretty good today . PT-OP-D Balance Start: 11/24/21 14:38 Freq: Status: Active Protocol: Document 01/25/22 14:30 DCW (Rec: 01/25/22 15:15 DCW [id number]) Pan Balance Assessment Evaluation Sitting to Standing Ability Independent w/out Hands Unsupported Stance Safely- 2 minutes Sitting Unsupported, Feet on Floor Safely- 2 minutes Standing to Sitting Ability Safely, Minimal Hand Use Transfer Ability Safely, Minimal Hand Use Unsupported Stance- Eyes Closed Safely, 10 seconds Unsupported Stance- Eyes Open Independent, 1 minute Reaching Forward Standing Confidently, 10 inches Pick- Up Object From Floor Independent/Safe Look Behind Shoulder - Standing Shifts Weight Well Turning 360 Degrees Turns Bilateral, < 4 secs Unsupported Stance, Alternating Feet on (I)- 8 Steps in 20 secs Stair Unsupported Tandem Stance Holds Tandem- 30 seconds Unilateral Leg Stance Lifts Leg/Holds > 3 secs Total Score Pan Total Score (out of 56 points) 53 Pan Impairment Rating 1 to 19% Impaired (Score 45-55 ) PT-OP-E Functional Tests Start: 11/24/21 14:38 Freq: Status: Active Protocol: Document 03/21/22 16:45 DCW (Rec: 03/21/22 17:07 [facility] [id number]) Functional Tests Dynamic Gait Index (DGI) Score 23/24 DGI Impairment Rating 1 to <20% Impaired (Score 20- 23) Five Times Sit to Stand Test Score 10.7 Comments no UE support Timed Up and Go (TUG) Score 8.22 Comments 3-trial average (8.62, 8.18, 7.86 TUG Impairment Rating 0% Impaired (Score 10) PT-OP-G Mobility & Gait Start: 03/21/22 17:07 Freq: Status: Active Protocol: Document 03/21/22 16:45 DCW (Rec: 03/21/22 17:26 DCW [id number]) OP Gait Assessment Gait Gait Assistance Required: Independent Distance (Feet) 1,800 Assistive Devices Assistive Device None Gait Deviations General Gait Pattern Decreased Feet Clearance Comments Gait Comments Ambulated around entire exterior of hospital. Pt scuffed right foot on pavement with ~30% of swing phase. Otherwise gait pattern unremarkable. PT-OP-M Strength Start: 11/24/21 14:38 Freq: Status: Active Protocol: Document 03/21/22 16:45 DCW (Rec: 03/21/22 17:07 DCW [id number]) Hip Strength Hip Manual Muscle Testing Right Flexion (L2) 4+ Good+ Extension (S1) 5 Normal Abduction 5 Normal Adduction 5 Normal External Rotation 5 Normal Internal Rotation 5 Normal Left Flexion (L2) 4+ Good+ Extension (S1) 5 Normal Abduction 5 Normal Adduction 5 Normal External Rotation 5 Normal Internal Rotation 5 Normal Knee Strength Knee Manual Muscle Testing Right Flexion (S2) 4+ Good+ Extension (L3) 5 Normal Left Flexion (S2) 5 Normal Extension (L3) 5 Normal Ankle/Foot Strength Ankle and Foot Manual Muscle Testing Right Dorsiflexion (L4) 5 Normal Plantarflexion (S1) 5 Normal Left Dorsiflexion (L4) 5 Normal Plantarflexion (S1) 5 Normal PT-OP-Q Treatments Start: 11/24/21 14:38 Freq: Status: Active Protocol: Document 03/25/22 14:30 DCW (Rec: 03/25/22 15:01 DCW [id number]) Therapeutic Exercises Sidelying Exercises Reverse Clamshell Sidelying Exercise Name Reverse Clamshell Side bilateral Resistance Lv 3 Reps/Minutes x15 Clamshell Sidelying Exercise Name Clamshell Side bilateral Resistance Lv 3 Reps/Minutes x15 Sitting Exercises Marching Sitting Exercise Name Seated Marching Side bilateral Resistance Lv 3 Reps/Minutes x20 STS Sitting Exercise Name Sit to Stand Resistance hands front Equipment Used mesh chair Standing Exercises Hip Flexion Standing Exercise Name Flexion Side bilateral Resistance Lv 3 Reps/Minutes x15 Hip Extension Standing Exercise Name Extension Side bilateral Resistance Lv 3 Reps/Minutes x15 Hip Abduction Standing Exercise Name Abduction Side bilateral Resistance Lv 3 Reps/Minutes x15 band walk Standing Exercise Name fwd, side stepping Side bilateral Resistance GTB Equipment Used // bars Reps/Minutes 10 ft x3 laps each direction 1 Standing Exercise Name Step-ups Side bilateral Equipment Used 6 step Reps/Minutes x10 PT-OP-T Assessment and Plan Start: 11/24/21 14:38 Freq: Status: Active Protocol: Document 03/25/22 14:30 DCW (Rec: 03/25/22 15:01 [facility] [id number]) Physical Therapy Assessment Impairments Impairments Activity Tolerance,Balance, Functional Activities, Functional Mobility,Gait, Strength Goals Two Impairment Pt presents with an increased falls risk score () on DGI Longterm Goal (LTG) Pt to increased her DGI score by at least five points to to show decreased falls risk. 12/28/21: GOAL MET: DGI , see detailed HO scanned in. LTG Duration GOAL MET 12/28/21 One Impairment Pt does not have an appropriate home exercise program Short Term Goal (STG) Pt to be independent and compliant with an appropriate HEP 12/28/21: progressing: band walk, heel/toe raises, walking on [place] approx 1 mile w/ seated rest on bench 1/2 way, STS today in 13 sec. STG Duration 04/02/22 - progressing Assessment Summary Assessment Pt tolerated new HEP well, demonstrated good understanding, able to perform all activities with only mild instruction. Continue to work toward discharge to independent HEP. Physical Therapy Plan Frequency and Duration Frequency of Treatment 2x/Week Duration of Treatment 2 weeks Plan of Care Start Date 03/21/22 Plan of Care End Date 04/04/22 Therapeutic Interventions Therapeutic Interventions Aquatic Therapy,Gait Training, Home Exercise Program,Joint Mobilizations,Manual Therapy, Neuromuscular Re-education, Patient/Caregiver Education, Self-Care/Home Management,Soft Tissue Mobilization, Therapeutic Activities, Therapeutic Exercises Modalities Electric Stimulation Next Visit Focus/Plan Next Note Type Treatment Note Next Visit Plan Review HEP next visit
--- NOTE | 2022-03-28 18:09 | PT.OTN ---
Current Diagnoses Cerebral infarction, unspecified (03/28/22) Repeated falls (03/28/22) Syncope and collapse (03/28/22) Personal history of other specified conditions (03/28/22) Physical Therapy Treatment Note PT-OP-A Visit Information Start: 11/24/21 14:38 Freq: Status: Active Protocol: Document 03/28/22 14:47 NBM (Rec: 03/28/22 15:17 NBM [id number]) Out-Patient Physical Therapy Visit Information Visit Information Visit Type Treatment Note Visit Start Time 14:35 Visit Stop Time 15:17 Total Visit Minutes 42 Visit Number 23 Number of TECHNICAL INSPECTOR Visits 1 PT-OP-B Current Condition Start: 11/24/21 14:38 Freq: Status: Active Protocol: Document 11/24/21 12:00 DCW (Rec: 11/24/21 14:48 DCW [id number]) Current Condition History of Current Condition Onset Date Three months Current Complaints Syncope, falls, CVA History of Current Condition Pt is a 76 year old female presenting with a recent history of repeated falls, TBI , and syncope. 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 Notes her most recent fall, five days ago, occurred when she drug her right foot and her slipper got stuck on the floor. Pt notes she is able to pick her foot up, but if I 'm not actually thinking about it, it just drags. 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 Pt was transferred to [facility], where her SDH was found to not be progressing, and pt was sent home. Notes that with her recent falls, she has been using trekking poles when out walking, but after getting out and walking yesterday, she woke up with sore arms. Additionally, pt using SPC for longer community distances, coming in the clinic for her eval using her SPC. Prior Treatments and Tests Pt currently also being seen in OT for hand numbness s/p CVA Treatment Goals Patient/Caregiver Goals Address R leg weakness and decrease falls. PT-OP-C Subjective Start: 11/24/21 14:38 Freq: Status: Active Protocol: Document 03/28/22 14:47 NBM (Rec: 03/28/22 17:41 NBM [id number]) OP-PT Subjective Patient Comments Patient Comments Pt reports she has been walking and doing exercises regularly. PT-OP-D Balance Start: 11/24/21 14:38 Freq: Status: Active Protocol: Document 01/25/22 14:30 DCW (Rec: 01/25/22 15:15 DCW [id number]) Pan Balance Assessment Evaluation Sitting to Standing Ability Independent w/out Hands Unsupported Stance Safely- 2 minutes Sitting Unsupported, Feet on Floor Safely- 2 minutes Standing to Sitting Ability Safely, Minimal Hand Use Transfer Ability Safely, Minimal Hand Use Unsupported Stance- Eyes Closed Safely, 10 seconds Unsupported Stance- Eyes Open Independent, 1 minute Reaching Forward Standing Confidently, 10 inches Pick- Up Object From Floor Independent/Safe Look Behind Shoulder - Standing Shifts Weight Well Turning 360 Degrees Turns Bilateral, < 4 secs Unsupported Stance, Alternating Feet on (I)- 8 Steps in 20 secs Stair Unsupported Tandem Stance Holds Tandem- 30 seconds Unilateral Leg Stance Lifts Leg/Holds > 3 secs Total Score Pan Total Score (out of 56 points) 53 Pan Impairment Rating 1 to 19% Impaired (Score 45-55 ) PT-OP-E Functional Tests Start: 11/24/21 14:38 Freq: Status: Active Protocol: Document 03/21/22 16:45 DCW (Rec: 03/21/22 17:07 DCW [id number]) Functional Tests Dynamic Gait Index (DGI) Score 23/24 DGI Impairment Rating 1 to <20% Impaired (Score 20- 23) Five Times Sit to Stand Test Score 10.7 Comments no UE support Timed Up and Go (TUG) Score 8.22 Comments 3-trial average (8.62, 8.18, 7.86 TUG Impairment Rating 0% Impaired (Score 10) PT-OP-G Mobility & Gait Start: 03/21/22 17:07 Freq: Status: Active Protocol: Document 03/21/22 16:45 DCW (Rec: 03/21/22 17:26 DCW [id number]) OP Gait Assessment Gait Gait Assistance Required: Independent Distance (Feet) 1,800 Assistive Devices Assistive Device None Gait Deviations General Gait Pattern Decreased Feet Clearance Comments Gait Comments Ambulated around entire exterior of hospital. Pt scuffed right foot on pavement with ~30% of swing phase. Otherwise gait pattern unremarkable. PT-OP-M Strength Start: 11/24/21 14:38 Freq: Status: Active Protocol: Document 03/21/22 16:45 DCW (Rec: 03/21/22 17:07 DCW [id number]) Hip Strength Hip Manual Muscle Testing Right Flexion (L2) 4+ Good+ Extension (S1) 5 Normal Abduction 5 Normal Adduction 5 Normal External Rotation 5 Normal Internal Rotation 5 Normal Left Flexion (L2) 4+ Good+ Extension (S1) 5 Normal Abduction 5 Normal Adduction 5 Normal External Rotation 5 Normal Internal Rotation 5 Normal Knee Strength Knee Manual Muscle Testing Right Flexion (S2) 4+ Good+ Extension (L3) 5 Normal Left Flexion (S2) 5 Normal Extension (L3) 5 Normal Ankle/Foot Strength Ankle and Foot Manual Muscle Testing Right Dorsiflexion (L4) 5 Normal Plantarflexion (S1) 5 Normal Left Dorsiflexion (L4) 5 Normal Plantarflexion (S1) 5 Normal PT-OP-Q Treatments Start: 11/24/21 14:38 Freq: Status: Active Protocol: Document 03/28/22 14:47 NBM (Rec: 03/28/22 15:17 NBM [id number]) Therapeutic Exercises Sidelying Exercises Reverse Clamshell Sidelying Exercise Name Reverse Clamshell Side bilateral Resistance Lv 3 Reps/Minutes x15 Clamshell Sidelying Exercise Name Clamshell Side bilateral Resistance Lv 3 Reps/Minutes x15 Sitting Exercises Marching Sitting Exercise Name Seated Marching Side bilateral Resistance Lv 3 Reps/Minutes x20 Comments cues for no L hip ER, hip flexion only STS Sitting Exercise Name Sit to Stand Resistance hands front Equipment Used mesh chair Reps/Minutes x10 no UE support, x5 w/ UE support (per OT) Comments cues for knee alignment 1 Sitting Exercise Name 4-way ankle w/ resistance Side right Resistance Lv 3 Reps/Minutes x10 ea Standing Exercises band walk Standing Exercise Name fwd, bwd, side stepping Side bilateral Resistance Lvl 3 Tb Equipment Used // bars Reps/Minutes 10 ft x2 laps each direction Comments Pt hasn't been using band at home - discussed use of resistance 1 Standing Exercise Name Step-ups Side bilateral Equipment Used 6 step Reps/Minutes x10 Comments Decreased Trendelenberg noted. 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 Encouraged use of band. Pt forgot about 4-way ankle strengthening - declined HO d/t having a binder with all handouts. PT-OP-T Assessment and Plan Start: 11/24/21 14:38 Freq: Status: Active Protocol: Document 03/28/22 14:47 NBM (Rec: 03/28/22 15:17 NB [id number]) Physical Therapy Assessment Goals Two Impairment Pt presents with an increased falls risk score () on DGI Residential Goal (LTG) Pt to increased her DGI score by at least five points to to show decreased falls risk. 12/28/21: GOAL MET: DGI , see detailed HO scanned in. LTG Duration GOAL MET 12/28/21 One Impairment Pt does not have an appropriate home exercise program Short Term Goal (STG) Pt to be independent and compliant with an appropriate HEP 12/28/21: progressing: band walk, heel/toe raises, walking on [place] approx 1 mile w/ seated rest on bench 1/2 way, STS today in 13 sec. STG Duration 04/02/22 - progressing Assessment Summary Assessment Treatment focus today on HEP review. Pt demonstrates all activities successfully w/ minimal corrections. Pt educated and encouraged in use of resistance band w/ lateral stepping for hip strengthening. Continue to work toward discharge to independent HEP. Physical Therapy Plan Next Visit Focus/Plan Next Note Type Treatment Note Next Visit Plan Consider bandwalking. Review HEP next visit.
--- NOTE | 2022-03-31 15:59 | PT.OTN ---
Current Diagnoses Cerebral infarction, unspecified (03/31/22) Repeated falls (03/31/22) Syncope and collapse (03/31/22) Personal history of other specified conditions (03/31/22) Physical Therapy Treatment Note PT-OP-A Visit Information Start: 11/24/21 14:38 Freq: Status: Active Protocol: Document 03/31/22 15:15 DCW (Rec: 03/31/22 15:55 DCW [id number]) Out-Patient Physical Therapy Visit Information Visit Information Visit Type Discharge Summary Visit Start Time 15:15 Visit Stop Time 01:55 Total Visit Minutes 40 Visit Number 24 Number of GARAGE MECH[employer]IC Visits 0 Evaluation Information Evaluation Date 11/24/21 PT-OP-B Current Condition Start: 11/24/21 14:38 Freq: Status: Active Protocol: Document 11/24/21 12:00 DCW (Rec: 11/24/21 14:48 DCW [id number]) Current Condition History of Current Condition Onset Date Three months Current Complaints Syncope, falls, CVA History of Current Condition Pt is a 76 year old female presenting with a recent history of repeated falls, TBI , and syncope. 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 Notes her most recent fall, five days ago, occurred when she drug her right foot and her slipper got stuck on the floor. Pt notes she is able to pick her foot up, but if I 'm not actually thinking about it, it just drags. 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 Pt was transferred to [facility], where her SDH was found to not be progressing, and pt was sent home. Notes that with her recent falls, she has been using trekking poles when out walking, but after getting out and walking yesterday, she woke up with sore arms. Additionally, pt using SPC for longer community distances, coming in the clinic for her eval using her SPC. Prior Treatments and Tests Pt currently also being seen in OT for hand numbness s/p CVA Treatment Goals Patient/Caregiver Goals Address R leg weakness and decrease falls. PT-OP-C Subjective Start: 11/24/21 14:38 Freq: Status: Active Protocol: Document 03/31/22 15:15 DCW (Rec: 03/31/22 15:55 DCW [id number]) OP-PT Subjective Patient Comments Patient Comments Pt notes she feels fatigued after her HEP. PT-OP-D Balance Start: 11/24/21 14:38 Freq: Status: Active Protocol: Document 01/25/22 14:30 DCW (Rec: 01/25/22 15:15 DCW [id number]) Pan Balance Assessment Evaluation Sitting to Standing Ability Independent w/out Hands Unsupported Stance Safely- 2 minutes Sitting Unsupported, Feet on Floor Safely- 2 minutes Standing to Sitting Ability Safely, Minimal Hand Use Transfer Ability Safely, Minimal Hand Use Unsupported Stance- Eyes Closed Safely, 10 seconds Unsupported Stance- Eyes Open Independent, 1 minute Reaching Forward Standing Confidently, 10 inches Pick- Up Object From Floor Independent/Safe Look Behind Shoulder - Standing Shifts Weight Well Turning 360 Degrees Turns Bilateral, < 4 secs Unsupported Stance, Alternating Feet on (I)- 8 Steps in 20 secs Stair Unsupported Tandem Stance Holds Tandem- 30 seconds Unilateral Leg Stance Lifts Leg/Holds > 3 secs Total Score Pan Total Score (out of 56 points) 53 Pan Impairment Rating 1 to 19% Impaired (Score 45-55 ) PT-OP-E Functional Tests Start: 11/24/21 14:38 Freq: Status: Active Protocol: Document 03/21/22 16:45 DCW (Rec: 03/21/22 17:07 DCW [id number]) Functional Tests Dynamic Gait Index (DGI) Score 23/24 DGI Impairment Rating 1 to <20% Impaired (Score 20- 23) Five Times Sit to Stand Test Score 10.7 Comments no UE support Timed Up and Go (TUG) Score 8.22 Comments 3-trial average (8.62, 8.18, 7.86 TUG Impairment Rating 0% Impaired (Score 10) PT-OP-G Mobility & Gait Start: 03/21/22 17:07 Freq: Status: Active Protocol: Document 03/21/22 16:45 DCW (Rec: 03/21/22 17:26 DCW [id number]) OP Gait Assessment Gait Gait Assistance Required: Independent Distance (Feet) 1,800 Assistive Devices Assistive Device None Gait Deviations General Gait Pattern Decreased Feet Clearance Comments Gait Comments Ambulated around entire exterior of hospital. Pt scuffed right foot on pavement with ~30% of swing phase. Otherwise gait pattern unremarkable. PT-OP-M Strength Start: 11/24/21 14:38 Freq: Status: Active Protocol: Document 03/21/22 16:45 DCW (Rec: 03/21/22 17:07 DCW [id number]) Hip Strength Hip Manual Muscle Testing Right Flexion (L2) 4+ Good+ Extension (S1) 5 Normal Abduction 5 Normal Adduction 5 Normal External Rotation 5 Normal Internal Rotation 5 Normal Left Flexion (L2) 4+ Good+ Extension (S1) 5 Normal Abduction 5 Normal Adduction 5 Normal External Rotation 5 Normal Internal Rotation 5 Normal Knee Strength Knee Manual Muscle Testing Right Flexion (S2) 4+ Good+ Extension (L3) 5 Normal Left Flexion (S2) 5 Normal Extension (L3) 5 Normal Ankle/Foot Strength Ankle and Foot Manual Muscle Testing Right Dorsiflexion (L4) 5 Normal Plantarflexion (S1) 5 Normal Left Dorsiflexion (L4) 5 Normal Plantarflexion (S1) 5 Normal PT-OP-Q Treatments Start: 11/24/21 14:38 Freq: Status: Active Protocol: Document 03/31/22 15:15 DCW (Rec: 03/31/22 15:55 DCW [id number]) Therapeutic Exercises Standing Exercises Hip Extension Standing Exercise Name Extension Side bilateral Resistance Red Reps/Minutes x15 Hip Abduction Standing Exercise Name Abduction Side bilateral Resistance Red Reps/Minutes x15 band walk Standing Exercise Name fwd, side stepping Side bilateral Resistance Red Equipment Used // bars Reps/Minutes 10 ft x3 laps each direction 1 Standing Exercise Name Step-ups Side bilateral Equipment Used 6 step Reps/Minutes x10 Neuro Re-Education Treatment Balance Activities hurdles Details staggered, tandem, side- stepping Equipment 6 hurdles, blue/green foam oval cushions 2 Details Tandem stance Equipment @ rail Comments added head turns 1 Details SLS Equipment @ rail PT-OP-T Assessment and Plan Start: 11/24/21 14:38 Freq: Status: Active Protocol: Document 03/31/22 15:15 DCW (Rec: 03/31/22 15:55 DCW [id number]) Physical Therapy Assessment Impairments Impairments Activity Tolerance,Balance, Functional Activities, Functional Mobility,Gait, Strength Goals Two Impairment Pt presents with an increased falls risk score (15/24) on DGI Deposit Refund Clerk Goal (LTG) Pt to increased her DGI score by at least five points to to show decreased falls risk. 12/28/21: GOAL MET: DGI , see detailed HO scanned in. LTG Duration GOAL MET 12/28/21 One Impairment Pt does not have an appropriate home exercise program Short Term Goal (STG) Pt to be independent and compliant with an appropriate HEP 12/28/21: progressing: band walk, heel/toe raises, walking on [place] approx 1 mile w/ seated rest on bench 1/2 way, STS today in 13 sec. STG Duration Met Progress Towards Goals Progress Towards Goals Goals Met Assessment Summary Assessment Pt has met goals, is comfortable with her HEP, is appropriate for discharge at this time. Pt agreeable with this plan Physical Therapy Plan Frequency and Duration Frequency of Treatment 2x/Week Duration of Treatment 2 weeks Plan of Care Start Date 03/21/22 Plan of Care End Date 04/04/22 Therapeutic Interventions Therapeutic Interventions Aquatic Therapy,Gait Training, Home Exercise Program,Joint Mobilizations,Manual Therapy, Neuromuscular Re-education, Patient/Caregiver Education, Self-Care/Home Management,Soft Tissue Mobilization, Therapeutic Activities, Therapeutic Exercises Modalities Electric Stimulation Discharge Physical Therapy Discharge Reasons Goals Met Next Visit Focus/Plan Next Note Type Discharge Summary
== END 2022-04-04 13:15 ==
LOC: PHYS 15:15
PROVIDERS: Family Provider Family Medicine; PCP Family Medicine; Referring Provider Family Medicine; Visit Provider Family Medicine
DX: Z87.898 Personal history of other specified conditions (principal); I63.9 Cerebral infarction, unspecified; R29.6 Repeated falls; R55 Syncope and collapse
CPT/HCPCS: 97110; 97112; 97116; 97140; 97161; 97530; 97535

== ENCOUNTER → 2022-04-07 12:46 | Outpatient (CLI) | payer MEDICARE, SELFPAY ==
[2020-01-30 16:33] VITALS: BMI 34.5
--- NOTE | 2022-04-07 12:50 | DI.US.S_ITS ---
PROCEDURE: US CAROTID DOPPLER BI INDICATIONS: history CVA TECHNIQUE: Color and pulse Doppler interrogation was performed of both carotid systems, with image documentation and velocity measurements. COMPARISON: None. FINDINGS: Stenosis calculations are based on SRU (Society of Radiologists in Ultrasound) criteria. Right side: Brachial blood pressure: 153/73 mm Hg. Common carotid artery peak systolic velocity: 91 cm/sec. Internal carotid artery peak systolic velocity: 89 cm/sec. Internal carotid artery end diastolic velocity: 20 cm/sec. External carotid artery peak systolic velocity: 121 cm/sec. ICA/CCA peak systolic ratio: 1.0 . Durham scale imaging description: Mild plaque. Percent internal carotid artery stenosis: Less than 50% . Vertebral artery: Flow direction is antegrade. Left side: Brachial blood pressure: 181/83 mm Hg. Common carotid artery peak systolic velocity: 97 cm/sec. Internal carotid artery peak systolic velocity: 115 cm/sec. Internal carotid artery end diastolic velocity: 26 cm/sec. External carotid artery peak systolic velocity: 116 cm/sec. ICA/CCA peak systolic ratio: 1.2 . Durham scale imaging description: Mild scattered plaque. Percent internal carotid artery stenosis: Less than 50% . Vertebral artery: Flow direction is antegrade. IMPRESSION: Less than 50% bilateral internal carotid artery stenosis. Dictated by: Ishan Mcdaniel RR Interpreted: Ismael Pascual MD on 04/07/2022 at 14:02 Transcribed by: BIANCA on 04/07/2022 at 14:03 Approved by: Ismael Pascual M.D. on 04/07/2022 at 21:20
== END ==
PROVIDERS: Family Provider Family Medicine; PCP Pediatrics; Referring Provider Pediatrics; Visit Provider Pediatrics
DX: I63.9 Cerebral infarction, unspecified (principal); I65.23 Occlusion and stenosis of bilateral carotid arteries; I27.20 Pulmonary hypertension, unspecified
CPT/HCPCS: 93880

== ENCOUNTER 2022-06-12 10:23 | Emergency (ER) | payer MEDICARE, SELFPAY ==
[2020-01-30 16:33] VITALS: BMI 34.5
[2022-06-12 10:40] VITALS: BP 188/84; PULSE 71; RESP 18; TEMP 36.4; O2SAT 98; BMI 32.3
--- NOTE | 2022-06-12 11:02 | DI.RAD.S_ITS ---
PROCEDURE: XR CHEST 1V INDICATIONS: chest pain TECHNIQUE: One view of the chest was acquired. COMPARISON: [facility], CEE, XR CHEST 1V, 08/22/2021, 14:17. [facility], , CHEST 1 VIEW, 10/16/2015, 17:01. FINDINGS: Surgical changes and devices: None. Lungs and pleura: Lungs are clear. No pleural effusions or pneumothorax. Mediastinum: Mediastinal contours are unchanged. Aortic arch atherosclerotic calcifications. Heart size is normal. Bones and chest wall: No suspicious bony lesions. Overlying soft tissues appear unremarkable. IMPRESSION: No acute cardiopulmonary abnormality. Dictated by: Elfego Raphael M.D. on 06/12/2022 at 10:26 Approved by: Elfego Raphael M.D. on 06/12/2022 at 10:27
--- NOTE | 2022-06-12 11:37 | ED.EXTPRO ---
HPI - Extremity Problem General Chief complaint: Extremity Injury, Upper Stated complaint: lt arm pain x 1week Time Seen by Provider: 06/12/22 11:05 Source: patient Mode of arrival: Ambulatory History of Present Illness HPI Narrative: 77-year-old female nonsmoker with history of hypertension, DVT in left upper extremity presents with a chief complaint of left arm pain for the past week. She states it seems to come and go without obvious provocation or palliation. She states it is largely over the lateral part of her elbow. She denies any redness, warmth or obvious swelling but states that it feels reminiscent of a prior DVT and this same arm 20 years ago that also occurred after flying. She recently flew from [place]. She denies any chest pain, shortness of breath or palpitations. She is not dizzy nor weak or lightheaded. She denies any fever or chills. She denies any exertional activities, overuse or awkward motions. She denies any numbness, tingling or weakness of her arm Related Data Home Medications Medication Instructions Recorded Confirmed cod liver oil See Rx Instructions PO QAM 05/26/21 03/14/22 Carditone 1 tab PO DAILY 08/25/21 03/14/22 Lutein & Zeaxanthin 1 tab PO DAILY 08/25/21 03/14/22 ascorbate calcium (vitamin C) 500 500 mg PO DAILY 08/25/21 03/14/22 mg tablet cholecalciferol (vitamin D3) 125 125 mcg PO DAILY 08/25/21 03/14/22 mcg (5,000 unit) capsule coenzyme Q10 100 mg capsule 100 mg PO DAILY 08/25/21 03/14/22 multivitamin 1 tab PO DAILY 08/25/21 03/14/22 turmeric 1,000 mg PO DAILY 08/25/21 03/14/22 zinc 50 mg tablet 50 mg PO DAILY 08/25/21 03/14/22 biotin PO 01/14/22 03/14/22 thyroid (pork) 120 mg tablet ([employer] 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[employer]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 mg PO 03/14/22 03/14/22 Thyroid) Previous Rx's Medication Instructions Recorded clopidogrel 75 mg tablet See Rx Instructions .Route 03/08/21 .COMPLEX #90 tabs chlorthalidone 25 mg tablet 25 mg PO QPM #90 tabs 07/19/21 nitrofurantoin 100 mg PO BID #10 caps 03/03/22 monohydrate/macrocrystals 100 mg capsule (Macrobid) metformin 500 mg tablet See Rx Instructions .Route 03/31/22 .COMPLEX #180 tabs Allergies Allergy/AdvReac Type Severity Reaction Status Date / Time diphenhydramine Allergy Severe hives and Verified 03/14/22 11:06 [DIPHENHYDRAMINE] rash pseudoephedrine Allergy Severe hives and Verified 03/14/22 11:06 [PSEUDOEPHEDRINE] rash shellfish derived Allergy Severe (JUST THE Verified 03/14/22 11:06 [SHELLFISH DERIVED] SHELL) rash Review of Systems Review of Systems Narrative: GENERAL: Denies chills, fatigue, malaise, fever, sweats. HEENT: Denies sinus pain, ear pain, sore throat, difficulty swallowing, dizziness. RESPIRATORY: Denies dyspnea, cough, wheezing, hemoptysis, sputum. CARDIOVASCULAR: Denies chest pain, palpitations, orthopnea, edema, GASTROINTESTINAL: Denies nausea, vomiting, abdominal pain, diarrhea, constipation, melena. : Denies dysuria, frequency, incontinence, hematuria, urinary retention. MUSCULOSKELETAL: See HPI SKIN: Denies rash, skin lesions, or other NEUROLOGIC: Denies weakness, headache, numbness, change in speech, confusion, seizures, incoordination. PSYCHIATRIC: No concerning psychosocial issues. 12 point review of systems is negative except for those stated above Patient History Medical History Allergic rhinitis Arrhythmia Cataracts, bilateral Chicken pox Concussion CVA (cerebral vascular accident) DVT (deep venous thrombosis) (2000) Endometriosis (~1979) Essential hypertension (12/06/12) Fall at home Fecal incontinence (~2019) Fractures (~2010) 4 History of ectopic (1980) History of urinary incontinence (~2019) Hypothyroid Hypothyroidism (2003) Malaria Measles Migraines Mixed hyperlipidemia Mumps Myalgia Pertussis (1949) Plantar warts TIA (transient ischemic attack) (~2019) Type 2 diabetes mellitus Urge incontinence Surgical History History of bilateral salpingo-oophorectomy (BSO) (1980) History of strabismus surgery (1960) Status post hysterectomy (1980) Status post wrist surgery Family History Father Diabetes mellitus Hypertension Mother Parkinson's disease Sister Age: 76 Thyroid disease Family/Other Thyroid disease Brother Age: 73 Thyroid disease Social History household members: spouse Smoking Status: Never smoker Smoking Status: Never smoker alcohol intake frequency: 0-2 drinks per day Substance Use Type: does not use Exam Narrative Exam Narrative: GENERAL: [77] year old patient appears stated age. Well-developed patient, in mild distress. HEAD: Atraumatic. Normocephalic. EYES: Pupils equal round and reactive. Extraocular motions intact. No scleral icterus. No injection or drainage. ENT: Nose without bleeding, purulent drainage. Throat without erythema, tonsillar hypertrophy or exudate. Airway patent. NECK: Trachea midline. Non tender CARDIOVASCULAR: Regular rate and rhythm without murmurs, gallops, or rubs. RESPIRATORY: Clear to auscultation. Breath sounds equal bilaterally. No wheezes, rales, or rhonchi. GASTROINTESTINAL: Abdomen soft, non-tender, nondistended. EXTREMITIES: No obvious deformity, redness, swelling or warmth. No reproducible pain. Sensation intact, cap refill intact, painless passive and active range of motion. Occasionally tender to palpate over medial elbow BACK: Nontender without deformity or crepitance. No flank tenderness. NEURO: AOx3. SKIN: No rash or erythema of visible areas Initial Vital Signs Initial Vital Signs: Vital Signs Temperature 97.6 F 06/12/22 10:40 Pulse Rate 71 06/12/22 10:40 Respiratory Rate 18 06/12/22 10:40 Blood Pressure 188/84 H 06/12/22 10:40 Pulse Oximetry 98 06/12/22 10:40 Oxygen Delivery Method 06/12/22 10:40 Course Orders Ordered: ED Orders 06/12/22 10:58 EKG-12 Lead Stat 06/12/22 11:02 XR chest 1V Stat 06/12/22 11:40 Complete Blood Count AUTO DIFF Stat Comprehensive Metabolic Panel Stat Lipase Stat Magnesium Stat Troponin & CK Cardiac Panel Stat 06/12/22 11:46 US periph venous up extrem lt Stat Vital Signs Vital signs: Vital Signs - 8 hr 06/12/22 10:40 Temperature 97.6 F Pulse Rate 71 Respiratory Rate 18 Blood Pressure 188/84 H Pulse Oximetry 98 Oxygen Delivery Method Room Air MDM - Extremity (Nontraumatic) Lab Data Result diagrams: 06/12/22 11:40 06/12/22 11:40 Labs: Lab Results 06/12/22 06/12/22 Range/Units 11:40 11:40 WBC 5.6 (4.5-11.0) X10^3/uL RBC 4.04 (4.0-5.2) X10^6/uL Hgb 11.8 L (12.0-16.0) g/dL Hct 34.5 L (36-46) % MCV 85.6 (80-100) fL MCH 29.2 (26-34) PG MCHC 34.1 (30-36) % RDW 13.4 (11.6-14.8) % Plt Count 252 (150-400) X10^3/uL Neut % (Auto) 49.3 L (50-75) % Lymph % (Auto) 37.5 (25-40) % [place] % (Auto) 9.8 (3-14) % Eos % (Auto) 2.8 (2-4) % Baso % (Auto) 0.6 (0-2) % Neut # (Auto) 2800 (0005-9528) /uL Lymph # (Auto) 2100 (5735-1616) /uL [place] # (Auto) 600 (0-900) /uL Eos # (Auto) 200 (0-450) /uL Baso # (Auto) 0 (0-100) /uL Sodium 135 L (137-145) mmol/L Potassium 3.8 (3.4-5.1) mmol/L Chloride 96 L (98-107) mmol/L Carbon Dioxide 29 (22-32) mmol/L BUN 16 (7-17) mg/dL Creatinine 0.72 (0.52-1.04) mg/dL Estimated GFR > 60 (>60) mL/min BUN/Creatinine Ratio 22.2 H (6-22) Glucose 107 (80-110) mg/dL Calcium 8.9 (8.4-10.2) mg/dL Magnesium 1.5 L (1.6-2.3) mg/dL Total Bilirubin 0.5 (0.2-1.3) mg/dL AST 22 (14-36) IU/L ALT 24 (<35) IU/L Alkaline Phosphatase 54 (38-126) U/L Total Creatine Kinase 72 (30-135) U/L CK-MB (CK-2) TNP CK-MB (CK-2) Rel Index TNP Troponin I < 0.012 (0.01-0.034) ng/mL Total Protein 7.4 (6.3-8.2) g/dL Albumin 4.0 (3.5-5.0) g/dL Globulin 3.4 (1.7-4.1) g/dL Albumin/Globulin Ratio 1.2 (1.0-2.8) Lipase 74 (23-300) U/L Imaging Data US - DVT: Radiologist's Impression: [address] [address] Ultrasound Report Signed Patient: Enedina Ye MR#: [id number] : 1945 Acct:[id number] Age/Sex: 77 / F Date of Service: 06/12/22 Loc: ED Accession Number: [id number] ?? Procedure: US periph venous up extrem lt Ordering Provider: Roscoe Lehman D.O. PROCEDURE:? US PERIPH VENOUS UP EXTREM LT ? INDICATIONS:? PAIN. NO INJURY. HISTORY OF DVT. RECENT TRAVEL. ? TECHNIQUE:? Real-time imaging, as well as color and pulse Doppler interrogation, was performed of the left upper extremity deep veins from the inferior neck to the antecubital fossa.? ? COMPARISON:? None. ? FINDINGS:? The internal jugular vein, visualized portions of the subclavian vein, axillary, and brachial veins are free of intraluminal thrombus.? Where physically possible, the veins are normally compressible.? Color and pulse Doppler demonstrate normal intraluminal flow, with expected phasicity and pulsatility.? Additional scanning of the cephalic and basilic veins of the superficial system demonstrate normal compressibility, without thrombus.? ? IMPRESSION:? Negative exam.? No left upper extremity DVT. ? ? Dictated by: Elfego Raphael M.D. on 06/12/2022 at 12:24 ? ? Approved by: Elfego Raphael M.D. on 06/12/2022 at 12:25 ? MDM Narrative Medical decision making narrative: Patient has very reassuring history and physical exam, demonstrating symptoms that remind her of a prior DVT in the setting of recent long-distance travel. Her pain is very minimal and largely isolated to her medial elbow and worse with palpation. She has full range of motion, no erythema, swelling warmth to suggest infection, bursitis, septic arthritis. Suspicion was low for DVT, however ultrasound ordered given recent travel and history of clot, there is no evidence of DVT. Other potential sources including fracture or dislocation thought exceedingly unlikely given full painless range of motion and no trauma. Radiating pain such as cervical radiculopathy and cardiac thought unlikely given other elements of history and physical exam. Extensive return precautions discussed and questions answered to her apparent satisfaction Discharge Plan Departure Patient Disposition: Home Clinical Impression: Elbow joint pain Instructions: DI for Elbow Pain Activity Restrictions/Additional Instructions: *You have been diagnosed with [elbow pain. As we discussed, your physical exam, labs and imaging are very reassuring. There is no obvious evidence of a deep vein thrombosis, infection, cardiac disease or other diagnosis which would require a specific or immediate intervention] *What to do: *Please continue to take your regular medications as directed. [ ] New medication prescriptions sent to your pharmacy: [ ] [ ] New medication written as a paper prescription [x ] No new medications given *Please follow up with your primary care provider in 2-3 days, call for an appointment. Let them know you were seen in the Emergency Department and that we ask that you be seen in follow up. We will electronically transmit a record of today's note if your PCP is in our system *Return to Emergency Department if you should have any new, worsening or concerning symptoms, such as [fever greater than 101 F, shaking chills, worsening pain, persistent vomiting or other bothersome symptoms] Prescriptions: No Action clopidogrel 75 mg tablet See Rx Instructions .ROUTE .COMPLEX Qty: 90 0RF Hold Instructions: while subdural hemorrhage resolves Dose Instruction: TAKE ONE TABLET BY MOUTH ONCE DAILY Rx Instructions: TAKE ONE TABLET BY MOUTH ONCE DAILY chlorthalidone 25 mg tablet 25 mg PO QPM Qty: 90 3RF Hold Instructions: dehydration nitrofurantoin monohyd/m-cryst [Macrobid] 100 mg capsule 100 mg PO BID Qty: 10 0RF Rx Instructions: 1 Tablet by mouth twice a day for 5 days must administer with a meal/food metformin 500 mg tablet See Rx Instructions .ROUTE .COMPLEX Qty: 180 3RF Dose Instruction: TAKE ONE TABLET BY MOUTH TWICE DAILY Rx Instructions: TAKE ONE TABLET BY MOUTH TWICE DAILY biotin PO thyroid (pork) [[employer] 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] 120 mg tablet 120 mg PO Label Comments: Takes 1 tab QAM and 1/2 tab QPM per pt Rx Instructions: take 1 tablet by mouth daily AT 9AM Carditone 350 mg 1 tab PO DAILY Lutein & Zeaxanthin 25 mg 1 tab PO DAILY ascorbate calcium (vitamin C) 500 mg tablet 500 mg PO DAILY cholecalciferol (vitamin D3) 125 mcg (5,000 unit) capsule 125 mcg PO DAILY multivitamin Tablet 1 tab PO DAILY turmeric 1,000 mg PO DAILY coenzyme Q10 100 mg capsule 100 mg PO DAILY zinc 50 mg tablet 50 mg PO DAILY cod liver oil Capsule See Rx Instructions PO QAM Rx Instructions: 1 teaspoon PO every morning; Referrals: Rola Sands DO [Primary Care Provider] -
--- NOTE | 2022-06-12 11:46 | DI.US.S_ITS ---
PROCEDURE: US PERIPH VENOUS UP EXTREM LT INDICATIONS: PAIN. NO INJURY. HISTORY OF DVT. RECENT TRAVEL. TECHNIQUE: Real-time imaging, as well as color and pulse Doppler interrogation, was performed of the left upper extremity deep veins from the inferior neck to the antecubital fossa. COMPARISON: None. FINDINGS: The internal jugular vein, visualized portions of the subclavian vein, axillary, and brachial veins are free of intraluminal thrombus. Where physically possible, the veins are normally compressible. Color and pulse Doppler demonstrate normal intraluminal flow, with expected phasicity and pulsatility. Additional scanning of the cephalic and basilic veins of the superficial system demonstrate normal compressibility, without thrombus. IMPRESSION: Negative exam. No left upper extremity DVT. Dictated by: Elfego Raphael M.D. on 06/12/2022 at 12:24 Approved by: Elfego Raphael M.D. on 06/12/2022 at 12:25
[2022-06-12 11:56] LABS: Add Manual Diff / Slide Review NO; Basophils Absolute Auto 0 /uL (0-100); Basophils Percent Auto 0.6 % (0-2); Eosinophils Absolute Auto 200 /uL (0-450); Eosinophils Percent Auto 2.8 % (2-4); Hematocrit 34.5 % (36-46); Hemoglobin 11.8 g/dL (12.0-16.0); Lymphocytes Absolute Auto 2100 /uL (1100-4500); Lymphocytes Percent Auto 37.5 % (25-40); Mean Corpuscular HGB Conc 34.1 % (30-36); Mean Corpuscular Hemoglobin 29.2 PG (26-34); Mean Corpuscular Volume 85.6 fL (80-100); Monocytes Absolute Auto 600 /uL (0-900); Monocytes Percent Auto 9.8 % (3-14); Neutrophils Absolute Auto 2800 /uL (1500-7000); Neutrophils Percent Auto 49.3 % (50-75); Platelet Count 252 X10^3/uL (150-400); Red Blood Cell Count 4.04 X10^6/uL (4.0-5.2); Red Cell Distribution Width 13.4 % (11.6-14.8); White Blood Cell Count 5.6 X10^3/uL (4.5-11.0)
[2022-06-12 12:09] LABS: Alanine Aminotransferase 24 IU/L (<35); Albumin Globulin Ratio 1.2 (1.0-2.8); Alkaline Phosphatase 54 U/L (38-126); Aspartate Aminotransferase 22 IU/L (14-36); BUN Creatinine Ratio 22.2 (6-22); Bilirubin Total 0.5 mg/dL (0.2-1.3); Blood Urea Nitrogen 16 mg/dL (7-17); Calcium 8.9 mg/dL (8.4-10.2); Carbon Dioxide 29 mmol/L (22-32); Chloride 96 mmol/L (98-107); Creatine Kinase 72 U/L (30-135); Estimated Glomerular Filt Rate > 60 mL/min (>60); Globulin 3.4 g/dL (1.7-4.1); Glucose 107 mg/dL (80-110); HEMOLYSIS < 15 (0-50); Lipase 74 U/L (23-300); Magnesium 1.5 mg/dL (1.6-2.3); Potassium 3.8 mmol/L (3.4-5.1); Sodium 135 mmol/L (137-145); Total Protein 7.4 g/dL (6.3-8.2)
[2022-06-12 12:21] LABS: Troponin I < 0.012 ng/mL (0.01-0.034)
[2022-06-12 14:07] VITALS: BP 187/92; PULSE 59; RESP 16; O2SAT 99
== END 2022-06-12 14:08 | disposition home or self-care (01) ==
PROVIDERS: Emergency Provider Emergency Medicine; Family Provider Family Medicine; PCP Family Medicine
DX: M25.522 Pain in left elbow (principal); Z86.718 Personal history of other venous thrombosis and embolism
CPT/HCPCS: 36415; 71045; 80053; 82550; 83690; 83735; 84484; 85025; 93005; 93971; 99284

== ENCOUNTER → 2022-11-09 12:08 | Outpatient (CLI) | payer MEDICARE, SELFPAY ==
[2022-11-03 11:41] VITALS: BMI 34.5
== END ==
PROVIDERS: Family Provider Family Medicine; PCP Family Medicine; Visit Provider Nurse Practitioner Family
DX: J02.9 Acute pharyngitis, unspecified (principal)
CPT/HCPCS: 87070

== ENCOUNTER → 2022-11-18 08:08 | Outpatient (CLI) | payer MEDICARE, SELFPAY ==
[2022-11-03 11:41] VITALS: BMI 34.5
[2022-11-18 09:39] LABS: Cholesterol 217 mg/dL (140-199); HDL Cholesterol 58 mg/dL (40-60); LDL Cholesterol Calculated 140 mg/dL (<100); Triglycerides 96 mg/dL (35-150)
[2022-11-18 10:06] LABS: TSH w/ Reflex to FT4 < 0.02 uIU/mL (0.47-4.68)
[2022-11-18 11:09] LABS: Free T4, Direct Thyroxine 1.83 ng/dL (0.78-2.19)
== END ==
PROVIDERS: Family Provider Family Medicine; PCP Family Medicine; Referring Provider Family Medicine; Visit Provider Family Medicine
DX: E03.8 Other specified hypothyroidism; E06.3 Autoimmune thyroiditis; E66.09 Other obesity due to excess calories; E78.2 Mixed hyperlipidemia; I10 Essential (primary) hypertension; Z68.34 Body mass index [BMI] 34.0-34.9, adult; E11.9 Type 2 diabetes mellitus without complications; E03.9 Hypothyroidism, unspecified
CPT/HCPCS: 36415; 80061; 83036; 84439; 84443

== ENCOUNTER → 2023-01-04 10:19 | Outpatient (CLI) | payer MEDICARE, SELFPAY ==
[2022-11-03 11:41] VITALS: BMI 34.5
--- NOTE | 2023-02-01 17:39 | DIAB.INIT ---
Initial Diabetes Education Assessment Name: Enedina Ye Date: 01/04/23 Time: 1030-11a Dx: T2Dm Enedina presents for initial DM visit. Has questions about CGM coverage. Purchased FSL out of pocket. Overall, DM management going well with hgA1c consistently below 6.5%. Diet recall indicates small frequent low carb meals. Potential for low fiber with limited fruit, veg, and whole grains. Endorses regular BM. Completed DM ed originally at [facility] in 2014. Physical Activity: Reports limitations since stroke two years ago. Self-Monitoring Blood Glucose: BG management well within goals. Time in range 14 days: 1% above 98% in goal 1% below Diabetes Medications: Metformin 500mg BID Pertinent Labs: HgA1c: 6% 11/2022 ; 6.1% 01/2022 Past Medical History: (Last Reviewed 06/12/22 @ 11:43 by Roscoe Lehman DO) Allergic rhinitis Arrhythmia Cataracts, bilateral Chicken pox Concussion CVA (cerebral vascular accident) Left thalamicc DVT (deep venous thrombosis) (2000) Left subclavian Endometriosis (~1979) Essential hypertension (12/06/12) Fall at home Fell down stairs Fecal incontinence (~2019) Fractures (~2010) 4 History of ectopic (1980) BSO History of urinary incontinence (~2019) Hypothyroid Hypothyroidism (2003) Malaria Measles Migraines Mixed hyperlipidemia Mumps Myalgia Pertussis (1949) Plantar warts TIA (transient ischemic attack) (~2019) Type 2 diabetes mellitus Urge incontinence Intervention: This participant was very receptive. Provided appropriate educational handouts. Discussed the following topics: Completed intake assessment. Discussed barriers to care. reviewed Hga1c goals and current labs Discussed BG goals and time in range goals Encouraged fiber intake with low carb diet Reviewed usual CGM coverage with [facility] Created SMART goals for patient self-care and success. Goals: Continue current regimen Try to add more fiber to diet over time Follow-up: EVA CHEEK follow-up prn. Anastasia Smith RDN, HAM Certified Diabetes Care and Telecom Assistant P: [phone] Thank you for this referral
== END ==
PROVIDERS: Absent Provider Family Medicine; Family Provider Family Medicine; PCP Family Medicine; Referring Provider Family Medicine; Visit Provider Family Medicine
DX: E11.9 Type 2 diabetes mellitus without complications (principal); Z79.84 Long term (current) use of oral hypoglycemic drugs; Z71.3 Dietary counseling and surveillance
CPT/HCPCS: G0108

== ENCOUNTER → 2023-01-31 09:20 | Outpatient (CLI) | payer MEDICARE, SELFPAY ==
[2022-11-03 11:41] VITALS: BMI 34.5
[2023-01-31 12:14] LABS: Cholesterol 222 mg/dL (140-199); HDL Cholesterol 63 mg/dL (40-60); LDL Cholesterol Calculated 137 mg/dL (<100); Triglycerides 112 mg/dL (35-150)
[2023-01-31 15:51] LABS: Add Manual Diff / Slide Review NO; Basophils Absolute Auto 0 /uL (0-100); Basophils Percent Auto 0.4 % (0-2); Eosinophils Absolute Auto 100 /uL (0-450); Eosinophils Percent Auto 1.9 % (2-4); Hematocrit 36.6 % (36-46); Hemoglobin 12.4 g/dL (12.0-16.0); Lymphocytes Absolute Auto 3200 /uL (1100-4500); Mean Corpuscular Hemoglobin 28.8 PG (26-34); Mean Corpuscular Volume 84.7 fL (80-100); Monocytes Absolute Auto 500 /uL (0-900); Monocytes Percent Auto 7.8 % (3-14); Neutrophils Absolute Auto 2300 /uL (1500-7000); Neutrophils Percent Auto 37.9 % (50-75); Platelet Count 261 X10^3/uL (150-400); Red Blood Cell Count 4.32 X10^6/uL (4.0-5.2); Red Cell Distribution Width 14.7 % (11.6-14.8); White Blood Cell Count 6.1 X10^3/uL (4.5-11.0)
[2023-01-31 16:23] LABS: Alanine Aminotransferase 28 IU/L (<35); Albumin 4.2 g/dL (3.5-5.0); Albumin Globulin Ratio 1.4 (1.0-2.8); Alkaline Phosphatase 58 U/L (38-126); Aspartate Aminotransferase 25 IU/L (14-36); BUN Creatinine Ratio 25.4 (6-22); Bilirubin Total 0.5 mg/dL (0.2-1.3); Blood Urea Nitrogen 17 mg/dL (7-17); Calcium 9.2 mg/dL (8.4-10.2); Carbon Dioxide 29 mmol/L (22-32); Chloride 101 mmol/L (98-107); Estimated Glomerular Filt Rate > 60 mL/min (>60); Globulin 3.1 g/dL (1.7-4.1); Glucose 95 mg/dL (80-110); HEMOLYSIS < 15 (0-50); Magnesium 1.9 mg/dL (1.6-2.3); Potassium 4.1 mmol/L (3.4-5.1); Sodium 137 mmol/L (137-145); Total Protein 7.3 g/dL (6.3-8.2)
[2023-01-31 16:47] LABS: TSH w/ Reflex to FT4 < 0.02 uIU/mL (0.47-4.68)
[2023-01-31 17:14] LABS: Free T4, Direct Thyroxine 1.55 ng/dL (0.78-2.19)
[2023-02-01 11:16] LABS: x Labcorp Estim. Avg Glu (eAG) 123 mg/dL (.); x Labcorp Hemoglobin A1c 5.9 % (4.8-5.6)
== END ==
PROVIDERS: Family Provider Family Medicine; PCP Family Medicine; Referring Provider Internal Medicine Cardiovascular Disease; Visit Provider Internal Medicine Cardiovascular Disease
DX: E78.5 Hyperlipidemia, unspecified (principal); I10 Essential (primary) hypertension; R55 Syncope and collapse; E11.9 Type 2 diabetes mellitus without complications; E03.9 Hypothyroidism, unspecified
CPT/HCPCS: 36415; 80053; 80061; 83036; 83735; 84439; 84443; 85025

== ENCOUNTER → 2023-02-01 11:07 | Outpatient (CLI) | payer MEDICARE, SELFPAY ==
[2022-11-03 11:41] VITALS: BMI 34.5
[2023-02-01 15:47] LABS: Creatinine Urine Random 56.4 mg/dL
[2023-02-01 15:56] LABS: Microalbumin Urine Random < 0.6 mg/dL (0-1.6)
== END ==
PROVIDERS: Family Provider Family Medicine; PCP Family Medicine; Referring Provider Family Medicine; Visit Provider Family Medicine
DX: E03.8 Other specified hypothyroidism (principal); E06.3 Autoimmune thyroiditis; E11.9 Type 2 diabetes mellitus without complications; E66.09 Other obesity due to excess calories; E78.2 Mixed hyperlipidemia; I10 Essential (primary) hypertension; Z68.34 Body mass index [BMI] 34.0-34.9, adult
CPT/HCPCS: 82043; 82570

== ENCOUNTER → 2023-03-08 10:59 | Outpatient (CLI) | payer MEDICARE, SELFPAY ==
[2022-11-03 11:41] VITALS: BMI 34.5
[2023-03-08 12:06] LABS: Appearance Urine UA CLEAR; Bilirubin Urine UA NEGATIVE (NEGATIVE); Color Urine UA YELLOW; Glucose Urine UA NEGATIVE (Negative); Ketones Urine UA TRACE (NEGATIVE); Leukocyte Esterase Urine UA 1+ (NEGATIVE); Nitrite Urine UA NEGATIVE (Negative); Occult Blood Urine UA NEGATIVE (Negative); Protein Urine UA NEGATIVE (Negative); Specific Gravity Urine UA 1.015 (1.000-1.035)
[2023-03-08 12:14] LABS: pH Urine UA 6.5 (4.5-8.0)
[2023-03-08 12:15] LABS: Bacteria Urine Occasional (0-1); Culture Indicated Urine Specimen Cultured; RBC Urine 0-1/HPF (0-5/HPF); Squamous Epithelial Cell Urine 1-5 /HPF (0-5/HPF); WBC Urine 5-10/HPF (0-5/HPF)
== END ==
PROVIDERS: Family Medicine; Family Provider Family Medicine; PCP Family Medicine; Referring Provider Family Medicine; Visit Provider Family Medicine
DX: R30.9 Painful micturition, unspecified (principal)
CPT/HCPCS: 81001; 87086

== ENCOUNTER 2023-05-04 09:26 | Emergency (ER) | payer MEDICARE, SELFPAY ==
[2022-11-03 11:41] VITALS: BMI 34.5
[2023-05-04 09:31] VITALS: BMI 31.0
--- NOTE | 2023-05-04 09:34 | DI.US.S_ITS ---
PROCEDURE: US PERIPH VENOUS LOW EXTREM RT INDICATIONS: PAIN EDEMA TECHNIQUE: Real-time imaging, as well as color and pulse Doppler interrogation, were performed of the lower extremity deep veins from the inguinal ligament to the popliteal fossa, with documentation of the visualized calf veins. COMPARISON: None. FINDINGS: The common femoral, femoral, popliteal, and the visualized calf veins are normally compressible, and free of intraluminal thrombus. Color and pulse Doppler demonstrate normal phasic intraluminal flow. There is normal augmentation response to distal compression maneuver. IMPRESSION: No findings of lower extremity deep venous thrombosis. Dictated by: Oneil Singleton M.D. on 05/04/2023 at 10:15 Approved by: Oneil Singleton M.D. on 05/04/2023 at 10:16
--- NOTE | 2023-05-04 09:36 | ED.EXTPRO ---
HPI - Extremity Problem General Chief complaint: Extremity Problem,Nontraumatic Stated complaint: pain in RT leg T-7 hard to walk Time Seen by Provider: 05/04/23 09:34 Source: patient and family Mode of arrival: Wheelchair History of Present Illness HPI Narrative: Patient brought here by from home for complains of mid right calf pain. More medial aspect. Denies any injury strain or sprain to the area. No unusual exercises. No recent long travel immobilization or surgeries. No prior history of blood clot in the legs. However 23 years ago had blood clot in the left upper extremity. It was due to long travel/flying. No longer on blood thinners. Patient is getting ready to travel to [facility] within a week. Denies any chest pain shortness of breath. Knee to toes exposed Related Data Home Medications Medication Instructions Recorded Confirmed cod liver oil See Rx Instructions PO QAM 05/26/21 02/15/23 Carditone 1 tab PO DAILY 08/25/21 02/15/23 Lutein & Zeaxanthin 1 tab PO DAILY 08/25/21 02/15/23 ascorbate calcium (vitamin C) 500 500 mg PO DAILY 08/25/21 02/15/23 mg tablet cholecalciferol (vitamin D3) 125 125 mcg PO DAILY 08/25/21 02/15/23 mcg (5,000 unit) capsule coenzyme Q10 100 mg capsule 100 mg PO DAILY 08/25/21 02/15/23 multivitamin 1 tab PO DAILY 08/25/21 02/15/23 turmeric 1,000 mg PO DAILY 08/25/21 02/15/23 zinc 50 mg tablet 50 mg PO DAILY 08/25/21 02/15/23 biotin PO 01/14/22 02/15/23 thyroid (pork) 120 mg tablet (SPORT PSYCHOLOGIST 120 mg PO 03/14/22 02/15/23 Thyroid) hydralazine 50 mg tablet 50 mg PO TID 02/15/23 02/15/23 Previous Rx's Medication Instructions Recorded metformin 500 mg tablet See Rx Instructions .Route 03/31/22 .COMPLEX #180 tabs flash glucose scanning reader #1 ea 11/25/22 (FreeStyle Sherri 2 [place]) flash glucose sensor (FreeStyle #1 ea 11/25/22 Sherri 2 Sensor kit) Disabled Parking Permit #1 ea 02/15/23 Allergies Allergy/AdvReac Type Severity Reaction Status Date / Time diphenhydramine Allergy Severe hives and Verified 05/04/23 09:36 [DIPHENHYDRAMINE] rash pseudoephedrine Allergy Severe hives and Verified 05/04/23 09:36 [PSEUDOEPHEDRINE] rash shellfish derived Allergy Severe (JUST THE Verified 05/04/23 09:36 [SHELLFISH DERIVED] SHELL) rash Review of Systems Review of Systems Narrative: GENERAL: negative chills, fatigue, malaise, fever, sweats. HEENT: negative sinus pain, ear pain, sore throat RESPIRATORY: negative dyspnea, cough CARDIOVASCULAR: negative chest pain, palpitations GASTROINTESTINAL: negative nausea, vomiting, abdominal pain : negative dysuria, frequency, hematuria MUSCULOSKELETAL: Positive muscle pain negative bony pain SKIN: negative rash, skin lesions NEUROLOGIC: negative weakness, numbness ROS Unobtainable: All systems reviewed & are unremarkable except as noted in HPI and below Patient History Medical History Allergic rhinitis Arrhythmia Cataracts, bilateral Chicken pox Concussion CVA (cerebral vascular accident) DVT (deep venous thrombosis) (2000) Endometriosis (~1979) Essential hypertension (12/06/12) Fall at home Fecal incontinence (~2019) Fractures (~2010) 4 History of ectopic (1980) History of urinary incontinence (~2019) Hypothyroid Hypothyroidism (2003) Malaria Measles Migraines Mixed hyperlipidemia Mumps Myalgia Pertussis (1949) Plantar warts TIA (transient ischemic attack) (~2019) Type 2 diabetes mellitus Urge incontinence Surgical History History of bilateral salpingo-oophorectomy (BSO) (1980) History of strabismus surgery (1960) Status post hysterectomy (1980) Status post wrist surgery Family History Father Diabetes mellitus Hypertension Mother Parkinson's disease Sister Age: 77 Thyroid disease Family/Other Thyroid disease Brother Age: 73 Thyroid disease Social History household members: spouse Smoking Status: Never smoker Smoking Status: Never smoker alcohol intake frequency: 0-2 drinks per day Substance Use Type: does not use Exam Narrative Exam Narrative: GENERAL: in no distress, not toxic not dyspneic HEAD: Normocephalic. EYES: Pupils equal round ENT: Mucous membranes moist. NECK: Trachea midline. CARDIOVASCULAR: Regular rate and rhythm RESPIRATORY: Clear to auscultation. Breath sounds equal bilaterally. No wheezes, rales, or rhonchi. EXTREMITIES: No gross deformities. Right knee to toes exposed. Calf mildly tender mid medial calf. No palpable cords. Pain with Homans and Le test. Foot warm some take strong pedal pulse brisk cap refills with light touch intact to foot and toes. Nontender ankle and knee. Right calf grossly symmetric to the left calf in circumference and size NEURO: AOx4. SKIN: Warm and dry PSYCH: Not anxious, is cooperative Initial Vital Signs Initial Vital Signs: Vital Signs Temperature 98.1 F 05/04/23 09:46 Pulse Rate 67 05/04/23 09:46 Respiratory Rate 16 05/04/23 09:46 Blood Pressure 177/83 H 05/04/23 09:46 Pulse Oximetry 98 05/04/23 09:46 Oxygen Delivery Method Room Air 05/04/23 09:46 Course Orders Ordered: ED Orders 05/04/23 09:34 US periph venous low extrem rt Stat Vital Signs Vital signs: Vital Signs - 8 hr 05/04/23 09:46 05/04/23 10:56 Temperature 98.1 F Pulse Rate 67 60 Respiratory Rate 16 16 Blood Pressure 177/83 H 178/91 H Pulse Oximetry 98 98 Oxygen Delivery Method Room Air Room Air MDM - Extremity (Nontraumatic) Imaging Data US - DVT: Radiologist's Impression: [address] [address] Ultrasound Report Signed Patient: Enedina Ye MR#: [id number] : 1945 Acct:[id number] Age/Sex: 77 / F Date of Service: 05/04/23 Loc: ED Accession Number: [id number] ?? Procedure: US periph venous low extrem rt Ordering Provider: Francisco Stevens MD PROCEDURE:? US PERIPH VENOUS LOW EXTREM RT ? INDICATIONS:? PAIN EDEMA ? TECHNIQUE:? Real-time imaging, as well as color and pulse Doppler interrogation, were performed of the lower extremity deep veins from the inguinal ligament to the popliteal fossa, with documentation of the visualized calf veins.? ? COMPARISON:? None. ? FINDINGS:? The common femoral, femoral, popliteal, and the visualized calf veins are normally compressible, and free of intraluminal thrombus.? Color and pulse Doppler demonstrate normal phasic intraluminal flow.? There is normal augmentation response to distal compression maneuver.? ? ? IMPRESSION:? No findings of lower extremity deep venous thrombosis. ? ? Dictated by: Oneil Singleton M.D. on 05/04/2023 at 10:15 ? ? Approved by: Oneil Singleton M.D. on 05/04/2023 at 10:16 ? MDM Narrative Medical decision making narrative: Patient brought here by from home for complains of mid right calf pain. More medial aspect. Denies any injury strain or sprain to the area. No unusual exercises. No recent long travel immobilization or surgeries. No prior history of blood clot in the legs. However 23 years ago had blood clot in the left upper extremity. It was due to long travel/flying. No longer on blood thinners. Patient is getting ready to travel to [facility] within a week. Denies any chest pain shortness of breath. Knee to toes exposed After history and exam venous ultrasound MDM CC: Right calf pain Complicating co-morbidities: History of DVT 23 years ago left upper extremity Data collected from: Patient and Medical records reviewed: No recent visit for this complaint Differential considered: Includes but not limited to DVT SVT calf strain muscle spasm Exam documented above, pertinent findings include: Tender calf Imaging studies independently reviewed: Venous ultrasound right leg no DVT Treatments: None required Re-evaluations: Reviewed results with patient and . Patient has been up and walking to the bathroom without difficulty. Return precautions reviewed with them. They will be flying next Monday to [facility]. Reviewed with him frequent getting up in the airplane at least once per hour to walk and stretch the legs and muscles and promote blood flow to prevent DVT. Also squeezing calf muscles and leg muscles and thigh muscles and moving arms to promote good blood flow. Return precautions reviewed. They desire discharge home. They will take Tylenol or ibuprofen for discomfort. Discussion: Appropriate for discharge home. No blood work indicated. This is isolated to 1 muscle area. No x-rays indicated. No fall or injury. Exam and ultrasound are reassuring. Return precautions reviewed with patient and . They desire discharge home. Diagnosis: Right calf pain Discharge Plan Departure Patient Disposition: Home Clinical Impression: Pain of right calf Instructions: DI for Musculoskeletal Pain Activity Restrictions/Additional Instructions: May use Tylenol or ibuprofen for your pain. When you travel please do remember to get up each hour and walk to stretch her muscles and keep good blood flow going through your arms and legs. Be sure to contract/squeeze your leg muscles if you are seated to promote good blood flow. Return if worse if any questions or concerns. At this time no blood clot is seen in your leg. Prescriptions: No Action metformin 500 mg tablet See Rx Instructions .ROUTE .COMPLEX Qty: 180 3RF Dose Instruction: TAKE ONE TABLET BY MOUTH TWICE DAILY Rx Instructions: TAKE ONE TABLET BY MOUTH TWICE DAILY (DME) FreeStyle Sherri 2 [place] Misc See Rx Instructions .ROUTE .MEDSUPPLY Qty: 1 1RF Rx Instructions: USE TO TEST BLOOD GLUCOSE LEVELS CONTINUOUSLY. REPLACE IN AFTER 3 YEARS OR DAMAGED (DME) FreeStyle Sherri 2 Sensor Kit See Rx Instructions .ROUTE .MEDSUPPLY Qty: 1 12RF Rx Instructions: USE TO CHECK BLOOD GLUCOSE LEVELS CONTINUOUSLY. REPLACE EVERY 14 DAYS. biotin PO thyroid (pork) [SPORT PSYCHOLOGIST Thyroid] 120 mg tablet 120 mg PO Patient Comments: Takes 1 tab QAM and 1/2 tab QPM per pt Rx Instructions: take 1 tablet by mouth daily AT 9AM Carditone 350 mg 1 tab PO DAILY Lutein & Zeaxanthin 25 mg 1 tab PO DAILY ascorbate calcium (vitamin C) 500 mg tablet 500 mg PO DAILY cholecalciferol (vitamin D3) 125 mcg (5,000 unit) capsule 125 mcg PO DAILY multivitamin Tablet 1 tab PO DAILY turmeric 1,000 mg PO DAILY coenzyme Q10 100 mg capsule 100 mg PO DAILY zinc 50 mg tablet 50 mg PO DAILY hydralazine 50 mg tablet 50 mg PO TID (DME) Disabled Parking Permit See Rx Instructions .ROUTE .MEDSUPPLY Qty: 1 0RF Rx Instructions: Valid for 5 years cod liver oil Capsule See Rx Instructions PO QAM Rx Instructions: 1 teaspoon PO every morning; Referrals: Rola Sands DO [Primary Care Provider] - Stand Alone Forms: Patient Portal/API
[2023-05-04 09:46] VITALS: BP 177/83; PULSE 67; RESP 16; TEMP 36.7; O2SAT 98
[2023-05-04 10:56] VITALS: BP 178/91; PULSE 60; RESP 16; O2SAT 98
== END 2023-05-04 11:00 | disposition home or self-care (01) ==
PROVIDERS: Emergency Provider Emergency Medicine; Family Provider Family Medicine; PCP Family Medicine
DX: M79.661 Pain in right lower leg (principal)
CPT/HCPCS: 93971; 99283

== ENCOUNTER 2023-09-19 20:30 | Observation (INO) | payer MEDICARE, SELFPAY ==
[2022-11-03 11:41] VITALS: BMI 34.5
[2023-09-19] VITALS (20 sets, daily range): BP systolic 188–242; BP diastolic 82–113; PULSE 66–77; RESP 14–26; TEMP 36.8; O2SAT 93–98; BMI 31.9
--- NOTE | 2023-09-19 20:41 | DI.RAD.S_ITS ---
PROCEDURE: XR CHEST 1V INDICATIONS: chest pain TECHNIQUE: One view of the chest was acquired. COMPARISON: [facility], CR, XR CHEST 1V, 06/12/2022, 11:00. FINDINGS: Surgical changes and devices: None. Lungs and pleura: Lungs are clear. No pleural effusions or pneumothorax. Mediastinum: Mediastinal contours appear normal. Heart size is normal. Bones and chest wall: No suspicious bony lesions. Overlying soft tissues appear unremarkable. IMPRESSION: No acute cardiopulmonary abnormality is seen. Dictated by: Shantelle Hester M.D. on 09/19/2023 at 21:11 Approved by: Shantelle Hester M.D. on 09/19/2023 at 21:11
[2023-09-19] MEDS: ASPIRIN 81 MG CHEW TAB 324 MG PO (21:04)
[2023-09-19 21:11] LABS: Add Manual Diff / Slide Review NO; Basophils Absolute Auto 100 /uL (0-100); Basophils Percent Auto 1.1 % (0-2); Eosinophils Absolute Auto 200 /uL (0-450); Eosinophils Percent Auto 2.8 % (2-4); Hematocrit 35.9 % (36-46); Hemoglobin 12.2 g/dL (12.0-16.0); Lymphocytes Absolute Auto 2900 /uL (1100-4500); Lymphocytes Percent Auto 50.1 % (25-40); Mean Corpuscular Hemoglobin 29.5 PG (26-34); Mean Corpuscular Volume 86.8 fL (80-100); Monocytes Absolute Auto 400 /uL (0-900); Neutrophils Absolute Auto 2200 /uL (1500-7000); Platelet Count 219 X10^3/uL (150-400); Red Blood Cell Count 4.13 X10^6/uL (4.0-5.2); Red Cell Distribution Width 13.8 % (11.6-14.8); White Blood Cell Count 5.7 X10^3/uL (4.5-11.0)
[2023-09-19 21:19] LABS: INR 0.9 (0.9-1.3); Prothrombin Time 10.1 SECONDS (9.4-12.5)
[2023-09-19 21:21] LABS: PTT Partial Thromboplastin Tim 30 SECONDS (25.1-36.5)
[2023-09-19 21:29] LABS: Alanine Aminotransferase 20 IU/L (<35); Albumin 4.1 g/dL (3.5-5.0); Albumin Globulin Ratio 1.3 (1.0-2.8); Alkaline Phosphatase 51 U/L (38-126); Aspartate Aminotransferase 26 IU/L (14-36); BUN Creatinine Ratio 30.8 (6-22); Bilirubin Total 0.4 mg/dL (0.2-1.3); Blood Urea Nitrogen 20 mg/dL (7-17); Calcium 9.4 mg/dL (8.4-10.2); Carbon Dioxide 30 mmol/L (22-32); Chloride 102 mmol/L (98-107); Creatine Kinase 58 U/L (30-135); Estimated Glomerular Filt Rate > 60 mL/min (>60); Globulin 3.1 g/dL (1.7-4.1); Glucose 116 mg/dL (80-110); HEMOLYSIS 19 (0-50); Lipase 91 U/L (23-300); Magnesium 1.8 mg/dL (1.6-2.3); Potassium 3.7 mmol/L (3.4-5.1); Sodium 138 mmol/L (137-145); Total Protein 7.2 g/dL (6.3-8.2)
[2023-09-19 21:38] LABS: NT-proBNP (BNP-Adult 18+) 416 pg/mL (<450)
[2023-09-19 21:41] LABS: Troponin I < 0.012 ng/mL (0.01-0.034)
--- NOTE | 2023-09-19 22:09 | ED.GENADULT ---
HPI - General Adult General Chief complaint: Hypertension Stated complaint: lt finger went ,arm pain,high blood pressure Time Seen by Provider: 09/19/23 21:00 Source: EMS Mode of arrival: Wheelchair History of Present Illness HPI narrative: Patient 78-year-old female history of CVA with right leg weakness which has improved but still present, hypertension, diabetes, hypothyroid presents today with left index finger that went ?. ? She reports that she was sitting doing nothing when all of a sudden her left index finger went numb. It did not involve the rest her hand arm or wrist. She had no speech difficulty facial droop or vision changes. Not consistent with her previous stroke. Symptoms lasted for about 1 hour and now have completely resolved. She is noted to be quite hypertensive here in the emergency department 216/101 and remains hypertensive. Related Data Home Medications Medication Instructions Recorded Confirmed cod liver oil See Rx Instructions PO QAM 05/26/21 06/21/23 Carditone 1 tab PO DAILY 08/25/21 06/21/23 Lutein & Zeaxanthin 1 tab PO DAILY 08/25/21 06/21/23 ascorbate calcium (vitamin C) 500 500 mg PO DAILY 08/25/21 06/21/23 mg tablet cholecalciferol (vitamin D3) 125 125 mcg PO DAILY 08/25/21 06/21/23 mcg (5,000 unit) capsule coenzyme Q10 100 mg capsule 100 mg PO DAILY 08/25/21 06/21/23 multivitamin 1 tab PO DAILY 08/25/21 06/21/23 turmeric 1,000 mg PO DAILY 08/25/21 06/21/23 zinc 50 mg tablet 50 mg PO DAILY 08/25/21 06/21/23 biotin PO 01/14/22 06/21/23 thyroid (pork) 120 mg tablet ([employer]ER 120 mg PO 03/14/22 06/21/23 Thyroid) hydralazine 50 mg tablet 50 mg PO TID 02/15/23 06/21/23 Previous Rx's Medication Instructions Recorded flash glucose scanning reader #1 ea 11/25/22 (FreeStyle Sherri 2 [place]) flash glucose sensor (FreeStyle #1 ea 11/25/22 Sherri 2 Sensor kit) Disabled Parking Permit #1 ea 02/15/23 dexamethasone 1 mg tablet See Rx Instructions .Route 06/21/23 .COMPLEX #6 tabs metformin 500 mg tablet See Rx Instructions .Route 09/04/23 .COMPLEX #180 tabs Allergies Allergy/AdvReac Type Severity Reaction Status Date / Time diphenhydramine Allergy Severe hives and Verified 06/21/23 10:51 [DIPHENHYDRAMINE] rash pseudoephedrine Allergy Severe hives and Verified 06/21/23 10:51 [PSEUDOEPHEDRINE] rash shellfish derived Allergy Severe (JUST THE Verified 06/21/23 10:51 [SHELLFISH DERIVED] SHELL) rash Patient History Medical History Allergic rhinitis Arrhythmia Cataracts, bilateral Chicken pox Concussion CVA (cerebral vascular accident) DVT (deep venous thrombosis) (2000) Endometriosis (~1979) Essential hypertension (12/06/12) Fall at home Fecal incontinence (~2019) Fractures (~2010) 4 History of ectopic (1980) History of urinary incontinence (~2019) Hypothyroid Hypothyroidism (2003) Malaria Measles Migraines Mixed hyperlipidemia Mumps Myalgia Pertussis (1949) Plantar warts TIA (transient ischemic attack) (~2019) Type 2 diabetes mellitus Urge incontinence Surgical History History of bilateral salpingo-oophorectomy (BSO) (1980) History of strabismus surgery (1960) Status post hysterectomy (1980) Status post wrist surgery Family History Father Diabetes mellitus Hypertension Mother Parkinson's disease Sister Age: 77 Thyroid disease Family/Other Thyroid disease Brother Age: 73 Thyroid disease Social History household members: spouse Smoking Status: Never smoker Smoking Status: Never smoker alcohol intake frequency: 0-2 drinks per day Substance Use Type: does not use Exam Initial Vital Signs Initial Vital Signs: Vital Signs Temperature 98.2 F 09/19/23 20:34 Pulse Rate 72 09/19/23 20:34 Respiratory Rate 18 09/19/23 20:34 Blood Pressure 216/101 H 09/19/23 20:34 Pulse Oximetry 98 09/19/23 20:34 Oxygen Delivery Method Room Air 09/19/23 20:34 GENERAL: Alert pleasant 78-year-old female and in no acute distress. HEENT: Head atraumatic,EOMI, pupils reactive, face symmetric, moist mucous membranes CARDIOVASCULAR: Regular rate and rhythm without murmurs, rubs or gallops. RESPIRATORY: Breath sounds equal bilaterally, no wheezes rales or rhonchi. ABDOMEN: Soft, nontender. Normoactive bowel sounds all 4 quadrants. No guarding or rebound. EXTREMITIES: Normal range of motion, no clubbing or edema. Neurovascularly intact NEUROLOGICAL: Alert and oriented x4.Normal gait and speech. Cranial nerves II through XII grossly intact. [Good [id number]-vb-wawp, good [id number], right leg does drift to bed but does not touch left leg good strength this is baseline for her no dysarthria or aphasia, sensation in tact to soft touch bilaterally, no visual changes, no facial droop] SKIN: Warm, dry, no laceration, no petechiae, no rashes or lesions. Scores NIH Stroke Scale Level of Conciousness: Alert, keenly responsive Ask month/age: Answers both questions correctly. Open/close eyes, close hand: Performs both tasks correctly Best gaze horizontal: Normal Visual box: No visual loss Facial palsy: Normal symetrical movement Left arm drift: No drift for full 10 sec Right arm drift: No drift for full 10 sec Left leg drift: No drift for full 5 sec Right leg drift: Drifts down, not to bed Limb ataxia: Absent Sensory on face/arms/legs: Normal, no sensory loss Best language: No aphasia, normal Dysarthria: Normal Extinction or inattention: No abnormality Total NIH Stroke scale score: 1 Course Orders Ordered: ED Orders 09/19/23 20:41 XR chest 1V Stat EKG-12 Lead Stat 09/19/23 21:00 BNP [NT-proBNP (BNP-Adult 18+)] Stat Complete Blood Count AUTO DIFF Stat Comprehensive Metabolic Panel Stat Lipase Stat Magnesium Stat PTT Partial Thromboplastin Omari Stat Prothrombin Time INR Stat Troponin & CK Cardiac Panel Stat 09/19/23 22:09 CT angio head and neck Stat CT head/brain wo con Stat Acetaminophen (Acetaminophen 325 Mg Tablet) 650 mg PO Q6H PRN PRN Reason: Fever/Mild Pain (1-3) Calcium Carbonate (Calcium Carbonate 500 Mg Tab) 1,000 mg PO Q4HR PRN PRN Reason: Dyspepsia Enoxaparin Sodium (Enoxaparin 40 Mg/0.4 Ml Syringe) 40 mg SUBCUT DAILY [facility] Furosemide (Furosemide 20 Mg Tablet) 20 mg PO DAILY [facility] Hydralazine HCl (Hydralazine 20 Mg/Ml Vial) 10 mg IV Q6HR PRN PRN Reason: Hypertension Lisinopril (Lisinopril 20 Mg Tablet) 20 mg PO DAILY [facility] Naloxone HCl (Naloxone 0.4 Mg/Ml Vial) 0.2 mg IV Q2MIN PRN PRN Reason: Opiate Reversal (Thyroid (Pork) [Cell Repairer Thyroid] 120 Mg Tablet) 120 mg PO DAILY [facility] Ondansetron HCl (Ondansetron 4 Mg/2 Ml Inj) 4 mg IV Q8HR PRN PRN Reason: Nausea And Vomiting Ondansetron HCl (Ondansetron 4 Mg Odt) 4 mg PO Q8HR PRN PRN Reason: Nausea And Vomiting Pantoprazole Sodium (Pantoprazole Dr 20 Mg Tablet) 20 mg PO 0600 [facility] Sennosides (Sennosides 8.6 Mg Tablet) 17.2 mg PO BEDTIME [facility] Discontinued Medications Aspirin (Aspirin 81 Mg Chew Tab) 324 mg PO NOW ONE Stop: 09/19/23 20:42 Last Admin: 09/19/23 21:04 Dose: 324 mg Documented By: MINH Aspirin (Aspirin Ec 325 Mg Tablet) 325 mg PO NOW ONE Stop: 09/20/23 00:14 Last Admin: 09/20/23 00:21 Dose: 325 mg Documented By: KELLY Labetalol HCl (Labetalol 20 Mg/4 Ml Syringe) 10 mg IV NOW ONE Stop: 09/19/23 22:10 Last Admin: 09/19/23 22:19 Dose: 10 mg Documented By: KELLY Metoprolol Tartrate (Metoprolol Ir 25 Mg Tablet) 25 mg PO NOW ONE Stop: 09/20/23 00:51 Vital Signs Vital signs: Vital Signs - 8 hr 09/19/23 20:34 09/19/23 21:33 09/19/23 21:34 Temperature 98.2 F Pulse Rate 72 75 76 Respiratory Rate 18 21 26 H Blood Pressure 216/101 H Pulse Oximetry 98 98 97 Oxygen Delivery Method Room Air Room Air Room Air 09/19/23 21:34 09/19/23 21:41 09/19/23 21:41 Temperature Pulse Rate 71 Respiratory Rate 20 Blood Pressure 229/105 H 229/97 H Pulse Oximetry 97 Oxygen Delivery Method Room Air 09/19/23 21:58 09/19/23 21:58 09/19/23 21:59 Temperature Pulse Rate 69 69 Respiratory Rate 23 21 Blood Pressure 234/109 H Pulse Oximetry 97 96 Oxygen Delivery Method Room Air 09/19/23 21:59 09/19/23 22:00 09/19/23 22:01 Temperature Pulse Rate 69 68 Respiratory Rate 22 16 Blood Pressure 231/109 H Pulse Oximetry 95 98 Oxygen Delivery Method Room Air Room Air 09/19/23 22:01 09/19/23 22:15 09/19/23 22:15 Temperature Pulse Rate 73 Respiratory Rate 18 Blood Pressure 220/101 H 242/111 H Pulse Oximetry 97 Oxygen Delivery Method Room Air 09/19/23 22:19 09/19/23 22:25 09/19/23 22:25 Temperature Pulse Rate 69 66 Respiratory Rate 20 Blood Pressure 242/111 H 193/86 H Pulse Oximetry 97 Oxygen Delivery Method Room Air 09/19/23 22:38 09/19/23 22:39 09/19/23 22:39 Temperature Pulse Rate 77 77 Respiratory Rate 20 21 Blood Pressure 238/98 H Pulse Oximetry 96 98 Oxygen Delivery Method Room Air 09/19/23 22:45 09/19/23 22:45 09/19/23 22:53 Temperature Pulse Rate 71 74 Respiratory Rate 20 Blood Pressure 208/89 H 208/89 H Pulse Oximetry 97 Oxygen Delivery Method Room Air 09/19/23 23:00 09/19/23 23:00 09/19/23 23:11 Temperature Pulse Rate 73 75 Respiratory Rate 23 16 Blood Pressure 207/88 H Pulse Oximetry 96 98 Oxygen Delivery Method Room Air Room Air 09/19/23 23:11 09/19/23 23:20 09/19/23 23:20 Temperature Pulse Rate 75 Respiratory Rate 15 Blood Pressure 209/113 H 199/89 H Pulse Oximetry 93 Oxygen Delivery Method Room Air 09/19/23 23:30 09/19/23 23:30 09/19/23 23:40 Temperature Pulse Rate 77 75 Respiratory Rate 21 14 Blood Pressure 194/86 H Pulse Oximetry 93 96 Oxygen Delivery Method Room Air Room Air 09/19/23 23:40 09/20/23 00:00 09/20/23 00:01 Temperature Pulse Rate 69 68 Respiratory Rate 23 15 Blood Pressure 188/82 H Pulse Oximetry 97 97 Oxygen Delivery Method Room Air Room Air 09/20/23 00:01 09/20/23 00:10 09/20/23 00:10 Temperature Pulse Rate 75 Respiratory Rate 22 Blood Pressure 214/96 H 214/100 H Pulse Oximetry 97 Oxygen Delivery Method Room Air 09/20/23 00:20 09/20/23 00:20 Temperature Pulse Rate 69 Respiratory Rate 14 Blood Pressure 202/93 H Pulse Oximetry 98 Oxygen Delivery Method Medical Decision Making Lab Data 09/19/23 21:00 09/19/23 21:00 Labs: Lab Results 09/19/23 Range/Units 21:00 WBC 5.7 (4.5-11.0) X10^3/uL RBC 4.13 (4.0-5.2) X10^6/uL Hgb 12.2 (12.0-16.0) g/dL Hct 35.9 L (36-46) % MCV 86.8 (80-100) fL MCH 29.5 (26-34) PG MCHC 34.0 (30-36) % RDW 13.8 (11.6-14.8) % Plt Count 219 (150-400) X10^3/uL Neut % (Auto) 39.0 L (50-75) % Lymph % (Auto) 50.1 H (25-40) % [place] % (Auto) 7.0 (3-14) % Eos % (Auto) 2.8 (2-4) % Baso % (Auto) 1.1 (0-2) % Neut # (Auto) 2200 (5030-9820) /uL Lymph # (Auto) 2900 (3789-6690) /uL [place] # (Auto) 400 (0-900) /uL Eos # (Auto) 200 (0-450) /uL Baso # (Auto) 100 (0-100) /uL PT 10.1 (9.4-12.5) SECONDS INR 0.9 (0.9-1.3) APTT 30 (25.1-36.5) SECONDS Sodium 138 (137-145) mmol/L Potassium 3.7 (3.4-5.1) mmol/L Chloride 102 (98-107) mmol/L Carbon Dioxide 30 (22-32) mmol/L BUN 20 H (7-17) mg/dL Creatinine 0.65 (0.52-1.04) mg/dL Estimated GFR > 60 (>60) mL/min BUN/Creatinine Ratio 30.8 H (6-22) Glucose 116 H (80-110) mg/dL Calcium 9.4 (8.4-10.2) mg/dL Magnesium 1.8 (1.6-2.3) mg/dL Total Bilirubin 0.4 (0.2-1.3) mg/dL AST 26 (14-36) IU/L ALT 20 (<35) IU/L Alkaline Phosphatase 51 (38-126) U/L Total Creatine Kinase 58 (30-135) U/L Troponin I < 0.012 (0.01-0.034) ng/mL NT-Pro-B Natriuret Pep 416 (<450) pg/mL Total Protein 7.2 (6.3-8.2) g/dL Albumin 4.1 (3.5-5.0) g/dL Globulin 3.1 (1.7-4.1) g/dL Albumin/Globulin Ratio 1.3 (1.0-2.8) Lipase 91 (23-300) U/L Imaging Data Chest x-ray: Radiologist's Impression: PROCEDURE: XR CHEST 1V INDICATIONS: chest pain TECHNIQUE: One view of the chest was acquired. COMPARISON: [facility], , XR CHEST 1V, 06/12/2022, 11:00. FINDINGS: Surgical changes and devices: None. Lungs and pleura: Lungs are clear. No pleural effusions or pneumothorax. Mediastinum: Mediastinal contours appear normal. Heart size is normal. Bones and chest wall: No suspicious bony lesions. Overlying soft tissues appear unremarkable. IMPRESSION: No acute cardiopulmonary abnormality is seen. Dictated by: Shantelle Hester M.D. on 09/19/2023 at 21:11 Approved by: Shantelle Hester M.D. on 09/19/2023 at 21:1 CT scan - head: Radiologist's Impression: PROCEDURE: CT HEAD/BRAIN WO CON INDICATIONS: left index finger numbness TECHNIQUE: Noncontrast 4.5 mm thick angled axial sections acquired from the foramen magnum to the vertex, with coronal and sagittal reformats. For radiation dose reduction, the following was used: automated exposure control, adjustment of mA and/or kV according to patient size. COMPARISON: [facility], CT, CT HEAD/BRAIN WO CON, 09/27/2021, 10:57. FINDINGS: Image quality: Diagnostic. CSF spaces: Basal cisterns are patent. No extra-axial fluid collections. The ventricles are symmetric in size and shape. Brain: No intracranial bleeds or masses. There is cerebral volume loss for age, with resultant ventricular and sulcal prominence. There are moderate periventricular and deep white matter chronic small vessel ischemic changes. There are numerous scattered lacunar infarcts through periventricular white matter and deep estes matter bilaterally. There is intracranial internal carotid artery atherosclerosis. Skull and face: Calvarium and visualized facial bones appear intact, without suspicious lesions. Sinuses: Visualized sinuses and mastoids are clear. IMPRESSION: No CT evidence of acute intracranial process. Age-appropriate cerebral cortical volume loss and chronic microvascular ischemic changes. Dictated by: Shantelle Hester M.D. on 09/19/2023 at 23:23 CTA - brain/neck: Radiologist's Impression: PROCEDURE: CT ANGIO HEAD AND NECK INDICATIONS: left index finger numbness TECHNIQUE: After the administration of intravenous contrast, 1 mm thick sections acquired from the aortic arch through the [place] of [place]. 3-dimensional felsmkh-elekqdrmj-gsmvubzxzk (MIP) and/or volume rendering reformats were acquired of the central intracranial vasculature and neck separately. For radiation dose reduction, the following was used: automated exposure control, adjustment of mA and/or kV according to patient size. COMPARISON: [facility], CT, CT ANGIO HEAD AND NECK, 01/17/2020, 12:01. FINDINGS: Image quality: Diagnostic. BRAIN: CSF spaces: Ventricles are normal in size and shape. Basal cisterns are patent. No extra-axial fluid collections. Brain: No significant abnormality of the brain can be seen. Skull and face: Calvarium and facial bones appear intact, without suspicious lesions. Orbits appear normal. Sinuses: Sinuses and mastoids are clear. HEAD CT ANGIOGRAPHY: Anterior circulation: Intracranial internal carotid arteries are normal in size and flow. The flow within the paired anterior cerebral arteries is normal and symmetric. The flow within the middle cerebral arteries is normal and symmetric. The anterior communicating artery is seen. No aneurysms are seen. Posterior circulation: Visualized portions of the vertebral arteries demonstrate normal caliber, and join to form a normal appearing basilar artery. Flow within the posterior cerebral arteries is normal and symmetric. No aneurysms are seen. NECK CT ANGIOGRAPHY: Carotid system: The great vessels demonstrate a bovine arch, normal variant anatomy as they arise from the aortic arch. The origins of the common carotid arteries appear patent. The common carotid arteries demonstrate normal caliber and courses. The bifurcation regions demonstrate mild calcified and noncalcified plaque but are patent. The internal carotid arteries demonstrate normal calibers and courses. Posterior circulation: The origins of the vertebral arteries both appear widely patent. The more superior extracranial portions of both vertebral arteries also demonstrate normal courses and calibers. They join to form a normal appearing basilar artery. Soft tissues: Visualized neck soft tissues demonstrate no suspicious abnormalities. Bones: No suspicious bony lesions. Visualized cervical spine appears normally aligned. IMPRESSION: No significant intracranial arterial abnormality is seen. Normal variant anatomy as described. Mild carotid bulb calcification without hemodynamically significant stenosis. Any quantitative measurements of stenosis were performed using NASCET criteria. Dictated by: Shantelle Hester M.D. on 09/19/2023 at 23:25 ECG Data Interpretation: Normal sinus rhythm rate 70 DC interval 140 QRS [address] changes no priors to compare MDM Narrative Medical decision making narrative: Patient 78-year-old female history of CVA with right leg weakness presents today with elevated blood pressure and left finger abnormality. She denies hand weakness or arm weakness. She is noted to be persistently hypertensive in the ED. She reports that she is actually noted some elevation in her blood pressure over the last 1 week but never quite this high. She denies any headache. But was concerned with her left finger. She reports that she was just reading a magazine when it went ?. Blood work reviewed no evidence of end-organ damage Imaging reviewed chest x-ray head CT and CT angio without evidence of acute process EKG reviewed Patient has an NIH stroke scale of 1 secondary due to her ongoing right leg weakness from her prior stroke. She takes 81 mg of aspirin daily. Blood pressure remains very high 242/111 she was given 10 mg of labetalol she did respond it went down to 188/82 but quickly climbed back up. Concern for hypertensive urgency. She does have this left finger issue which now seems to be resolved. I think highly unlikely for this to be a stroke. It may or may not be related to her elevated blood pressure. She has not having any chest pain. She is given aspirin. Dr. Garza updated patient's symptoms test results agrees to admission for blood pressure control Discharge Plan Departure Patient Disposition: Admitted as Observation Clinical Impression: Hypertensive urgency, Brain TIA Admit Date/Time: 09/20/23 00:29 Admit Provider: Sumeet Ruby
[2023-09-19] MEDS: LABETALOL 20 MG/4 ML SYRINGE 10 MG IV (22:19)
--- NOTE | 2023-09-19 23:05 | PC.NURSE ---
alarm security or surveillance monitor began alarming abnormal rhythm. Patient immediately assessed, patient in room lying n [place], asymptomatic, denies CP, SOB, dizziness and is alert and oriented x4. Rhythm strip shown to Dr. Garvey immediately. Patient continues to rest in [place], call light in reach.
[2023-09-20] VITALS (14 sets, daily range): BP systolic 171–214; BP diastolic 72–100; PULSE 66–76; RESP 14–24; TEMP 36.1–36.6; O2SAT 92–99; BMI 32.6
[2023-09-20] MEDS: ASPIRIN EC 325 MG TABLET PO (00:21)
--- NOTE | 2023-09-20 00:51 | DI.ECHO.S_ITS ---
[facility]---------+ [facility] +---------+ : : [address] : [address] : : : : [id number] : : : : Phone: [phone]+ Echocardiogram Report + + :Name: BRITTANY EGAN Study Date: 09/20/2023 Height: 68 in : :[facility] ReadingLocation: Weight: 210 lb : : Gender: Female BSA: 2.1 m2 : :: 1945 Age: 78 yrs BP: 204/87 mmHg: :Reason For Study: HYPERTENSION : :Ordering Physician: ERLIN, : :EUGENIO Dockery MD Performed By: Fallon Maldonado : :Referring: EUGENIO KERN MD : + + Interpretation Summary The left ventricle is normal in size. Left ventricular systolic function appears normal without focal wall motion abnormalities. The ejection fraction is estimated to be 60-65%. Diastolic parameters suggest a relaxation abnormality of the left ventricle, consistent with probable normal filling pressures. The right ventricle is normal in size and function. The right ventricular systolic pressure is estimated to be at least 47 mmHg based on an estimated right atrial pressure of 3 mm Hg. There is mild mitral regurgitation. There is mild aortic regurgitation. The aortic root is normal size. Procedure: A two-dimensional transthoracic echocardiogram with color flow and Doppler was performed. The study quality was technically adequate. Comparison is made with the echocardiogram of 07/26/2021. The patient was in sinus rhythm with heart rates between 66-71 bpm during the exam. Left Ventricle: The left ventricle is normal in size. Left ventricular wall thickness is borderline increased. Left ventricular systolic function appears normal without focal wall motion abnormalities. The ejection fraction is estimated to be 60-65%. Diastolic parameters suggest a relaxation abnormality of the left ventricle, consistent with probable normal filling pressures. Right Ventricle: The right ventricle is normal in size and function. Atria: The left atrium is mildly dilated. Right atrial size is normal. There is no Doppler evidence for an interatrial shunt. Mitral Valve: The mitral valve is normal in structure and function. There is mild mitral regurgitation. Aortic Valve: The aortic valve is trileaflet. The aortic valve opens well. There is no aortic valve stenosis. There is mild aortic regurgitation. Tricuspid Valve: The tricuspid valve is normal in structure and function. There is mild tricuspid regurgitation. The right ventricular systolic pressure is estimated to be at least 47 mmHg based on an estimated right atrial pressure of 3 mm Hg. Pulmonic Valve: The pulmonic valve leaflets are thin and pliable; valve motion is normal. There is mild pulmonic regurgitation. Great Vessels: The aortic root is normal size. The dimensions of the ascending aorta are normal. The IVC is of normal diameter and collapses greater than 50% with a sniff. This suggests a low right atrial pressure of 3 mm Hg. Pericardium/ Pleura There is no pericardial effusion. There is no pleural effusion. MMode/2D Measurements & Calculations LVIDd: 4.6 cm LVOT diam: 2.0 cm LVIDs: 3.0 cm Ao root diam: 3.4 cm FS: 36.0 % asc Aorta Diam: 3.3 cm EPSS: 0.83 cm Ao Arch Diam (Prox Trans): 3.3 cm IVSd: 1.0 cm LVPWd: 1.1 cm LV chan. diameter/BSA (cm/m^2): 2.2 LV sys. diameter/BSA (cm/m^2): 1.4 LA A2 area: 25.8 cm2 RA long axis: 5.3 cm LA A4 area: 24.0 cm2 RA area: 18.2 cm2 LA length (vol): 5.9 cm RA vol: 53.2 ml LA vol: 89.3 ml RA : 25.5 ml/m2 LA vol index: 42.8 ml/m2 IVC diam: 1.9 cm RVD1 (basal): 4.0 cm RVD2 (mid): 3.9 cm TAPSE: 1.9 cm Doppler Measurements & Calculations Ao V2 max: 141.9 cm/sec LVOT Max John: 109.4 cm/sec Ao V2 mean: 101.6 cm/sec LV V1 max P.8 mmHg Ao max P.0 mmHg LV V1 VTI: 23.6 cm Ao mean P.5 mmHg LAVERNE(I,D): 2.4 cm2 Ao V2 VTI: 31.3 cm LAVERNE(V,D): 2.5 cm2 sev ratio: 0.75 LAVERNE indexed to BSA (cm^2/m^2): 1.2 MV E max john: 81.2 cm/sec TR max john: 332.7 cm/sec MV A max john: 83.5 cm/sec TR max P.3 mmHg MV E/A: 0.97 PA V2 max: 109.6 cm/sec Med Peak E' John: 5.9 cm/sec PA V2 mean: 67.4 cm/sec E/E' med: 13.8 PA mean P.0 mmHg Lat Peak E' John: 6.6 cm/sec PA pr(Accel): 19.1 mmHg E/E' lat: 12.4 E/e' average: 13.1 MV dec time: 0.24 sec SV(LVOT): 76.4 ml Reading Physician:04:47 PM
--- NOTE | 2023-09-20 01:23 | PM.HP.1 ---
History of Present Illness History of Present Illness Date Patient Seen: 09/20/23 Time Patient Seen: 01:24 Chief complaint: lt finger went ,arm pain,high blood pressure Narrative: The pt is a 78 yo who presents to the ER due to numbness in the tip of the Left index finger. It was noted in the ER that her BP was over 200. She states that she has not taken her BP in several months but it was in the 160's systolic. The pt denies change in vision, ZAMARRIPA, neck pain, SOB, cough, weakness in arms or legs, no dizziness or vertigo. She does see a program director cable television for fainting spells which her last one was July. [facility] Medical History Allergic rhinitis Arrhythmia Cataracts, bilateral Chicken pox Concussion CVA (cerebral vascular accident) DVT (deep venous thrombosis) (2000) Endometriosis (~1979) Essential hypertension (12/06/12) Fall at home Fecal incontinence (~2019) Fractures (~2010) 4 History of ectopic (1980) History of urinary incontinence (~2019) Hypothyroid Hypothyroidism (2003) Malaria Measles Migraines Mixed hyperlipidemia Mumps Myalgia Pertussis (1949) Plantar warts TIA (transient ischemic attack) (~2019) Type 2 diabetes mellitus Urge incontinence Surgical History History of bilateral salpingo-oophorectomy (BSO) (1980) History of strabismus surgery (1960) Status post hysterectomy (1980) Status post wrist surgery Family History Father Diabetes mellitus Hypertension Mother Parkinson's disease Sister Age: 77 Thyroid disease Family/Other Thyroid disease Brother Age: 73 Thyroid disease Social History household members: spouse Smoking Status: Never smoker Meds Home Medications and Allergies Home Medications Medication Instructions Recorded Confirmed Type cod liver oil See Rx Instructions PO QAM 05/26/21 06/21/23 History Carditone 1 tab PO DAILY 08/25/21 06/21/23 History Lutein & Zeaxanthin 1 tab PO DAILY 08/25/21 06/21/23 History ascorbate calcium (vitamin C) 500 500 mg PO DAILY 08/25/21 06/21/23 History mg tablet cholecalciferol (vitamin D3) 125 125 mcg PO DAILY 08/25/21 06/21/23 History mcg (5,000 unit) capsule coenzyme Q10 100 mg capsule 100 mg PO DAILY 08/25/21 06/21/23 History multivitamin 1 tab PO DAILY 08/25/21 06/21/23 History turmeric 1,000 mg PO DAILY 08/25/21 06/21/23 History zinc 50 mg tablet 50 mg PO DAILY 08/25/21 06/21/23 History biotin PO 01/14/22 06/21/23 History thyroid (pork) 120 mg tablet (CARBURETOR MECHANIC 120 mg PO 03/14/22 06/21/23 History Thyroid) flash glucose scanning reader #1 ea 11/25/22 06/21/23 Rx (FreeStyle Sherri 2 [place]) flash glucose sensor (FreeStyle #1 ea 11/25/22 06/21/23 Rx Sherri 2 Sensor kit) Disabled Parking Permit #1 ea 02/15/23 06/21/23 Rx hydralazine 50 mg tablet 50 mg PO TID 02/15/23 06/21/23 History dexamethasone 1 mg tablet See Rx Instructions .Route 06/21/23 06/21/23 Rx .COMPLEX #6 tabs metformin 500 mg tablet See Rx Instructions .Route 09/04/23 Rx .COMPLEX #180 tabs Allergies Allergy/AdvReac Type Severity Reaction Status Date / Time diphenhydramine Allergy Severe hives and Verified 06/21/23 10:51 [DIPHENHYDRAMINE] rash pseudoephedrine Allergy Severe hives and Verified 06/21/23 10:51 [PSEUDOEPHEDRINE] rash shellfish derived Allergy Severe (JUST THE Verified 06/21/23 10:51 [SHELLFISH DERIVED] SHELL) rash Exam Vital Signs (past 8 hours): - 09/19/23 20:34 09/19/23 21:33 09/19/23 21:34 Temperature 98.2 F Pulse Rate 72 75 76 Respiratory Rate 18 21 26 H Blood Pressure 216/101 H Pulse Oximetry 98 98 97 Oxygen Delivery Method Room Air Room Air Room Air 09/19/23 21:34 09/19/23 21:41 09/19/23 21:41 Temperature Pulse Rate 71 Respiratory Rate 20 Blood Pressure 229/105 H 229/97 H Pulse Oximetry 97 Oxygen Delivery Method Room Air 09/19/23 21:58 09/19/23 21:58 09/19/23 21:59 Temperature Pulse Rate 69 69 Respiratory Rate 23 21 Blood Pressure 234/109 H Pulse Oximetry 97 96 Oxygen Delivery Method Room Air 09/19/23 21:59 09/19/23 22:00 09/19/23 22:01 Temperature Pulse Rate 69 68 Respiratory Rate 22 16 Blood Pressure 231/109 H Pulse Oximetry 95 98 Oxygen Delivery Method Room Air Room Air 09/19/23 22:01 09/19/23 22:15 09/19/23 22:15 Temperature Pulse Rate 73 Respiratory Rate 18 Blood Pressure 220/101 H 242/111 H Pulse Oximetry 97 Oxygen Delivery Method Room Air 09/19/23 22:19 09/19/23 22:25 09/19/23 22:25 Temperature Pulse Rate 69 66 Respiratory Rate 20 Blood Pressure 242/111 H 193/86 H Pulse Oximetry 97 Oxygen Delivery Method Room Air 09/19/23 22:38 09/19/23 22:39 09/19/23 22:39 Temperature Pulse Rate 77 77 Respiratory Rate 20 21 Blood Pressure 238/98 H Pulse Oximetry 96 98 Oxygen Delivery Method Room Air 09/19/23 22:45 09/19/23 22:45 09/19/23 22:53 Temperature Pulse Rate 71 74 Respiratory Rate 20 Blood Pressure 208/89 H 208/89 H Pulse Oximetry 97 Oxygen Delivery Method Room Air 09/19/23 23:00 09/19/23 23:00 09/19/23 23:11 Temperature Pulse Rate 73 75 Respiratory Rate 23 16 Blood Pressure 207/88 H Pulse Oximetry 96 98 Oxygen Delivery Method Room Air Room Air 09/19/23 23:11 09/19/23 23:20 09/19/23 23:20 Temperature Pulse Rate 75 Respiratory Rate 15 Blood Pressure 209/113 H 199/89 H Pulse Oximetry 93 Oxygen Delivery Method Room Air 09/19/23 23:30 09/19/23 23:30 09/19/23 23:40 Temperature Pulse Rate 77 75 Respiratory Rate 21 14 Blood Pressure 194/86 H Pulse Oximetry 93 96 Oxygen Delivery Method Room Air Room Air 09/19/23 23:40 09/20/23 00:00 09/20/23 00:01 Temperature Pulse Rate 69 68 Respiratory Rate 23 15 Blood Pressure 188/82 H Pulse Oximetry 97 97 Oxygen Delivery Method Room Air Room Air 09/20/23 00:01 09/20/23 00:10 09/20/23 00:10 Temperature Pulse Rate 75 Respiratory Rate 22 Blood Pressure 214/96 H 214/100 H Pulse Oximetry 97 Oxygen Delivery Method Room Air 09/20/23 00:20 09/20/23 00:20 09/20/23 00:30 Temperature Pulse Rate 69 Respiratory Rate 14 Blood Pressure 202/93 H 202/95 H Pulse Oximetry 98 Oxygen Delivery Method 09/20/23 00:30 09/20/23 00:40 09/20/23 00:40 Temperature Pulse Rate 66 67 Respiratory Rate 18 24 Blood Pressure 204/93 H Pulse Oximetry 98 94 Oxygen Delivery Method Room Air Oxygen Delivery Method Room Air Const General: cooperative and comfortable Neck Neck: full ROM Resp Auscultation: clear to auscultation bilaterally Cardio Rate: regular rate Rhythm: regular rhythm GI Auscultation: normal bowel sounds Neuro General: patient alert, patient awake, patient oriented x3, moves all extremities and no focal motor deficits Objective Labs 09/19/23 21:00 09/19/23 21:00 Labs: Laboratory Results - last 24 hr 09/19/23 21:00 WBC 5.7 RBC 4.13 Hgb 12.2 Hct 35.9 L MCV 86.8 MCH 29.5 MCHC 34.0 RDW 13.8 Plt Count 219 Neut % (Auto) 39.0 L Lymph % (Auto) 50.1 H [place] % (Auto) 7.0 Eos % (Auto) 2.8 Baso % (Auto) 1.1 Neut # (Auto) 2200 Lymph # (Auto) 2900 [place] # (Auto) 400 Eos # (Auto) 200 Baso # (Auto) 100 PT 10.1 INR 0.9 APTT 30 Sodium 138 Potassium 3.7 Chloride 102 Carbon Dioxide 30 BUN 20 H Creatinine 0.65 Estimated GFR > 60 BUN/Creatinine Ratio 30.8 H Glucose 116 H Calcium 9.4 Magnesium 1.8 Total Bilirubin 0.4 AST 26 ALT 20 Alkaline Phosphatase 51 Total Creatine Kinase 58 Troponin I < 0.012 NT-Pro-B Natriuret Pep 416 Total Protein 7.2 Albumin 4.1 Globulin 3.1 Albumin/Globulin Ratio 1.3 Lipase 91 Assessment & Plan Assessment and plan (1) Hypertensive urgency: Status: Acute Plan Will admit the pt to the hospital, monitor on telemetry, starting the pt on lasix, lisinopril and metoprolol with hydralzine prn. I do not feel her symptoms of numbness of the tip of the index finger represents significant indications for a stroke work up. The pt reports no further numbness in the finger and is medically stable.
[2023-09-20] MEDS: METOPROLOL IR 25 MG TABLET PO (02:13)
[2023-09-20 05:19] LABS: Add Manual Diff / Slide Review NO; Basophils Absolute Auto 100 /uL (0-100); Eosinophils Absolute Auto 100 /uL (0-450); Eosinophils Percent Auto 2.6 % (2-4); Hematocrit 33.5 % (36-46); Hemoglobin 11.4 g/dL (12.0-16.0); Lymphocytes Absolute Auto 2600 /uL (1100-4500); Lymphocytes Percent Auto 48.8 % (25-40); Mean Corpuscular HGB Conc 34.1 % (30-36); Mean Corpuscular Hemoglobin 29.5 PG (26-34); Mean Corpuscular Volume 86.6 fL (80-100); Monocytes Absolute Auto 500 /uL (0-900); Monocytes Percent Auto 10.1 % (3-14); Neutrophils Absolute Auto 2000 /uL (1500-7000); Neutrophils Percent Auto 37.5 % (50-75); Platelet Count 200 X10^3/uL (150-400); Red Blood Cell Count 3.87 X10^6/uL (4.0-5.2); Red Cell Distribution Width 13.7 % (11.6-14.8); White Blood Cell Count 5.3 X10^3/uL (4.5-11.0)
[2023-09-20 05:29] LABS: Blood Urea Nitrogen 18 mg/dL (7-17); Calcium 9.1 mg/dL (8.4-10.2); Carbon Dioxide 27 mmol/L (22-32); Chloride 105 mmol/L (98-107); Estimated Glomerular Filt Rate > 60 mL/min (>60); Glucose 108 mg/dL (80-110); HEMOLYSIS < 15 (0-50); Potassium 3.6 mmol/L (3.4-5.1); Sodium 139 mmol/L (137-145)
[2023-09-20 05:39] LABS: NT-proBNP (BNP-Adult 18+) 352 pg/mL (<450)
--- NOTE | 2023-09-20 08:28 | P.HP_ITS ---
History of Present Illness History of Present Illness Date Patient Seen: 09/20/23 Chief complaint: lt finger went ,arm pain,high blood pressure Narrative: From overnight provider: The pt is a 78 yo who presents to the ER due to numbness in the tip of the Left index finger. It was noted in the ER that her BP was over 200. She states that she has not taken her BP in several months but it was in the 160's systolic. The pt denies change in vision, ZAMARRIPA, neck pain, SOB, cough, weakness in arms or legs, no dizziness or vertigo. She does see a shampooer for fainting spells which her last one was July. [facility] Medical History Allergic rhinitis Arrhythmia Cataracts, bilateral Chicken pox Concussion CVA (cerebral vascular accident) DVT (deep venous thrombosis) (2000) Endometriosis (~1979) Essential hypertension (12/06/12) Fall at home Fecal incontinence (~2019) Fractures (~2010) 4 History of ectopic (1980) History of urinary incontinence (~2019) Hypothyroid Hypothyroidism (2003) Malaria Measles Migraines Mixed hyperlipidemia Mumps Myalgia Pertussis (1949) Plantar warts TIA (transient ischemic attack) (~2019) Type 2 diabetes mellitus Urge incontinence Surgical History History of bilateral salpingo-oophorectomy (BSO) (1980) History of strabismus surgery (1960) Status post hysterectomy (1980) Status post wrist surgery Family History Father Diabetes mellitus Hypertension Mother Parkinson's disease Sister Age: 77 Thyroid disease Family/Other Thyroid disease Brother Age: 73 Thyroid disease Social History household members: spouse Smoking Status: Never smoker Meds Home Medications and Allergies Home Medications Medication Instructions Recorded Confirmed Type cod liver oil See Rx Instructions PO QAM 05/26/21 09/20/23 History Carditone 1 tab PO DAILY 08/25/21 09/20/23 History Lutein & Zeaxanthin 1 tab PO DAILY 08/25/21 06/21/23 History ascorbate calcium (vitamin C) 500 500 mg PO DAILY 08/25/21 09/20/23 History mg tablet cholecalciferol (vitamin D3) 125 125 mcg PO DAILY 08/25/21 09/20/23 History mcg (5,000 unit) capsule coenzyme Q10 100 mg capsule 100 mg PO DAILY 08/25/21 09/20/23 History multivitamin 1 tab PO DAILY 08/25/21 06/21/23 History turmeric 1,000 mg PO DAILY 08/25/21 06/21/23 History zinc 50 mg tablet 50 mg PO DAILY 08/25/21 06/21/23 History thyroid (pork) 120 mg tablet (LAW ENFORCEMENT DIRECTOR 120 mg PO 03/14/22 06/21/23 History Thyroid) flash glucose scanning reader #1 ea 11/25/22 06/21/23 Rx (FreeStyle Sherri 2 [place]) flash glucose sensor (FreeStyle #1 ea 11/25/22 06/21/23 Rx Sherri 2 Sensor kit) Disabled Parking Permit #1 ea 02/15/23 06/21/23 Rx hydralazine 50 mg tablet 50 mg PO TID 02/15/23 06/21/23 History dexamethasone 1 mg tablet See Rx Instructions .Route 06/21/23 06/21/23 Rx .COMPLEX #6 tabs metformin 500 mg tablet See Rx Instructions .Route 09/04/23 Rx .COMPLEX #180 tabs metformin 250 mg 1-2XD 09/20/23 09/20/23 History thyroid (pork) 60 mg tablet (LAW ENFORCEMENT DIRECTOR 60 mg PO TID 09/20/23 09/20/23 History Thyroid) Allergies Allergy/AdvReac Type Severity Reaction Status Date / Time diphenhydramine Allergy Severe hives and Verified 06/21/23 10:51 [DIPHENHYDRAMINE] rash pseudoephedrine Allergy Severe hives and Verified 06/21/23 10:51 [PSEUDOEPHEDRINE] rash shellfish derived Allergy Severe (JUST THE Verified 06/21/23 10:51 [SHELLFISH DERIVED] SHELL) rash Review of Systems Review of Systems Narrative: All other systems reviewed with the patient and are negative unless otherwise stated. Exam Vital Signs (past 8 hours): - 09/20/23 00:30 09/20/23 00:30 09/20/23 00:40 Temperature Pulse Rate 66 67 Respiratory Rate 18 24 Blood Pressure 202/95 H Pulse Oximetry 98 94 Oxygen Delivery Method Room Air Oxygen Flow Rate 09/20/23 00:40 09/20/23 00:46 09/20/23 00:46 Temperature 97.3 F L Pulse Rate 75 Respiratory Rate 16 Blood Pressure 204/93 H 211/79 H Pulse Oximetry 99 99 Oxygen Delivery Method Room Air Oxygen Flow Rate 09/20/23 01:58 09/20/23 02:37 09/20/23 05:13 Temperature 97.1 F L Pulse Rate 70 75 Respiratory Rate 19 Blood Pressure 207/83 H 186/79 H 204/87 H Pulse Oximetry 92 Oxygen Delivery Method Oxygen Flow Rate 0 Oxygen Delivery Method Room Air Oxygen Flow Rate 0 Narrative Exam Narrative: GEN: no acute distress, obese HEENT: moist mucous membranes, PERRL NECK: trachea midline, no JVD CV: regular rate and rhythm, no murmurs PULM: clear bilaterally ABD: soft, nontender, nondistended, no organomegaly EXT: warm and well perfused with no edema NEURO: awake, alert, oriented, no focal deficits Objective Labs 09/20/23 05:00 09/20/23 05:00 Labs: Laboratory Results - last 24 hr 09/19/23 09/20/23 21:00 05:00 WBC 5.7 5.3 RBC 4.13 3.87 L Hgb 12.2 11.4 L Hct 35.9 L 33.5 L MCV 86.8 86.6 MCH 29.5 29.5 MCHC 34.0 34.1 RDW 13.8 13.7 Plt Count 219 200 Neut % (Auto) 39.0 L 37.5 L Lymph % (Auto) 50.1 H 48.8 H [place] % (Auto) 7.0 10.1 Eos % (Auto) 2.8 2.6 Baso % (Auto) 1.1 1.0 Neut # (Auto) 2200 2000 Lymph # (Auto) 2900 2600 [place] # (Auto) 400 500 Eos # (Auto) 200 100 Baso # (Auto) 100 100 PT 10.1 INR 0.9 APTT 30 Sodium 138 139 Potassium 3.7 3.6 Chloride 102 105 Carbon Dioxide 30 27 BUN 20 H 18 H Creatinine 0.65 0.60 Estimated GFR > 60 > 60 BUN/Creatinine Ratio 30.8 H 30.0 H Glucose 116 H 108 Calcium 9.4 9.1 Magnesium 1.8 Total Bilirubin 0.4 AST 26 ALT 20 Alkaline Phosphatase 51 Total Creatine Kinase 58 Troponin I < 0.012 NT-Pro-B Natriuret Pep 416 352 Total Protein 7.2 Albumin 4.1 Globulin 3.1 Albumin/Globulin Ratio 1.3 Lipase 91 Assessment & Plan Assessment and plan (1) Hypertensive urgency: Status: Acute Plan Will admit the pt to the hospital, monitor on telemetry, starting the pt on hydralazine 50mg TID. I do not feel her symptoms of numbness of the tip of the index finger represents significant indications for a stroke work up. The pt reports no further numbness in the finger and is medically stable. Quality VTE Deep Vein Thrombosis/Pulmonary Embolism Present on Admission: No
[2023-09-20] MEDS: AMLODIPINE 5 MG TABLET PO (09:08)
[2023-09-20] MEDS: ENOXAPARIN 40 MG/0.4 ML SYRINGE SUBCUT (09:08)
[2023-09-20] MEDS: lisinopriL 20 MG TABLET PO (09:09)
--- NOTE | 2023-09-20 14:44 | CM.DANOTE ---
Initial DCP Assessment Note Pt is a 78 yo female, resident of [place], presents with finger numbness, arm pain and hypertensive urgency PCP: Rola Sands Payer: JO Reviewed chart, pt discussed in multidisciplinary rounds this morning. Dr Carson observing today as patient receives oral hypertensive and echo, possible discharge home after. patient at her functional baseline, walking, indp in all aspects. No barriers identified at this time to patient's safe discharge home w/family to assist; close outpatient f/u recommended. CM team will plan to follow closely in case any DC needs or concerns arise. JOAN Wall Discharge Planning/Care Management CM Discharge Assessment Start: 09/20/23 14:41 Freq: Status: Active Protocol: Document 09/20/23 14:41 MARLO (Rec: 09/20/23 14:43 MARLO [id number]) Discharge Planning Assessment Assigned [facility] Consultant JOAN Barnes DPOA/Assigned Designee Name Sheldon Ye, spouse Contact Information [phone] Advance Directives? Yes Advance Directives on File No History Provided By Patient,Significant Other, Medical Record Prior Living Arrangements Apartment/Condo Household Members spouse Type of transporation used prior to Drives own vehicle admit Independent with ADL's Yes Is patient alert and oriented? Yes Barriers to Discharge No Discharge Plan Home Transportation Arrangement Spouse Referrals Initiated None needed
[2023-09-20] MEDS: HYDRALAZINE 10 MG TABLET 50 MG PO (15:34)
--- NOTE | 2023-09-20 17:51 | P.DS_ITS ---
History of Present Illness History of Present Illness Chief complaint: lt finger went ,arm pain,high blood pressure Narrative: The pt is a 78 yo who presents to the ER due to numbness in the tip of the Left index finger. It was noted in the ER that her BP was over 200. She states that she has not taken her BP in several months but it was in the 160's systolic. The pt denies change in vision, ZAMARRIPA, neck pain, SOB, cough, weakness in arms or legs, no dizziness or vertigo. She does see a notereader for fainting spells which her last one was July. Discharge Providers Provider Date of admission: 09/20/23 00:29 Discharge Date: 09/20/23 Primary care physician: Rola Sands DO Discharge provider: Anibal Carson DO Summary Hospital Course Discharge Diagnosis: Hypertensive urgency Hospital Course: Admitted for left index finger numbness with HTN urgency and systolic BP in >200 range. Patient normally on hydralazine 50mg TID alone which she admitted to usually missing her noon dose. Finger numbness resolved with improvement in blood pressure so not felt to be stroke or TIA. Chlorthalidone added as patient reports she previously couldn't tolerate amlodipine, lisinopril or losartan. Will recheck labs in 1 week to ensure electrolytes stable as he potassium borderline low. PCP can consider adding spironolactone if BP still high at next visit. Echo with EF 60-65%, diastolic dysfunction and some pulm HTN with RVSP of 47. Exam Vital Signs (past 8 hours): - 09/20/23 12:00 Temperature 97.6 F Pulse Rate 76 Respiratory Rate 16 Blood Pressure 176/77 H Oxygen Delivery Method Room Air Oxygen Flow Rate 0 Narrative Exam Narrative: GEN: no acute distress, obese HEENT: moist mucous membranes, PERRL NECK: trachea midline, no JVD CV: regular rate and rhythm, no murmurs PULM: clear bilaterally ABD: soft, nontender, nondistended, no organomegaly EXT: warm and well perfused with no edema NEURO: awake, alert, oriented, no focal deficits Objective Labs 09/20/23 05:00 09/20/23 05:00 Labs: Laboratory Results - last 24 hr 09/19/23 09/20/23 21:00 05:00 WBC 5.7 5.3 RBC 4.13 3.87 L Hgb 12.2 11.4 L Hct 35.9 L 33.5 L MCV 86.8 86.6 MCH 29.5 29.5 MCHC 34.0 34.1 RDW 13.8 13.7 Plt Count 219 200 Neut % (Auto) 39.0 L 37.5 L Lymph % (Auto) 50.1 H 48.8 H [place] % (Auto) 7.0 10.1 Eos % (Auto) 2.8 2.6 Baso % (Auto) 1.1 1.0 Neut # (Auto) 2200 2000 Lymph # (Auto) 2900 2600 [place] # (Auto) 400 500 Eos # (Auto) 200 100 Baso # (Auto) 100 100 PT 10.1 INR 0.9 APTT 30 Sodium 138 139 Potassium 3.7 3.6 Chloride 102 105 Carbon Dioxide 30 27 BUN 20 H 18 H Creatinine 0.65 0.60 Estimated GFR > 60 > 60 BUN/Creatinine Ratio 30.8 H 30.0 H Glucose 116 H 108 Calcium 9.4 9.1 Magnesium 1.8 Total Bilirubin 0.4 AST 26 ALT 20 Alkaline Phosphatase 51 Total Creatine Kinase 58 Troponin I < 0.012 NT-Pro-B Natriuret Pep 416 352 Total Protein 7.2 Albumin 4.1 Globulin 3.1 Albumin/Globulin Ratio 1.3 Lipase 91 [facility] Medical History Allergic rhinitis Arrhythmia Cataracts, bilateral Chicken pox Concussion CVA (cerebral vascular accident) DVT (deep venous thrombosis) (2000) Endometriosis (~1979) Essential hypertension (12/06/12) Fall at home Fecal incontinence (~2019) Fractures (~2010) 4 History of ectopic (1980) History of urinary incontinence (~2019) Hypothyroid Hypothyroidism (2003) Malaria Measles Migraines Mixed hyperlipidemia Mumps Myalgia Pertussis (1949) Plantar warts TIA (transient ischemic attack) (~2019) Type 2 diabetes mellitus Urge incontinence Surgical History History of bilateral salpingo-oophorectomy (BSO) (1980) History of strabismus surgery (1960) Status post hysterectomy (1980) Status post wrist surgery Family History Father Diabetes mellitus Hypertension Mother Parkinson's disease Sister Age: 77 Thyroid disease Family/Other Thyroid disease Brother Age: 73 Thyroid disease Social History household members: spouse Smoking Status: Never smoker Discharge Plan Discharge Plan Patient Disposition: Home Provider Discharge Comment: I've started you on a new blood pressure medication called chlorthalidone in addition to your hydralazine. Please get bloodwork done in about a week before your next PCP visit to check your electrolytes. Also write down a log at home of your blood pressure measurements morning and night and bring to your PCP appointment. Discharge orders & Medications Prescriptions: New chlorthalidone 25 mg tablet 12.5 mg PO DAILY Qty: 30 0RF Continued (DME) FreeStyle Sherri 2 [place] Misc See Rx Instructions .ROUTE .MEDSUPPLY Qty: 1 1RF Rx Instructions: USE TO TEST BLOOD GLUCOSE LEVELS CONTINUOUSLY. REPLACE IN AFTER 3 YEARS OR DAMAGED (DME) FreeStyle Sherri 2 Sensor Kit See Rx Instructions .ROUTE .MEDSUPPLY Qty: 1 12RF Rx Instructions: USE TO CHECK BLOOD GLUCOSE LEVELS CONTINUOUSLY. REPLACE EVERY 14 DAYS. metformin 500 mg tablet See Rx Instructions .ROUTE .COMPLEX Qty: 180 3RF Dose Instruction: TAKE ONE TABLET BY MOUTH TWICE DAILY Rx Instructions: TAKE ONE TABLET BY MOUTH TWICE DAILY thyroid (pork) [NON DESTRUCTIVE EVALUATION MANAGER Thyroid] 120 mg tablet 120 mg PO Patient Comments: Takes 1 tab QAM and 1/2 tab QPM per pt Rx Instructions: take 1 tablet by mouth daily AT 9AM dexamethasone 1 mg tablet See Rx Instructions .ROUTE .COMPLEX Qty: 6 1RF Rx Instructions: Take 1 tab by mouth in the morning x2 days then 1/2 tab x2 days. Carditone 350 mg 1 tab PO DAILY Lutein & Zeaxanthin 25 mg 1 tab PO DAILY ascorbate calcium (vitamin C) 500 mg tablet 500 mg PO DAILY cholecalciferol (vitamin D3) 125 mcg (5,000 unit) capsule 125 mcg PO DAILY multivitamin Tablet 1 tab PO DAILY turmeric 1,000 mg PO DAILY coenzyme Q10 100 mg capsule 100 mg PO DAILY zinc 50 mg tablet 50 mg PO DAILY hydralazine 50 mg tablet 50 mg PO TID (DME) Disabled Parking Permit See Rx Instructions .ROUTE .MEDSUPPLY Qty: 1 0RF Rx Instructions: Valid for 5 years metformin 250 mg 1-2XD thyroid (pork) [NON DESTRUCTIVE EVALUATION MANAGER Thyroid] 60 mg Tablet 60 mg PO TID cod liver oil Capsule See Rx Instructions PO QAM Rx Instructions: 1 teaspoon PO every morning; Follow up/Referrals: Rola Sands DO [Primary Care Provider] - 1 Week Other Ambulatory Orders: Basic Metabolic Panel (Urgent) Timeframe: 1 Week Facility: [facility] - Location: Laboratory Ordered By: Anibal Carson Visit Report/Discharge Packet Stand Alone Forms: Patient Portal/API, Stroke Signs & Symptoms Discharge Data Primary Care Provider: Rola Sands Attending Provider: Sumeet Ruby Admit Date/Time: 09/20/23 00:29 Quality VTE Deep Vein Thrombosis/Pulmonary Embolism Present on Admission: No
--- NOTE | 2023-09-20 20:10 | CM.MNRNOTE ---
Pt feels ready to d/c to home. Spouse present at time of teaching. Seen by MD and given d/c instructions. Discharge packet reviewed w/patient and spouse and understood. Questions answered. They understand changes made to their home meds. Pt d/c to home via auto w/spouse.
== END 2023-09-20 18:35 | disposition home or self-care (01) ==
LOC: ED 09-20 00:19 → AC 09-20 00:30
PROVIDERS: Admitting Provider Internal Medicine; Emergency Provider Emergency Medicine; Family Provider Family Medicine; PCP Family Medicine; Referring Provider Emergency Medicine; Visit Provider Internal Medicine
DX: I16.0 Hypertensive urgency (principal); R20.0 Anesthesia of skin; M79.603 Pain in arm, unspecified; I10 Essential (primary) hypertension; Z86.73 Personal history of transient ischemic attack (TIA), and cerebral infarction without residual deficits; R29.701 NIHSS score 1
CPT/HCPCS: 36415; 70450; 70496; 70498; 71045; 80048; 80053; 82550; 83690; 83735; 83880; 84484; 85025; 85610; 85730; 93005; 93010; 93306; 96372; 96374; 99284; 99285; G0378; J1650; Q9967

== ENCOUNTER → 2023-09-26 08:41 | Outpatient (CLI) | payer MEDICARE, SELFPAY ==
[2023-09-20 00:31] VITALS: BMI 32.6
[2023-09-26 10:24] LABS: BUN Creatinine Ratio 26.1 (6-22); Blood Urea Nitrogen 18 mg/dL (7-17); Calcium 9.5 mg/dL (8.4-10.2); Carbon Dioxide 28 mmol/L (22-32); Chloride 100 mmol/L (98-107); Estimated Glomerular Filt Rate > 60 mL/min (>60); Glucose 117 mg/dL (80-110); HEMOLYSIS < 15 (0-50); Sodium 138 mmol/L (137-145)
[2023-09-27 12:09] LABS: x Labcorp Estim. Avg Glu (eAG) 123 mg/dL (.); x Labcorp Hemoglobin A1c 5.9 % (4.8-5.6)
== END ==
LOC: LAB 08:42
PROVIDERS: Family Provider Family Medicine; PCP Family Medicine; Referring Provider Student in an Organized Health Care Education/Training Program; Visit Provider Student in an Organized Health Care Education/Training Program
DX: I16.0 Hypertensive urgency (principal)
CPT/HCPCS: 36415; 80048; 83036

== ENCOUNTER → 2024-01-09 08:37 | Outpatient (CLI) | payer MEDICARE, SELFPAY ==
[2023-09-20 00:31] VITALS: BMI 32.6
[2024-01-09 10:17] LABS: Hemoglobin A1C% w Est Avg Glu 5.8 % (4.0-6.0)
[2024-01-09 10:37] LABS: Alanine Aminotransferase 18 IU/L (<35); Albumin Globulin Ratio 1.5 (1.0-2.8); Alkaline Phosphatase 64 U/L (38-126); Aspartate Aminotransferase 20 IU/L (14-36); BUN Creatinine Ratio 23.1 (6-22); Bilirubin Total 0.7 mg/dL (0.2-1.3); Blood Urea Nitrogen 15 mg/dL (7-17); Calcium 9.1 mg/dL (8.4-10.2); Carbon Dioxide 28 mmol/L (22-32); Chloride 107 mmol/L (98-107); Estimated Glomerular Filt Rate > 60 mL/min (>60); Globulin 2.7 g/dL (1.7-4.1); Glucose 124 mg/dL (80-110); HEMOLYSIS < 15 (0-50); Potassium 4.4 mmol/L (3.4-5.1); Sodium 140 mmol/L (137-145); Total Protein 6.7 g/dL (6.3-8.2)
[2024-01-09 10:51] LABS: Free T3, Triiodothyronine Free 3.88 pg/mL (2.77-5.27); Free T4, Direct Thyroxine 1.08 ng/dL (0.78-2.19)
[2024-01-09 11:06] LABS: Thyroid Stimulating Hormone < 0.015 uIU/mL (0.47-4.68)
== END ==
PROVIDERS: Family Provider Family Medicine; PCP Family Medicine; Referring Provider Family Medicine; Visit Provider Family Medicine
DX: I16.0 Hypertensive urgency (principal); E11.9 Type 2 diabetes mellitus without complications; I63.9 Cerebral infarction, unspecified; G47.33 Obstructive sleep apnea (adult) (pediatric); I27.20 Pulmonary hypertension, unspecified; I51.7 Cardiomegaly; E03.9 Hypothyroidism, unspecified; E66.9 Obesity, unspecified
CPT/HCPCS: 36415; 80053; 83036; 84439; 84443; 84481

== ENCOUNTER → 2024-07-26 13:08 | Outpatient (CLI) | payer MEDICARE, SELFPAY ==
[2023-09-20 00:31] VITALS: BMI 32.6
--- NOTE | 2024-07-26 13:10 | DI.RAD.S_ITS ---
PROCEDURE: XR HAND RT MIN 3V INDICATIONS: rt 5th finger pain and swelling TECHNIQUE: 3 views of the hand(s) acquired. COMPARISON: None. FINDINGS: Bones: No fractures or dislocations. Carpal bones are normally aligned. No suspicious bony lesions. Generalized decreased osseous mineralization noted. Interphalangeal degenerative arthritic changes Soft tissues: No suspicious soft tissue calcifications. IMPRESSION: Polyarticular arthritic changes. Osteopenia. No fracture Approved by: Rayshawn Davis M.D. on 07/26/2024 at 19:00
--- NOTE | 2024-07-26 13:10 | DI.RAD.S_ITS ---
PROCEDURE: XR HAND LT MIN 3V INDICATIONS: lt index finger pain TECHNIQUE: 3 views of the hand(s) acquired. COMPARISON: None. FINDINGS: Bones: No fractures or dislocations. Carpal bones are normally aligned. No suspicious bony lesions. Generalized decreased osseous mineralization noted. Second through 5th interphalangeal arthritic changes Soft tissues: No suspicious soft tissue calcifications. IMPRESSION: Polyarticular interphalangeal arthritic changes Osteopenia Approved by: Rayshawn Davis M.D. on 07/26/2024 at 18:58
== END ==
PROVIDERS: Family Provider Family Medicine; PCP Family Medicine; Referring Provider Nurse Practitioner Family; Visit Provider Nurse Practitioner Family
DX: M85.842 Other specified disorders of bone density and structure, left hand (principal); M85.841 Other specified disorders of bone density and structure, right hand; M79.644 Pain in right finger(s); M79.645 Pain in left finger(s); M79.89 Other specified soft tissue disorders
CPT/HCPCS: 73130

== ENCOUNTER → 2024-12-09 08:07 | Outpatient (CLI) | payer MEDICARE, SELFPAY ==
[2023-09-20 00:31] VITALS: BMI 32.6
[2024-12-09 08:51] LABS: Add Manual Diff / Slide Review NO; Basophils Absolute Auto 0 /uL (0-100); Basophils Percent Auto 0.5 % (0-2); Eosinophils Absolute Auto 200 /uL (0-450); Eosinophils Percent Auto 3.1 % (2-4); Hematocrit 39.5 % (36-46); Hemoglobin 13.2 g/dL (12.0-16.0); Lymphocytes Absolute Auto 3500 /uL (1100-4500); Lymphocytes Percent Auto 58.5 % (25-40); Mean Corpuscular HGB Conc 33.3 % (30-36); Mean Corpuscular Hemoglobin 29.2 PG (26-34); Mean Corpuscular Volume 87.5 fL (80-100); Monocytes Absolute Auto 500 /uL (0-900); Monocytes Percent Auto 8.1 % (3-14); Neutrophils Absolute Auto 1800 /uL (1500-7000); Neutrophils Percent Auto 29.8 % (50-75); Platelet Count 230 X10^3/uL (150-400); Red Blood Cell Count 4.52 X10^6/uL (4.0-5.2); Red Cell Distribution Width 13.9 % (11.6-14.8); White Blood Cell Count 5.9 X10^3/uL (4.5-11.0)
[2024-12-09 09:10] LABS: Hemoglobin A1C% w Est Avg Glu 5.6 % (4.0-6.0)
[2024-12-09 09:15] LABS: Alanine Aminotransferase 23 IU/L (<35); Albumin 4.1 g/dL (3.5-5.0); Albumin Globulin Ratio 1.6 (1.0-2.8); Alkaline Phosphatase 61 U/L (38-126); Aspartate Aminotransferase 22 IU/L (14-36); Bilirubin Total 0.7 mg/dL (0.2-1.3); Blood Urea Nitrogen 18 mg/dL (7-17); Calcium 9.2 mg/dL (8.4-10.2); Carbon Dioxide 27 mmol/L (22-32); Chloride 105 mmol/L (98-107); Cholesterol 216 mg/dL (140-199); Estimated Glomerular Filt Rate > 60 mL/min (>60); Globulin 2.6 g/dL (1.7-4.1); Glucose 121 mg/dL (70-99); HDL Cholesterol 61 mg/dL (40-60); HEMOLYSIS < 15 (0-50); LDL Cholesterol Calculated 134 mg/dL (<100); Potassium 4.2 mmol/L (3.4-5.1); Sodium 139 mmol/L (137-145); Total Protein 6.7 g/dL (6.3-8.2); Triglycerides 104 mg/dL (35-150)
[2024-12-09 09:30] LABS: Free T3, Triiodothyronine Free 5.33 pg/mL (2.77-5.27); Free T4, Direct Thyroxine 1.29 ng/dL (0.78-2.19); Vitamin D 25 Hydroxy (D3) 88.4 ng/mL (30.0-100.0)
[2024-12-09 09:44] LABS: Thyroid Stimulating Hormone < 0.015 uIU/mL (0.47-4.68)
[2024-12-10 03:36] LABS: CRP, High Sensitivity 0.78 mg/L (0.00-3.00)
== END ==
PROVIDERS: Family Provider Family Medicine; PCP Family Medicine; Referring Provider Family Medicine; Visit Provider Family Medicine
DX: I10 Essential (primary) hypertension (principal); E11.9 Type 2 diabetes mellitus without complications; E55.9 Vitamin D deficiency, unspecified; E03.9 Hypothyroidism, unspecified; E78.2 Mixed hyperlipidemia
CPT/HCPCS: 36415; 80053; 80061; 82306; 83036; 84439; 84443; 84481; 85025; 86140

== ENCOUNTER 2024-12-31 13:28 | Emergency (ER) | payer MEDICARE, SELFPAY ==
[2023-09-20 00:31] VITALS: BMI 32.6
[2024-12-31] VITALS (10 sets, daily range): BP systolic 200–262; BP diastolic 85–124; PULSE 53–65; RESP 14–20; TEMP 36.8; O2SAT 92–99; BMI 34.0
--- NOTE | 2024-12-31 13:39 | EKG_ITS ---
[place] [id number] [place] [id number] Test Date: 2024-12-31 Pat Name: Enedina Ye Department: Room: Gender: Female Informatics Physician Liaison: TOMY : 1945 Requested By: Order Number: [id number] Reading MD: Nilay Herman Measurements Intervals [place] Rate: 65 P: 53 NV: 148 QRS: -16 QRSD: 86 T: 62 QT: 450 QTc: 468 Interpretive Statements Normal sinus rhythm Moderate voltage criteria for LVH, may be normal variant ( R in aVL , Dharmesh product ) Nonspecific ST and T wave abnormality Electronically Signed On 01-01-2025 16:21:39 PDT by Nilay Herman
--- NOTE | 2024-12-31 13:39 | DI.RAD.S_ITS ---
PROCEDURE: XR CHEST 1V INDICATIONS: Chest Pain TECHNIQUE: One view of the chest was acquired. COMPARISON: [facility], CT, CT CERVICAL SPINE WO CON, 12/31/2024, 13:57. [facility], CR, XR CHEST 1V, 09/19/2023, 20:45. FINDINGS: Surgical changes and devices: None. Lungs and pleura: Lungs are clear. No pleural effusions or pneumothorax. Mediastinum: Mediastinal contours appear normal. Heart size is normal. Bones and chest wall: No suspicious bony lesions. Overlying soft tissues appear unremarkable. IMPRESSION: No acute cardiopulmonary abnormality is seen. Dictated by: Oneil Singleton M.D. on 12/31/2024 at 14:21 Approved by: Oneil Singleton M.D. on 12/31/2024 at 14:22
--- NOTE | 2024-12-31 13:45 | DI.CT.S_ITS ---
PROCEDURE: CT CERVICAL SPINE WO CON INDICATIONS: syncope, fall, hit head, neck pain TECHNIQUE: Noncontrast 3 mm thick sections acquired from the skull base to the T4 level. Sagittal and coronal reformats were then constructed. For radiation dose reduction, the following was used: automated exposure control, adjustment of mA and/or kV according to patient size. COMPARISON: [facility], CT, CT CERVICAL SPINE WO CON, 08/26/2021, 5:31. FINDINGS: Image quality: Excellent. Bones: No fractures or dislocations. Cervical spondylosis with multilevel bony foraminal narrowing. Visualized superior ribs are intact. Soft tissues: Prevertebral soft tissues are normal in thickness. No paravertebral hematomas. No apical pneumothoraces. IMPRESSION: No displaced fracture or traumatic subluxation. Cervical spondylosis. Dictated by: Oneil Singleton M.D. on 12/31/2024 at 14:14 Approved by: Oneil Singleton M.D. on 12/31/2024 at 14:17
--- NOTE | 2024-12-31 13:45 | DI.CT.S_ITS ---
PROCEDURE: CT HEAD/BRAIN WO CON INDICATIONS: syncope, fall, hit head, neck pain TECHNIQUE: Noncontrast 4.5 mm thick angled axial sections acquired from the foramen magnum to the vertex, with coronal and sagittal reformats. For radiation dose reduction, the following was used: automated exposure control, adjustment of mA and/or kV according to patient size. COMPARISON: [facility], CT, CT HEAD/BRAIN WO CON, 09/19/2023, 22:24. FINDINGS: Image quality: Diagnostic. CSF spaces: Basal cisterns are patent. No extra-axial fluid collections. The ventricles are symmetric in size and shape. Brain: No intracranial bleeds or mass effect. There is cerebral volume loss, with resultant ventricular and sulcal prominence. There are moderate to severe periventricular and deep white matter chronic small vessel ischemic changes. Multiple bilateral small chronic lacunar infarctions. There is intracranial internal carotid artery atherosclerosis. Skull and face: Calvarium and visualized facial bones appear intact, without suspicious lesions. Sinuses: Visualized sinuses and mastoids are clear. IMPRESSION: No acute intracranial pathology. Age-related volume loss, multiple prior lacunar infarctions, moderate to severe small vessel ischemic change. Dictated by: Oneil Singleton M.D. on 12/31/2024 at 14:12 Approved by: Oneil Singleton M.D. on 12/31/2024 at 14:13
[2024-12-31 13:56] LABS: Add Manual Diff / Slide Review NO; Basophils Absolute Auto 100 /uL (0-100); Basophils Percent Auto 0.9 % (0-2); Eosinophils Absolute Auto 100 /uL (0-450); Eosinophils Percent Auto 2.4 % (2-4); Lymphocytes Absolute Auto 3000 /uL (1100-4500); Lymphocytes Percent Auto 49.5 % (25-40); Mean Corpuscular HGB Conc 34.4 % (30-36); Mean Corpuscular Volume 87.3 fL (80-100); Monocytes Absolute Auto 600 /uL (0-900); Monocytes Percent Auto 9.5 % (3-14); Neutrophils Absolute Auto 2300 /uL (1500-7000); Neutrophils Percent Auto 37.7 % (50-75); Platelet Count 209 X10^3/uL (150-400); Red Blood Cell Count 4.35 X10^6/uL (4.0-5.2); Red Cell Distribution Width 14.2 % (11.6-14.8); White Blood Cell Count 6.1 X10^3/uL (4.5-11.0)
[2024-12-31 14:02] LABS: INR 0.9 (0.9-1.3); Prothrombin Time 10.7 SECONDS (9.4-12.5)
[2024-12-31 14:04] LABS: PTT Partial Thromboplastin Tim 28 SECONDS (25.1-36.5)
[2024-12-31 14:08] LABS: Lactate (Lactic Acid) 1.2 mmol/L (0.7-2.1)
[2024-12-31 14:09] LABS: Alanine Aminotransferase 26 IU/L (<35); Albumin 4.2 g/dL (3.5-5.0); Albumin Globulin Ratio 1.4 (1.0-2.8); Alkaline Phosphatase 64 U/L (38-126); Aspartate Aminotransferase 26 IU/L (14-36); BUN Creatinine Ratio 26.3 (6-22); Bilirubin Total 0.5 mg/dL (0.2-1.3); Blood Urea Nitrogen 20 mg/dL (7-17); Carbon Dioxide 25 mmol/L (22-32); Chloride 104 mmol/L (98-107); Creatine Kinase 48 U/L (30-135); Estimated Glomerular Filt Rate > 60 mL/min (>60); Globulin 2.9 g/dL (1.7-4.1); Glucose 123 mg/dL (70-99); HEMOLYSIS 17 (0-50); Lipase 64 U/L (23-300); Magnesium 1.8 mg/dL (1.6-2.3); Potassium 4.2 mmol/L (3.4-5.1); Sodium 138 mmol/L (137-145); Total Protein 7.1 g/dL (6.3-8.2)
[2024-12-31 14:20] LABS: NT-proBNP (BNP-Adult 18+) 1210 pg/mL (<450); Troponin I < 0.012 ng/mL (0.01-0.034)
--- NOTE | 2024-12-31 15:39 | ED.GENADULT ---
HPI - General Adult General Chief complaint: Syncope Stated complaint: Sent from PCP passed out last night Time Seen by Provider: 12/31/24 13:54 Source: patient and family Mode of arrival: Wheelchair Limitations: no limitations History of Present Illness HPI narrative: 79-year-old female history of hypertension, hypothyroidism on aspirin daily who presents with complaint of head injury last night. Patient states she woke up take it with the bed to go the bathroom thought she was headed towards the bathroom sat backwards and was actually in the closet struck her head on a safe. Unclear if she actually has a loss of consciousness. Patient states no cuts or lacerations. She states she was felt fine today she was has a little bit of neck discomfort on the side. Denies any recurrent episodes no lightheadedness no dizziness. No headaches. No chest pain or shortness breath. No nausea or vomiting. No numbness tingling or weakness. No difficulty with gait or movement. No issues with bowel movements or urination. No incontinence. Patient notes she was on aspirin 81 mg daily nebivolol 5 mg in the evening but took a 10 mg tablet last night because her blood pressure has been elevated as well as thyroid medication. Patient was denies any prior surgeries. Reports adverse reaction to Sudafed and shellfish. No tobacco, alcohol or recreational drugs. Patient had reached out to her primary care was encouraged to come here. They did take her blood pressure several times at home was 160s to 180s systolic. Patient recently started checking her blood pressures at the direction of her physician and they have been elevated and this is why they increased her medication yesterday. Related Data Home Medications Medication Instructions Recorded Confirmed cod liver oil See Rx Instructions PO QAM 05/26/21 12/30/24 Lutein & Zeaxanthin 1 tab PO DAILY 08/25/21 12/30/24 cholecalciferol (vitamin D3) 125 125 mcg PO DAILY 08/25/21 12/30/24 mcg (5,000 unit) capsule coenzyme Q10 100 mg capsule 100 mg PO DAILY 08/25/21 12/30/24 multivitamin 1 tab PO DAILY 08/25/21 12/30/24 turmeric 1,000 mg PO DAILY 08/25/21 12/30/24 N1O1 lozenges PO 09/17/24 12/30/24 diclofenac sodium 1 % topical gel 2 g topical QID 09/17/24 12/30/24 (Voltaren Arthritis Pain) Carditone 1.5 tab PO DAILY 12/30/24 ascorbate calcium (vitamin C) 500 1 g PO DAILY 12/30/24 12/30/24 mg tablet thyroid (pork) 90 mg tablet (DIRECTOR OF ORTHOPEDICS 90 mg PO BID 12/30/24 12/30/24 Thyroid) Previous Rx's Medication Instructions Recorded Disabled Parking Permit #1 ea 02/15/23 chlorthalidone 25 mg tablet 25 mg PO DAILY #90 tabs 10/25/23 nebivolol 10 mg tablet 10 mg PO DAILY #90 tabs 12/30/24 Allergies Allergy/AdvReac Type Severity Reaction Status Date / Time diphenhydramine Allergy Severe hives and Verified 12/31/24 13:40 [DIPHENHYDRAMINE] rash pseudoephedrine Allergy Severe hives and Verified 12/31/24 13:40 [PSEUDOEPHEDRINE] rash shellfish derived Allergy Severe (JUST THE Verified 12/31/24 13:40 [SHELLFISH DERIVED] SHELL) rash Review of Systems Review of Systems ROS Unobtainable: All systems reviewed & are unremarkable except as noted in HPI and below Patient History Medical History Ingrown toenail Onychomycosis Hypothyroid Plantar warts Fractures (~2010) Malaria Cataracts, bilateral Endometriosis (~1979) History of urinary incontinence (~2019) Fecal incontinence (~2019) Arrhythmia Myalgia Mixed hyperlipidemia Type 2 diabetes mellitus TIA (transient ischemic attack) (~2019) Allergic rhinitis Fall at home Pertussis (1949) Mumps Measles Chicken pox DVT (deep venous thrombosis) (2000) Migraines 4 Hypothyroidism (2003) History of ectopic (1980) Concussion Surgical History History of strabismus surgery (1960) Status post wrist surgery History of bilateral salpingo-oophorectomy (BSO) (1980) Status post hysterectomy (1980) Family History Father Diabetes mellitus Hypertension Mother Parkinson's disease Sister Age: 79 Thyroid disease Family/Other Thyroid disease Brother Age: 75 Thyroid disease Social History household members: spouse alcohol intake frequency: 0-2 drinks per day Exam Narrative Exam Narrative: GEN: C-collar in ED. Patient appears in mild distress. HEAD: No evidence of trauma, no raccoon/Paz sign. NECK: Nontender, painless range of motion, trachea midline Negative Nexus criteria, no midline line tenderness, distracting injury, altered mental status, neuro deficit, recent EtOH. EYES: PERRLA, EOMI ENT: External inspection normal, trachea is midline, TM's are normal no hemotypanum, Nares are clear, no septal hematoma, no dental or oral injury, airway is normal and with normal occlusion, No bony tenderness RESP: Chest is nontender and has symmetric movement, no ecchymosis, breath sounds are normal no crackles, wheezes or rales CVS: Heart sounds are normal, no murmur noted, No JVD. ABG/GI: Nontender, soft, normal bowel sounds, no distention, no organomegaly, pelvic rock is negative NEURO: Oriented AOx3, neuro is grossly intact, sensation and motor is normal all 4 extremities moving, cranial nerves II through XII are intact, GCS is 15 PSYCH: Normal mood and affect SKIN: Intact, warm and dry, no crepitus and without decubitus BACK: No CVA tenderness, no vertebral tenderness, no step-off's, no crepitus EXT: Atraumatic, hips are nontender, no pedal edema, normal color and temperature, normal range of motion of extremities with normal tendon exam, 2+ pulses in all four extremities Initial Vital Signs Initial Vital Signs: Vital Signs Pulse Rate 65 12/31/24 13:37 Pulse Oximetry 95 12/31/24 13:37 Course Orders Ordered: ED Orders 12/31/24 13:39 XR chest 1V Stat EKG-12 Lead Stat RT Consult Eval and Treat NOW 12/31/24 13:44 Complete Blood Count AUTO DIFF Stat Comprehensive Metabolic Panel Stat Lactate (Lactic Acid) Stat Lipase Stat Magnesium Stat NT-proBNP (BNP-Adult 18+) Stat PTT Partial Thromboplastin Omari Stat Prothrombin Time INR Stat Troponin & CK Cardiac Panel Stat 12/31/24 13:45 CT cervical spine wo con Stat CT head/brain wo con Stat Vital Signs Vital signs: Vital Signs - 8 hr 12/31/24 13:37 12/31/24 13:40 12/31/24 14:30 Temperature 98.2 F Pulse Rate 65 65 58 L Respiratory Rate 18 20 Blood Pressure 200/89 H Pulse Oximetry 95 92 92 Oxygen Delivery Method Room Air 12/31/24 15:04 12/31/24 15:06 12/31/24 15:16 Temperature Pulse Rate 62 58 L 54 L Respiratory Rate 14 20 17 Blood Pressure 262/124 H 246/111 H 227/100 H Pulse Oximetry 97 97 95 Oxygen Delivery Method 12/31/24 15:30 12/31/24 15:45 12/31/24 16:00 Temperature Pulse Rate 56 L 56 L 58 L Respiratory Rate 16 14 17 Blood Pressure 205/85 H 205/95 H 218/101 H Pulse Oximetry 93 94 99 Oxygen Delivery Method Room Air 12/31/24 16:15 Temperature Pulse Rate 53 L Respiratory Rate 19 Blood Pressure 200/86 H Pulse Oximetry 97 Oxygen Delivery Method Medical Decision Making Lab Data 12/31/24 13:44 12/31/24 13:44 Labs: Lab Results 12/31/24 Range/Units 13:44 WBC 6.1 (4.5-11.0) X10^3/uL RBC 4.35 (4.0-5.2) X10^6/uL Hgb 13.0 (12.0-16.0) g/dL Hct 38.0 (36-46) % MCV 87.3 (80-100) fL MCH 30.0 (26-34) PG MCHC 34.4 (30-36) % RDW 14.2 (11.6-14.8) % Plt Count 209 (150-400) X10^3/uL Neut % (Auto) 37.7 L (50-75) % Lymph % (Auto) 49.5 H (25-40) % Warren % (Auto) 9.5 (3-14) % Eos % (Auto) 2.4 (2-4) % Baso % (Auto) 0.9 (0-2) % Neut # (Auto) 2300 (5082-9249) /uL Lymph # (Auto) 3000 (9160-0895) /uL Warren # (Auto) 600 (0-900) /uL Eos # (Auto) 100 (0-450) /uL Baso # (Auto) 100 (0-100) /uL PT 10.7 (9.4-12.5) SECONDS INR 0.9 (0.9-1.3) APTT 28 (25.1-36.5) SECONDS Sodium 138 (137-145) mmol/L Potassium 4.2 (3.4-5.1) mmol/L Chloride 104 (98-107) mmol/L Carbon Dioxide 25 (22-32) mmol/L BUN 20 H (7-17) mg/dL Creatinine 0.76 (0.52-1.04) mg/dL Estimated GFR > 60 (>60) mL/min BUN/Creatinine Ratio 26.3 H (6-22) Glucose 123 H (70-99) mg/dL Lactate 1.2 (0.7-2.1) mmol/L Calcium 9.0 (8.4-10.2) mg/dL Magnesium 1.8 (1.6-2.3) mg/dL Total Bilirubin 0.5 (0.2-1.3) mg/dL AST 26 (14-36) IU/L ALT 26 (<35) IU/L Alkaline Phosphatase 64 (38-126) U/L Total Creatine Kinase 48 (30-135) U/L Troponin I < 0.012 (0.01-0.034) ng/mL NT-Pro-B Natriuret Pep 1210 H (<450) pg/mL Total Protein 7.1 (6.3-8.2) g/dL Albumin 4.2 (3.5-5.0) g/dL Globulin 2.9 (1.7-4.1) g/dL Albumin/Globulin Ratio 1.4 (1.0-2.8) Lipase 64 (23-300) U/L ECG Data Attestation: I personally reviewed and interpreted this ECG as follows: Prior ECG tracings: available for review Interpretation: Sinus rhythm rate of 65 NC 148 QRS 86 QTC of 468, no acute ST changes, nonspecific change noted. Patient was prior from 05/26/2021 which shows sinus rhythm borderline left axis deviation LVH, EKG appears similar to prior. MDM Narrative Medical decision making narrative: Sinus rhythm, LVH, rate of 65 appears fairly similar to prior from May 2021. Labs show normal white count hemoglobin and platelets, predominance of lymphocytes. Coags are negative, BUN 20, electrolytes are appropriate creatinine is 0.76 glucose is 123. LFTs are negative troponins less than 0.012 with a BNP of 1210. Patient had priors from Sep 2023 that was 352. Head CT shows no acute intracranial pathology age-related volume loss far lacunar infarcts moderate to severe small-vessel ischemic change. CT on pelvis shows no displaced fracture or traumatic subluxation cervical spondylosis. Chest x-ray shows no acute cardiopulmonary abnormality. Patient was ambulated several times in the department. C-collar cleared here in the department. Patient did not have any midline tenderness is more little bit on the side for nursing she states none for myself. Reviewed her findings from today she was hypertensive. Sounds like she did not have a true syncopal episode both of the bit disoriented and fell backwards hitting her head this evening. Blood pressure is elevated it was not low on her checks at home but discussed could try doing 5 mg b.i.d. rather than nightly as that the only change for the patient. She desires discharge home does not wish any additional workup. Discharge Plan Departure Patient Disposition: Home Clinical Impression: Cervical pain (neck) Instructions: Closed Head Injury Activity Restrictions/Additional Instructions: Follow up with your physician, your blood pressure is elevated today continue to monitor. I am unsure if the change in your blood pressure medication caused her episode last night instead of taking 10 mg as evening you can take 5 mg in the morning and 5 mg in the evening and see if this is better tolerated. Please return if you have severe headaches, new neck or back pain, chest pain or shortness of breath, vomiting, new numbness tingling or weakness difficulty with movement or other new or concerning changes. Prescriptions: No Action Lutein & Zeaxanthin 25 mg 1 tab PO DAILY cholecalciferol (vitamin D3) 125 mcg (5,000 unit) capsule 125 mcg PO DAILY multivitamin Tablet 1 tab PO DAILY turmeric 1,000 mg PO DAILY coenzyme Q10 100 mg capsule 100 mg PO DAILY ascorbate calcium (vitamin C) 500 mg tablet 1 g PO DAILY Carditone 350 mg 1.5 tab PO DAILY (DME) Disabled Parking Permit See Rx Instructions .ROUTE .MEDSUPPLY Qty: 1 0RF Rx Instructions: Valid for 5 years chlorthalidone 25 mg tablet 25 mg PO DAILY Qty: 90 1RF Hold Instructions: pt not taking N1O1 lozenges PO diclofenac sodium [Voltaren Arthritis Pain] 1 % gel 2 g topical QID Rx Instructions: apply to single elbow, wrist or hand; for hand includes palm/fingers/back of hand thyroid (pork) [DIRECTOR OF ORTHOPEDICS Thyroid] 90 mg tablet 90 mg PO BID nebivolol 10 mg tablet 10 mg PO DAILY Qty: 90 1RF cod liver oil Capsule See Rx Instructions PO QAM Rx Instructions: 1 teaspoon PO every morning; Referrals: Rola Sands DO [Primary Care Provider] - Stand Alone Forms: Patient Portal/API/Survey
== END 2024-12-31 16:33 | disposition home or self-care (01) ==
PROVIDERS: Emergency Provider Emergency Medicine; Family Provider Family Medicine; PCP Family Medicine
DX: M54.2 Cervicalgia (principal); S09.90XA Unspecified injury of head, initial encounter; R55 Syncope and collapse
CPT/HCPCS: 70450; 71045; 72125; 80053; 82550; 83605; 83690; 83735; 83880; 84484; 85025; 85610; 85730; 93005; 99283; 99284

== ENCOUNTER 2025-02-26 13:22 | Emergency (ER) | payer MEDICARE, SELFPAY ==
[2023-09-20 00:31] VITALS: BMI 32.6
[2025-02-26] VITALS (19 sets, daily range): BP systolic 205–238; BP diastolic 88–114; PULSE 54–62; RESP 14–24; TEMP 37; O2SAT 96–100; BMI 34.1
--- NOTE | 2025-02-26 13:45 | DI.RAD.S_ITS ---
PROCEDURE: XR CHEST 1V INDICATIONS: Chest Pain TECHNIQUE: One view of the chest was acquired. COMPARISON: [facility], CR, XR CHEST 1V, 12/31/2024, 13:54. FINDINGS: Surgical changes and devices: None. Lungs and pleura: Lungs are clear. No pleural effusions or pneumothorax. Mediastinum: Mediastinal contours appear normal. Heart size is normal. Bones and chest wall: No suspicious bony lesions. Overlying soft tissues appear unremarkable. IMPRESSION: No acute cardiopulmonary pathology. Dictated by: Vik Sullivan M.D. on 02/26/2025 at 13:38 Approved by: Vik Sullivan M.D. on 02/26/2025 at 13:39
--- NOTE | 2025-02-26 13:45 | EKG_ITS ---
[place] [id number] [place] [id number] Test Date: 2025-02-26 Pat Name: Enedina Ye Department: [facility] Room: Gender: Female Wood Turner: ELAINE ARMIJO : 1945 Requested By: Order Number: [id number] Reading MD: Nilay Herman Measurements Intervals [place] Rate: 57 P: 30 ND: 154 QRS: -22 QRSD: 86 T: 37 QT: 486 QTc: 473 Interpretive Statements Sinus bradycardia Moderate voltage criteria for LVH, may be normal variant ( R in aVL , Dharmesh product ) Electronically Signed On 02-27-2025 18:03:54 PDT by Nilay Herman
--- NOTE | 2025-02-26 13:48 | DI.CT.S_ITS ---
PROCEDURE: CT CERVICAL SPINE WO CON INDICATIONS: glf TECHNIQUE: Noncontrast 3 mm thick sections acquired from the skull base to the T4 level. Sagittal and coronal reformats were then constructed. For radiation dose reduction, the following was used: automated exposure control, adjustment of mA and/or kV according to patient size. COMPARISON: [facility], CT, CT CERVICAL SPINE WO CON, 12/31/2024, 13:57. FINDINGS: Image quality: Excellent. Bones: No fractures or dislocations. Straightening of cervical lordosis. Loss of disc height, degenerative endplate changes and bilateral facet hypertrophic changes are noted throughout cervical spine causing kvot-on-vjbyvlsk central canal stenosis and bilateral neural foraminal narrowing more notably at C5-6 and C6-7 levels. Visualized superior ribs are intact. Soft tissues: Prevertebral soft tissues are normal in thickness. No paravertebral hematomas. No apical pneumothoraces. IMPRESSION: 1. No displaced fracture or traumatic subluxation. 2. Tfxb-[id number] spondylitic changes throughout cervical spine as above. Dictated by: Vik Sullivan M.D. on 02/26/2025 at 13:48 Approved by: Vik Sullivan M.D. on 02/26/2025 at 13:52
--- NOTE | 2025-02-26 13:48 | DI.CT.S_ITS ---
PROCEDURE: CT HEAD/BRAIN WO CON INDICATIONS: glf TECHNIQUE: Noncontrast 4.5 mm thick angled axial sections acquired from the foramen magnum to the vertex, with coronal and sagittal reformats. For radiation dose reduction, the following was used: automated exposure control, adjustment of mA and/or kV according to patient size. COMPARISON: [facility], CT, CT HEAD/BRAIN WO CON, 12/31/2024, 13:57. FINDINGS: Image quality: Diagnostic. CSF spaces: Basal cisterns are patent. No extra-axial fluid collections. The ventricles are symmetric in size and shape. Brain: No intracranial bleeds or mass effect. Old infarction in right basal ganglia is again seen unchanged from prior study. There is cerebral volume loss, with resultant ventricular and sulcal prominence. There are periventricular and deep white matter chronic small vessel ischemic changes. There is intracranial internal carotid artery atherosclerosis. Skull and face: Calvarium and visualized facial bones appear intact, without suspicious lesions. Sinuses: Visualized sinuses and mastoids are clear. IMPRESSION: No acute intracranial pathology. No significant changes from recent study. Dictated by: Vik Sullivan M.D. on 02/26/2025 at 13:47 Approved by: Vik Sullivan M.D. on 02/26/2025 at 13:48
--- NOTE | 2025-02-26 13:48 | DI.RAD.S_ITS ---
PROCEDURE: XR HIP W PEL IF DONE RT 2V INDICATIONS: glf TECHNIQUE: AP pelvis with lateral view(s) of the right hip(s). COMPARISON: None. FINDINGS: Bones: No fractures or dislocations. [id number] bilateral hip joint osteoarthritic changes are seen. No evidence of avascular necrosis of femoral head. Pelvic ring appears intact. No suspicious bony lesions. Soft tissues: The visualized bowel gas pattern is normal. No suspicious soft tissue calcifications. IMPRESSION: No acute right hip fracture or dislocation. Mwkt-[id number] bilateral hip joint osteoarthritis. No evidence of avascular necrosis. Dictated by: Vik Sullivan M.D. on 02/26/2025 at 13:40 Approved by: Vik Sullivan M.D. on 02/26/2025 at 13:40
[2025-02-26 14:04] LABS: Add Manual Diff / Slide Review NO; Hematocrit 37.4 % (36-46); Hemoglobin 12.7 g/dL (12.0-16.0); Lymphocytes Absolute Auto 2700 /uL (1100-4500); Mean Corpuscular HGB Conc 34.0 % (30-36); Mean Corpuscular Hemoglobin 29.8 PG (26-34); Mean Corpuscular Volume 87.5 fL (80-100); Platelet Count 217 X10^3/uL (150-400)
[2025-02-26 14:09] LABS: INR 0.9 (0.9-1.3); Prothrombin Time 10.6 SECONDS (9.4-12.5)
[2025-02-26 14:12] LABS: Alanine Aminotransferase 21 IU/L (<35); Albumin 4.2 g/dL (3.5-5.0); Albumin Globulin Ratio 1.4 (1.0-2.8); Alkaline Phosphatase 61 U/L (38-126); Blood Urea Nitrogen 21 mg/dL (7-17); Calcium 8.8 mg/dL (8.4-10.2); Carbon Dioxide 28 mmol/L (22-32); Chloride 104 mmol/L (98-107); Creatine Kinase 61 U/L (30-135); Estimated Glomerular Filt Rate > 60 mL/min (>60); Globulin 3.0 g/dL (1.7-4.1); Glucose 96 mg/dL (70-99); HEMOLYSIS 47 (0-50); Lipase 63 U/L (23-300); Magnesium 1.7 mg/dL (1.6-2.3); PTT Partial Thromboplastin Tim 26 SECONDS (25.1-36.5); Potassium 4.3 mmol/L (3.4-5.1); Sodium 138 mmol/L (137-145); Total Protein 7.2 g/dL (6.3-8.2)
[2025-02-26 14:24] LABS: NT-proBNP (BNP-Adult 18+) 1030 pg/mL (<450); Troponin I < 0.012 ng/mL (0.01-0.034)
--- NOTE | 2025-02-26 14:51 | ED.HEATRA ---
HPI - Head Injury General Chief complaint: Syncope Stated complaint: Fall; Head Injury, R Side Body Pain Time Seen by Provider: 02/26/25 14:06 Mode of arrival: Wheelchair History of Present Illness HPI Narrative: Patient here with . History of stroke diabetes hypertension. Complains of right side head pain and right neck pain. Patient states she was in the bedroom, was in another part of the house, she was moving a skirt from the bed to the closet in when she pivoted to the left she went to fast, she states, and bumped her right eyebrow against the corner of the closet/wall. She states she was stunned, but no loss of consciousness. She remembers yelling out before falling and hitting the ground. No loss of consciousness. responded right away. Patient is not on any blood thinners. Patient does have chronic dizziness when she turns and pivots or gets up too fast this is not new. She denies denies any chest pain back pain abdominal pain prior to the event. No headache or numbness tingling or weakness prior to hitting the edge of the closet wall. Patient in no distress. Patient recalls yelling on her way down with the fall and heard her and responded immediately. Related Data Home Medications ?Medication ?Instructions ?Recorded ?Confirmed cod liver oil See Rx Instructions PO QAM 05/26/21 02/27/25 Lutein & Zeaxanthin 1 tab PO DAILY 08/25/21 02/27/25 cholecalciferol (vitamin D3) 125 125 mcg PO DAILY 08/25/21 02/27/25 mcg (5,000 unit) capsule coenzyme Q10 100 mg capsule 100 mg PO DAILY 08/25/21 02/27/25 multivitamin 1 tab PO DAILY 08/25/21 02/27/25 turmeric 1,000 mg PO DAILY 08/25/21 02/27/25 N1O1 lozenges PO 09/17/24 02/27/25 diclofenac sodium 1 % topical gel 2 g topical QID 09/17/24 02/27/25 (Voltaren Arthritis Pain) Carditone 1.5 tab PO DAILY 12/30/24 02/27/25 ascorbate calcium (vitamin C) 500 1 g PO DAILY 12/30/24 02/27/25 mg tablet thyroid (pork) 90 mg tablet (FLARER 90 mg PO BID 12/30/24 02/27/25 Thyroid) alpha lipoic acid 600 mg capsule 600 mg PO BID 02/13/25 02/27/25 aspirin 81 mg tablet 81 mg PO DAILY 02/13/25 02/27/25 mecobalamin (vitamin B12) 1,000 1,000 mcg PO DAILY 02/13/25 02/27/25 mcg lozenges super beets PO 02/13/25 02/27/25 Previous Rx's ?Medication ?Instructions ?Recorded Disabled Parking Permit #1 ea 02/15/23 nebivolol 10 mg tablet 5 mg (1/2 x 10 mg) PO BID #90 tabs 01/02/25 Allergies Allergy/AdvReac Type Severity Reaction Status Date / Time diphenhydramine Allergy Severe hives and Verified 02/27/25 16:08 (DIPHENHYDRAMINE) rash pseudoephedrine Allergy Severe hives and Verified 02/27/25 16:08 (PSEUDOEPHEDRINE) rash shellfish derived (SHELLFISH Allergy Severe (JUST THE Verified 02/27/25 16:08 DERIVED) SHELL) rash Review of Systems Review of Systems Narrative: GENERAL: Negative chills, fatigue, malaise, fever, sweats. HEENT: Negative sinus pain, ear pain, sore throat RESPIRATORY: Negative dyspnea, cough CARDIOVASCULAR: Negative chest pain, palpitations GASTROINTESTINAL: Negative vomiting, nausea, abdominal pain : Negative dysuria, frequency, hematuria MUSCULOSKELETAL: Positive muscle or bony pain SKIN: Negative rash, skin lesions NEUROLOGIC: Negative weakness, numbness negative dizziness slurred speech facial droop ROS Unobtainable: All systems reviewed & are unremarkable except as noted in HPI and below Patient History Medical History Ingrown toenail Onychomycosis Hypothyroid Plantar warts Fractures (~2010) Malaria Cataracts, bilateral Endometriosis (~1979) History of urinary incontinence (~2019) Fecal incontinence (~2019) Arrhythmia Myalgia Mixed hyperlipidemia Type 2 diabetes mellitus TIA (transient ischemic attack) (~2019) Allergic rhinitis Fall at home Pertussis (1949) Mumps Measles Chicken pox DVT (deep venous thrombosis) (2000) Migraines 4 Hypothyroidism (2003) History of ectopic (1980) Concussion Surgical History History of strabismus surgery (1960) Status post wrist surgery History of bilateral salpingo-oophorectomy (BSO) (1980) Status post hysterectomy (1980) Family History Father Diabetes mellitus Hypertension Mother Parkinson's disease Sister Age: 79 Thyroid disease Family/Other Thyroid disease Brother Age: 75 Thyroid disease Social History household members: spouse Smoking Status: Never smoker alcohol intake frequency: 0-2 drinks per day Exam Narrative Exam Narrative: GENERAL: in no distress, not toxic not dyspneic HEAD: Normocephalic. EYES: Pupils equal round mild right eyebrow tenderness but skin is intact no edema. ENT: Mucous membranes moist. NECK: Trachea midline. Mild tenderness right paracervical muscle otherwise no midline tenderness step-off cervical thoracic or lumbar spine CARDIOVASCULAR: Regular rate and rhythm RESPIRATORY: Clear to auscultation. Breath sounds equal bilaterally. No wheezes, rales, or rhonchi. GASTROINTESTINAL: Abdomen soft, non-tender EXTREMITIES: No gross deformities. BACK: No flank tenderness. NEURO: AOx4. Clear speech, steady self gait from bed to the bathroom. No ataxia. SKIN: Warm and dry PSYCH: Not anxious, is cooperative Initial Vital Signs Initial Vital Signs: Vital Signs Temperature 98.6 F 02/26/25 13:35 Pulse Rate 54 L 02/26/25 13:35 Respiratory Rate 18 02/26/25 13:35 Blood Pressure 219/95 H 02/26/25 13:35 Pulse Oximetry 97 02/26/25 13:35 Oxygen Delivery Method Room Air 02/26/25 13:35 Course Orders Ordered: Discontinued Medications Aspirin (Aspirin 81 Mg Chew Tab) 324 mg PO NOW ONE Stop: 02/26/25 13:45 Last Admin: 02/26/25 17:19 Dose: Not Given Documented By: SB Hydralazine HCl (Hydralazine 20 Mg/Ml Vial) 5 mg IV NOW ONE Stop: 02/26/25 15:33 Last Admin: 02/26/25 16:33 Dose: 5 mg Documented By: RB Hydralazine HCl (Hydralazine 20 Mg/Ml Vial) 10 mg IV NOW ONE Stop: 02/26/25 16:56 Last Admin: 02/26/25 17:15 Dose: 10 mg Documented By: SB Vital Signs Vital signs: Vital Signs - 8 hr 02/26/25 13:35 02/26/25 16:16 02/26/25 16:30 Temperature 98.6 F Pulse Rate 54 L 57 L 61 Respiratory Rate 18 Blood Pressure 219/95 H Pulse Oximetry 97 98 100 Oxygen Delivery Method Room Air 02/26/25 16:31 02/26/25 16:31 02/26/25 16:32 Temperature Pulse Rate 60 57 L Respiratory Rate Blood Pressure 226/102 H Pulse Oximetry 99 99 Oxygen Delivery Method 02/26/25 16:32 02/26/25 16:33 02/26/25 16:37 Temperature Pulse Rate 60 56 L Respiratory Rate Blood Pressure 225/100 H 225/100 H Pulse Oximetry 100 Oxygen Delivery Method 02/26/25 16:37 02/26/25 16:40 02/26/25 16:45 Temperature Pulse Rate 54 L 57 L Respiratory Rate Blood Pressure 230/114 H 238/104 H 216/88 H Pulse Oximetry 97 98 Oxygen Delivery Method 02/26/25 16:50 02/26/25 16:55 02/26/25 17:01 Temperature Pulse Rate 58 L 56 L 57 L Respiratory Rate 18 14 24 Blood Pressure 212/99 H 232/97 H 227/92 H Pulse Oximetry 98 98 98 Oxygen Delivery Method 02/26/25 17:05 02/26/25 17:11 02/26/25 17:15 Temperature Pulse Rate 56 L 55 L 55 L Respiratory Rate 17 18 Blood Pressure 213/95 H 218/95 H 218/95 H Pulse Oximetry 96 97 Oxygen Delivery Method 02/26/25 17:18 02/26/25 17:19 Temperature Pulse Rate 62 55 L Respiratory Rate 15 Blood Pressure 227/101 H 218/95 H Pulse Oximetry 98 Oxygen Delivery Method Room Air MDM - Head Injury Lab Data 02/26/25 13:56 02/26/25 13:56 Labs: Lab Results 02/26/25 Range/Units 13:56 WBC 6.4 (4.5-11.0) X10^3/uL RBC 4.27 (4.0-5.2) X10^6/uL Hgb 12.7 (12.0-16.0) g/dL Hct 37.4 (36-46) % MCV 87.5 (80-100) fL MCH 29.8 (26-34) PG MCHC 34.0 (30-36) % RDW 13.8 (11.6-14.8) % Plt Count 217 (150-400) X10^3/uL Neut % (Auto) 46.1 L (50-75) % Lymph % (Auto) 42.3 H (25-40) % [place] % (Auto) 8.5 (3-14) % Eos % (Auto) 1.9 L (2-4) % Baso % (Auto) 1.2 (0-2) % Neut # (Auto) 3000 (1590-3374) /uL Lymph # (Auto) 2700 (1443-2421) /uL [place] # (Auto) 500 (0-900) /uL Eos # (Auto) 100 (0-450) /uL Baso # (Auto) 100 (0-100) /uL PT 10.6 (9.4-12.5) SECONDS INR 0.9 (0.9-1.3) APTT 26 (25.1-36.5) SECONDS Sodium 138 (137-145) mmol/L Potassium 4.3 (3.4-5.1) mmol/L Chloride 104 (98-107) mmol/L Carbon Dioxide 28 (22-32) mmol/L BUN 21 H (7-17) mg/dL Creatinine 0.70 (0.52-1.04) mg/dL Estimated GFR > 60 (>60) mL/min BUN/Creatinine Ratio 30.0 H (6-22) Glucose 96 (70-99) mg/dL Calcium 8.8 (8.4-10.2) mg/dL Magnesium 1.7 (1.6-2.3) mg/dL Total Bilirubin 0.6 (0.2-1.3) mg/dL AST 26 (14-36) IU/L ALT 21 (<35) IU/L Alkaline Phosphatase 61 (38-126) U/L Total Creatine Kinase 61 (30-135) U/L Troponin I < 0.012 (0.01-0.034) ng/mL NT-Pro-B Natriuret Pep 1030 H (<450) pg/mL Total Protein 7.2 (6.3-8.2) g/dL Albumin 4.2 (3.5-5.0) g/dL Globulin 3.0 (1.7-4.1) g/dL Albumin/Globulin Ratio 1.4 (1.0-2.8) Lipase 63 (23-300) U/L Urine Dip Bedside Urine Glucose Negative Bedside Urine Bilirubin - Negative Bedside Urine Ketone - Negative Urine Specific [place] 1.005 Bedside Urine Occult Blood - Negative Bedside Urine pH 6.5 Bedside Urine Protein - Negative Bedside Urine Urobilinogen - Negative Bedside Urine Nitrite + Positive Bedside Urine Leukocytes - Negative Esterase Imaging Data CT scan - head: Radiologist's Impression: [address] [address] [address] Scan Report Signed Patient: Enedina Ye MR#: [id number] : 1945 Acct:[id number] Age/Sex: 79 / F Date of Service: 02/26/25 Loc: ED Accession Number: [id number] Procedure: CT head/brain wo con Ordering Provider: Francisco Stevens MD PROCEDURE: CT HEAD/BRAIN WO CON INDICATIONS: glf TECHNIQUE: Noncontrast 4.5 mm thick angled axial sections acquired from the foramen magnum to the vertex, with coronal and sagittal reformats. For radiation dose reduction, the following was used: automated exposure control, adjustment of mA and/or kV according to patient size. COMPARISON: [facility], CT, CT HEAD/BRAIN WO CON, 12/31/2024, 13:57. FINDINGS: Image quality: Diagnostic. CSF spaces: Basal cisterns are patent. No extra-axial fluid collections. The ventricles are symmetric in size and shape. Brain: No intracranial bleeds or mass effect. Old infarction in right basal ganglia is again seen unchanged from prior study. There is cerebral volume loss, with resultant ventricular and sulcal prominence. There are periventricular and deep white matter chronic small vessel ischemic changes. There is intracranial internal carotid artery atherosclerosis. Skull and face: Calvarium and visualized facial bones appear intact, without suspicious lesions. Sinuses: Visualized sinuses and mastoids are clear. IMPRESSION: No acute intracranial pathology. No significant changes from recent study. Dictated by: Vik Sullivan M.D. on 02/26/2025 at 13:47 Approved by: Vik Sullivan M.D. on 02/26/2025 at 13:48 CT - cervical spine: Radiologist's Impression: [address] [address] [address] Scan Report Signed Patient: Enedina Ye MR#: [id number] : 1945 Acct:[id number] Age/Sex: 79 / F Date of Service: 02/26/25 Loc: ED Accession Number: [id number] Procedure: CT cervical spine wo con Ordering Provider: Francisco Stevens MD PROCEDURE: CT CERVICAL SPINE WO CON INDICATIONS: glf TECHNIQUE: Noncontrast 3 mm thick sections acquired from the skull base to the T4 level. Sagittal and coronal reformats were then constructed. For radiation dose reduction, the following was used: automated exposure control, adjustment of mA and/or kV according to patient size. COMPARISON: [facility], CT, CT CERVICAL SPINE WO CON, 12/31/2024, 13:57. FINDINGS: Image quality: Excellent. Bones: No fractures or dislocations. Straightening of cervical lordosis. Loss of disc height, degenerative endplate changes and bilateral facet hypertrophic changes are noted throughout cervical spine causing jixe-su-kyzbujsr central canal stenosis and bilateral neural foraminal narrowing more notably at C5-6 and C6-7 levels. Visualized superior ribs are intact. Soft tissues: Prevertebral soft tissues are normal in thickness. No paravertebral hematomas. No apical pneumothoraces. IMPRESSION: 1. No displaced fracture or traumatic subluxation. 2. Tbwb-ny-tmtuauer spondylitic changes throughout cervical spine as above. Dictated by: Vik Sullivan M.D. on 02/26/2025 at 13:48 Approved by: Vik Sullivan M.D. on 02/26/2025 at 13:52 Extremity x-ray #1: Radiologist's Impression: [address] [address] XRay Report Signed Patient: Enedina Ye MR#: [id number] : 1945 Acct:[id number] Age/Sex: 79 / F Date of Service: 02/26/25 Loc: ED Accession Number: [id number] Procedure: XR hip w pel RT 2V Ordering Provider: Francisco Stevens MD PROCEDURE: XR HIP W PEL IF DONE RT 2V INDICATIONS: glf TECHNIQUE: AP pelvis with lateral view(s) of the right hip(s). COMPARISON: None. FINDINGS: Bones: No fractures or dislocations. Urip-ca-tujprxqa bilateral hip joint osteoarthritic changes are seen. No evidence of avascular necrosis of femoral head. Pelvic ring appears intact. No suspicious bony lesions. Soft tissues: The visualized bowel gas pattern is normal. No suspicious soft tissue calcifications. IMPRESSION: No acute right hip fracture or dislocation. Utbt-ld-tdpxhnim bilateral hip joint osteoarthritis. No evidence of avascular necrosis. Dictated by: Vik Sullivan M.D. on 02/26/2025 at 13:40 Approved by: Vik Sullivan M.D. on 02/26/2025 at 13:[address] [facility] Narrative Medical decision making narrative: Patient here with . History of stroke diabetes hypertension. Complains of right side head pain and right neck pain. Patient states she was in the bedroom, was in another part of the house, she was moving a skirt from the bed to the closet in when she pivoted to the left she went to fast, she states, and bumped her right eyebrow against the corner of the closet/wall. She states she was stunned, but no loss of consciousness. She remembers yelling out before falling and hitting the ground. No loss of consciousness. responded right away. Patient is not on any blood thinners. Patient does have chronic dizziness when she turns and pivots or gets up too fast this is not new. She denies denies any chest pain back pain abdominal pain prior to the event. No headache or numbness tingling or weakness prior to hitting the edge of the closet wall. Patient in no distress. Patient recalls yelling on her way down with the fall and heard her and responded immediately. Patient up and walking to the bathroom without assist, steady gait after history and physical After history and exam, EKG CBC CMP troponin CT head CT cervical spine right hip x-ray chest x-ray [facility] Medical records reviewed: No recent visit for this complaint Differential considered: Includes but not limited to concussion facial contusion chronic dizziness Lab Test results independently reviewed as above. Pertinent findings: WBC 6.4 hemoglobin 12.7 INR 0.9 sodium 138 potassium 4.3 BUN 21 creatinine 0.7 troponin less than 0.012 Independently reviewed EKG sinus bradycardia rate 57 Imaging studies independently reviewed: CT head CT cervical spine chest x-ray x-ray right hip no acute findings Consultations: Re-evaluations: 5:43 p.m.. Blood pressure systolic at 205. Patient has no symptoms she has been resting comfortably at times she gets anxious. She does not want to wait here any longer. 15 mg of hydralazine has been provided. She has no headache shortness of breath chest pain or dizziness. She states her blood pressure will improve when she gets home. It is just being in this environment is difficult. Return precautions reviewed. Reviewed results with her and . They desire discharge home. Discussion: Appropriate for discharge home exam is reassuring. Return precautions reviewed with patient and . Blood pressure is asymptomatic and not do not believe this is related to her bumping her head or cause to bump her head.. The environment she is in she states can cause some anxiety. She states it will improve when she gets home. She desires discharge home. Diagnosis: Eyebrow contusion Discharge Plan Departure Patient Disposition: Home Clinical Impression: Contusion of forehead Qualifiers: Encounter type: initial encounter Qualified Code(s): S00.83XA - Contusion of other part of head, initial encounter Instructions: DI for Concussion, DI for Contusion, DI for Closed Head Injury Activity Restrictions/Additional Instructions: Your exam and laboratory studies imaging studies are reassuring. Your blood pressure is elevated and may be due to being here-anxious. Please do see your family doctor this week for re-evaluation of your blood pressure. You should take your blood pressure measurement tomorrow mid day to see for improvement. Continue home medications. Return if worse if any questions or concerns. Prescriptions: No Action nebivolol 10 mg tablet 5 mg PO BID Qty: 90 1RF Rx Instructions: Take one half tablet by mouth twice a day. aspirin 81 mg tablet 81 mg PO DAILY alpha lipoic acid 600 mg capsule 600 mg PO BID mecobalamin (vitamin B12) 1,000 mcg lozenge 1,000 mcg PO DAILY Rx Instructions: allow to dissolve in mouth OR may chew lightly before swallowing super beets PO Lutein & Zeaxanthin 25 mg 1 tab PO DAILY cholecalciferol (vitamin D3) 125 mcg (5,000 unit) capsule 125 mcg PO DAILY multivitamin Tablet 1 tab PO DAILY turmeric 1,000 mg PO DAILY coenzyme Q10 100 mg capsule 100 mg PO DAILY ascorbate calcium (vitamin C) 500 mg tablet 1 g PO DAILY Carditone 350 mg 1.5 tab PO DAILY (DME) Disabled Parking Permit See Rx Instructions .ROUTE .MEDSUPPLY Qty: 1 0RF Rx Instructions: Valid for 5 years N1O1 lozenges PO diclofenac sodium [Voltaren Arthritis Pain] 1 % gel 2 g topical QID Rx Instructions: apply to single elbow, wrist or hand; for hand includes palm/fingers/back of hand thyroid (pork) [FLARER Thyroid] 90 mg tablet 90 mg PO BID cod liver oil Capsule See Rx Instructions PO QAM Rx Instructions: 1 teaspoon PO every morning; Referrals: Rola Sands, [Primary Care Provider, Medical] Stand Alone Forms: Patient Portal/API
[2025-02-26] MEDS: hydrALAZINE 20 MG/ML VIAL 5 MG IV (16:33)
[2025-02-26] MEDS: hydrALAZINE 20 MG/ML VIAL 10 MG IV (17:15)
== END 2025-02-26 17:58 | disposition home or self-care (01) ==
PROVIDERS: Emergency Provider Emergency Medicine; Family Provider Family Medicine; PCP Family Medicine
DX: S00.83XA Contusion of other part of head, initial encounter (principal); R00.1 Bradycardia, unspecified; W22.01XA Walked into wall, initial encounter; Z86.79 Personal history of other diseases of the circulatory system; Z86.73 Personal history of transient ischemic attack (TIA), and cerebral infarction without residual deficits
CPT/HCPCS: 36415; 70450; 71045; 72125; 73502; 80053; 81003; 82550; 83690; 83735; 83880; 84484; 85025; 85610; 85730; 93005; 96374; 96376; 99284; J0360

== ENCOUNTER → 2025-03-06 14:33 | Outpatient (CLI) | payer MEDICARE, SELFPAY ==
[2025-02-27 10:16] VITALS: BMI 32.6
== END ==
PROVIDERS: Family Provider Family Medicine; PCP Family Medicine; Referring Provider Family Medicine; Visit Provider Family Medicine
DX: R55 Syncope and collapse (principal)
CPT/HCPCS: 93246